=== PATIENT | female | born 1945 | race Caucasian/White ===

== ENCOUNTER → 2016-06-29 | Outpatient (CLI) | payer MEDICARE, BC ==
[2015-10-16 06:30] VITALS: BP 152/100
[~2016-06-29] MED LIST: ACET-704 PO; CALC-98 PO; CELE200C PO; CHOL400T2 PO; ESCI20TA10 PO; FESO8TAB PO; FLUT16SP NS; HYDR-2762 PO; LANS30CA PO; LETR2.5T18 PO; MULT1TAB52 PO; OMEG500C3 PO; RANI150T2 PO; RANI150T6 PO; WARF2TAB7 PO
--- NOTE | 2016-06-29 15:41 | KCIC ---
PROCEDURE CT chest without contrast dated 06/29/2016. HISTORY Follow lung nodule. History of breast cancer. TECHNIQUE Contiguous axial imaging of the chest performed without the administration of intravenous contrast.Exposure: One or more of the following individualized dose reduction techniques were utilized for this exam: 1. Automated exposure control. 2. Adjustment of the mA and/or kV according to patient size. 3. Use of iterative reconstruction technique. COMPARISON 09/09/2015. FINDINGS Heart size within normal limits. No pericardial effusion. Mild ectasia of the ascending thoracic aorta measuring 3.8 centimeters transverse diameter, unchanged. No mediastinal, hilar or axillary lymphadenopathy. Breast implants are stable. Central airways are patent. Enlarging mass lesion of the medial left lower lobe measures up to 3.2 centimeter maximum dimension versus 2.2 centimeter previously. The lesion results in some narrowing of the basilar segmental airways. There is a new ground-glass nodular density in the left lower lobe posterior to the main lesion that measures 6 millimeters in size (image 45). There is also a ground-glass nodule at the posterior aspect of the left upper lobe on image 40 by measures 3 millimeters in size, unchanged. Ground-glass nodule in the posterior aspect of the lingula on image 55 measures bb 8 millimeters, unchanged. Multiple additional vague nodular densities throughout both lungs are unchanged. No pleural effusion or pneumothorax. Limited images of the upper abdomen are unremarkable. Gallbladder surgically absent. Bone windows show no acute findings. Multilevel spondylosis. IMPRESSION - Enlarging mass at the medial aspect of the left lower lobe, primary bronchogenic malignancy versus metastatic disease. If indicated, PET-CT could better evaluate. - Multiple additional noncalcified nodular densities throughout both lungs, overall not significantly changed. There is a new small noncalcified nodule in the left lower lobe just posterior to the main mass. Electronically signed by: Camacho Roe (Jun 29, 2016 15:40:38)
--- NOTE | 2016-06-30 10:04 | KCIC ---
PROCEDURE Bone mineral density scan dated 06/29/2016. HISTORY Postmenopausal screening. COMPARISON 02/05/2009. FINDINGS Bone Density: -BMD: (g/cm2) - AP Spine Total (L1-L4)..........1.225 - Total left Hip.................0.628 T-Score: - AP Spine Total (L1-L4).........1.6 - Total left Hip.................-2.6 Z-Score: - AP Spine Total (L1-L4)..........3.9 - Total left Hip.................-0.9 As compared to the prior exam, density values of the left hip have diminished by 26 percent. Density values of the lumbar spine have diminished by 12 percent. World Health Organization criteria for BMD interpretation classify patients as Normal (T-score at or above -1.0), Osteopenic (T-score between -1.0 and -2.5), or Osteoporotic (T-score at or below -2.5). IMPRESSION 1. Bone rule density values of the left hip are within the range of osteoporosis and have diminished by 26 percent compared to the prior exam. 2. Density values of the lumbar spine remain within the range of normal, however there is been 12 percent decrease compared to the prior exam. Electronically signed by: Camacho Roe (Jun 30, 2016 10:03:42)
== END | disposition home or self-care (01) ==
LOC: KCIC CT 14:50
PROVIDERS: ATTEND Internal Medicine Hematology & Oncology
DX: Z79.811 Long term (current) use of aromatase inhibitors (principal); Z78.0 Asymptomatic menopausal state; C50.919 Malignant neoplasm of unspecified site of unspecified female breast; R91.1 Solitary pulmonary nodule; M85.88 Other specified disorders of bone density and structure, other site
CPT/HCPCS: 71250; 77080

== ENCOUNTER 2016-07-06 07:04 | Outpatient (CLI) | payer MEDICARE, BC ==
[2016-07-06] VITALS (12 sets, daily range): BP systolic 160–189; BP diastolic 88–108
[~2016-07-06] VITALS: Ht 160 cm; Wt 90.7 kg
[2016-07-06] MEDS ORDERED: OMEP20TA PO (07:32)
[2016-07-06] MEDS ORDERED: LOSA25TA4 PO (07:32)
[2016-07-06] MEDS ORDERED: CELE200C PO (07:32)
[2016-07-06] MEDS ORDERED: ESCI20TA10 PO (07:32)
[2016-07-06 07:51] LABS: BASO # 0.1 x10^3/uL (0.0-0.2); BASO % 1 % (0-3); EOS % 5 % (0-3); HEMATOCRIT 41.1 % (36.0-47.0); HEMOGLOBIN 13.3 g/dL (12.0-15.5); LYMPH # 1.9 x10^3/uL (1.0-4.8); LYMPH % 33 % (24-48); MEAN CORPUSCULAR HEMOGLOBIN 27 pg (25-35); MEAN CORPUSCULAR HGB CONC 32 g/dL (31-37); MEAN CORPUSCULAR VOLUME 85 fL (79-100); MONO % 13 % (0-9); NEUT % 48 % (31-73); PLATELET COUNT 234 x10^3/uL (140-400); RED BLOOD COUNT 4.87 x10^6/uL (3.50-5.40); RED CELL DISTRIBUTION WIDTH 15.4 % (11.5-14.5); WHITE BLOOD COUNT 5.7 x10^3/uL (4.0-11.0)
[2016-07-06 08:01] LABS: PROTHROMBIN TIME PATIENT 12.2 SEC (11.7-14.0)
[2016-07-06] MEDS ORDERED: LIDOCAINE 1% / SOD BICARB 8.4% 20 ML VIAL. IJ ONE ×2 (08:22→09:15)
[2016-07-06] MEDS ORDERED: MIDAZOLAM HCL/PF 2 MG/2 ML VIAL. ONE (08:43)
[2016-07-06] MEDS ORDERED: FENTANYL PF 100 MCG/2 ML VIAL. ONE (08:43)
[2016-07-06] MEDS ORDERED: MIDAZOLAM HCL/PF 2 MG/2 ML VIAL. IV ONE (09:15)
[2016-07-06] MEDS ORDERED: FENTANYL PF 100 MCG/2 ML VIAL. IV ONE (09:15)
--- NOTE | 2016-07-06 09:18 | PDOC ---
MODERATE SEDATION ASSESSMENT RISKS/ALTERNATIVES Risks/Alternatives Risks and alternatives of this type of sedation and procedure discussed with: RISK/ALTERNATIVES: Patient H & P ON CHART H & P H & P on chart and reviewed for co-morbid conditions and appropriate labs. H&P ON CHART: Yes STATUS PREG STATUS ASSESSED: N/A MEDS/ALLERGIES REVIEWED Meds/Allergies Reviewed Medications and Allergies including time and route of recently administered narcotics and sedatives. MEDS/ALLERGIES REVIEWED: Yes ASA RATING ASA RATING: II AIRWAY ASSESSMENT Airway Assessment Airway patency, oral function limitations, presence of caps, crowns, dentures, partials, and ability to extend neck assessed. AIRWAY ASSESSMENT: Yes MALLAMPATI SCORE MALLAMPATI SCORE: II PRE-SEDATION ASSESSMENT PRE-SEDATION ASSESSMENT: Yes BIENVENIDO CRISOSTOMO MD Jul 06, 2016 09:18
--- NOTE | 2016-07-06 09:20 | PDOC1 ---
History and Physical Date of Procedure Date of Admission 07/06/[address] guided left lung bx Indication Indication 70 YO female with infrahilar left lung mass----? bronchogenic carcinoma---? met breast cancer Past Medical History Past Medical History See Nursing Pre procedure PMH---includes breast cancer in 2012. Past Surgical History Past Surgical History See Nursing Pre procedure PSH Current Medications Current Medications Current Medications Lidocaine/Sodium Bicarbonate (Buffered Lidocaine 1%) 20 ml STK-MED ONCE IJ ; Start 07/06/16 at 08:22; Stop 07/06/16 at 08:23; Status DC Fentanyl Citrate (Fentanyl 2ml Vial) 100 mcg STK-MED ONCE .ROUTE ; Start at 08:43; Stop 07/06/16 at 08:44; Status DC Midazolam HCl (Versed) 2 mg STK-MED ONCE .ROUTE ; Start 07/06/16 at 08:43; Stop 07/06/16 at 08:44; Status DC Lidocaine/Sodium Bicarbonate (Buffered Lidocaine 1%) 10 ml 1X ONCE IJ Last administered on 07/06/16 09:11; Start 07/06/16 at 09:15; Stop 07/06/16 at 09:16 ; Status DC Midazolam HCl (Versed) 1.5 mg 1X ONCE IV Last administered on 07/06/16 09:11 ; Start 07/06/16 at 09:15; Stop 07/06/16 at 09:16; Status DC Fentanyl Citrate (Fentanyl 2ml Vial) 75 mcg 1X ONCE IV Last administered on 09:12; Start 07/06/16 at 09:15; Stop 07/06/16 at 09:16; Status DC Active Scripts Active Reported Losartan Potassium 25 Mg Tablet 25 Mg PO DAILY Omeprazole 20 Mg Tablet.dr 20 Mg PO DAILY Lexapro (Escitalopram Oxalate) 20 Mg Tablet 20 Mg PO BID Celebrex (Celecoxib) 200 Mg Capsule 200 Mg PO BID 30 Days Multivitamins (Multivitamin) 1 Each Tablet 1 Each PO DAILY Vitamin D3 (Cholecalciferol (Vitamin D3)) 400 Unit Tablet 800 Unit PO DAILY Lansoprazole 30 Mg Capsule.dr 30 Mg PO DAILY Calcium + Vitamin D Tablet (Calcium Carbonate/Vitamin D3) 1 Each Tablet 1 Each PO PRN BID PRN Femara (Letrozole) 2.5 Mg Tablet 2.5 Mg PO DAILY Toviaz (Fesoterodine Fumarate) 8 Mg Tab.er.24h 8 Mg PO DAILY Allergies Allergies: Coded Allergies: No Known Allergies (Verified Allergy, Unknown, 10/14/15) Physical Exam Vital Signs Vital Signs Date Time Temp Pulse Resp B/P Pulse Ox O2 Delivery O2 Flow Rate FiO2 07/06/16 09:12 67 14 95 Nasal Cannula 2.0 07/06/16 08:06 189/96 07/06/16 07:43 98.5 98.5 Lungs: Clear to auscultation Heart: Regular rate Psych/Mental Status: Mental status NL Diagnostic Data/Imaging Images PMC CT chest from 06/29/16 personally reviewed Assessment Assessment 3 cm left infrahilar lung mass---bronchogenic carcinoma vs met breast cancer Problems: Plan Plan CT guided bx infrahilar left lung mass BIENVENIDO CRISOSTOMO MD Jul 06, 2016 09:20
--- NOTE | 2016-07-06 09:27 | PDOC ---
Exam Help Desk Team Leader Help Desk Team Leader Laurent Pre-Procedure Diagnosis Pre-Procedure Diagnosis Enlarging 3 cm left infrahilar lung mass----bronchogenic carcinoma vs met breast cancer Post-Procedure Diagnosis Post-Procedure Diagnosis Same Procedure Performed Procedure Performed CT guided infrahilar left lung mass Type of Anesthesia Type of Anesthesia Local + Mod sedation Estimated Blood Loss EBL: Trace Specimens Specimans 3 18G core bx to path in formalin Condition of Patient Condition of Patient Stable. Minimal immediate post bx hydro-ptx. Disposition Disposition From IR/CT to CVOBS. Insp/exp CXR 1 hr post bx. May discharge home post recovery, if no ptx or other problems. F/u with Dr Pastor. Full report to follow. BIENVENIDO CRISOSTOMO MD Jul 06, 2016 09:27
--- NOTE | 2016-07-06 10:27 | RAD ---
Indication post biopsy. Note is made of the biopsy procedure performed approximately 90 minutes earlier. Inspiratory and expiratory views were obtained. No complication is seen associated with the biopsy. Specifically no pneumothorax is seen. IMPRESSION: No evidence of pneumothorax post left lung biopsy
--- NOTE | 2016-07-07 08:09 | RAD ---
CT-guided left lung biopsy Indication: 70-year-old female with an enlarging, 3 cm infrahilar left lung mass. New proximal attending carcinoma versus metastatic breast cancer. Image guided biopsy has been requested by oncology. Anesthesia: 22 minutes moderate sedation was provided utilizing a total of 1.5 mg Versed and 75 mcg fentanyl, IV. The patient was appropriately monitored by a qualified independent observer throughout the time of moderate sedation. Consent: The procedure was explained in its entirety to the patient and/or the patient's designated contracts representative by a member of the treatment team. This included a discussion of risks and benefits and acceptable alternatives to the procedure, as well as expected consequences of no treatment at all. Discussion of risks included, but was not limited to, those that are most frequent and those that are rare, but possibly severe or life-threatening, as well as the possibility of unforeseen complications. Procedure: Informed consent was obtained from the patient. She was placed prone on the CT scanner. Preliminary noncontrast CT images through chest confirmed the previously described infrahilar left lung mass. A left posterior skin site suitable for CT-guided biopsy was selected and marked. That area was prepped and draped in the usual sterile fashion. Moderate sedation was provided with IV Versed and fentanyl. Using aseptic technique, local anesthesia, and CT guidance, a 17-gauge biopsy guide needle was successfully introduced into posterior aspect of the infrahilar mass. Three 18-gauge core biopsy samples were then obtained, and were submitted in formalin to pathology. The guide needle was removed and a sterile dressing was applied. Patient tolerated the procedure well without apparent complication. Completion CT images revealed a very minimal left hydropneumothorax, of unlikely clinical significance. A follow-up inspiration/expiration chest x-ray will be obtained in observation prior to patient discharge. Impression: Successful CT-guided biopsy of left infrahilar lung mass, as described. PQRS Compliance Statement: One or more of the following individualized dose reduction techniques was utilized for this procedure: 1. Automated exposure control. 2. Adjustment of MA and/or KV according to patient size. 3. Iterative reconstruction technique.
--- NOTE | 2016-07-08 11:05 | PATHOLOGY ---
PATHOLOGY REPORT * * * * * * * * FINAL DIAGNOSIS: Lung tissue, left lung mass CT-guided biopsy: - ADENOCARCINOMA, MODERATELY-WELL DIFFERENTIATED. SEE COMMENT COMMENT: Sections of the left lung mass CT-guided biopsy show extensive replacement of lung parenchyma by a malignant epithelial neoplasm. The neoplasm is composed of crowded, irregular glands which infiltrate a fibroelastotic and focally inflamed stroma. The malignant glands are lined by columnar and cuboidal shaped cells which have eosinophilic cytoplasm and possess enlarged, rounded to ovoid, mild to moderately pleomorphic hyperchromatic nuclei containing prominent nucleoli. 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 The case is also examined by Dr. Soto, who concurs with the diagnosis. (JPM::trish; d/t: 07/07/16) Special Stains Performed: Immunoperoxidase stains for CK7, CK20, TTF-1, Napsin, GCDFP-15, BCA-225 REPORT ELECTRONICALLY SIGNED BY: Esequiel García M.D. DATE/TIME: 07/08/2016 11:04 * * * * * * * * GROSS PATHOLOGY: Received in formalin labeled "Chelsy Gilbert, left lung biopsy," are three distinct needle cores of lin soft tissue ranging from 1.1 to 1.5 cm in length, which are submitted entirely in cassette A1. (CAA; 07/06/2016) INITIAL CPT CODE(S): A; 73828, 97667, 10173, 62714, 19785, 68028, 46819 Professional services performed by [facility] at [address] [address] Technical services performed by [facility] at [address] [place] [address], [address], [place] [address]. SPECIMEN(S) RECEIVED: A.Left lung mass CLINICAL HISTORY: Infrahilar left lung mass, bronch ca?, breast cancer 2012 PATIENT: CHELSY GILBERT /AGE: 9 1945 (Age: 70) PATIENT #: [id number] ALT CASE #: SPECIMEN COLLECTION DATE: 07/06/2016 SPECIMEN RECEIVED DATE: 07/06/2016 [facility] - [id number] [address] - PHONE: [phone] * * * END OF REPORT * * *
== END 2016-07-06 11:00 | disposition home or self-care (01) ==
LOC: INTRAD 07:04
PROVIDERS: ATTEND Internal Medicine Hematology & Oncology
DX: R91.8 Other nonspecific abnormal finding of lung field (principal); E66.9 Obesity, unspecified; K21.9 Gastro-esophageal reflux disease without esophagitis; M19.90 Unspecified osteoarthritis, unspecified site; F32.9 Major depressive disorder, single episode, unspecified; Z72.89 Other problems related to lifestyle; Z96.651 Presence of right artificial knee joint; Z87.442 Personal history of urinary calculi; Z90.710 Acquired absence of both cervix and uterus; Z90.49 Acquired absence of other specified parts of digestive tract; Z98.41 Cataract extraction status, right eye; Z98.42 Cataract extraction status, left eye; Z79.01 Long term (current) use of anticoagulants
CPT/HCPCS: 32405; 36415; 71035; 77012; 85027; 85610; J2250; J3010

== ENCOUNTER → 2016-07-09 | Outpatient (CLI) | payer MEDICARE, BC ==
[2016-07-06 10:35] VITALS: BP 161/88
[~2016-07-09] MED LIST changes: +LOSA25TA4 PO; +OMEP20TA PO
--- NOTE | 2016-07-09 13:08 | RAD ---
Indication lung mass. PET/CT was performed from the skull through the proximal thigh. CT was performed primarily for localization and attenuation purposes as opposed to primary diagnostic purposes. No prior PET/CT imaging is available. Note is made of a CT examination of the chest 06/29/2016 demonstrating a parenchymal mass in the left lower lobe. Note is made that this mass was biopsied 07/06/2016. History of breast malignancy is also noted. 13.3 mCi of FDG was administered. The blood sugar during the examination was 12. On CT no significant finding is seen in the head or neck. Known pathology in the left lower lobe is reproduced. No significant finding is seen in the abdomen or pelvis. There is a 5.3 cm low-density mass associated with the right kidney most compatible with a cyst. There are degenerative changes in the lumbar spine. On PET the FDG is physiologically distributed in the visualized brain. No abnormal activity is seen in the neck. The parenchymal mass in the left lower lobe is FDG avid with maximum SUVs of approximately 7.6. It is most compatible with a primary neoplasm. The mass abuts the descending thoracic aorta. There is no evidence of extension into the left hilum or mediastinum. The FDG is physiologically distributed in the abdomen and pelvis. IMPRESSION: Known parenchymal mass in the left lower lobe, abutting the descending thoracic aorta, is FDG avid (maximum SUV 7.6). It is most compatible with a primary neoplasm. There is no evidence of distant metastatic disease or metastasis to the left hilum or mediastinum.
== END | disposition home or self-care (01) ==
LOC: PETSC 13:29
PROVIDERS: ATTEND Internal Medicine Hematology & Oncology
DX: C50.411 Malignant neoplasm of upper-outer quadrant of right female breast (principal); R91.8 Other nonspecific abnormal finding of lung field
CPT/HCPCS: 78815; A9552

== ENCOUNTER → 2016-07-16 | Outpatient (CLI) | payer MEDICARE, BC ==
[2016-07-06 10:35] VITALS: BP 161/88
[~2016-07-16] MED LIST changes: +IOHEXOL 350 MG/ML 100 ML VIAL. IV ONE
[2016-07-16 10:56] LABS: CREATININE 0.9 mg/dL (0.6-1.0); GFR 61.5
--- NOTE | 2016-07-16 12:05 | RAD ---
CT chest angiogram with contrast History: Preoperative evaluation, evaluate if mass invades aorta. Comparison: CT chest 06/29/2016 Technique: Helical CT angiogram of the chest with attention to the aorta was performed after the administration of intravenous contrast, 75 mL Omnipaque 300. Axial 2-D reconstructions were obtained. Coronal and sagittal 3-D MIPS were also obtained. Rotating 3-D volume rendered reconstructions of the aorta were also obtained. One or more of the following individualized dose reduction techniques were utilized for the study: Automated exposure control Adjustment of mA and/or kV according to patient's size Use of iterative reconstruction technique. Findings: Thoracic aorta demonstrates variant anatomy with the left vertebral artery arising directly from the aortic arch. No aortic dissection is seen. Mid ascending thoracic aorta has diameter of 3.8 cm. Descending thoracic aorta has diameter of 2.3 cm. Irregular left lower lobe lobe pulmonary mass is again seen. On the current examination, maximum axial dimension is 3.7 x 2.3 cm. The mass is adjacent and appears to contact one third of the circumference of the descending thoracic aorta. There is no definitive evidence of invasion into the aortic lumen. No mediastinal lymphadenopathy is seen. Heart and pericardium unremarkable. No pneumothorax or pleural effusion is appreciated. Bilateral breast implants are seen. Several small scattered soft tissue nodules are again seen in both lungs. Impression: 1. Left lower lobe irregular mass is again seen adjacent to the descending thoracic aorta. The mass appears to contact one third of the circumference of the descending thoracic aorta, but there is no definitive evidence of invasion into the aortic lumen. 2. No evidence of aortic dissection or aneurysm. 3. Again seen are multiple scattered pulmonary nodules.
== END | disposition home or self-care (01) ==
LOC: CT 10:22
PROVIDERS: ATTEND Internal Medicine Hematology & Oncology
DX: C34.92 Malignant neoplasm of unspecified part of left bronchus or lung (principal)
CPT/HCPCS: 36415; 71275; 82565; 84520; Q9967

== ENCOUNTER → 2016-07-21 | Outpatient (CLI) | payer MEDICARE, BC ==
[~2016-07-21] MED LIST changes: -ESCI20TA10 PO; +HYDR-2758 PO; -IOHEXOL 350 MG/ML 100 ML VIAL. IV ONE; +LEXAPRO20 MG PO; -OMEP20TA PO; +OMEP20TA8 PO
[2016-07-21 14:23] LABS: BASO # 0.1 x10^3/uL (0.0-0.2); BASO % 1 % (0-3); EOS % 4 % (0-3); HEMATOCRIT 40.8 % (36.0-47.0); HEMOGLOBIN 13.9 g/dL (12.0-15.5); LYMPH # 2.3 x10^3/uL (1.0-4.8); LYMPH % 30 % (24-48); MEAN CORPUSCULAR HEMOGLOBIN 28 pg (25-35); MEAN CORPUSCULAR HGB CONC 34 g/dL (31-37); MEAN CORPUSCULAR VOLUME 83 fL (79-100); MONO % 9 % (0-9); NEUT % 57 % (31-73); PLATELET COUNT 278 x10^3/uL (140-400); RED BLOOD COUNT 4.94 x10^6/uL (3.50-5.40); RED CELL DISTRIBUTION WIDTH 15.4 % (11.5-14.5); WHITE BLOOD COUNT 7.9 x10^3/uL (4.0-11.0)
[2016-07-21 14:31] LABS: INR 1.1 (0.8-1.1); PROTHROMBIN TIME PATIENT 13.1 SEC (11.7-14.0)
[2016-07-21 14:53] LABS: ALBUMIN 3.5 g/dL (3.4-5.0); CALCIUM 9.1 mg/dL (8.5-10.1); CREATININE 0.9 mg/dL (0.6-1.0); GFR 61.5; POTASSIUM 4.4 mmol/L (3.5-5.1); TOTAL BILIRUBIN 0.4 mg/dL (0.2-1.0)
--- NOTE | 2016-07-21 21:37 | RESP ---
DATE OF SERVICE: 07/21/2016 The patient's FVC was 2.68, which is 96% predicted; FEV1 2.19, which is 104% predicted. FEV1/FVC ratio was normal. No bronchodilators were given. Total lung capacity was 151% predicted and residual volume was 235% predicted. Diffusion capacity 110% predicted. IMPRESSION: 1. No significant obstructive airway disease. 2. No bronchodilators were given. 3. Lung volumes consistent with hyperinflation. 4. Normal diffusion capacity. SWETA LENTZ MD DR: ANDRE/aishwarya JOB#: [id number] / [id number] GUILLERMINA Booker MD MTDD
== END | disposition home or self-care (01) ==
LOC: SURGPAT 08:00
PROVIDERS: ATTEND Thoracic Surgery (Cardiothoracic Vascular Surgery)
DX: Z01.818 Encounter for other preprocedural examination (principal); C34.90 Malignant neoplasm of unspecified part of unspecified bronchus or lung
CPT/HCPCS: 36415; 80053; 83036; 85027; 85610; 85730; 87641; 94010; 94729; G0238

== ENCOUNTER → 2016-07-22 | Outpatient (CLI) | payer MEDICARE, BC ==
[2016-07-06 10:35] VITALS: BP 161/88
[~2016-07-22] MED LIST changes: +ESCI20TA10 PO; -HYDR-2758 PO; -LEXAPRO20 MG PO; +OMEP20TA PO; -OMEP20TA8 PO
--- NOTE | 2016-07-22 10:10 | CARD ---
APPROVED REPORT EXAM: Two-dimensional and M-mode echocardiogram with Doppler and color Doppler. Other Information Quality : Technically Limited Rhythm : NSR INDICATION Hypertension/HCVD 2D DIMENSIONS RVDd2.6 (2.9-3.5cm)Left Atrium(2D)3.3 (1.6-4.0cm) IVSd1.7 (0.7-1.1cm)Aortic Root(2D)2.8 (2.0-3.7cm) LVDd3.4 (3.9-5.9cm)LVOT Diameter2.2 (1.8-2.4cm) PWd1.7 (0.7-1.1cm)LVDs2.5 (2.5-4.0cm) FS (%) 26.6 %SV26.0 ml LVEF(%)53.0 (>50%) Aortic Valve AoV Peak Jose Antonio.127.7cm/sAoV VTI31.4cm AO Peak GR.6.5mmHgLVOT Peak Jose Antonio.119.5cm/s AO Mean GR.4mmHgAVA (VMAX)3.64cm2 Mitral Valve MV E Hhkfngtz98.5cm/sMV E Peak Gr.4mmHg MV DECEL [id number] A Zcjvilwf244.3cm/s MV E Mean Gr.1mmHgMV QAB11aq E/A Ratio0.5MV A Acllymnv363in MVA (PHT)2.25cm2 Tricuspid Valve TR P. [id number]/sTR Peak Gr.11mmHg LEFT VENTRICLE The left ventricle is normal size. There is moderate concentric left ventricular hypertrophy. Left ve ntricle systolic function is normal. The Ejection Fraction is 50-55%. There is normal LV segmental wa ll motion. Tissue Doppler imaging reveals mild left ventricular diastolic dysfunction. There is no ve ntricular septal defect visualized. RIGHT VENTRICLE The right ventricle is normal size. The right ventricular systolic function is normal. ATRIA The left atrium size is normal. The right atrium size is normal. The interatrial septum is intact wit h no evidence for an atrial septal defect or patent foramen ovale as noted on 2-D or Doppler imaging. AORTIC VALVE The aortic valve is normal in structure and function. The aortic valve is trileaflet. Doppler and Col or Flow revealed no significant aortic regurgitation. There is no significant aortic valvular stenosi s. MITRAL VALVE The mitral valve is normal in structure and function. There is no mitral valve stenosis. Doppler and Color Flow revealed no mitral valve regurgitation noted. TRICUSPID VALVE The tricuspid valve is normal in structure and function. Doppler and Color Flow revealed no tricuspid valve regurgitation noted. Unable to estimate PA pressure. There is no tricuspid valve stenosis. PULMONIC VALVE The pulmonic valve is not well visualized. Doppler and Color Flow revealed no pulmonic valvular regur gitation. There is no pulmonic valvular stenosis. GREAT VESSELS The aortic root is normal in size. Pulmonary veins not recorded. The IVC was not visualized. PERICARDIAL EFFUSION There is no evidence of significant pericardial effusion. Critical Notification Critical Value: No <Conclusion> Left ventricle systolic function is normal. The Ejection Fraction is 50-55%. There is normal LV segmental wall motion.
== END | disposition home or self-care (01) ==
LOC: ECHO 08:57
PROVIDERS: ATTEND Internal Medicine Cardiovascular Disease
DX: I10 Essential (primary) hypertension (principal)
CPT/HCPCS: 93306

== ENCOUNTER 2016-07-24 06:17 | Inpatient (IN) | payer MEDICARE, BC ==
[2016-07-24] VITALS (13 sets, daily range): BP systolic 138–187; BP diastolic 67–85
[~2016-07-24] VITALS: Ht 160 cm; Wt 97.5 kg
[2016-07-24] MEDS ORDERED: fentaNYL PF VIAL 250 MCG/5 ML VIAL ONE (06:43)
[2016-07-24] MEDS ORDERED: GLYCOPYRROLATE 1 MG/5 ML VIAL. ONE (06:43)
[2016-07-24] MEDS ORDERED: MIDAZOLAM HCL/PF 2 MG/2 ML VIAL. ONE (06:43)
[2016-07-24] MEDS ORDERED: NEOSTIGMINE METHYLSULFATE 5 MG/5 ML SYRINGE. ONE (06:44)
[2016-07-24] MEDS ORDERED: ROCURONIUM 50 MG/5 ML VIAL. ONE ×2 (06:44→08:42)
[2016-07-24] MEDS ORDERED: PROPOFOL 20 ML IV ONE (06:44)
[2016-07-24] MEDS ORDERED: SEVOFLURANE 61 TO 120 MINUTES. IH ONE (06:44)
[2016-07-24] MEDS ORDERED: ONDANSETRON PF 4 MG/2 ML VIAL. ONE (06:45)
[2016-07-24] MEDS ORDERED: DEXAMETHASONE SOD PHOS 20 MG/5 ML VIAL. ONE (06:45)
[2016-07-24] MEDS ORDERED: LIDOCAINE 2% 100 MG/5 ML SYRINGE. ONE (06:45)
[2016-07-24] MEDS ORDERED: ceFAZolin 2GM PREMIX 2 GM/50 ML BAG IV ONE (07:00)
[2016-07-24] MEDS ORDERED: IV RINGERS,LACTATED 1000ML 1,000 ML IV SCH (07:00)
[2016-07-24] MEDS ORDERED: HYDROmorphone 2 MG/ML VIAL IV PRN (07:00)
[2016-07-24] MEDS ORDERED: PROCHLORPERAZINE 10 MG/2 ML VIAL. IV PRN (07:00)
[2016-07-24] MEDS ORDERED: MORPHINE SULFATE 2 MG/ML DISP.SYRIN. IV PRN ×2 (07:00→11:00)
[2016-07-24] MEDS ORDERED: fentaNYL PF VIAL 100 MCG/2 ML VIAL IV PRN (07:00)
[2016-07-24] MEDS ORDERED: LIDOCAINE 1% 1 ML SYRINGE. ID PRN (07:00)
[2016-07-24] MEDS ORDERED: SURGICEL HEMOSTAT 4X8 EACH. ONE (07:26)
[2016-07-24] MEDS ORDERED: SURGICEL HEMOSTAT 2X3 EACH. ONE (07:26)
--- NOTE | 2016-07-24 08:36 | PDOC1 ---
History and Physical Date of Admission Date of Admission DATE: 07/24/16 TIME: 08:28 Identification/Chief Complaint Chief Complaint Lung Ca Problems: Source Source: Chart review, Patient History of Present Illness History of Present Illness Patient is a 70 year old female, who has life long hx of smoking, who on routine f/u for her breast Ca, was found ta hvae a LLL nodule. This increased on subsequent CT. A biopsy demonstrated adenoCa. PET CT was negative for mediastinal involvement or distal disease. PFTs were good. She presents today for a left lower lobectomy. Past Medical History Cardiovascular: No pertinent hx Pulmonary: No pertinent hx GI: No pertinent hx Heme/Onc: No pertinent hx Hepatobiliary: No pertinent hx Psych: No pertinent hx Rheumatologic: No pertinent hx Infectious disease: No pertinent hx ENT: No pertinent hx Renal/: No pertinent hx Endocrine: No pertinent hx Dermatology: No pertinent hx Past Surgical History Past Surgical History: Appendectomy, Breast Biopsy, Mastectomy Social History Smoke: 1 pack per day ALCOHOL: rare Drugs: None Current Medications Current Medications Current Medications Cefazolin Sodium 1 gm/Sodium Chloride 500 ml @ 500 mls/hr 1X PERIOP ONCE IRR ; Start 07/24/16 at 08:00; Stop 07/24/16 at 08:59 Fentanyl Citrate (Fentanyl 2ml Vial) 25 mcg PRN Q5MIN PRN IV MILD PAIN; Start 07/24/16 at 07:00; Stop 07/24/16 at 18:00 Fentanyl Citrate (Fentanyl 2ml Vial) 50 mcg PRN Q5MIN PRN IV MODERATE PAIN; Start 07/24/16 at 07:00; Stop 07/24/16 at 18:00 Morphine Sulfate 1 mg PRN Q10MIN PRN IV SEVERE PAIN; Start 07/24/16 at 07:00; Stop 07/24/16 at 18:00 Lidocaine HCl 2 ml PRN 1X PRN ID PRIOR TO IV START; Start 07/24/16 at 07:00; Stop 07/24/16 at 18:00 Hydromorphone HCl (Dilaudid) 0.5 mg PRN Q10MIN PRN IV SEV PAIN, Second choice; Start 07/24/16 at 07:00; Stop 07/24/16 at 18:00 Prochlorperazine Edisylate (Compazine) 5 mg PACU PRN PRN IV NAUSEA, MRX1; Start 07/24/16 at 07:00; Stop 07/24/16 at 18:00 Cefazolin Sodium/ Dextrose 50 ml @ 100 mls/hr 1X PREOP PRN IV PRIOR TO PROCEDURE; Start 07/24/16 at 06:00; Stop 07/24/16 at 18:00 Midazolam HCl (Versed) 2 mg STK-MED ONCE .ROUTE ; Start 07/24/16 at 06:43; Stop 07/24/16 at 06:44; Status DC Fentanyl Citrate (Fentanyl 5ml Vial) 250 mcg STK-MED ONCE .ROUTE ; Start at 06:43; Stop 07/24/16 at 06:44; Status DC Glycopyrrolate (Robinul) 1 mg STK-MED ONCE .ROUTE ; Start 07/24/16 at 06:43; Stop 07/24/16 at 06:44; Status DC Neostigmine Methylsulfate 5 mg STK-MED ONCE .ROUTE ; Start 07/24/16 at 06:44; Stop 07/24/16 at 06:45; Status DC Rocuronium Boykin (Zemuron) 50 mg STK-MED ONCE .ROUTE ; Start 07/24/16 at 06:44 ; Stop 07/24/16 at 06:45; Status DC Sevoflurane (Ultane) 60 ml STK-MED ONCE IH ; Start 07/24/16 at 06:44; Stop at 06:45; Status DC Propofol 20 ml @ As Directed STK-MED ONCE IV ; Start 07/24/16 at 06:44; Stop 07/24 at 06:45; Status DC Lidocaine HCl (Lidocaine HCl 2% Abboject) 100 mg STK-MED ONCE .ROUTE ; Start 07/24/16 at 06:45; Stop 07/24/16 at 06:46; Status DC Dexamethasone Sodium Phosphate (Decadron) 20 mg STK-MED ONCE .ROUTE ; Start 07/24 at 06:45; Stop 07/24/16 at 06:46; Status DC Ondansetron HCl (Zofran) 4 mg STK-MED ONCE .ROUTE ; Start 07/24/16 at 06:45; Stop 07/24/16 at 06:46; Status DC Cellulose 1 each STK-MED ONCE .ROUTE ; Start 07/24/16 at 07:26; Stop 07/24/16 at 07:27; Status DC Cellulose 1 each STK-MED ONCE .ROUTE ; Start 07/24/16 at 07:26; Stop 07/24/16 at 07:27; Status DC Active Scripts Active Reported Losartan Potassium 25 Mg Tablet 25 Mg PO DAILY Omeprazole 20 Mg Tablet.dr 20 Mg PO DAILY Lexapro (Escitalopram Oxalate) 20 Mg Tablet 20 Mg PO BID Celebrex (Celecoxib) 200 Mg Capsule 200 Mg PO BID 30 Days Multivitamins (Multivitamin) 1 Each Tablet 1 Each PO DAILY Vitamin D3 (Cholecalciferol (Vitamin D3)) 400 Unit Tablet 2,000 Unit PO DAILY Lansoprazole 30 Mg Capsule.dr 30 Mg PO DAILY Calcium + Vitamin D Tablet (Calcium Carbonate/Vitamin D3) 1 Each Tablet 1 Each PO PRN BID PRN Femara (Letrozole) 2.5 Mg Tablet 2.5 Mg PO DAILY Toviaz (Fesoterodine Fumarate) 8 Mg Tab.er.24h 8 Mg PO DAILY Allergies Allergies: Coded Allergies: No Known Allergies (Verified Allergy, Unknown, 07/24/16) ROS General: No: Chills, Night Sweats, Fatigue, Malaise, Appetite PSYCHOLOGICAL ROS: No: Anxiety, Behavioral Disorder, Concentration difficultie , Decreased libido, Depression, Disorientation, Hallucinations, Hostility, Irritablity, Memory difficulties, Mood Swings, Obsessive thoughts, Physical abuse, Sexual abuse, Sleep disturbances, Suicidal ideation Eyes: No Blurry vision, No Decreased vision, No Double vision, No Dry eyes, No Excessive tearing, No Eye Pain, No Itchy Eyes, No Loss of vision, No Photophobia , No Scotomata, No Uses contacts, No Uses glasses HEENT: No: Heacaches, Visual Changes, Hearing change, Nasal congestion, Nasal discharge, Oral lesions, Sinus pain, Sore Throat, Epistaxis, Sneezing, Snoring, Tinnitus, Vertigo, Vocal changes ALLERGY AND IMMUNOLOGY: No: Hives, Insect Bite Sensitivity, Itchy/Watery Eyes, Nasal Congestion, Post Nasal Drip, Seasonal Allergies Hematological and Lymphatic: No: Bleeding Problems, Blood Clots, Blood Transfusions, Brusing, Night Sweats, Pallor, Swollen Lymph Nodes ENDOCRINE: No: Breast Changes, Galactorrhea, Hair Pattern Changes, Hot Flashes , Malaise/lethargy, Mood Swings, Palpitations, Polydipsia/polyuria, Skin Changes , Temperature Intolerance, Unexpected Weight Changes Breast: No New/Changing Breast Lumps, No Nipple changes, No Nipple discharge Respiratory: No: Cough, Hemoptysis, Orthopnea, Pleuritic Pain, Shortness of breath, SOB with excertion, Sputum Changes, Stridor, Tachypnea, Wheezing Cardiovascular: No Chest Pain, No Palpitations, No Orthopnea, No Paroxysmal Noc. Dyspnea, No Edema, No Lt Headedness Gastrointestinal: No Nausea, No Vomiting, No Abdominal Pain, No Diarrhea, No Constipation, No Melena, No Hematochezia Genitourinary: No Dysuria, No Frequency, No Incontinence, No Hematuria, No Retention, No Discharge, No Urgency, No Pain, No Flank Pain Musculoskeletal: No Gait Disturbance, No Joint Pain, No Joint Stiffness, No Joint Swelling, No Muscle Pain, No Muscular Weakness, No Pain In:, No Swelling In: Neurological: No Behavorial Changes, No Bowel/Bladder ControlChng, No Confusion , No Dizziness, No Gait Disturbance, No Headaches, No Impaired Coord/balance, No Memory Loss, No Numbness/Tingling, No Seizures, No Speech Problems, No Tremors, No Visual Changes, No Weakness Skin: No Dry Skin, No Eczema, No Hair Changes, No Lumps, No Mole Changes, No Mottling, No Nail Changes, No Pruritus, No Rash, No Skin Lesion Changes, No Acne Physical Exam General: Alert, Oriented X3, No acute distress HEENT: Atraumatic, PERRLA, EOMI Lungs: Clear to auscultation Heart: S1S2, RRR, no gallops, no murmurs Breasts: Normal Abdomen: Soft, No tenderness Rectal Exam: not examined Extremities: No edema Skin: No significant lesion Neuro: Normal gait, Normal speech, Strength at 5/5 X4 ext, Normal tone, Sensation intact, Cranial nerves 3-12 NL Vitals Vitals Vital Signs Date Time Temp Pulse Resp B/P (MAP) Pulse Ox O2 Delivery O2 Flow Rate FiO2 07/24/16 07:08 Room Air 07/24/16 06:50 97.9 73 16 182/84 97 97.9 VTE Prophylaxis Ordered VTE Prophylaxis Devices: Yes VTE Pharmacological Prophylaxi: Yes Assessment/Plan Assessment/Plan 70 year old female, lifelong smoker, with a 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 PFTs are good. Proceed with bronchoscopy, left thoracotomy, lower lobectomy and mediastinal node dissection. GUILLERMINA AVILA MD July 24, 2016 08:36
[2016-07-24] MEDS ORDERED: LIDOCAINE 2% PF Vial for OR 5 ML VIAL. ONE (08:48)
[2016-07-24] MEDS ORDERED: ePHEDrine PF IN SALINE 50 MG/5 ML DISP.SYRIN IV ONE (08:59)
[2016-07-24] MEDS: IV NORMAL SALINE 1000ML BAG 1,000 ML IV SCH (10:52)
[2016-07-24] MEDS ORDERED: METOCLOPRAMIDE HCL 10 MG/2 ML VIAL. IV PRN (11:00)
[2016-07-24] MEDS ORDERED: HYDROcodone/APAP 5/325MG 1 TAB TABLET PO PRN (11:00)
[2016-07-24] MEDS ORDERED: NALOXONE 0.4 MG/ML VIAL. IV PRN ×2 (11:00)
[2016-07-24] MEDS ORDERED: ONDANSETRON PF 4 MG/2 ML VIAL. IV PRN (11:00)
[2016-07-24] MEDS ORDERED: 0.9 % SODIUM CHLORIDE 10 ML DISP.SYRIN. IV PRN (11:00)
[2016-07-24] MEDS ORDERED: MAGNESIUM HYDROXIDE 2,400 MG/30 ML ORAL.SUSP. PO PRN (11:00)
[2016-07-24] MEDS ORDERED: diphenhydrAMINE HCL 25 MG CAPSULE PO PRN (11:00)
--- NOTE | 2016-07-24 11:03 | PDOC ---
BRIEF OPERATIVE NOTE Date: July 24, 2016 Pre-Op Diagnosis Adenocarcinoma of the left lower lobe Post-Op Diagnosis Adenocarcinoma of the left lower lobe Procedure Performed Flexible bronchoscopy Thoracotomy, left lower lobectomy Mediastinal lymphadenectomy Surgeon Guillermina Avila MD Supervisor [employer] PALMER Lester Anesthesiologist Dr Yeh Anesthesia Type: General Blood Loss 50 mls Specimens Obtained Left lower lobe Levels 5, 6, 9,10 and 11 lymph nodes Findings Anthracotic mediastinal and hilar lymph nodes. 4 cm left lower lobe tumor with negative bronchial and vascular margins Normal bronchoscopy Complications None GUILLERMINA AVILA MD July 24, 2016 11:03
--- NOTE | 2016-07-24 11:04 | PDOC4 ---
Operative Note Operative Note Date July 24, 2016 Preoperative diagnosis Adenocarcinoma of the left lower lobe Postoperative diagnosis Adenocarcinoma of the left lower lobe Procedure Flexible bronchoscopy Thoracotomy, left lower lobectomy Mediastinal lymphadenectomy Surgeon Guillermina Avila MD R[employer] Lester Anesthesiologist Dr Yeh Anesthesia General Blood loss 50 mls Specimens Left lower lobe Levels 5, 6, 9,10 and 11 lymph nodes Findings Anthracotic mediastinal and hilar lymph nodes. 4 cm left lower lobe tumor with negative bronchial and vascular margins Normal left lower lobe and segmental bronchi on bronchoscopy Complications None Indication Ms Harkins is a 68-year-old female who has a history of breast cancer status post prophylactic bilateral mastectomy who was found to have a left lower lobe nodule just over a year ago on surveillance CT. On follow-up CT this nodule significantly increased in size and is now a 3.7 x 2.3 cm mass. This was biopsied percutaneously under CT guidance and confirmed a well-differentiated adenocarcinoma. PET scan showed that the tumor was FDG avid with a SUV of 7.6 and no evidence of mediastinal involvement or distal disease. A left lower lobectomy with mediastinal lymph node dissection was indicated. The risks, benefits and limitations of the procedure were explained to the patient who agreed to proceed. Informed consent was obtained. Operation The patient's ID was confirmed using 2 unique identifiers. The left chest was marked. The patient was then transferred to the operating room where an epidural catheter and appropriate monitoring lines were uneventfully placed. Anesthesia was induced by the anesthesiologist and initially a regular ET tube was placed. Through the ET tube I passed the flexible bronchoscope, which was advanced to the trachea down to the right and left mainstem bronchi. I inspected the left lower lobe bronchus and the segmental branches and no endobronchial tumor was identified. In addition, I inspected the left upper lobe , right upper, middle and lower lobe bronchi which were without any gross abnormalities. The bronchoscope was withdrawn and the ET tube was exchanged for a double lumen ET tube. The patient was then placed in the right lateral decubitus position with the left side up. The left chest was prepped and draped in the usual sterile surgical fashion. A standard left posterolateral thoracotomy was performed. Incision was deepened through the subcutaneous tissues, the latissimus dorsi muscle down to the chest wall. The serratus anterior was preserved. The ribs were then counted and the fifth intercostal space was entered. The chest cavity was then explored and there was no evidence of intrapleural spread. The tumor was large, approximately 4 cm and was limited only the lower lobe. The descending thoracic aorta was not involved , as this was a concern preoperatively. Initially I divided the inferior pulmonary ligament and clearly identified the inferior pulmonary vein. A level 9 lymph node was harvested from this area and sent to pathology. The inferior pulmonary vein was circumferentially dissected and isolated with a vessel loop. I then proceeded with the posterior mediastinal dissection. I opened the pleura overlying the posterior hilum thus exposing the left main bronchus. I identified several anthracotic level 10 lymph nodes in this area which were harvested and sent to pathology. I then opened the anterior mediastinal pleura and exposed the superior pulmonary vein and the main left pulmonary artery. Attention was then turned to the fissure. The fissure was complete. Interlobar pulmonary artery was identified and a thin layer of overlying pleura was carefully dissected anteriorly to posteriorly thus exposing the superior segment and basal PA branches. The superior segment branch was carefully dissected and divided with a vascular stapler. In a similar fashion the basal PA branche was dissected and divided with one vascular load stapler. The fissure posteriorly was completed with one green staple load. I then divided the inferior pulmonary vein again using a vascular stapler. Attention was then turned to the left main bronchus. A level 11 lymph node at the junction of the upper and lower lobe bronchus was harvested. The peribronchial tissues were carefully dissected in order to be included in the specimen. I then applied the stapler onto the lower lobe bronchus and asked anesthesia to inflate the lung, thus confirming aeration of the upper lobe. The lower lobe bronchus was divided. Anesthesia was again asked to inflate the lungs and the lower lobe bronchial stump was tested under water and there was no evidence of leak. I then proceeded with mediastinal lymph node dissection. I initially dissected out the subcarinal space but did not identify any level 7 nodes. I then opened the pleura between the main left PA and the aortic arch, carefully preserving the left recurrent laryngeal nerve. I identified and harvested level 5 and level 6 lymph nodes. Hemostasis was confirmed. A 28 straight chest tube was placed in the chest through a separate stab incision in the lower anterior lateral chest wall. This was secured with a #1 silk stitch. The left lung was then ventilated. The ribs were reapproximated using four #2 Vicryl sutures. The latissimus dorsi muscle was reapproximated with 2-0 Vicryl. Subcutaneous tissues were also reapproximated with a 2-0 Vicryl. The epidermis was closed with 4-0 Monocryl. Sterile dressings were applied. At the end of procedure the instrument, needle and sponge counts were correct. Anesthesia was reversed , the patient was extubated and transferred to the PACU in stable condition having tolerated the procedure well. The bronchial and vascular margins were negative on frozen section per pathology. GUILLERMINA AVILA MD July 24, 2016 11:04
--- NOTE | 2016-07-24 11:33 | RAD ---
Indication postop. Left lower lobe lobectomy. A single view of the chest was obtained and is compared to a preoperative examination 07/06/2016. Note is made of a PET scan 07/09/[address] examination of the chest 07/16/2016. The heart and pulmonary vessels are unremarkable. There is a left chest tube. The lung appears fully expanded. There are no significant areas of volume loss. There is no significant pleural fluid. Subcutaneous emphysema is noted. IMPRESSION: Postop chest. No unexpected finding seen
[2016-07-24] MEDS: fentaNYL PF VIAL 100 MCG/2 ML VIAL IV PRN ×2 (12:15→12:34)
[2016-07-24] MEDS ORDERED: KETOROLAC 15 MG/ML VIAL. IV ONE (13:00)
[2016-07-24] MEDS ORDERED: hydrALAZINE 20 MG/ML VIAL. IVP PRN (14:15)
[2016-07-24] MEDS ORDERED: LOSARTAN POTASSIUM 25 MG TABLET. PO ONE (16:30)
[2016-07-24] MEDS: KETOROLAC 15 MG/ML VIAL. IV PRN (19:39)
[2016-07-24] MEDS: ESCITALOPRAM 10 MG TABLET. PO SCH (21:13)
[2016-07-24] MEDS: SENNOSIDES/DOCUSATE 8.6/50MG TABLET. PO SCH (21:14)
[2016-07-24] MEDS: FAMOTIDINE 20 MG TABLET. PO SCH (21:14)
[2016-07-24] MEDS: HEPARIN PF for SUB-Q USE 5,000 UNIT/0.5 ML VIAL. SQ SCH (21:40)
[2016-07-25] VITALS (16 sets, daily range): BP systolic 115–175; BP diastolic 55–86
[2016-07-25] MEDS: ZOLPIDEM 5 MG TABLET. PO PRN ×2 (00:11→22:07)
[2016-07-25 05:51] LABS: HEMATOCRIT 37.7 % (36.0-47.0); HEMOGLOBIN 12.7 g/dL (12.0-15.5); RED BLOOD COUNT 4.43 x10^6/uL (3.50-5.40); RED CELL DISTRIBUTION WIDTH 15.9 % (11.5-14.5)
[2016-07-25 06:07] LABS: CALCIUM 8.4 mg/dL (8.5-10.1); CREATININE 0.7 mg/dL (0.6-1.0); GFR 82.3
[2016-07-25] MEDS: KETOROLAC 15 MG/ML VIAL. IV PRN (08:38)
[2016-07-25] MEDS: ESCITALOPRAM 10 MG TABLET. PO SCH ×2 (08:38→21:34)
[2016-07-25] MEDS: FAMOTIDINE 20 MG TABLET. PO SCH ×2 (08:38→21:35)
[2016-07-25] MEDS: SENNOSIDES/DOCUSATE 8.6/50MG TABLET. PO SCH ×2 (08:38→21:34)
[2016-07-25] MEDS: LOSARTAN POTASSIUM 25 MG TABLET. PO SCH (08:39)
[2016-07-25] MEDS: CELECOXIB 200 MG CAPSULE. PO SCH ×2 (08:39→21:35)
[2016-07-25] MEDS: HEPARIN PF for SUB-Q USE 5,000 UNIT/0.5 ML VIAL. SQ SCH ×2 (08:40→21:41)
[2016-07-25] MEDS: ELECTROLYTE (ICU) PROTOCOL. MC SCH (09:00)
--- NOTE | 2016-07-25 10:08 | RAD ---
Indication postop. Single view the chest was obtained and is compared to a study one day earlier. Left chest tube is noted. No pneumothorax is seen. There is some volume loss at the left lung base likely reflecting atelectasis. Small amount of subcutaneous emphysema along the left chest wall is noted. The right lung is clear. The heart and pulmonary vessels are normal. IMPRESSION: New volume loss at the left lung base likely reflects atelectasis in a postoperative chest
[2016-07-25] MEDS: IV NORMAL SALINE 1000ML BAG 1,000 ML IV SCH (10:30)
[2016-07-25] MEDS ORDERED: FESOTERODINE FUMARATE 8 MG PO SCH (21:30)
[2016-07-25] MEDS: OXYBUTYNIN CHLORIDE 5 MG TABLET PO SCH (22:07)
[2016-07-26 03:00] VITALS: BP 145/73
[2016-07-26 07:00] VITALS: BP 126/63
[2016-07-26] MEDS: ELECTROLYTE (ICU) PROTOCOL. MC SCH (09:00)
[2016-07-26] MEDS: ESCITALOPRAM 10 MG TABLET. PO SCH ×2 (09:15→20:07)
[2016-07-26] MEDS: OXYBUTYNIN CHLORIDE 5 MG TABLET PO SCH ×3 (09:17→20:08)
[2016-07-26] MEDS: SENNOSIDES/DOCUSATE 8.6/50MG TABLET. PO SCH ×2 (09:17→20:08)
[2016-07-26] MEDS: LOSARTAN POTASSIUM 25 MG TABLET. PO SCH (09:17)
[2016-07-26] MEDS: CELECOXIB 200 MG CAPSULE. PO SCH ×2 (09:17→20:08)
[2016-07-26] MEDS: HEPARIN PF for SUB-Q USE 5,000 UNIT/0.5 ML VIAL. SQ SCH ×2 (09:19→20:13)
[2016-07-26] MEDS: FAMOTIDINE 20 MG TABLET. PO SCH ×2 (09:21→20:08)
[2016-07-26] MEDS: IV NORMAL SALINE 1000ML BAG 1,000 ML IV SCH (10:52)
[2016-07-26 11:00] VITALS: BP 143/68
--- NOTE | 2016-07-26 13:52 | PDOC ---
Progress Note Subjective Subjective Doing very well. On room air. Minimal pain with epidural. No air leak, minimal drainage from chest tube. Voiding after crowe was removed. ROS ROS No nausea No vomiting No SOB Minimal pain No rash Vital Sign Vital Signs Vital Signs Date Time Temp Pulse Resp B/P (MAP) Pulse Ox O2 Delivery O2 Flow Rate FiO2 07/26/16 11:00 97.5 73 16 143/68 (93) 97 Nasal Cannula 2.0 97.5 Physical Exam PHYSICAL EXAM GENERAL: NAD, Alert HEENT: PERRL, OC/OP NECK: Supple, no JVD LUNGS: Clear HEART: S1S2, no gallop, no murmur ABD: Soft, NT, no organomegaly, no rebound EXT: No edema, no cyanosis LEAD SQL DEVELOPER: Alert, oriented x 3, no focal neurologic deficit SKIN: No rash IV: ok Objective Assessment POD#2, s/p left lower lobectomy and mediastinal lymphadenectomy for biopsy proven adenoCa. Doing very well. On room air. Minimal pain with epidural. No air leak, minimal drainage from chest tube. Pathology pending. Plan Plan of Care D/c chest tube, then CXR Will remove epidural tomorrow Ambulate and incentive spirometry Bowel regimen Home over the next couple of days Heparin s/q and venodynes for DVT prophylaxis GUILLERMINA AVILA MD July 26, 2016 13:52
--- NOTE | 2016-07-26 14:30 | RAD ---
Indication status post chest tube removal. A single view of the chest was obtained and is compared to a study one day earlier. In the interval the left chest tube has been removed. No pneumothorax is seen. There is some volume loss in the left mid and lower lung field likely reflecting pleural fluid and atelectasis. Some subcutaneous emphysema along the left chest wall persists. Heart and pulmonary vessels are unchanged. IMPRESSION: Interval removal of chest tube. No pneumothorax seen. Volume loss at the lung base likely reflecting pleural fluid and atelectasis
[2016-07-26 15:00] VITALS: BP 118/63
[2016-07-26 19:25] VITALS: BP 155/68
[2016-07-26] MEDS ORDERED: POLYETHYLENE GLYCOL 3350 17 GM PACKET. PO PRN (19:30)
[2016-07-26] MEDS: HYDROcodone/APAP 5/325MG 1 TAB TABLET PO PRN (20:08)
[2016-07-26 23:00] VITALS: BP 123/68
[2016-07-27 03:25] VITALS: BP 116/62
[2016-07-27 07:00] VITALS: BP 132/62
--- NOTE | 2016-07-27 08:06 | RAD ---
Indication: Post left lower lobectomy. Time of exam 0752 hours. Correlation is made with prior study 1 day earlier. The heart is enlarged but stable. Right hemidiaphragm is elevated. Small amount of subcutaneous emphysema along the left chest wall is again noted. No pneumothorax is seen. Volume loss in the left chest is stable. Impression: Stable chest radiograph when compared with exam one day earlier.
[2016-07-27] MEDS: FAMOTIDINE 20 MG TABLET. PO SCH ×2 (08:51→20:44)
[2016-07-27] MEDS: OXYBUTYNIN CHLORIDE 5 MG TABLET PO SCH ×3 (08:51→20:43)
[2016-07-27] MEDS: SENNOSIDES/DOCUSATE 8.6/50MG TABLET. PO SCH ×2 (08:51→20:43)
[2016-07-27] MEDS: LOSARTAN POTASSIUM 25 MG TABLET. PO SCH (08:51)
[2016-07-27] MEDS: CELECOXIB 200 MG CAPSULE. PO SCH ×2 (08:51→20:43)
[2016-07-27] MEDS: ESCITALOPRAM 10 MG TABLET. PO SCH ×2 (08:52→20:43)
[2016-07-27] MEDS: HEPARIN PF for SUB-Q USE 5,000 UNIT/0.5 ML VIAL. SQ SCH ×2 (08:56→20:53)
[2016-07-27] MEDS: ELECTROLYTE (ICU) PROTOCOL. MC SCH (09:00)
[2016-07-27 10:18] LABS: BASO % 0 % (0-3); EOS % 5 % (0-3); HEMATOCRIT 34.7 % (36.0-47.0); HEMOGLOBIN 11.6 g/dL (12.0-15.5); LYMPH % 23 % (24-48); MEAN CORPUSCULAR HEMOGLOBIN 28 pg (25-35); MEAN CORPUSCULAR HGB CONC 34 g/dL (31-37); MEAN CORPUSCULAR VOLUME 84 fL (79-100); MONO % 9 % (0-9); NEUT % 63 % (31-73); PLATELET COUNT 241 x10^3/uL (140-400); RED BLOOD COUNT 4.13 x10^6/uL (3.50-5.40); RED CELL DISTRIBUTION WIDTH 15.8 % (11.5-14.5); WHITE BLOOD COUNT 8.5 x10^3/uL (4.0-11.0)
[2016-07-27 10:25] LABS: CALCIUM 8.8 mg/dL (8.5-10.1); CREATININE 0.8 mg/dL (0.6-1.0); GFR 70.5; POTASSIUM 3.9 mmol/L (3.5-5.1)
[2016-07-27] MEDS: IV NORMAL SALINE 1000ML BAG 1,000 ML IV SCH (10:52)
[2016-07-27 11:00] VITALS: BP 127/76
[2016-07-27 11:33] LABS: MAGNESIUM 2.1 mg/dL (1.8-2.4); PHOSPHORUS 2.5 mg/dL (2.6-4.7)
[2016-07-27 15:00] VITALS: BP 106/58
--- NOTE | 2016-07-27 15:56 | PDOC ---
Progress Note Subjective Subjective Doing very well. On room air. No pain with epidural. CXR post chest tube removal looks good. Ambulating. Had BM. ROS ROS No nausea No vomiting No SOB No pain No rash Vital Sign Vital Signs Vital Signs Date Time Temp Pulse Resp B/P (MAP) Pulse Ox O2 Delivery O2 Flow Rate FiO2 07/27/16 15:00 98.0 72 18 106/58 (74) 96 Nasal Cannula 2.0 98.0 Physical Exam PHYSICAL EXAM GENERAL: NAD, Alert HEENT: PERRL, OC/OP NECK: Supple, no JVD LUNGS: Clear Thoracotomy: C/D/I, some surrounding bruising as expected HEART: S1S2, no gallop, no murmur ABD: Soft, NT, no organomegaly, no rebound EXT: No edema, no cyanosis HAND BUTTON SPLITTER: Alert, oriented x 3, no focal neurologic deficit SKIN: No rash IV: ok Labs Lab Laboratory Tests Test 07/27/16 09:40 White Blood Count 8.5 x10^3/uL (4.0-11.0) Red Blood Count 4.13 x10^6/uL (3.50-5.40) Hemoglobin 11.6 g/dL (12.0-15.5) Hematocrit 34.7 % (36.0-47.0) Mean Corpuscular Volume 84 fL (79-100) Mean Corpuscular Hemoglobin 28 pg (25-35) Mean Corpuscular Hemoglobin Concent 34 g/dL (31-37) Red Cell Distribution Width 15.8 % (11.5-14.5) Platelet Count 241 x10^3/uL (140-400) Neutrophils (%) (Auto) 63 % (31-73) Lymphocytes (%) (Auto) 23 % (24-48) Monocytes (%) (Auto) 9 % (0-9) Eosinophils (%) (Auto) 5 % (0-3) Basophils (%) (Auto) 0 % (0-3) Neutrophils # (Auto) 5.3 x10^3uL (1.8-7.7) Lymphocytes # (Auto) 2.0 x10^3/uL (1.0-4.8) Monocytes # (Auto) 0.8 x10^3/uL (0.0-1.1) Eosinophils # (Auto) 0.5 x10^3/uL (0.0-0.7) Basophils # (Auto) 0.0 x10^3/uL (0.0-0.2) Sodium Level 140 mmol/L (136-145) Potassium Level 3.9 mmol/L (3.5-5.1) Chloride Level 104 mmol/L (98-107) Carbon Dioxide Level 29 mmol/L (21-32) Anion Gap 7 (6-14) Blood Urea Nitrogen 18 mg/dL (7-20) Creatinine 0.8 mg/dL (0.6-1.0) Estimated GFR (Cockcroft-Gault) 70.5 Glucose Level 126 mg/dL (70-99) Calcium Level 8.8 mg/dL (8.5-10.1) Phosphorus Level 2.5 mg/dL (2.6-4.7) Magnesium Level 2.1 mg/dL (1.8-2.4) Objective Assessment POD#3, s/p left lower lobectomy and mediastinal lymphadenectomy for biopsy proven adenoCa. No pain with epidural. CXR post chest tube removal looks good. Ambulating. Had BM. Hoarseness improving. Biopsy pending. Plan Plan of Care D/c epidural Oral analgesics Ambulate and incentive spirometry Heparin s/q and venodynes for DVT prophylaxis D/c home tomorrow GUILLERMINA AVILA MD July 27, 2016 15:56
[2016-07-27 19:00] VITALS: BP 128/62
[2016-07-27] MEDS: HYDROcodone/APAP 5/325MG 1 TAB TABLET PO PRN (20:42)
[2016-07-27 23:00] VITALS: BP 153/69
[2016-07-28 03:00] VITALS: BP 145/72
[2016-07-28 07:16] VITALS: BP 132/63
[2016-07-28] MEDS: ESCITALOPRAM 10 MG TABLET. PO SCH (08:07)
[2016-07-28] MEDS: CELECOXIB 200 MG CAPSULE. PO SCH (08:07)
[2016-07-28] MEDS: FAMOTIDINE 20 MG TABLET. PO SCH (08:07)
[2016-07-28] MEDS: OXYBUTYNIN CHLORIDE 5 MG TABLET PO SCH ×2 (08:07→12:52)
[2016-07-28] MEDS: SENNOSIDES/DOCUSATE 8.6/50MG TABLET. PO SCH (08:07)
[2016-07-28] MEDS: LOSARTAN POTASSIUM 25 MG TABLET. PO SCH (08:09)
[2016-07-28] MEDS: HEPARIN PF for SUB-Q USE 5,000 UNIT/0.5 ML VIAL. SQ SCH (08:14)
[2016-07-28] MEDS: ELECTROLYTE (ICU) PROTOCOL. MC SCH (09:00)
[2016-07-28 10:22] VITALS: BP 124/60
[2016-07-28] MEDS: IV NORMAL SALINE 1000ML BAG 1,000 ML IV SCH (10:52)
[2016-07-28] MEDS ORDERED: HYDR-2666 PO (11:21)
--- NOTE | 2016-07-28 11:41 | PDOC3 ---
Discharge Summary* Date of Admission: July 24, 2016 Date of Discharge: July 28, 2016 Admitting Diagnosis 1. LLL lung mass 2. hypertension, benign essential 3. GERD 4. tobacco abuse 5. breast cancer history with previous mastectomy Final Diagnosis 1. Adenocarcinoma of the left lower lobe 2. hypertension, benign essential 3. GERD 4. tobacco abuse 5. breast cancer history with previous mastectomy CONSULTS none Procedures 07/24/2016: Flexible bronchoscopy Thoracotomy, left lower lobectomy Mediastinal lymphadenectomy Brief Hospital Course Ms. Harkins is a 70 old female who was found to have a LLL nodule on routine follow up for breast cancer. On a subsequent CT scan, the nodule size was found to have increased. Biopsy demonstrated adenocarcinoma. PET CT was negative for mediastinal involvement and distal disease. Surgery was advised and the patient was agreeable presenting July 24, 2016 for a left lower lobectomy. See operative records for details of procedure. Epidural catheter was used for pain management post-operatively and was removed July 27. She was monitored in the ICU on her operative day and then transfered to CVC. Left pleural tube was discontinued on July 26. Activity has gradually increased and pain is management with oral narcotics. Patient with good ROM of left shoulder/ arm and continues to do ROM exercises regularly. Pulm - CTA today. CV - S1S2. Left incision healing well with expected ecchymosis present. Minimal serous drainage from previous pleural site. Family will change dressings as needed. Discharge today. Disposition/Orders: D/C to Home CONDITION AT DISCHARGE: Stable Diet: Cardiac Scheduled Celecoxib (Celebrex), 200 MG PO BID, (Reported) Cholecalciferol (Vitamin D3) (Vitamin D3), 2,000 UNIT PO DAILY, (Reported) Escitalopram Oxalate (Lexapro), 20 MG PO BID, (Reported) Fesoterodine Fumarate (Toviaz), 8 MG PO DAILY, (Reported) Lansoprazole (Lansoprazole), 30 MG PO DAILY, (Reported) Letrozole (Femara), 2.5 MG PO DAILY, (Reported) Losartan Potassium (Losartan Potassium), 25 MG PO DAILY, (Reported) Multivitamin (Multivitamins), 1 EACH PO DAILY, (Reported) Omeprazole (Omeprazole), 20 MG PO DAILY, (Reported) Scheduled PRN Calcium Carbonate/Vitamin D3 (Calcium + Vitamin D Tablet), 1 EACH PO PRN BID PRN for CONGESTION, (Reported) Hydrocodone Bit/Acetaminophen (Hydrocodone-Apap 5-325 ), 2 TAB PO PRN Q4HRS PRN for MODERATE PAIN, SEVERE PAIN FOLLOW UP APPOINTMENT: Dr. Janet Villela on 08/13/2016 @ 13: 00; CXR one hour prior to scheduled appt @ [facility] PCP follow up in 7 - 10 days Time Spent Total time spent with patient > 35 minutes for coordination of care, counseling , and education. GERARDO MONTE RN SURGERY ICU July 28, 2016 11:41
--- NOTE | 2016-07-28 14:15 | PDOC ---
Progress Note Subjective Subjective Doing excellent, no issues. No SOB, on room air. No pain. ROS ROS No nausea No vomiting No pain No rash Vital Sign Vital Signs Vital Signs Date Time Temp Pulse Resp B/P (MAP) Pulse Ox O2 Delivery O2 Flow Rate FiO2 07/28/16 10:22 97.7 61 18 124/60 (81) 93 Room Air 97.7 07/27/16 15:00 2.0 Physical Exam PHYSICAL EXAM GENERAL: NAD, Alert HEENT: PERRL, OC/OP NECK: Supple, no JVD LUNGS: Clear Thoracotomy: C/D/I, some surrounding bruising as expected HEART: S1S2, no gallop, no murmur ABD: Soft, NT, no organomegaly, no rebound EXT: No edema, no cyanosis ADMINISTRATION ASSISTANT: Alert, oriented x 3, no focal neurologic deficit SKIN: No rash IV: ok Objective Assessment POD#4, s/p left lower lobectomy and mediastinal lymphadenectomy for biopsy proven adenoCa. Doing excellent, no issues. No SOB, on room air. No pain. Biopsy pending. Plan Plan of Care D/c home F/u in in clinic in 3 weeks Will call with pathology report GUILLERMINA AVILA MD July 28, 2016 14:15
--- NOTE | 2016-07-29 13:50 | PATHOLOGY ---
PATHOLOGY REPORT * * * * * * * * FINAL DIAGNOSIS: A. Lung lobe, left lower lobectomy: - PULMONARY ACINAR ADENOCARCINOMA, MODERATELY DIFFERENTIATED, FORMING A SUBPLEURAL TUMOR MASS MEASURING 4.7 CM IN GREATEST DIMENSION. SEE SYNOPTIC REPORT. - METASTATIC ADENOCARCINOMA INVOLVING 3 OF 6 PERIBRONCHIAL LYMPH NODES (3/6). - Bronchial and pulmonary vascular margins of resection negative for tumor. - Minute pulmonary meningothelial-like nodule, incidental, measuring 0.2 cm. B. Lymph node, level 9: - Negative for tumor. C. Lymph node, level 10: - METASTATIC ADENOCARCINOMA (03/22). D. Lymph node, level 5: - Negative for tumor. E. Lymph node, level 12: - Negative for tumor. F. Lymph node, level 11: - Negative for tumor. G. Lymph node, level 6: - Negative for tumor. SYNOPTIC CANCER STAGING REPORT SPECIMEN Specimen: Lobe(s) of lung Lower lobe Procedure: Lobectomy Specimen Laterality: Left TUMOR Primary Tumor Site: Lower lobe Histologic Type: Adenocarcinoma Acinar predominant Histologic Grade: G2: Moderately differentiated Tumor Size: Greatest dimension (cm): 4.7 Tumor Focality: Unifocal Tumor Extent Visceral Pleura Invasion: Not identified Tumor Extension: Not identified Accessory Tumor Findings Lymph-Vascular Invasion: Not identified MARGINS All margins uninvolved by invasive carcinoma Distance of Invasive Carcinoma from Closest Margin: Specify (mm): 11 Margin Closest to Invasive Carcinoma: Specify margin: Bronchial margin. Bronchial Margin: Uninvolved by invasive carcinoma and carcinoma in situ Vascular Margin: Uninvolved by invasive carcinoma Parenchymal Margin: Uninvolved by invasive carcinoma LYMPH NODES Number of Lymph Nodes Examined: Specify number: 12 Layne Stations Examined: 5: Subaortic/ aortopulmonary (AP) / AP window 6: Para-aortic (ascending aorta or phrenic) 9L: Pulmonary ligament 10L: Hilar 11L: Interlobar 12L: Lobar 13L: Segmental Lymph Node Involvement: Number of Lymph Nodes Involved: Specify number: 4 Layne Stations Involved: 10L: Hilar 13L: Segmental Extranodal Extension: Not identified STAGE (PTNM) Primary Tumor (pT): pT2a: Tumor greater than 3 cm, but 5 cm or less in greatest dimension surrounded by lung or visceral pleura without bronchoscopic evidence of invasion more proximal than the lobar bronchus (i.e., not in the main bronchus); or Tumor 5 cm or less in greatest dimension with any of the following features of extent: involves main bronchus, 2 cm or more distal to the je; invades the visceral pleura; associated with atelectasis or obstructive pneumonitis that extends to the hilar region but does not involve the entire lung Regional Lymph Nodes (pN): pN1: Metastasis in ipsilateral peribronchial and / or ipsilateral hilar lymph nodes, and intrapulmonary nodes including involvement by direct extension ADDITIONAL FINDINGS Additional Pathologic Finding(s): Other: See diagnoses. COMMENT: There is an incidental, small pulmonary nodule identified in a random section of the lobe. The nodule is composed of nests of bland appearing cells surrounded by a delicate fibrous stroma. These bland cells appear similar to arachnoidal cells of the meninges. A limited panel of immunoperoxidase stains is obtained on block A5 and yields the following results: SPENCER: nests of bland cells in pulmonary nodule positive Synaptophysin: nests of bland cells in pulmonary nodule negative Chromogranin: nests of bland cells in pulmonary nodule negative The morphologic and immunophenotypic findings are supportive of the diagnosis of a minute pulmonary meningothelial-like nodule. (JPM:[email or web address]; d/t: 07/29/16) Special Stains Performed: Immunoperoxidase stains for SPENCER, synaptophysin, chromogranin (A5) REPORT ELECTRONICALLY SIGNED BY: Esequiel García M.D. DATE/TIME: 07/29/2016 13:49 * * * * * * * * GROSS PATHOLOGY: A. The specimen is received fresh, labeled "Loughleft lower lobe" is a 20.4 x 12.1 x 9.6 cm, 347 g left lower lobectomy specimen. The pleural surface is smooth, glistening, and displays a focal area of thickening and puckering of the medial posterior surface measuring 3.5 x 3.3 cm. The hilum of the specimen reveals a bronchial margin measuring 2.2 cm in length by 1.5 cm in greatest diameter. The vascular margins in the pulmonary hilum are stapled closed. The pleural surface is inked black and the specimen is sectioned to reveal lin-pink spongy parenchyma and a 4.7 x 3.8 x 3.2 cm lin-white well-defined subpleural lesion in the middle of the lobe. The lesion is 1.1 cm from the bronchial margin, and approaches the inked pleural surface. There are 2 peribronchial lymph nodes measuring 0.8 x 0.6 x 0.5 and 1.1 x 0.7 x 0.5 cm. Section code: A1-bronchial and vascular margins, A2 through A3-underwriting sales representative sections of lesion and adjacent inked pleural surface, A4-underwriting sales representative section of lesion with adjacent lung parenchyma, A5-underwriting sales representative sections from superior and inferior lobe, A6-2 possible lymph nodes. B. The specimen is received in formalin, labeled "Loughlymph node level 9" are 2 anthracotic irregular fragments of tissue measuring 1.1 x 0.4 x 0.2 cm in aggregate. Total B1. C. The specimen is received in formalin, labeled "Loughlymph node level 10" are 4 anthracotic irregular fragments of tissue measuring 2.6 x 1.2 x 0.5 cm in aggregate. Total C1. D. The specimen is received in formalin, labeled "Loughlymph node level 5" are 2 anthracotic ovoid fragments of soft tissue measuring 2 x 1 x 0.4 cm in aggregate. Total D1. E. The specimen is received in formalin, labeled "Loughlymph node level 12" are 3 anthracotic irregular fragments of tissue measuring 0.7 x 0.4 x 0.2 cm in aggregate. Total E1. F. The specimen is received in formalin, labeled "Loughlymph node level 11" is one anthracotic ovoid fragment of tissue measuring 1.2 x 0.9 x 0.8 cm. Specimen is bisected and entirely submitted in F1. G. The specimen is received in formalin, labeled "Loughlymph node level 6" is one anthracotic ovoid fragment of soft tissue measuring 1.4 x 0.9 x 0.7 cm. The specimen is bisected and entirely submitted in G1. (DRHerman; 07/27/2016) INITIAL CPT CODE(S): A; 02266, 09123, 02938, 00982 B; 64159 C; 99851 D; 90511 E; 05768 F; 41267 G; 25146 Professional services [place] [place] [address] Technical services performed by [facility] at [address] [place] [address], [facility] [address] [address]. SPECIMEN(S) RECEIVED: A.Left lower lobe B.Lymph node level 9 C.Lymph node level 10 D.Lymph node level 5 E.Lymph node level 12 F.Lymph node level 11 G.Lymph node level 6 CLINICAL HISTORY: Lung cancer PATIENT: TERESO GILBERT Melany /AGE: 9 1945 (Age: 70) PATIENT #: [id number] ALT CASE #: SPECIMEN COLLECTION DATE: 07/24/2016 SPECIMEN RECEIVED DATE: 07/24/2016 [facility] - [address] [place] [address] - PHONE: [phone] * * * END OF REPORT * * *
== END 2016-07-28 13:00 | disposition home or self-care (01) | DRG 165 ==
LOC: OPSVCIP 06:17 → 1 WEST ICU 13:31 → 2 SOUTH 07-25 16:11
PROVIDERS: ADMIT Thoracic Surgery (Cardiothoracic Vascular Surgery); ATTEND Thoracic Surgery (Cardiothoracic Vascular Surgery)
PROC: 07B70ZX Excision of Thorax Lymphatic, Open Approach, Diagnostic (ICD-10-PCS; 2016-07-24)
PROC: 0BJ08ZZ Inspection of Tracheobronchial Tree, Via Natural or Artificial Opening Endoscopic (ICD-10-PCS; 2016-07-24)
PROC: 0BTJ0ZZ Resection of Left Lower Lung Lobe, Open Approach (ICD-10-PCS; principal; 2016-07-24 07:30)
DX: C34.32 Malignant neoplasm of lower lobe, left bronchus or lung (principal); F17.210 Nicotine dependence, cigarettes, uncomplicated; I10 Essential (primary) hypertension; K21.9 Gastro-esophageal reflux disease without esophagitis; Z85.3 Personal history of malignant neoplasm of breast; Z90.13 Acquired absence of bilateral breasts and nipples
CPT/HCPCS: 36415; 71010; 80048; 83735; 84100; 85027; 86850; 86900; 86901; 86920; 88305; 88309; 88341; 88342; 93306; C2615; J0360; J0690; J1100; J1885; J2250; J2270; J2405; J2704; J2710; J3010; J3490; J7030; J7040; J7120; 97116; 97530; G0641

== ENCOUNTER → 2016-08-14 | Outpatient (CLI) | payer MEDICARE, BC ==
[2016-07-28 10:22] VITALS: BP 124/60
[~2016-08-14] MED LIST changes: +HYDR-2666 PO
--- NOTE | 2016-08-14 14:25 | RAD ---
Chest, 2 views, 08/14/2016: History: Lung cancer Comparison is made to a study from 07/27/2016. The heart is at the upper limits of normal in size. The pulmonary vascularity is normal. There is an abnormal left paraspinous opacity in the region of the descending thoracic aorta. This is more prominent than on the previous study, although there are differences in patient rotation. It appears to be extraparenchymal. There is blunting of the costophrenic angles on the left compatible with a small amount of pleural fluid. The right chest is clear. No right-sided pleural fluid is seen. Moderate hypertrophic spurring is present in the spine. IMPRESSION: 1. Small amount of postoperative pleural fluid on the left. 2. Abnormal left paraspinous opacity in the region of the descending thoracic aorta. Diagnostic considerations include loculated postoperative pleural fluid, mediastinal hemorrhage or pseudoaneurysm. CT scanning is suggested for further evaluation, if clinically indicated. Note: The findings were called to Dr. Villela at 2:21 PM on 08/14/2016.
== END | disposition home or self-care (01) ==
LOC: RAD 12:39
PROVIDERS: ATTEND Thoracic Surgery (Cardiothoracic Vascular Surgery)
DX: C34.92 Malignant neoplasm of unspecified part of left bronchus or lung (principal); J90 Pleural effusion, not elsewhere classified; M46.04 Spinal enthesopathy, thoracic region
CPT/HCPCS: 71020

== ENCOUNTER 2016-08-18 08:25 | Outpatient (CLI) | payer MEDICARE, BC ==
[~2016-08-18] VITALS: Ht 162.6 cm; Wt 86.2 kg
[2016-08-18 09:02] VITALS: BP 166/66
[2016-08-18 09:12] LABS: BASO # 0.1 x10^3/uL (0.0-0.2); BASO % 1 % (0-3); EOS % 12 % (0-3); HEMATOCRIT 36.8 % (36.0-47.0); HEMOGLOBIN 12.4 g/dL (12.0-15.5); LYMPH % 28 % (24-48); MEAN CORPUSCULAR HEMOGLOBIN 28 pg (25-35); MEAN CORPUSCULAR HGB CONC 34 g/dL (31-37); MEAN CORPUSCULAR VOLUME 83 fL (79-100); MONO % 11 % (0-9); NEUT % 48 % (31-73); PLATELET COUNT 279 x10^3/uL (140-400); RED BLOOD COUNT 4.44 x10^6/uL (3.50-5.40); RED CELL DISTRIBUTION WIDTH 15.8 % (11.5-14.5); WHITE BLOOD COUNT 7.2 x10^3/uL (4.0-11.0)
[2016-08-18 09:32] LABS: PROTHROMBIN TIME PATIENT 12.9 SEC (11.7-14.0)
[2016-08-18] MEDS ORDERED: LIDOCAINE 1%/EPI 1:100,000 20 ML VIAL. ONE (09:38)
[2016-08-18] MEDS ORDERED: VANCOMYCIN 1GM IVPB FOR OMNI 250 ML ONE (09:38)
[2016-08-18] MEDS ORDERED: HEPARIN PF 500 UNIT/5 ML DISP.SYRIN. IV ONE ×2 (09:38→10:45)
--- NOTE | 2016-08-18 10:08 | PDOC ---
MODERATE SEDATION ASSESSMENT RISKS/ALTERNATIVES Risks/Alternatives Risks and alternatives of this type of sedation and procedure discussed with: RISK/ALTERNATIVES: Patient H & P ON CHART H & P H & P on chart and reviewed for co-morbid conditions and appropriate labs. H&P ON CHART: Yes STATUS PREG STATUS ASSESSED: N/A MEDS/ALLERGIES REVIEWED Meds/Allergies Reviewed Medications and Allergies including time and route of recently administered narcotics and sedatives. MEDS/ALLERGIES REVIEWED: Yes ASA RATING ASA RATING: III AIRWAY ASSESSMENT Airway Assessment Airway patency, oral function limitations, presence of caps, crowns, dentures, partials, and ability to extend neck assessed. AIRWAY ASSESSMENT: Yes MALLAMPATI SCORE MALLAMPATI SCORE: II PRE-SEDATION ASSESSMENT PRE-SEDATION ASSESSMENT: Yes BIENVENIDO CRISOSTOMO MD August 18, 2016 10:08
[2016-08-18] MEDS ORDERED: fentaNYL PF VIAL 250 MCG/5 ML VIAL ONE (10:11)
[2016-08-18] MEDS ORDERED: MIDAZOLAM HCL/PF 5 MG/5 ML VIAL. ONE (10:11)
--- NOTE | 2016-08-18 10:13 | PDOC1 ---
History and Physical Date of Procedure Date of Admission [place] Procedure Procedure Image guided Power Port insertion Indication Indication 70 YO female with lung cancer s/p left lower lobectomy----Port requested for chemotx. Past Medical History Past Medical History See Nursing Pre procedure PMH Past Surgical History Past Surgical History See Nursing Pre procedure PSH Current Medications Current Medications Current Medications Heparin Sodium (Porcine) (Hep Lock Adult) 500 unit STK-MED ONCE IV ; Start 08/18 at 09:38; Stop 08/18/16 at 09:39; Status DC Lidocaine/ Epinephrine (Xylocaine 1%-Epi 1:100,000) 20 ml STK-MED ONCE .ROUTE ; Start 08/18/16 at 09:38; Stop 08/18/16 at 09:39; Status DC Heparin Sodium/ Sodium Chloride 500 ml @ As Directed STK-MED ONCE .ROUTE ; Start 08/18/16 at 09:38; Stop 08/18/16 at 09:39; Status DC Vancomycin HCl 250 ml @ As Directed STK-MED ONCE .ROUTE ; Start 08/18/16 at 09: 38; Stop 08/18/16 at 09:39; Status DC Active Scripts Active Reported Losartan Potassium 25 Mg Tablet 25 Mg PO DAILY Omeprazole 20 Mg Tablet.dr 20 Mg PO DAILY Lexapro (Escitalopram Oxalate) 20 Mg Tablet 20 Mg PO BID Celebrex (Celecoxib) 200 Mg Capsule 200 Mg PO BID 30 Days Multivitamins (Multivitamin) 1 Each Tablet 1 Each PO DAILY Vitamin D3 (Cholecalciferol (Vitamin D3)) 400 Unit Tablet 2,000 Unit PO DAILY Lansoprazole 30 Mg Capsule.dr 30 Mg PO DAILY Calcium + Vitamin D Tablet (Calcium Carbonate/Vitamin D3) 1 Each Tablet 1 Each PO PRN BID PRN Femara (Letrozole) 2.5 Mg Tablet 2.5 Mg PO DAILY Toviaz (Fesoterodine Fumarate) 8 Mg Tab.er.24h 8 Mg PO DAILY Allergies Allergies: Coded Allergies: No Known Allergies (Verified Allergy, Unknown, 07/24/16) Physical Exam Vital Signs Vital Signs Date Time Temp Pulse Resp B/P (MAP) Pulse Ox O2 Delivery O2 Flow Rate FiO2 08/18/16 09:02 98.4 65 12 166/66 (99) 98 Room Air 98.4 Lungs: Clear to auscultation Heart: Regular rate Psych/Mental Status: Mental status NL Assessment Assessment 70 YO female with lung cancers s/p CT guided needle bx + left lower lobectomy. Port requested for chemotx. Problems: Plan Plan Sono/fluoro guided Power Port insertion. BIENVENIDO CRISOSTOMO MD August 18, 2016 10:13
[2016-08-18] MEDS ORDERED: fentaNYL PF VIAL 250 MCG/5 ML VIAL IV ONE (10:30)
[2016-08-18] MEDS ORDERED: MIDAZOLAM HCL/PF 5 MG/5 ML VIAL. IV ONE (10:30)
[2016-08-18] MEDS ORDERED: VANCOMYCIN 1GM IVPB FOR OMNI 250 ML IRR ONE (10:30)
[2016-08-18] MEDS ORDERED: LIDOCAINE 1%/EPI 1:100,000 20 ML VIAL. INJ ONE (10:30)
--- NOTE | 2016-08-18 11:01 | PDOC ---
Exam Chain Maker Machine Chain Maker Machine Laurent Relationship Counselor Relationship Counselor Pretty Shields Pre-Procedure Diagnosis Pre-Procedure Diagnosis 70 YO female with lung cancer, s/p left lower lobectomy---needs chemotx Post-Procedure Diagnosis Post-Procedure Diagnosis Same Procedure Performed Procedure Performed Sono/fluoro guided Power Port insertion Type of Anesthesia Type of Anesthesia Local + Mod sedation Estimated Blood Loss EBL: Minimal Drain/Tubes Drains/Tubes Rt IJ 8F tunneled Power Port Condition of Patient Condition of Patient Stable. No apparent complication. Disposition Disposition Home from [facility] post recovery, if no problems. F/u with Dr Pastor. OK to use Power Port. Full report to follow. BIENVENIDO CRISOSTOMO MD August 18, 2016 11:01
[2016-08-18 11:15] VITALS: BP 166/84
[2016-08-18 11:39] VITALS: BP 147/70
[2016-08-18 11:45] VITALS: BP 155/74
--- NOTE | 2016-08-18 15:53 | RAD ---
Ultrasound and fluoroscopy guided right IJ power port insertion Indication: 70-year-old female with lung cancer, status post left lower lobectomy. Image guided power port insertion has been requested by oncology for chemotherapy. Fluoroscopy time: 1.5 minutes Kerma-area product: 5 Gycm2 Moderate sedation: 41 minutes moderate sedation was provided utilizing a total of 3 mg Versed and 150 mcg fentanyl, IV. The patient was appropriately monitored by a qualified independent observer throughout the course of moderate sedation. Antibiotic: A single dose of Ancef was administered within 1 hour of the procedure start time. Consent: The procedure was explained in its entirety to the patient and/or the patient's designated automotive sales representative by a member of the treatment team. This included a discussion of risks and benefits and commonly accepted alternatives to the procedure, as well as expected consequences of no treatment at all. Discussion of risks included, but was not limited to, those that are most frequent and those that are rare, but possibly severe or life-threatening, as well as the possibility of unforeseen complications. Sterility: All elements of maximal sterile barrier technique, hand hygiene, skin preparation, and, if ultrasound was used, sterile ultrasound technique were followed. Procedure: Informed consent was obtained from the patient. She was placed supine on the angiography table. Preliminary ultrasound examination of right neck revealed wide patency of right internal jugular vein, which was documented with a single hard copy ultrasound image. Right neck and upper chest were then prepped and draped in the usual sterile fashion, utilizing all elements of maximal sterile barrier technique, as described above. Moderate sedation was provided with IV Versed and fentanyl. 1 g Ancef was given IV, prophylactically. Using aseptic technique and local anesthesia, a small skin incision was made lateral to right internal jugular vein, just above clavicle. Using aseptic technique, local anesthesia, direct sterile ultrasound guidance, and the micropuncture system, successful percutaneous entry was achieved into right internal jugular vein. The right IJ venostomy tract was then dilated and the 8 Iranian catheter from a Bard power port system was easily advanced centrally through an 8.5 Iranian peel-away sheath, and was positioned with this tip at the level of upper right atrium utilizing fluoroscopic guidance. A skin site suitable for placement of the power port body was then selected and marked along upper anterior aspect of right chest, overlying anterior aspect of right second rib. Using aseptic technique and local anesthesia, a horizontally oriented skin incision was made in this location. A subcutaneous chest wall pocket was then created and was packed with vancomycin soaked gauze. A subcutaneous tunnel was then fashioned between the chest wall pocket and the initial supraclavicular incision. The 8 Iranian power port catheter was then pulled through the subcutaneous tunnel from superior to inferior, utilizing the tunneling device provided. The catheter was then trimmed to an appropriate length and was connected to the power port body, which had been previously flushed with, and soaked in, vancomycin solution. The vancomycin soaked gauze was then removed from the chest wall pocket, which was then copiously irrigated with vancomycin solution. The power port body was then easily introduced into the chest wall pocket and was secured in place utilizing two 2-0 Vicryl sutures. The power port was then accessed utilizing a Swenson needle, was documented to flush and aspirate normally, and was packed with heparinized saline. The chest incision was then closed with 2-0 Vicryl, 4-0 Vicryl, Steri-Strips, and sterile dressing. The small supraclavicular incision was closed with 4-0 Vicryl, Steri-Strips, and sterile dressing. Patient tolerated the procedure well without apparent complication. Satisfactory position of the power port was confirmed with a single fluoroscopic spot image. Impression: Successful, uneventful ultrasound and fluoroscopy guided placement of right IJ 8 Iranian tunneled power port, as described.
== END 2016-08-18 12:45 | disposition home or self-care (01) ==
LOC: INTRAD 08:25
PROVIDERS: ATTEND Internal Medicine Hematology & Oncology
DX: C34.32 Malignant neoplasm of lower lobe, left bronchus or lung (principal); Z79.01 Long term (current) use of anticoagulants; I10 Essential (primary) hypertension; Z90.49 Acquired absence of other specified parts of digestive tract; E66.9 Obesity, unspecified; K21.9 Gastro-esophageal reflux disease without esophagitis; M19.90 Unspecified osteoarthritis, unspecified site; F32.9 Major depressive disorder, single episode, unspecified; Z87.442 Personal history of urinary calculi; Z90.710 Acquired absence of both cervix and uterus; Z72.89 Other problems related to lifestyle; Z96.653 Presence of artificial knee joint, bilateral
CPT/HCPCS: 36415; 36561; 76937; 77001; 85027; 85610; C1751; C1892; J0690; J2250; J3010; J3370; J3490

== ENCOUNTER 2016-08-24 12:52 | Emergency (ER) | payer MEDICARE, BC ==
[~2016-08-24 12:52] MED LIST changes: -HYDR-2666 PO; +HYDR-2758 PO; -OMEP20TA PO; +OMEP20TA8 PO
[2016-08-24] MEDS ORDERED: IV NORMAL SALINE 1000ML BAG 1,000 ML IV SCH (13:16)
--- NOTE | 2016-08-24 13:20 | EKG ---
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
--- NOTE | 2016-08-24 13:21 | PHYS DOC ---
Past Medical History Past Medical History: Anemia, Cancer, Depression, GERD, Hypertension, IBS Past Surgical History: Cancer Surgery, Cervical Fusion, Cholecystectomy, C- Section, Hysterectomy, Knee Replacement, Tonsillectomy Additional Past Surgical Histo: pneumonectomy 07/20/16 Alcohol Use: Rarely Drug Use: None Adult General Chief Complaint Chief Complaint: NAUSEA/VOMITING/DIARRHA HPI HPI Patient is a 70 year old female who presents with complaint of nausea and vomiting for the past 3 days. Patient states that she received chemotherapy for the first time on August 20 for treatment of lung cancer. Patient states that she had a pneumonectomy on July 24. Patient currently following with Dr. Pastor from oncology. Patient states that she started getting symptoms Wednesday evening and has had persistent nausea throughout the weekend. Patient states that she has been taking nausea medicine at home with minimal relief in symptoms. Patient denies chest pain but does admit to fatigue, headache, shortness of breath, and aching abdominal pain. Patient states that her abdominal pain does not localize into any specific quadrant at this time. Patient denies any fevers. Review of Systems Review of Systems Constitutional: Fatigue, denies fever or chills [] Eyes: Denies change in visual acuity, redness, or eye pain [] HENT: Denies nasal congestion or sore throat [] Respiratory: Denies cough or shortness of breath [] Cardiovascular: Denies chest pain or edema [] GI: Nausea, vomiting, abdominal pain, denies bloody stools [] : Denies dysuria or hematuria [] Musculoskeletal: Denies back pain or joint pain [] Integument: Denies rash or skin lesions [] Neurologic: Headache, denies focal weakness or sensory changes [] Current Medications Current Medications Current Medications Medications (Trade) Dose Ordered Sig/Martín Start Time Stop Time Status Last Admin Dose Admin Diphenhydramine HCl (Benadryl) 25 mg 1X ONCE 08/24/16 13:30 08/24/16 13:31 DC 08/24/16 13:24 25 MG Prochlorperazine Edisylate (Compazine) 10 mg 1X ONCE 08/24/16 13:30 08/24/16 13:31 DC 08/24/16 13:25 10 MG Sodium Chloride 1,000 ml @ 1,000 mls/hr Q1H 08/24/16 13:16 08/24/16 14:15 DC 08/24/16 13:24 1,000 MLS/HR Allergies Allergies Allergies Coded Allergies Type Severity Reaction Last Updated Verified No Known Allergies Allergy Unknown 07/24/16 Yes Physical Exam Physical Exam Constitutional: Alert, afebrile, appears ill. [] HENT: Normocephalic, atraumatic, bilateral external ears normal, oropharynx moist, no oral exudates, nose normal. [] Eyes: PERRLA, EOMI, conjunctiva normal, no discharge. [] Neck: Normal range of motion, no tenderness, supple, no stridor. [] Cardiovascular:Heart rate regular rhythm, no murmur [] Lungs & Thorax: Bilateral breath sounds clear to auscultation [] Abdomen: Bowel sounds normal, soft, no tenderness, no masses, no pulsatile masses. [] Skin: Warm, dry, no erythema, no rash. [] Back: No tenderness, no CVA tenderness. [] Extremities: No tenderness, no cyanosis, no clubbing, ROM intact, no edema. [] Neurologic: Alert and oriented X 3, normal motor function, normal sensory function, no focal deficits noted. [] Current Patient Data Vital Signs Vital Signs Date Time Temp Pulse Resp B/P (MAP) Pulse Ox O2 Delivery O2 Flow Rate FiO2 08/24/16 13:55 75 18 174/75 (108) 99 Room Air 08/24/16 12:55 98.8 98.8 Lab Values Laboratory Tests Test 08/24/16 12:55 08/24/16 13:10 Urine Collection Type Void Urine Color [place] Urine Clarity Cloudy Urine pH 6.5 Urine Specific [place] >=1.030 Urine Protein 30 mg/dL (NEG-TRACE) Urine Glucose (UA) Negative mg/dL (NEG) Urine Ketones (Stick) 15 mg/dL (NEG) Urine Blood Negative (NEG) Urine Nitrite Negative (NEG) Urine Bilirubin Small (NEG) Urine Urobilinogen Dipstick 2.0 mg/dL (0.2 mg/dL) Urine Leukocyte Esterase Small (NEG) Urine RBC 0 /HPF (0-2) Urine WBC 1-4 /HPF (0-4) Urine Squamous Epithelial Cells Few /LPF Urine Amorphous Sediment Present /HPF Urine Bacteria Few /HPF (0-FEW) Urine Hyaline Casts Occasional /HPF Urine Mucus Slight /LPF White Blood Count 5.8 x10^3/uL (4.0-11.0) Red Blood Count 4.42 x10^6/uL (3.50-5.40) Hemoglobin 13.3 g/dL (12.0-15.5) Hematocrit 38.9 % (36.0-47.0) Mean Corpuscular Volume 88 fL (79-100) # Mean Corpuscular Hemoglobin 30 pg (25-35) Mean Corpuscular Hemoglobin Concent 34 g/dL (31-37) Red Cell Distribution Width 15.9 % (11.5-14.5) H Platelet Count 224 x10^3/uL (140-400) Neutrophils (%) (Auto) 64 % (31-73) Lymphocytes (%) (Auto) 22 % (24-48) L Monocytes (%) (Auto) 1 % (0-9) Eosinophils (%) (Auto) 13 % (0-3) H Basophils (%) (Auto) 0 % (0-3) Neutrophils # (Auto) 3.7 x10^3uL (1.8-7.7) Lymphocytes # (Auto) 1.3 x10^3/uL (1.0-4.8) Monocytes # (Auto) 0.1 x10^3/uL (0.0-1.1) Eosinophils # (Auto) 0.7 x10^3/uL (0.0-0.7) Basophils # (Auto) 0.0 x10^3/uL (0.0-0.2) Sodium Level 135 mmol/L (136-145) L Potassium Level 4.2 mmol/L (3.5-5.1) Chloride Level 102 mmol/L (98-107) Carbon Dioxide Level 24 mmol/L (21-32) Anion Gap 9 (6-14) Blood Urea Nitrogen 20 mg/dL (7-20) Creatinine 0.8 mg/dL (0.6-1.0) Estimated GFR (Cockcroft-Gault) 70.5 BUN/Creatinine Ratio 25 (6-20) H Glucose Level 123 mg/dL (70-99) H Calcium Level 9.6 mg/dL (8.5-10.1) Total Bilirubin 1.1 mg/dL (0.2-1.0) H Aspartate Amino Transferase (AST) 28 U/L (15-37) Alanine Aminotransferase (ALT) 37 U/L (14-59) Alkaline Phosphatase 82 U/L (46-116) Total Protein 7.4 g/dL (6.4-8.2) Albumin 3.7 g/dL (3.4-5.0) Albumin/Globulin Ratio 1.0 (1.0-1.7) Lipase 110 U/L (73-393) Laboratory Tests 08/24/16 13:10 Laboratory Tests 08/24/16 13:10 EKG EKG Interpreted by me: Heart rate 74, sinus rhythm, normal intervals, leftward axis , no acute ST/T-wave abnormalities present [] Radiology/Procedures Radiology/Procedures [facility] [address] [place] [address] IMAGING REPORT Signed PATIENT: TERESO GILBERT ACCOUNT: [id number] : 1945 LOCATION: ER AGE: 70 SEX: F EXAM STATUS: REG ER ORD. PHYSICIAN: LE YIP MD REASON: vomiting for 3 days PROCEDURE: ACUTE ABDOMEN SERIES Indication vomiting and abdominal pain. Recently started on chemotherapy. Single view of the chest was obtained and is compared to an examination 08/14/2016. No recent imaging of the abdomen is available. Heart size is somewhat enlarged but unchanged. Right Port-A-Cath is noted. There is no acute parenchymal finding in the chest. No gross free air is seen. The abdomen is largely gasless but that gas which is seen in the abdomen has a nonobstructive pattern. Degenerative changes are noted in the lumbar spine. IMPRESSION: No acute finding seen in the chest or abdomen on plain films DICTATED and SIGNED BY: MACKENZIE AGGARWAL MD DATE: 08/24/16 1422 CC: LE YIP MD; RACHELLE LUGO MD ~ [] Course & Med Decision Making Course & Med Decision Making Pertinent Labs and Imaging studies reviewed. (See chart for details) Patient was given IV fluids, Compazine, and Benadryl. On reevaluation, patient states that her symptoms have improved. Patient was given oral fluids in the emergency department which she was able to tolerate without difficulty. The patient has filled prescriptions for Compazine and Zofran at home. Advised to continue on these medications and to continue on a clear liquid diet with advancement of diet as tolerated. Advised follow-up in 2-3 days with patient's primary doctor and return to emergency department for any worsening symptoms. Patient voiced understanding and in agreement with treatment plan. Dragon Disclaimer Dragon Disclaimer This electronic medical record was generated, in whole or in part, using a voice recognition dictation system. Departure Departure Impression: Primary Impression: Nausea and vomiting Additional Impression: Dehydration Disposition: 01 HOME, SELF-CARE Condition: IMPROVED Referrals: RACHELLE LUGO MD (PCP) Patient Instructions: Dehydration, Adult, Nausea and Vomiting Additional Instructions: Follow-up with your primary doctor in 2-3 days. Return to the emergency department for any worsening symptoms. Problem Qualifiers Primary Impression: Nausea and vomiting Vomiting type: unspecified Vomiting Intractability: non-intractable Qualified Codes: R11.2 - Nausea with vomiting, unspecified LE YIP MD Aug 24, 2016 13:21
[2016-08-24 13:25] LABS: BASO % 0 % (0-3); EOS % 13 % (0-3); HEMATOCRIT 38.9 % (36.0-47.0); HEMOGLOBIN 13.3 g/dL (12.0-15.5); LYMPH # 1.3 x10^3/uL (1.0-4.8); LYMPH % 22 % (24-48); MEAN CORPUSCULAR HEMOGLOBIN 30 pg (25-35); MEAN CORPUSCULAR HGB CONC 34 g/dL (31-37); MEAN CORPUSCULAR VOLUME 88 fL (79-100); MONO % 1 % (0-9); NEUT % 64 % (31-73); PLATELET COUNT 224 x10^3/uL (140-400); RED BLOOD COUNT 4.42 x10^6/uL (3.50-5.40); RED CELL DISTRIBUTION WIDTH 15.9 % (11.5-14.5); WHITE BLOOD COUNT 5.8 x10^3/uL (4.0-11.0)
[2016-08-24] MEDS ORDERED: diphenhydrAMINE 50 MG/ML VIAL IVP ONE (13:30)
[2016-08-24] MEDS ORDERED: PROCHLORPERAZINE 10 MG/2 ML VIAL. IV ONE (13:30)
[2016-08-24 13:33] LABS: CALCIUM 9.6 mg/dL (8.5-10.1); CREATININE 0.8 mg/dL (0.6-1.0); GFR 70.5; POTASSIUM 4.2 mmol/L (3.5-5.1)
[2016-08-24 13:39] LABS: ALBUMIN 3.7 g/dL (3.4-5.0); TOTAL BILIRUBIN 1.1 mg/dL (0.2-1.0); TOTAL PROTEIN 7.4 g/dL (6.4-8.2)
[2016-08-24 14:03] LABS: BILIRUBIN,URINE SMALL (NEG); GLUCOSE,URINE NEGATIVE (NEG); NITRITE,URINE NEGATIVE (NEG); PH,URINE 6.5; PROTEIN,URINE 30 mg/dL (NEG-TRACE)
[2016-08-24 14:17] LABS: RBC,URINE 0 /HPF (0-2)
[2016-08-24 14:18] LABS: BACTERIA,URINE FEW /HPF (0-FEW); SQUAMOUS EPITHELIAL CELL,UR FEW /LPF
--- NOTE | 2016-08-24 14:27 | RAD ---
Indication vomiting and abdominal pain. Recently started on chemotherapy. Single view of the chest was obtained and is compared to an examination 08/14/2016. No recent imaging of the abdomen is available. Heart size is somewhat enlarged but unchanged. Right Port-A-Cath is noted. There is no acute parenchymal finding in the chest. No gross free air is seen. The abdomen is largely gasless but that gas which is seen in the abdomen has a nonobstructive pattern. Degenerative changes are noted in the lumbar spine. IMPRESSION: No acute finding seen in the chest or abdomen on plain films
[2016-08-24 14:55] VITALS: BP 168/78
== END 2016-08-24 15:20 | disposition home or self-care (01) ==
LOC: ER 12:52
DX: R11.2 Nausea with vomiting, unspecified (principal); E86.0 Dehydration; R10.9 Unspecified abdominal pain; K58.9 Irritable bowel syndrome, unspecified; K21.9 Gastro-esophageal reflux disease without esophagitis; I10 Essential (primary) hypertension; F32.9 Major depressive disorder, single episode, unspecified; Z92.21 Personal history of antineoplastic chemotherapy; Z90.2 Acquired absence of lung [part of]; Z98.1 Arthrodesis status; Z90.49 Acquired absence of other specified parts of digestive tract; Z90.710 Acquired absence of both cervix and uterus; Z96.659 Presence of unspecified artificial knee joint
CPT/HCPCS: 36415; 74022; 80053; 81001; 83690; 85027; 87086; 93005; 96361; 96374; 96375; 99285; J0780; J1200; J7030

== ENCOUNTER → 2016-11-04 | Outpatient (CLI) | payer MEDICARE, BC ==
[~2016-11-04] MED LIST changes: -ESCI20TA10 PO; +GADOBUTROL 10 MMOL/10 ML VIAL IV ONE; +LEXAPRO20 MG PO
--- NOTE | 2016-11-04 15:24 | RAD ---
INDICATION: Dizziness, breast and lung cancer. TECHNIQUE: Sagittal T1, axial T1, axial T2, axial FLAIR, axial T2 gradient, diffusion imaging with ADC map, postcontrast axial, and postcontrast coronal sequences are provided. 9 mL of intravenous Gadavist was administered without complication. No comparison is available. FINDINGS: There is prominence of the ventricles and sulci which has a slight parietal predominance. FLAIR hyperintensities scattered randomly throughout the supratentorial white matter and in the erin are nonspecific but most suggestive of mild small vessel ischemic disease. There is no acute intracranial hemorrhage or extra-axial fluid collection. There is no mass effect or midline shift. There is no restricted diffusion to suggest an acute infarct. Sagittal midline structures are unremarkable. Pituitary and suprasellar region are unremarkable. Intracranial flow voids are preserved. There is minimal maxillary mucosal thickening and ethmoid mucosal thickening. There is no pathologic enhancement. IMPRESSION: 1. No acute intracranial findings. 2. Brain parenchymal volume loss and mild probable small vessel ischemic disease. Electronically signed by: Esequiel Lujan MD (11/04/2016 3:21 PM) [id number]
== END | disposition home or self-care (01) ==
LOC: MRI 14:16
PROVIDERS: ATTEND Internal Medicine Hematology & Oncology
DX: C34.90 Malignant neoplasm of unspecified part of unspecified bronchus or lung (principal); C50.919 Malignant neoplasm of unspecified site of unspecified female breast; R42 Dizziness and giddiness
CPT/HCPCS: 70553; A9585

== ENCOUNTER → 2016-11-16 | Outpatient (CLI) | payer MEDICARE, BC ==
[~2016-11-16] MED LIST changes: -GADOBUTROL 10 MMOL/10 ML VIAL IV ONE; +IOHEXOL 300 MG/ML 75 ML VIAL IV ONE
--- NOTE | 2016-11-16 14:38 | RAD ---
Exam performed: CT chest with contrast. History: Restaging lung cancer. Date of service: 11/16/16. Comparison: CT chest from 07/16/16. Technique: Contiguous helical acquisitions are obtained through the chest during intravenous administration of 75 cc of Omnipaque 300. Sagittal and coronal reformatted images are obtained and reviewed. Findings: Previously seen spiculated mass in the left lower lobe is no longer visualized status post removal. There is a triangular opacity in the inferior medial left lower lobe with adjacent pleural effusion. This could represent a combination of atelectasis and effusion. Tiny soft tissue density nodules mentioned previously for example in the both upper and both lower lobe lobes remains stable. No mediastinal or hilar adenopathy is seen. Structures at the thoracic inlet appear normal. The neck and intrathoracic great vessels appear normal in course and caliber. Mild atheromatous calcification of the aorta is seen. The central airway is patent without endoluminal lesions. Heart size is normal. No pericardial effusion. Limited evaluation of the upper abdominal structures is unremarkable. Interrogation of bone windows is normal. Mild spondylotic changes and degenerative disease seen. Impression: Interval resection of previously seen left lower lobe mass with adjacent atelectasis and pleural effusion. Tiny subcentimeter soft tissue density nodules in both lungs remain stable PQRS Compliance Statement: One or more of the following individualized dose reduction techniques were utilized for this examination: 1. Automated exposure control 2. Adjustment of the mA and/or kV according to patient size 3. Use of iterative reconstruction technique
== END | disposition home or self-care (01) ==
LOC: CT 09:00
PROVIDERS: ATTEND Internal Medicine Hematology & Oncology
DX: C34.92 Malignant neoplasm of unspecified part of left bronchus or lung (principal); J90 Pleural effusion, not elsewhere classified; I10 Essential (primary) hypertension; Z87.891 Personal history of nicotine dependence
CPT/HCPCS: 71260; Q9967

== ENCOUNTER → 2016-11-24 | Outpatient (CLI) | payer MEDICARE, BC ==
[~2016-11-24] VITALS: Ht 162.6 cm; Wt 92.5 kg
[~2016-11-24] MED LIST changes: -IOHEXOL 300 MG/ML 75 ML VIAL IV ONE; +LIDOCAINE 1%/EPI 1:100,000 20 ML VIAL. INJ ONE; +LIDOCAINE 1%/EPI 1:100,000 20 ML VIAL. ONE; +MIDAZOLAM HCL/PF 5 MG/5 ML VIAL. IV ONE; +MIDAZOLAM HCL/PF 5 MG/5 ML VIAL. ONE; +ceFAZolin 1GM IVPB FOR OMNI 100 ML IV ONE; +fentaNYL PF VIAL 100 MCG/2 ML VIAL IV ONE; +fentaNYL PF VIAL 100 MCG/2 ML VIAL ONE
[2016-11-24 08:49] LABS: BASO % 1 % (0-3); EOS % 2 % (0-3); HEMATOCRIT 36.1 % (36.0-47.0); HEMOGLOBIN 11.7 g/dL (12.0-15.5); LYMPH # 1.4 x10^3/uL (1.0-4.8); LYMPH % 28 % (24-48); MEAN CORPUSCULAR HEMOGLOBIN 28 pg (25-35); MEAN CORPUSCULAR HGB CONC 33 g/dL (31-37); MEAN CORPUSCULAR VOLUME 85 fL (79-100); MONO % 12 % (0-9); NEUT % 57 % (31-73); PLATELET COUNT 237 x10^3/uL (140-400); RED BLOOD COUNT 4.25 x10^6/uL (3.50-5.40); RED CELL DISTRIBUTION WIDTH 20.9 % (11.5-14.5); WHITE BLOOD COUNT 5.1 x10^3/uL (4.0-11.0)
[2016-11-24 08:54] VITALS: BP 160/89
[2016-11-24 09:01] LABS: INR 1.1 (0.8-1.1); PROTHROMBIN TIME PATIENT 13.3 SEC (11.7-14.0)
[2016-11-24 10:00] VITALS: BP 174/93
[2016-11-24 10:23] VITALS: BP 149/89
[2016-11-24 10:44] VITALS: BP 172/85
--- NOTE | 2016-11-24 13:40 | RAD ---
Removal of right internal jugular port 11/24/2016 Indication: Patient no longer needs central venous access for chemotherapy Discussion: The risks and benefits were discussed the patient. Informed consent was obtained. The patient was brought to the fluoroscopy suite and placed in the supine position. A timeout procedure was performed. The right upper chest was prepped and draped using maximum sterile barrier technique. 1% lidocaine with epinephrine was administered overlying the pre-existing port reservoir. Static image was obtained demonstrating the port in expected position with tip at the cavoatrial junction. A small incision was made overlying the port reservoir. The reservoir and catheter were removed intact. The wound was closed in layers using 2-0 Vicryl and 4-0 Vicryl suture. Sterile dressing was applied. No immediate complications were identified. The procedure was performed under conscious sedation including continuous cardiopulmonary monitoring via a dedicated sedation nurse. Sedation time: 20 minutes Impression: Fluoroscopy time: 0 minutes Dose area product 0.3 Gycm2 Impression: Successful removal of right internal jugular port
== END | disposition home or self-care (01) ==
LOC: INTRAD 08:17
PROVIDERS: ATTEND Internal Medicine Hematology & Oncology
DX: Z45.2 Encounter for adjustment and management of vascular access device (principal); C34.90 Malignant neoplasm of unspecified part of unspecified bronchus or lung; E66.9 Obesity, unspecified; Z68.45 Body mass index [BMI] 70 or greater, adult; K21.9 Gastro-esophageal reflux disease without esophagitis; M19.91 Primary osteoarthritis, unspecified site; F32.9 Major depressive disorder, single episode, unspecified; D64.9 Anemia, unspecified; Z98.42 Cataract extraction status, left eye; Z79.01 Long term (current) use of anticoagulants; Z98.41 Cataract extraction status, right eye; Z90.49 Acquired absence of other specified parts of digestive tract; Z90.710 Acquired absence of both cervix and uterus; Z87.442 Personal history of urinary calculi; Z72.89 Other problems related to lifestyle; Z87.39 Personal history of other diseases of the musculoskeletal system and connective tissue; Z96.653 Presence of artificial knee joint, bilateral
CPT/HCPCS: 36415; 36590; 77001; 85025; 85610; 99152; 99153; J0690; J1644; J2250; J3010; J3490

== ENCOUNTER → 2016-12-24 | Outpatient (CLI) | payer MEDICARE, BC ==
[2016-11-24 10:44] VITALS: BP 172/85
[~2016-12-24] MED LIST changes: -LIDOCAINE 1%/EPI 1:100,000 20 ML VIAL. INJ ONE; -LIDOCAINE 1%/EPI 1:100,000 20 ML VIAL. ONE; -MIDAZOLAM HCL/PF 5 MG/5 ML VIAL. IV ONE; -MIDAZOLAM HCL/PF 5 MG/5 ML VIAL. ONE; -ceFAZolin 1GM IVPB FOR OMNI 100 ML IV ONE; -fentaNYL PF VIAL 100 MCG/2 ML VIAL IV ONE; -fentaNYL PF VIAL 100 MCG/2 ML VIAL ONE
--- NOTE | 2016-12-24 16:21 | RAD ---
Carotid Doppler ultrasound Indication: Dizziness Technique: Grayscale, color Doppler and spectral waveform ultrasound images of the carotids obtained. Comparison: None Findings: Right side: The peak systolic velocity in the mid segment of the CCA measures 62 cm/s. The peak systolic velocity in the ICA measures 76 cm/s. The peak systolic velocity in the ECA measures 95 cm/s. Antegrade flow is seen in the vertebral artery. The ICA to CCA ratio is 1.2. No significant plaque burden seen in the ICA or CCA. Left side: The peak systolic velocity in the mid segment of the CCA measures 90 cm/s. The peak systolic velocity in the ICA measures 111 cm/s. The peak systolic velocity in the ECA measures 82 cm/s. Antegrade flow is seen in the vertebral artery. The ICA to CCA ratio is 1.2. No significant plaque burden seen in the ICA or CCA. Impression: No significant plaque burden or stenosis. Peak systolic velocities in the ICA are within normal limits.
== END | disposition home or self-care (01) ==
LOC: US 14:31
PROVIDERS: ATTEND Family Medicine
DX: R42 Dizziness and giddiness (principal)
CPT/HCPCS: 93880

== ENCOUNTER 2017-03-07 10:17 | Emergency (ER) | payer MEDICARE, BC ==
[~2017-03-07] VITALS: Ht 160 cm; Wt 87.5 kg
[2017-03-07] MEDS ORDERED: FAMOTIDINE 20 MG/2 ML VIAL IVP ONE (11:15)
[2017-03-07] MEDS ORDERED: IV NORMAL SALINE 1000ML BAG 1,000 ML IV ONE (11:15)
[2017-03-07] MEDS ORDERED: ONDANSETRON PF 4 MG/2 ML VIAL. IV ONE (11:15)
[2017-03-07 11:23] LABS: BILIRUBIN,URINE MODERATE (NEG); GLUCOSE,URINE NEGATIVE (NEG); NITRITE,URINE POSITIVE (NEG); PROTEIN,URINE 100 mg/dL (NEG-TRACE); SQUAMOUS EPITHELIAL CELL,UR FEW /LPF; UROBILINOGEN,URINE 0.2 mg/dL (0.2 mg/dL)
[2017-03-07 11:24] LABS: BACTERIA,URINE MODERATE /HPF (0-FEW); RBC,URINE OCC /HPF (0-2)
[2017-03-07 11:27] LABS: BASO % 0 % (0-3); EOS % 2 % (0-3); HEMATOCRIT 37.1 % (36.0-47.0); HEMOGLOBIN 12.1 g/dL (12.0-15.5); LYMPH # 1.2 x10^3/uL (1.0-4.8); LYMPH % 29 % (24-48); MEAN CORPUSCULAR HEMOGLOBIN 27 pg (25-35); MEAN CORPUSCULAR HGB CONC 33 g/dL (31-37); MEAN CORPUSCULAR VOLUME 84 fL (79-100); MONO % 16 % (0-9); NEUT % 52 % (31-73); PLATELET COUNT 249 x10^3/uL (140-400); RED BLOOD COUNT 4.43 x10^6/uL (3.50-5.40); RED CELL DISTRIBUTION WIDTH 17.9 % (11.5-14.5)
[2017-03-07 11:29] LABS: CALCIUM 8.9 mg/dL (8.5-10.1); CREATININE 1.1 mg/dL (0.6-1.0); GFR 48.7; POTASSIUM 3.4 mmol/L (3.5-5.1)
[2017-03-07 11:39] LABS: INR 1.1 (0.8-1.1); PROTHROMBIN TIME PATIENT 13.5 SEC (11.7-14.0)
[2017-03-07 11:40] LABS: ALBUMIN 3.6 g/dL (3.4-5.0); TOTAL BILIRUBIN 0.5 mg/dL (0.2-1.0); TOTAL PROTEIN 7.1 g/dL (6.4-8.2)
[2017-03-07] MEDS ORDERED: IOHEXOL 300 MG/ML 100ML VIAL. IV ONE (12:45)
[2017-03-07] MEDS ORDERED: CONTRAST GIVEN MC PRN (12:45)
[2017-03-07 12:51] VITALS: BP 131/70
--- NOTE | 2017-03-07 12:58 | PHYS DOC ---
Past Medical History Past Medical History: Anemia, Cancer, Depression, GERD, Hypertension, IBS, Other Additional Past Medical Histor: lung and breast ca Past Surgical History: Cancer Surgery, Cervical Fusion, Cholecystectomy, C- Section, Hysterectomy, Knee Replacement, Tonsillectomy Additional Past Surgical Histo: pneumonectomy 07/20/16 Alcohol Use: Rarely Drug Use: None Adult General Chief Complaint Chief Complaint: DIARRHEA HPI HPI Patient is a 71 year old female with a history of anemia, hypertension, breast and lung cancer and just finished chemotherapy in August 2016 who presents today complaining of diarrhea for 12 days and vomiting for 3 days. Patient denies any abdominal pain. Denies any fever. Review of Systems Review of Systems Constitutional: Denies fever or chills [] Eyes: Denies change in visual acuity, redness, or eye pain [] HENT: Denies nasal congestion or sore throat [] Respiratory: Denies cough or shortness of breath [] Cardiovascular: No additional information not addressed in HPI [] GI: Reports diarrhea or vomiting and nausea. Denies abdominal pain : Denies dysuria or hematuria [] Musculoskeletal: Denies back pain or joint pain [] Integument: Denies rash or skin lesions [] Neurologic: Denies headache, focal weakness or sensory changes [] All other systems were reviewed and found to be within normal limits, except as documented in this note. Current Medications Current Medications Current Medications Medications (Trade) Dose Ordered Sig/Martín Start Time Stop Time Status Last Admin Dose Admin Ceftriaxone Sodium 50 ml @ 100 mls/hr 1X ONCE 03/07/17 12:45 03/07/17 13:14 DC 03/07/17 13:38 100 MLS/HR Famotidine (Pepcid Vial) 20 mg 1X ONCE 03/07/17 11:15 03/07/17 11:16 DC 03/07/17 12:24 20 MG Info (Do NOT chart on this entry -- for MONITORING) 1 each PRN DAILY PRN 03/07/17 12:45 03/09/17 12:44 Iohexol (Omnipaque 300 Mg/ml) 60 ml 1X ONCE 03/07/17 12:45 03/07/17 12:46 DC 03/07/17 13:15 60 ML Ondansetron HCl (Zofran) 8 mg 1X ONCE 03/07/17 11:15 12/17/17 11:16 DC 03/07/17 12:25 8 MG Sodium Chloride 1,000 ml @ 1,000 mls/hr 1X ONCE 03/07/17 11:15 03/07/17 12:14 DC 03/07/17 12:22 1,000 MLS/HR Allergies Allergies Allergies Coded Allergies Type Severity Reaction Last Updated Verified No Known Allergies Allergy Unknown 03/07/17 Yes Physical Exam Physical Exam Constitutional: Well developed, well nourished, no acute distress, non-toxic appearance. [] HENT: Normocephalic, atraumatic, bilateral external ears normal, oropharynx moist, no oral exudates, nose normal. [] Eyes: PERRLA, EOMI, conjunctiva normal, no discharge. [] Neck: Normal range of motion, no tenderness, supple, no stridor. [] Cardiovascular:Heart rate regular rhythm, no murmur [] Lungs & Thorax: Bilateral breath sounds clear to auscultation [] Abdomen: Old healed surgical incision midline abdomen from . Bowel sounds normal, soft, no tenderness, no masses, no pulsatile masses. [] Skin: Warm, dry, no erythema, no rash. [] Back: No tenderness, no CVA tenderness. [] Extremities: No tenderness, no cyanosis, no clubbing, ROM intact, no edema. [] Neurologic: Alert and oriented X 3, normal motor function, normal sensory function, no focal deficits noted. [] Psychologic: Affect normal, judgement normal, mood normal. [] Current Patient Data Vital Signs Vital Signs Date Time Temp Pulse Resp B/P (MAP) Pulse Ox O2 Delivery O2 Flow Rate FiO2 03/07/17 10:35 97.7 77 18 148/71 (96) 95 Room Air 97.7 Lab Values Laboratory Tests Test 03/07/17 10:30 03/07/17 10:57 Urine Collection Type Void Urine Color Yellow Urine Clarity Hazy Urine pH 6.0 Urine Specific [place] 1.025 Urine Protein 100 mg/dL (NEG-TRACE) Urine Glucose (UA) Negative mg/dL (NEG) Urine Ketones (Stick) Negative mg/dL (NEG) Urine Blood Negative (NEG) Urine Nitrite Positive (NEG) Urine Bilirubin Moderate (NEG) Urine Urobilinogen Dipstick 0.2 mg/dL (0.2 mg/dL) Urine Leukocyte Esterase Trace (NEG) Urine RBC Occ /HPF (0-2) Urine WBC 1-4 /HPF (0-4) Urine Squamous Epithelial Cells Few /LPF Urine Renal Epithelial Cells Occ /LPF Urine Bacteria Moderate /HPF (0-FEW) Urine Hyaline Casts Moderate /HPF Urine Mucus Mod /LPF White Blood Count 4.0 x10^3/uL (4.0-11.0) Red Blood Count 4.43 x10^6/uL (3.50-5.40) Hemoglobin 12.1 g/dL (12.0-15.5) Hematocrit 37.1 % (36.0-47.0) Mean Corpuscular Volume 84 fL (79-100) Mean Corpuscular Hemoglobin 27 pg (25-35) Mean Corpuscular Hemoglobin Concent 33 g/dL (31-37) Red Cell Distribution Width 17.9 % (11.5-14.5) H Platelet Count 249 x10^3/uL (140-400) Neutrophils (%) (Auto) 52 % (31-73) Lymphocytes (%) (Auto) 29 % (24-48) Monocytes (%) (Auto) 16 % (0-9) H Eosinophils (%) (Auto) 2 % (0-3) Basophils (%) (Auto) 0 % (0-3) Neutrophils # (Auto) 2.1 x10^3uL (1.8-7.7) Lymphocytes # (Auto) 1.2 x10^3/uL (1.0-4.8) Monocytes # (Auto) 0.7 x10^3/uL (0.0-1.1) Eosinophils # (Auto) 0.1 x10^3/uL (0.0-0.7) Basophils # (Auto) 0.0 x10^3/uL (0.0-0.2) Prothrombin Time 13.5 SEC (11.7-14.0) Prothrombin Time INR 1.1 (0.8-1.1) PTT 34 SEC (24-38) Sodium Level 141 mmol/L (136-145) Potassium Level 3.4 mmol/L (3.5-5.1) L Chloride Level 103 mmol/L (98-107) Carbon Dioxide Level 30 mmol/L (21-32) Anion Gap 8 (6-14) Blood Urea Nitrogen 26 mg/dL (7-20) H Creatinine 1.1 mg/dL (0.6-1.0) H Estimated GFR (Cockcroft-Gault) 48.7 BUN/Creatinine Ratio 24 (6-20) H Glucose Level 110 mg/dL (70-99) H Calcium Level 8.9 mg/dL (8.5-10.1) Total Bilirubin 0.5 mg/dL (0.2-1.0) Aspartate Amino Transferase (AST) 61 U/L (15-37) H Alanine Aminotransferase (ALT) 71 U/L (14-59) H Alkaline Phosphatase 62 U/L (46-116) Total Protein 7.1 g/dL (6.4-8.2) Albumin 3.6 g/dL (3.4-5.0) Albumin/Globulin Ratio 1.0 (1.0-1.7) Lipase 72 U/L (73-393) L Laboratory Tests 03/07/17 10:57 Laboratory Tests 03/07/17 10:57 EKG EKG [] Radiology/Procedures Radiology/Procedures []PROCEDURE: CT ABD PELV W/ IV CONTRST ONLY CT abdomen and pelvis with contrast 03/07/2017 Clinical indication: Diarrhea for 12 days, vomiting. History of breast and lung carcinoma. Comparison: PET CT 07/09/2016, CT abdomen and pelvis 03/12/2015. Technique: Multiple CT images of the abdomen and pelvis were obtained following the intravenous administration of 60 mL Omnipaque 300. RS Compliance Statement: One or more of the following individualized dose reduction techniques were utilized for this examination: 1. Automated exposure control 2. Adjustment of the mA and/or kV according to patient size 3. Use of iterative reconstruction technique Findings: There are stable faint subcentimeter noncalcified nodular opacities in the visualized lung bases largest on the right measuring 0.4 cm series 2/image 4 and largest on the left posteriorly measures 0.4 cm series 2/image 3. Slight interval decrease in loculated left pleural effusion. Heart size is normal. Prior right mastectomy with reconstruction utilizing an implant. There is a left breast implant partially visualized. Liver, gallbladder, adrenal glands are unremarkable. Moderate fatty atrophy of the pancreas. There are diffuse tiny left renal sinus cysts. There is a stable exophytic right renal hypodensity measuring 5.5 cm and does not meet strict criteria for a cyst. There is an inferior pole right renal cyst measuring 1.1 cm. No hydronephrosis. Abdominal aorta is tortuous and normal in caliber with mild aortoiliac calcified atheromatous disease. Small and large bowel loops are normal in caliber without obstruction. There is scatter liquid stool throughout the colon and rectum. No retroperitoneal or mesenteric lymphadenopathy. No abdominal free fluid. Prior hysterectomy. The vaginal cuff is unremarkable. Mildly distended and unopacified urinary bladder unremarkable. No iliac or inguinal lymphadenopathy. There are dependent peritoneal peripherally calcified structures, likely fat accrue cysts. There is diffuse bony demineralization and multilevel lumbar spondylosis. No destructive osseous lesions. Impression: 1. No bowel obstruction. There is colonic liquid stool may represent gastroenteritis. 2. Stable bibasilar noncalcified nodular opacities. Follow-up CT chest is recommended as pulmonary metastatic disease cannot be excluded. 3. Exophytic right renal hypodensity measuring 5.5 cm does not meet strict criteria for cysts. Follow-up nonemergent right renal ultrasound is recommended to exclude solid renal neoplasm. 4. Slight decrease in loculated left pleural effusion. DICTATED and SIGNED BY: PANCHO JOHN MD DATE: 03/07/17 [id number] CC: ROBERTO DANIEL MD; YVAN WORRELL APRN; RACHELLE LUGO MD ~ Course & Med Decision Making Course & Med Decision Making Pertinent Labs and Imaging studies reviewed. (See chart for details) Patient is in the ED with complaints of diarrhea for 12 days and vomiting for 3 days. Labs are negative for any acute findings, urine analysis is positive for UTI. CT noted for gastroenteritis otherwise no acute findings. Patient was given Rocephin in the ED. She'll be discharged with Cipro, Lomotil and zofran. She was instructed to push fluids and maintain good hand hygiene. Discharged with Zofran and promethazine. Dragon Disclaimer Dragon Disclaimer This electronic medical record was generated, in whole or in part, using a voice recognition dictation system. Departure Departure Impression: Primary Impression: Gastroenteritis Additional Impression: Urinary tract infection Disposition: 01 HOME, SELF-CARE Condition: STABLE Referrals: RACHELLE LUGO MD (PCP) followup in 1-3 days Patient Instructions: Urinary Tract Infection, Viral Gastroenteritis, Easy-to- Read Additional Instructions: You were seen with diarrhea and vomiting consistent with gastroenteritis. We put you on antibiotics to cover you for this infection as well as urinary tract infection. Push fluids and maintain good hand hygiene. Go slow with your diet starting with a clear liquid diet then advancing slowly. Follow-up with your doctor in 1-3 days. Come back to the emergency room at any point symptoms worsen. Give your doctor results of you CT of the abdomen and pelvic when you see him next. Scripts Diphenoxylate Hcl/Atropine (LOMOTIL TABLET) 1 Each Tablet 1 TAB PO QID MDD 8 tablets, #20 TAB Prov: YVAN WORRELL APRN 03/07/17 Ondansetron (ZOFRAN ODT) 4 Mg Tab.rapdis 1 TAB SL Q8HRS, #15 TAB Prov: YVAN WORRELL APRN 03/07/17 Ciprofloxacin Hcl (CIPRO) 500 Mg Tablet 1 TAB PO BID, #14 TAB Prov: YVAN WORRELL APRN 03/07/17 Problem Qualifiers Additional Impression: Urinary tract infection Urinary tract infection type: site unspecified Hematuria presence: without hematuria Qualified Codes: N39.0 - Urinary tract infection, site not specified YVAN WORRELL APRN Mar 07, 2017 12:58
--- NOTE | 2017-03-07 14:03 | RAD ---
CT abdomen and pelvis with contrast 03/07/2017 Clinical indication: Diarrhea for 12 days, vomiting. History of breast and lung carcinoma. Comparison: PET CT 07/09/2016, CT abdomen and pelvis 03/12/2015. Technique: Multiple CT images of the abdomen and pelvis were obtained following the intravenous administration of 60 mL Omnipaque 300. RS Compliance Statement: One or more of the following individualized dose reduction techniques were utilized for this examination: 1. Automated exposure control 2. Adjustment of the mA and/or kV according to patient size 3. Use of iterative reconstruction technique Findings: There are stable faint subcentimeter noncalcified nodular opacities in the visualized lung bases largest on the right measuring 0.4 cm series 2/image 4 and largest on the left posteriorly measures 0.4 cm series 2/image 3. Slight interval decrease in loculated left pleural effusion. Heart size is normal. Prior right mastectomy with reconstruction utilizing an implant. There is a left breast implant partially visualized. Liver, gallbladder, adrenal glands are unremarkable. Moderate fatty atrophy of the pancreas. There are diffuse tiny left renal sinus cysts. There is a stable exophytic right renal hypodensity measuring 5.5 cm and does not meet strict criteria for a cyst. There is an inferior pole right renal cyst measuring 1.1 cm. No hydronephrosis. Abdominal aorta is tortuous and normal in caliber with mild aortoiliac calcified atheromatous disease. Small and large bowel loops are normal in caliber without obstruction. There is scatter liquid stool throughout the colon and rectum. No retroperitoneal or mesenteric lymphadenopathy. No abdominal free fluid. Prior hysterectomy. The vaginal cuff is unremarkable. Mildly distended and unopacified urinary bladder unremarkable. No iliac or inguinal lymphadenopathy. There are dependent peritoneal peripherally calcified structures, likely fat accrue cysts. There is diffuse bony demineralization and multilevel lumbar spondylosis. No destructive osseous lesions. Impression: 1. No bowel obstruction. There is colonic liquid stool may represent gastroenteritis. 2. Stable bibasilar noncalcified nodular opacities. Follow-up CT chest is recommended as pulmonary metastatic disease cannot be excluded. 3. Exophytic right renal hypodensity measuring 5.5 cm does not meet strict criteria for cysts. Follow-up nonemergent right renal ultrasound is recommended to exclude solid renal neoplasm. 4. Slight decrease in loculated left pleural effusion.
[2017-03-07] MEDS ORDERED: DIPH1TAB PO (14:53)
[2017-03-07] MEDS ORDERED: CIPR500T94 PO (14:53)
[2017-03-07] MEDS ORDERED: ONDA4TAB10 SL (14:53)
== END 2017-03-07 15:05 | disposition home or self-care (01) ==
LOC: ER 10:17
DX: K21.9 Gastro-esophageal reflux disease without esophagitis (principal); N39.0 Urinary tract infection, site not specified; I10 Essential (primary) hypertension; K58.9 Irritable bowel syndrome, unspecified; Z90.710 Acquired absence of both cervix and uterus; Z90.49 Acquired absence of other specified parts of digestive tract; Z85.118 Personal history of other malignant neoplasm of bronchus and lung; Z85.3 Personal history of malignant neoplasm of breast; Z98.1 Arthrodesis status
CPT/HCPCS: 36415; 74177; 80053; 81001; 83690; 85025; 85610; 85730; 87045; 87086; 96361; 96365; 96375; 99285; J0690; J2405; J7030; Q9967; S0028

== ENCOUNTER → 2017-04-05 | Outpatient (CLI) | payer MEDICARE, BC | END | disposition home or self-care (01) | LOC: US 09:01 | DX: N28.1 Cyst of kidney, acquired (principal) | CPT/HCPCS: 76700 ==

== ENCOUNTER → 2017-08-30 | Outpatient (CLI) | payer MEDICARE, BC ==
[2017-08-30] MEDS: IOHEXOL 300 MG/ML 100ML VIAL. IV (09:53)
== END | disposition home or self-care (01) ==
LOC: CT 09:22
DX: C34.32 Malignant neoplasm of lower lobe, left bronchus or lung (principal); Z85.3 Personal history of malignant neoplasm of breast
CPT/HCPCS: 71260

== ENCOUNTER 2017-09-29 13:10 | Inpatient (IN) | payer MEDICARE, BC ==
[2017-09-29 13:46] LABS: ADD MAN DIFF? NO
[2017-09-29 13:49] LABS: BASO % 0 % (0-3); EOS # 0.1 x10^3/uL (0.0-0.7); EOS % 1 % (0-3); HEMATOCRIT 37.5 % (36.0-47.0); HEMOGLOBIN 12.5 g/dL (12.0-15.5); LYMPH # 1.9 x10^3/uL (1.0-4.8); LYMPH % 32 % (24-48); MEAN CORPUSCULAR HEMOGLOBIN 28 pg (25-35); MEAN CORPUSCULAR HGB CONC 34 g/dL (31-37); MEAN CORPUSCULAR VOLUME 83 fL (79-100); MONO % 17 % (0-9); NEUT # 2.9 x10^3uL (1.8-7.7); NEUT % 49 % (31-73); PLATELET COUNT 281 x10^3/uL (140-400); RED CELL DISTRIBUTION WIDTH 15.9 % (11.5-14.5); WHITE BLOOD COUNT 5.9 x10^3/uL (4.0-11.0)
[2017-09-29 13:58] LABS: INR 1.1 (0.8-1.1); PROTHROMBIN TIME PATIENT 13.3 SEC (11.7-14.0)
[2017-09-29 14:01] LABS: D-DIMER 0.53 ug/mlFEU (0.00-0.50)
[2017-09-29 14:05] LABS: ALBUMIN 3.7 g/dL (3.4-5.0); ALBUMIN/GLOBULIN RATIO 1.2 (1.0-1.7); ALK PHOS 62 U/L (46-116); ALT (SGPT) 21 U/L (14-59); ANION GAP 17 (6-14); AST (SGOT) 18 U/L (15-37); BLOOD UREA NITROGEN 36 mg/dL (7-20); BUN/CREATININE RATIO 15 (6-20); CALCIUM 9.1 mg/dL (8.5-10.1); CARBON DIOXIDE 19 mmol/L (21-32); CHLORIDE 102 mmol/L (98-107); CREATININE 2.4 mg/dL (0.6-1.0); GFR 19.8; GLUCOSE 113 mg/dL (70-99); LIPASE 105 U/L (73-393); MAGNESIUM 2.3 mg/dL (1.8-2.4); SODIUM 138 mmol/L (136-145); TOTAL BILIRUBIN 0.5 mg/dL (0.2-1.0); TOTAL PROTEIN 6.8 g/dL (6.4-8.2)
[2017-09-29 14:06] LABS: TROPONINI < 0.017 ng/mL (0.000-0.055)
[2017-09-29 14:12] LABS: NT-PRO BNP 845 pg/mL (0-124)
[2017-09-29 14:12] LABS: CKMB INDEX 2.5 % (0-4); CKMB MASS 3.2 ng/mL (0.0-3.6); CREATINE KINASE 128 U/L (26-192)
[2017-09-29] MEDS: IV NORMAL SALINE 1000ML BAG 1,000 ML IV ×2 (14:28→16:47)
[2017-09-29] MEDS ORDERED: ONDANSETRON PF 4 MG/2 ML VIAL. IV ×2 (15:15→17:00)
[2017-09-29] MEDS: POTASSIUM CHLORIDE 20 MEQ TABLET.ER. PO (15:16)
[2017-09-29] MEDS ORDERED: ACETAMINOPHEN 500 MG TABLET PO (17:00)
[2017-09-29] MEDS: DIPHENOXYLATE/ATROPINE TABLET. PO ×2 (17:00→21:24)
[2017-09-29] MEDS ORDERED: TEMAZEPAM 7.5 MG CAPSULE PO (17:00)
[2017-09-29] MEDS: CALCIUM CARB/VIT D3 500/200 TABLET. PO (18:46)
[2017-09-29] MEDS: OXYBUTYNIN CHLORIDE 5 MG TABLET PO (21:24)
[2017-09-29] MEDS: ONDANSETRON ODT 4 MG TAB.RAPDIS. PO (21:24)
[2017-09-30] MEDS: IV NORMAL SALINE 1000ML BAG 1,000 ML IV ×2 (01:29→13:40)
[2017-09-30 04:11] LABS: ANION GAP 11 (6-14); BLOOD UREA NITROGEN 28 mg/dL (7-20); CALCIUM 8.3 mg/dL (8.5-10.1); CARBON DIOXIDE 22 mmol/L (21-32); CHLORIDE 109 mmol/L (98-107); CREATININE 1.5 mg/dL (0.6-1.0); GLUCOSE 89 mg/dL (70-99); PHOSPHORUS 4.3 mg/dL (2.6-4.7); SODIUM 142 mmol/L (136-145)
[2017-09-30 04:15] LABS: POTASSIUM 2.9 mmol/L (3.5-5.1)
[2017-09-30] MEDS: ONDANSETRON ODT 4 MG TAB.RAPDIS. PO ×3 (05:48→21:36)
[2017-09-30] MEDS: POTASSIUM CHLORIDE 20 MEQ TABLET.ER. PO (05:49)
[2017-09-30] MEDS ORDERED: NON FORMULARY ITEM (Omeprazole 20 MG) PO (09:00)
[2017-09-30] MEDS: LETROZOLE 2.5 MG TABLET. PO (09:00)
[2017-09-30] MEDS: PANTOPRAZOLE 40 MG TABLET.DR. PO (09:03)
[2017-09-30] MEDS: MULTIVITAMIN with MINERAL TABLET. PO (09:03)
[2017-09-30] MEDS: OXYBUTYNIN CHLORIDE 5 MG TABLET PO ×3 (09:03→21:36)
[2017-09-30] MEDS: DIPHENOXYLATE/ATROPINE TABLET. PO ×4 (09:03→21:36)
[2017-09-30] MEDS: CHOLECALCIFEROL (VITAMIN D3) 1,000 UNIT TABLET PO (09:03)
[2017-09-30] MEDS: CALCIUM CARB/VIT D3 500/200 TABLET. PO ×2 (09:03→17:00)
[2017-09-30] MEDS: CITALOPRAM 20 MG TABLET. PO (09:04)
[2017-09-30 13:35] LABS: C DIFF BY PCR Negative (Negative)
[2017-09-30] MEDS: LIPASE/PROTEAS/AMYLAS 10/34/55 CAPSULE.DR. PO (17:00)
[2017-10-01] MEDS: ONDANSETRON ODT 4 MG TAB.RAPDIS. PO ×2 (06:09→12:50)
[2017-10-01] MEDS: PANTOPRAZOLE 40 MG TABLET.DR. PO (06:10)
[2017-10-01] MEDS: CHOLECALCIFEROL (VITAMIN D3) 1,000 UNIT TABLET PO (09:13)
[2017-10-01] MEDS: CITALOPRAM 20 MG TABLET. PO (09:13)
[2017-10-01] MEDS: MULTIVITAMIN with MINERAL TABLET. PO (09:13)
[2017-10-01] MEDS: OXYBUTYNIN CHLORIDE 5 MG TABLET PO ×2 (09:13→12:50)
[2017-10-01] MEDS: CALCIUM CARB/VIT D3 500/200 TABLET. PO (09:13)
[2017-10-01] MEDS: DIPHENOXYLATE/ATROPINE TABLET. PO ×2 (09:14→12:50)
[2017-10-01] MEDS: LIPASE/PROTEAS/AMYLAS 10/34/55 CAPSULE.DR. PO ×2 (09:14→12:50)
[2017-10-01 09:18] LABS: ANION GAP 10 (6-14); BLOOD UREA NITROGEN 15 mg/dL (7-20); CALCIUM 8.2 mg/dL (8.5-10.1); CARBON DIOXIDE 23 mmol/L (21-32); CHLORIDE 108 mmol/L (98-107); CREATININE 1.3 mg/dL (0.6-1.0); GFR 40.2; GLUCOSE 113 mg/dL (70-99); POTASSIUM 3.2 mmol/L (3.5-5.1); SODIUM 141 mmol/L (136-145)
[2017-10-01] MEDS: LOPERAMIDE 2 MG CAPSULE PO (09:28)
[2017-10-01] MEDS: ALPRAZolam 0.5 MG TABLET PO (09:28)
[2017-10-01] MEDS: MESALAMINE 1.2 GM TABLET.DR PO (09:43)
[2017-10-01] MEDS: ACETAMINOPHEN/CODEINE 300/30MG TABLET. PO (12:51)
== END 2017-10-01 15:39 | disposition home or self-care (01) | DRG 391 ==
LOC: ER 13:10 → 5 SOUTH 14:58
DX: K52.9 Noninfective gastroenteritis and colitis, unspecified (principal); N17.0 Acute kidney failure with tubular necrosis; Z98.1 Arthrodesis status; K52.831 Collagenous colitis; E87.6 Hypokalemia; F32.9 Major depressive disorder, single episode, unspecified; K21.9 Gastro-esophageal reflux disease without esophagitis; I10 Essential (primary) hypertension; Z96.653 Presence of artificial knee joint, bilateral; E86.0 Dehydration; F41.9 Anxiety disorder, unspecified; Z85.3 Personal history of malignant neoplasm of breast; Z85.118 Personal history of other malignant neoplasm of bronchus and lung; Z90.49 Acquired absence of other specified parts of digestive tract; Z90.710 Acquired absence of both cervix and uterus; Z90.13 Acquired absence of bilateral breasts and nipples
CPT/HCPCS: 36415; 71045; 80048; 80053; 80069; 82553; 83690; 83735; 83880; 84484; 85025; 85379; 85610; 87045; 87324; 93005; 96374; 99285; 99285-25; J2060; J7030; Q0162

== ENCOUNTER → 2017-12-02 | Outpatient (CLI) | payer MEDICARE, BC ==
[2017-10-01 11:00] VITALS: BP 125/49
[~2017-12-02] MED LIST changes: +CIPR500T94 PO; +DIPH1TAB PO; +LIPA1CAP12 PO; -LOSA25TA4 PO; +LOSA25TA5 PO; +MESA1.2T PO; +ONDA4TAB10 SL; +RANI150T21 PO; -RANI150T6 PO; -WARF2TAB7 PO; +WARF2TAB96 PO
--- NOTE | 2017-12-02 14:28 | RAD ---
Left breast ultrasound, 12/02/2017: History: Lump, previous bilateral breast cancer The patient has had prior bilateral mastectomies with bilateral breast implants placed. She reports an area of palpable concern along the inferior aspect of the left breast in the upright position. We therefore scanned the patient in the upright position. The left breast implant is ptotic extending into the region of palpable concern. This is different than on the right side where the implant is located more superiorly. No solid mass or abnormal fluid collection is identified sonographically in this region on the left. IMPRESSION: The area of palpable concern along the inferior aspect of the left breast in the upright position represents an abnormally low breast implant. No other sonographic abnormality is seen in this region. Clinical surveillance is suggested. If clinical concern persists bilateral mammography could be attempted. Breast MR may be a reasonable alternative. BI-RADS 3-probably benign findings
== END | disposition home or self-care (01) ==
LOC: US 13:03
PROVIDERS: ATTEND Internal Medicine Hematology & Oncology
DX: C50.411 Malignant neoplasm of upper-outer quadrant of right female breast (principal); C34.92 Malignant neoplasm of unspecified part of left bronchus or lung; Z17.0 Estrogen receptor positive status [ER+]; Z79.899 Other long term (current) drug therapy; Z87.891 Personal history of nicotine dependence
CPT/HCPCS: 76641

== ENCOUNTER → 2018-01-05 | Outpatient (CLI) | payer MEDICARE, BC ==
[2017-10-01 11:00] VITALS: BP 125/49
--- NOTE | 2018-01-05 13:32 | RAD ---
CT CHEST WO CONTRAST dated 01/05/2018 8:30 AM Indication: Follow-up lung cancer.LUNG CA, HX LT LOBECTOMY, LUNG CA, DOUBLE MASTECTOMY, PRIOR SENT. Comparison: 08/30/2017 Technique: Contiguous axial imaging of the chest performed without the administration of intravenous contrast. One or more of the following individualized dose reduction techniques were utilized for this examination: 1. Automated exposure control 2. Adjustment of the mA and/or kV according to patient size 3. Use of iterative reconstruction technique Findings: Heart size mildly enlarged. No pericardial effusion. Mild ectasia of the ascending thoracic aorta measuring 3.7 cm transverse dimension, unchanged. Evidence of prior double mastectomy and bilateral breast implants, unchanged. No mediastinal, hilar or axillary lymphadenopathy. Thyroid gland unremarkable. Central airways are patent. Evidence of prior left lower lobectomy, unchanged. Noncalcified pulmonary nodule in the left upper lobe on image 14 measures 4 mm, unchanged. Vague groundglass density in the medial aspect of the left apex on image 10 is stable. Noncalcified pulmonary nodule in the left upper lobe on image 21 measures 5 mm versus 4 mm previously. There is also a small subpleural nodule in the left apex laterally on image 11, stable. Multiple additional subpleural nodules in the posterior left upper lobe on images 24 and 27 are stable. There is also a small nodule at the left base on image 35 measuring about 5 mm, unchanged. On the right, there is a small noncalcified subpleural nodule in the lower lobe on image 35 that measures 4 mm, stable. There are also additional subpleural nodules in the right lower lobe on image 27 with nodular density along the minor fissure on the right, unchanged. Couple small noncalcified nodules are also present in the right upper lobe, largest of which measures 6 mm on image 14, unchanged. Additional vague groundglass nodules in the right middle lobe, stable. No pleural effusion. No new nodular lesion or mass. No pneumothorax. Limited images of the upper abdomen unremarkable. The largest cyst at the upper pole right kidney, unchanged. Gallbladder surgically absent. Bone windows show no acute findings. Multilevel spondylosis. IMPRESSION: 1. Multiple noncalcified pulmonary nodules throughout both lungs, nonspecific and not significant changed from prior study. Continued follow-up imaging may be warranted to ensure stability. 2. Status post left lower lobectomy, stable. No apparent recurrent mass or lymphadenopathy. Electronically signed by: Camacho Roe MD (01/05/2018 1:28 PM) [id number]
== END | disposition home or self-care (01) ==
LOC: CT 08:07
PROVIDERS: ATTEND Internal Medicine Hematology & Oncology
DX: Z08 Encounter for follow-up examination after completed treatment for malignant neoplasm (principal); R91.8 Other nonspecific abnormal finding of lung field; M47.814 Spondylosis without myelopathy or radiculopathy, thoracic region; Z85.118 Personal history of other malignant neoplasm of bronchus and lung; Z85.3 Personal history of malignant neoplasm of breast; Z90.13 Acquired absence of bilateral breasts and nipples; Z87.891 Personal history of nicotine dependence
CPT/HCPCS: 71250

== ENCOUNTER → 2018-06-01 | Outpatient (CLI) | payer MEDICARE, BC ==
[2017-10-01 11:00] VITALS: BP 125/49
[~2018-06-01] MED LIST changes: -HYDR-2758 PO; +HYDR-2761 PO; -HYDR-2762 PO; +HYDR-2765 PO; -LETR2.5T18 PO; +LETROZOLE2.5 MG PO; +LIALDA1.2 GM PO; -LOSA25TA5 PO; +LOSA25TA54 PO; -MESA1.2T PO; +RANI-376 PO; -RANI150T21 PO
--- NOTE | 2018-06-01 15:37 | RAD ---
CT of the chest without contrast compared to similar study dated January 05, 2018 for prior lung cancer, status post lobectomy, adenocarcinoma of the left lung. TECHNIQUE: Contiguous helical 5 mm axial images are obtained from the thoracic inlet to the base of diaphragm. Sagittal and coronal reformations are evaluated. FINDINGS: No suspicious mediastinal, hilar, or axillary lymphadenopathy is seen. Heart size within normal limits. No chest wall abnormalities. No suspicious osseous abnormalities. Visualized upper abdominal organs are grossly unremarkable save for a partially visualized exophytic right renal cyst. There is prior lower cervical surgical fusion. Postsurgical changes of the left lower lobectomy are again noted, with volume loss resulting in shift of mediastinum to the left. Multiple subcentimeter bilateral pulmonary nodules are redemonstrated and are unchanged in size and appearance from prior study. The majority of these are noncalcified and have indistinct margins. No new lung nodules or masses are seen. Left renal artery ostial atherosclerosis is noted. IMPRESSION: 1. Multiple subcentimeter noncalcified irregularly marginated pulmonary nodules, with no new lung nodules or masses identified. Existing nodules have been present and stable since at least June 2016 and may be benign granulomas or quiescent metastases. Given this patient's high risk clinical history, and imaging features of these nodules, continued episodic follow-up CT surveillance is recommended. PQRS Compliance Statement: One or more of the following individualized dose reduction techniques were utilized for this examination: 1. Automated exposure control 2. Adjustment of the mA and/or kV according to patient size 3. Use of iterative reconstruction technique Electronically signed by: Raymond Sifuentes MD (06/01/2018 3:34 PM) [id number]
== END | disposition home or self-care (01) ==
LOC: CT 14:24
PROVIDERS: ATTEND Internal Medicine Hematology & Oncology
DX: Z08 Encounter for follow-up examination after completed treatment for malignant neoplasm (principal); R91.8 Other nonspecific abnormal finding of lung field; Z85.118 Personal history of other malignant neoplasm of bronchus and lung
CPT/HCPCS: 71250

== ENCOUNTER → 2018-06-23 | Outpatient (CLI) | payer MEDICARE, BC ==
[2017-10-01 11:00] VITALS: BP 125/49
--- NOTE | 2018-06-23 15:56 | RAD ---
Left breast ultrasound, 06/23/2018: History: Breast discomfort, possible lump The patient has had prior bilateral mastectomies with breast implants placed. The area of clinical concern along the inferior aspect of the left breast implant was carefully scanned. No mass or unusual fluid collection is seen. The breast implant at this level is unremarkable. If clinical concern persists or worsens, MR scanning could be considered for further evaluation. IMPRESSION: The targeted ultrasound exam of the left breast reveals no abnormality. Clinical surveillance is suggested.
== END | disposition home or self-care (01) ==
LOC: US 11:04
PROVIDERS: ATTEND Internal Medicine Hematology & Oncology
DX: R92.8 Other abnormal and inconclusive findings on diagnostic imaging of breast (principal); C34.90 Malignant neoplasm of unspecified part of unspecified bronchus or lung; Z98.82 Breast implant status; Z85.3 Personal history of malignant neoplasm of breast
CPT/HCPCS: 76641

== ENCOUNTER → 2019-09-14 | Outpatient (CLI) | payer MEDICARE, BC ==
[2017-10-01 11:00] VITALS: BP 125/49
[~2019-09-14] MED LIST changes: +IOHEXOL 300 MG/ML 100ML VIAL. IV ONE; +LOSA-73 PO; +MULT-445 PO; -MULT1TAB52 PO; +[UNRECOGNIZED DRUG - CODE] PO
--- NOTE | 2019-09-14 16:12 | KCIC ---
PQRS Compliance Statement: One or more of the following individualized dose reduction techniques were utilized for this examination: 1. Automated exposure control 2. Adjustment of the mA and/or kV according to patient size 3. Use of iterative reconstruction technique CT CHEST W/CONTRAST 09/14/2019 2:30 PM Indication: History of lobectomy of the left lung. Adenocarcinoma. History of breast cancer status post mastectomy. COMPARISON: CT chest 06/01/2018, 01/05/2018 TECHNIQUE: Multiple axial CT images of the chest were obtained after the intravenous administration of 95 cc Omnipaque 300. Coronal and sagittal reformats are provided. FINDINGS: Scattered groundglass nodules identified throughout the lungs bilaterally, stable from 06/01/2018. For example, in the right upper lobe is a 7.5 mm mixed solid and groundglass nodule which is stable (series 8, image 13). In the right middle lobe there is a 11 mm groundglass nodule (series 8, image 28) is stable. In the left lower lobe there is a 9 mm groundglass nodule medially (series 8, image 37) which is stable. At the left lung apex, there is a 9 mm groundglass nodule (series 8, image 10) which is stable. Additional subcentimeter ground glass nodules or solid noncalcified pulmonary nodules appear stable. Bilateral mastectomy changes with bilateral breast prosthesis noted. More gas identified along the medial aspect of the left breast prosthesis. Thyroid gland is normal in appearance. No pathologically enlarged thoracic lymph nodes. Periaortic lymph node measures 5 mm (series 2, image 21). No pathologically enlarged thoracic lymph nodes. Heart size within normal limits. Thoracic aorta is normal in course and caliber. Visualized portions of the upper abdomen appear normal. Anterior cervical discectomy and fusion hardware is identified at C6-C7. Sclerotic changes of T4, T5 and T6. Focal increased sclerosis is identified involving the spinous process at T5. New suspicious of worsening osseous metastatic disease. Lucent/lytic changes of the T9, T10 and T11 appear stable. IMPRESSION: 1. Scattered mixed or purely groundglass nodules are identified measuring up to 11 mm in the right middle lobe, stable. No new or enlarging solid noncalcified pulmonary nodules. 2. Increased sclerotic changes of T4, T5 and T6 which are suspicious for blastic osseous metastatic disease. No pathologic fractures visualized. Electronically signed by: Lalita Ty MD (09/14/2019 4:09 PM) [facility]
== END ==
LOC: KCIC CT 13:37
PROVIDERS: ATTEND Family Medicine
DX: G95.89 Other specified diseases of spinal cord (principal); Z90.2 Acquired absence of lung [part of]; Z85.118 Personal history of other malignant neoplasm of bronchus and lung
CPT/HCPCS: 71260; Q9967

== ENCOUNTER → 2019-09-19 | Outpatient (CLI) | payer MEDICARE, BC ==
[2017-10-01 11:00] VITALS: BP 125/49
[~2019-09-19] MED LIST changes: -IOHEXOL 300 MG/ML 100ML VIAL. IV ONE; -LOSA-73 PO; -[UNRECOGNIZED DRUG - CODE] PO
--- NOTE | 2019-09-19 13:47 | RAD ---
Examination: BREAST LEFT History: Swelling inferior to the left breast implant Comparison/Correlation: 12/02/2017 bilateral breast ultrasound exam. 06/23/2018 left breast ultrasound exam. Findings: Ultrasound imaging of the left subpectoral implant was performed. Contour superficially. Unremarkable. At the site of swelling at the 8:00 region, there is no suspicious collection seen. Within the subjacent to the 9:00 region medially, there is a 0.26 cm x 0.24 cm 0.24 cm septated complex cystic or hypoechoic structure with no flow within it. It is mildly lobulated. It is not demonstrated on prior exams. Impression: No suspicious process identified involving the left implant on images provided. No subcutaneous edema. Indeterminate complex cystic appearing structure is present at the 9:00 region within the subcutaneous fat. Interval follow-up in 1 year by ultrasound is recommended to assess stability. Electronically signed by: Tyson Molina MD (09/19/2019 1:44 PM) [id number]
== END | disposition home or self-care (01) ==
LOC: US 12:51
PROVIDERS: ATTEND Family Medicine
DX: N60.02 Solitary cyst of left breast (principal); N63.24 Unspecified lump in the left breast, lower inner quadrant; Z85.3 Personal history of malignant neoplasm of breast
CPT/HCPCS: 76641

== ENCOUNTER → 2019-10-09 | Outpatient (CLI) | payer MEDICARE, BC ==
[2017-10-01 11:00] VITALS: BP 125/49
[~2019-10-09] MED LIST changes: +GADOTERATE 7.5 MMOL/15ML VIAL. IVP ONE
--- NOTE | 2019-10-09 14:38 | KCIC ---
EXAM: Brain MRI with and without contrast. HISTORY: Confusion. Memory loss. TECHNIQUE: Multiplanar, multisequence magnetic resonance imaging of the brain was performed prior to and following the administration of intravenous contrast. COMPARISON: 11/04/2016. FINDINGS: There is no restricted diffusion to suggest acute or subacute infarction. There is susceptibility effect and T1 hyperintensity within the left putamen and adjacent left frontal periventricular white matter due to chronic hemorrhage or chronic hemorrhagic infarct. There is associated ex vacuo dilatation of the anterior left lateral ventricle. No suspicious enhancing lesion is seen. There are scattered areas of signal change throughout the cerebral white matter and erin, likely due to chronic small vessel disease in a patient of this age. There is cerebral volume loss. There is evidence of lens surgery. The paranasal sinuses and mastoid air cells are unremarkable. There are normal flow voids within the cerebral vessels. There are incidental arachnoid granulations within the right posterior fossa. There is a suspected left frontal bone zainab hole with focus of susceptibility effect within the frontal scalp. IMPRESSION: 1. No acute intracranial finding. 2. Chronic hemorrhage or chronic hemorrhagic infarction within the left basal ganglia and adjacent frontal white matter. 3. Scattered areas of signal change within the cerebral white matter and erin, likely due to chronic small vessel disease. Electronically signed by: Kasandra Artis MD (10/09/2019 2:35 PM) [id number]
--- NOTE | 2019-10-09 15:10 | KCIC ---
EXAM: Thoracic spine MRI without and with contrast. HISTORY: Abnormal vertebral lesions on CT. Lungs breast cancer. TECHNIQUE: Multiplanar, multisequence magnetic resonance imaging of the thoracic spine was performed without and with intravenous contrast. COMPARISON: CT dated 09/14/2019. FINDINGS: There is signal abnormality and enhancement consistent with metastatic disease involving the T4, T5 and T6 vertebral bodies. There is involvement of the posterior elements at these levels. There are superimposed T2 hyperintense lesions likely due to extension of metastatic disease along the right posterior aspect of the central canal at T4 and right greater than left aspects of the central canal at T5. The largest lesion is seen on the right at T5 measuring approximately 1.4 cm in maximum dimension. These lesions result in complete effacement of the thecal sac and deformation of the thoracic spinal cord at the T5 level. No convincing spinal cord signal abnormality is seen. There is an additional T2 hyperintense lesion within the junction of the right pedicle and transverse process of T6. There is a round metastasis within the posterior aspect of L5, not formally assessed on this exam. There is instrumented anterior spinal fusion at the cervical levels, not formally assessed on this exam. There is degenerative endplate remodeling and anterior spurring at multiple thoracic levels. There is no significant thoracic listhesis. The conus terminates at L1. There is scarring within the posterior lumbar soft tissues, not formally assessed on this exam. There are multiple pulmonary nodules, better assessed on the CT performed 09/14/2019. There is a metastasis with adjacent pleural thickening likely due to metastatic soft tissue involvement involving the posterior right eighth rib. There are simple appearing right renal cysts, the largest of which measures at least 6 cm and is partially excluded from the [id number]. There are left thoracotomy changes. At T8-T9, there is a posterior central disc protrusion. There is no stenosis. At T9-T10, there is a posterior central to right paracentral disc protrusion. There is no stenosis. At T11-T12, there is a posterior central disc protrusion. There is no stenosis. At T11-T12, there is a left paracentral disc protrusion and annular tear superimposed on a disc bulge and endplate remodeling. There is mild bilateral facet arthropathy. There is mild right foraminal stenosis. IMPRESSION: 1. Osseous metastatic disease involving the T4, T5 and T6 vertebral bodies and posterior elements, with heterogeneous T2 hyperintense lesion extension into the central canal resulting in severe stenosis and deformation of the spinal cord at T5. No convincing spinal cord lesion or spinal cord signal abnormality is seen. 2. Osseous metastatic disease involving the posterior right eighth rib and adjacent pleura. 3. Osseous metastatic disease at L5. 4. Multiple pulmonary nodules, better characterized on the CT dated 09/14/2019. 5. Multilevel degenerative change involving the thoracic spine, including several small disc protrusions at the aforementioned levels. Electronically signed by: Kasandra Artis MD (10/09/2019 3:08 PM) [id number]
== END ==
LOC: KCIC MRI 12:26
PROVIDERS: ATTEND Family Medicine
DX: M51.24 Other intervertebral disc displacement, thoracic region (principal); R91.8 Other nonspecific abnormal finding of lung field; M47.814 Spondylosis without myelopathy or radiculopathy, thoracic region; N28.1 Cyst of kidney, acquired; Z85.3 Personal history of malignant neoplasm of breast
CPT/HCPCS: 70553; 72157; A9575

== ENCOUNTER 2019-10-12 14:31 | Emergency (ER) | payer MEDICARE, BC ==
[~2019-10-12] VITALS: Ht 162.6 cm; Wt 71.0 kg
[~2019-10-12 14:31] MED LIST changes: -GADOTERATE 7.5 MMOL/15ML VIAL. IVP ONE
[2019-10-12 15:05] VITALS: BP 119/56
--- NOTE | 2019-10-12 15:24 | PHYS DOC ---
Past Medical History Past Medical History: Anemia, Cancer, Depression, GERD, Hypertension, IBS, Other Additional Past Medical Histor: lung and breast ca Past Surgical History: Cancer Surgery, Cervical Fusion, Cholecystectomy, C- Section, Hysterectomy, Knee Replacement, Tonsillectomy Additional Past Surgical Histo: pneumonectomy 07/20/16 Smoking Status: Former Smoker Alcohol Use: Rarely Drug Use: None General Adult EDM: Chief Complaint: HIP PAIN HPI: HPI: Patient is a 73 year old female patient who presents with left hip pain. Patient reports that she was at home and had fallen yesterday, landing on her left hip. States that she continued to have some discomfort in it, states that she had just tripped which caused her to fall, states she did not have any symptoms prior to the fall. States she takes Tylenol yesterday, which seemed to help. States her pain is not too bad right now also reports some pain to her left knee. States she had her left knee replaced roughly 5 years ago, has been walking on her legs, but just continues to have some discomfort, and is concerned that she had cracked something Review of Systems: Review of Systems: Constitutional: Denies fever or chills. [] Eyes: Denies change in visual acuity. [] Respiratory: Denies cough or shortness of breath. [] Cardiovascular: Denies chest pain or edema. [] GI: Denies abdominal pain, nausea, vomiting, bloody stools or diarrhea. [] : Denies dysuria. [] Musculoskeletal: Denies back pain reports pain to left knee, left hip [] Integument: Denies rash. [] Neurologic: Denies headache, focal weakness or sensory changes. Denies dizziness before or after falling. [] Endocrine: Denies polyuria or polydipsia. [] Lymphatic: Denies swollen glands. [] Psychiatric: Denies depression or anxiety. [] Heart Score: Risk Factors: Risk Factors: DM, Current or recent (<one month) smoker, HTN, HLP, family history of CAD, obesity. Risk Scores: Score 0 - 3: 2.5% MACE over next 6 weeks - Discharge Home Score 4 - 6: 20.3% MACE over next 6 weeks - Admit for Clinical Observation Score 7 - 10: 72.7% MACE over next 6 weeks - Early Invasive Strategies Allergies: Allergies: Allergies Coded Allergies Type Severity Reaction Last Updated Verified No Known Allergies Allergy Unknown 03/07/17 Yes Physical Exam: PE: Constitutional: Well developed, well nourished, no acute distress, non-toxic appearance. [] HENT: Normocephalic, atraumatic, nose normal. [] Eyes: PERRLA, EOMI, conjunctiva normal, no discharge. [] Neck: Normal range of motion, no tenderness, supple, no stridor. [] Cardiovascular:Heart rate regular rhythm, no murmur [] Lungs & Thorax: Bilateral breath sounds clear to auscultation [] Abdomen: Bowel sounds normal, soft, no tenderness, no masses, no pulsatile masses. [] Skin: Warm, dry, no erythema, no rash. Abrasion noted over left knee [] Back: No tenderness, no CVA tenderness. [] Extremities: Tenderness on palpation over left knee. Tenderness over the left hip. No deformities palpated. No bruising noted. Full active and passive ROM, with noted discomfort on movement Neurologic: Alert and oriented X 3, normal motor function, normal sensory function, no focal deficits noted. [] Psychologic: Affect normal, judgement normal, mood normal. [] EKG: EKG: [] Radiology/Procedures: Radiology/Procedures: []EXAM: Left hip and pelvis, 3 views. HISTORY: Pain. Fall. COMPARISON: 04/04/2019 FINDINGS: A frontal view of the pelvis and 2 views of the left hip are obtained. There is no fracture. There is degenerative change involving the lumbar spine. There is lumbar scoliosis. IMPRESSION: No acute osseous finding. Electronically signed by: Kasandra Artis MD (10/12/2019 3:27 PM) [id number] AP, oblique, and lateral views of the left knee were obtained. Indication: Knee pain after fall Comparison: none. Findings: Patient status post total left knee arthroplasty. No evidence of hardware failure or loosening. There is patellar degenerative change. No suprapatellar joint effusion is identified. Electronically signed by: Carlos Mcdonald MD (10/12/2019 3:27 PM) [id number] DICTATED and SIGNED BY: CARLOS MCDONALD MD Course & Med Decision Making: Course & Med Decision Making Pertinent Labs and Imaging studies reviewed. (See chart for details) [] Dragon Disclaimer: Dragon Disclaimer: This electronic medical record was generated, in whole or in part, using a voice recognition dictation system. Departure Departure Impression: Primary Impression: Hip pain Additional Impression: Fall Qualified Codes: W19.XXXA - Unspecified fall, initial encounter Disposition: HOME, SELF-CARE Condition: STABLE Referrals: RACHELLE LUGO MD (PCP) Patient Instructions: Fall Prevention and Home Safety Additional Instructions: As we discussed, you may continue to take Tylenol or ibuprofen for discomfort. There was nothing noted broken or cracked on your x-rays today. Follow-up with your primary care provider as needed. Justicifation of Admission Dx: Justifications for Admission: Justification of Admission Dx: N/A TOMMIE MCGRAW APRN Oct 12, 2019 15:24
--- NOTE | 2019-10-12 15:30 | RAD ---
EXAM: Left hip and pelvis, 3 views. HISTORY: Pain. Fall. COMPARISON: 04/04/2019 FINDINGS: A frontal view of the pelvis and 2 views of the left hip are obtained. There is no fracture. There is degenerative change involving the lumbar spine. There is lumbar scoliosis. IMPRESSION: No acute osseous finding. Electronically signed by: Kasandra Artis MD (10/12/2019 3:27 PM) [id number]
--- NOTE | 2019-10-12 15:30 | RAD ---
AP, oblique, and lateral views of the left knee were obtained. Indication: Knee pain after fall Comparison: none. Findings: Patient status post total left knee arthroplasty. No evidence of hardware failure or loosening. There is patellar degenerative change. No suprapatellar joint effusion is identified. Electronically signed by: Carlos Mcdonald MD (10/12/2019 3:27 PM) [id number]
== END 2019-10-12 16:23 | disposition home or self-care (01) ==
LOC: ER 14:31
DX: M25.552 Pain in left hip (principal); G89.11 Acute pain due to trauma; M25.562 Pain in left knee; Z96.652 Presence of left artificial knee joint; M41.86 Other forms of scoliosis, lumbar region; K21.9 Gastro-esophageal reflux disease without esophagitis; I10 Essential (primary) hypertension; F32.9 Major depressive disorder, single episode, unspecified; K58.9 Irritable bowel syndrome, unspecified; Z90.710 Acquired absence of both cervix and uterus; Z90.49 Acquired absence of other specified parts of digestive tract; Z87.891 Personal history of nicotine dependence; W01.0XXA Fall on same level from slipping, tripping and stumbling without subsequent striking against object, initial encounter; Y93.89 Activity, other specified; Y92.89 Other specified places as the place of occurrence of the external cause; Y99.8 Other external cause status
CPT/HCPCS: 73502; 73562; 99284

== ENCOUNTER 2019-10-19 15:56 | Inpatient (IN) | payer MEDICARE, BC ==
[~2019-10-19] VITALS: Ht 162.6 cm; Wt 77.7 kg
[2019-10-19 16:28] LABS: BASO # 0.1 x10^3/uL (0.0-0.2); BASO % 1 % (0-3); EOS % 1 % (0-3); HEMATOCRIT 40.7 % (36.0-47.0); HEMOGLOBIN 13.3 g/dL (12.0-15.5); LYMPH # 1.8 x10^3/uL (1.0-4.8); LYMPH % 26 % (24-48); MEAN CORPUSCULAR HEMOGLOBIN 27 pg (25-35); MEAN CORPUSCULAR HGB CONC 33 g/dL (31-37); MEAN CORPUSCULAR VOLUME 83 fL (79-100); MONO # 0.6 x10^3/uL (0.0-1.1); MONO % 9 % (0-9); NEUT # 4.4 x10^3/uL (1.8-7.7); NEUT % 64 % (31-73); PLATELET COUNT 292 x10^3/uL (140-400); RED BLOOD COUNT 4.92 x10^6/uL (3.50-5.40); RED CELL DISTRIBUTION WIDTH 15.6 % (11.5-14.5); WHITE BLOOD COUNT 6.8 x10^3/uL (4.0-11.0)
--- NOTE | 2019-10-19 16:33 | PHYS DOC ---
Past Medical History Past Medical History: Anemia, Cancer, Depression, GERD, Hypertension, IBS, Other Additional Past Medical Histor: lung/breast ca Past Surgical History: Appendectomy, Cancer Surgery, Cervical Fusion, Cho lecystectomy, , Hysterectomy, Knee Replacement, Tonsillectomy Additional Past Surgical Histo: L pneumonectomy 07/20/16,BILAT MASTECTOMY Smoking Status: Former Smoker Alcohol Use: Occasionally Drug Use: None General Adult EDM: Chief Complaint: BACK PAIN - NO INJURY HPI: HPI: 73-year-old female past medical history of breast cancer with bilateral mastectomies and non-small cell lung cancer with left-sided resection, presents the ED sent in by her medical oncologist with concern for frequent falls, ataxia and lower extremity weakness. Primary care physician ordered an MRI of her thoracic spine on October 08 that is showing T4-5 and 6 metastases with T4 severe stenosis, medical oncologist (Dr. Mitchell) concern for spinal cord compression. Pt started to deteriorate over the past 2 months and is living with her son. Fell on and was assessed in the ed for hip pain. ROS: Denies any associated fever, chills, neck stiffness, headache, saddle anesthesia, urine or bowel retention or incontinence, lower extremity weakness or ascending paralysis, cough, sore throat, chest pain, dizziness, diaphoresis, dyspnea, hemoptysis, leg swelling, joint pain, back pain or abdominal pain. Review of Systems: Review of Systems: Constitutional: Denies fever or chills. [] Eyes: Denies change in visual acuity. [] HENT: Denies nasal congestion or sore throat. [] Respiratory: Denies cough or shortness of breath. [] Cardiovascular: Denies chest pain or edema. [] GI: Denies abdominal pain, nausea, vomiting, bloody stools or diarrhea. [] : Denies dysuria. [] Musculoskeletal: Denies back pain or joint pain. [] Integument: Denies rash. [] Neurologic: Denies headache, focal weakness or sensory changes. [] Endocrine: Denies polyuria or polydipsia. [] Lymphatic: Denies swollen glands. [] Psychiatric: Denies depression or anxiety. [] Allergies: Allergies: Allergies Coded Allergies Type Severity Reaction Last Updated Verified No Known Allergies Allergy Unknown 03/07/17 Yes Physical Exam: PE: Constitutional: Well developed, well nourished, no acute distress, non-toxic ap pearance. [] HENT: Normocephalic, atraumatic, bilateral external ears normal, oropharynx moist, no oral exudates, nose normal. [] Eyes: PERRLA, EOMI, conjunctiva normal, no discharge. [] Neck: Normal range of motion, no tenderness, supple, no stridor. [] Cardiovascular:Heart rate regular rhythm, no murmur [] Lungs & Thorax: Bilateral breath sounds clear to auscultation [] Abdomen: Bowel sounds normal, soft, no tenderness, no masses, no pulsatile masses. [] Skin: Warm, dry, no erythema, no rash. [] Back: No tenderness, no CVA tenderness. [] Extremities: No tenderness, no cyanosis, no clubbing, ROM intact, no edema. [] 5/5 equal/symmetric UE and LE muscle strength Neurologic: Alert and oriented X 3, normal motor function, normal sensory function, no focal deficits noted. [] CN 2- 12 intact, slightly decrease left patellar (L4) reflex, equal achilles (S1) reflex Psychologic: Affect normal, judgement normal, mood normal. [] Current Patient Data: Labs: Laboratory Tests Test 10/19/19 16:22 White Blood Count 6.8 x10^3/uL (4.0-11.0) Red Blood Count 4.92 x10^6/uL (3.50-5.40) Hemoglobin 13.3 g/dL (12.0-15.5) Hematocrit 40.7 % (36.0-47.0) Mean Corpuscular Volume 83 fL (79-100) Mean Corpuscular Hemoglobin 27 pg (25-35) Mean Corpuscular Hemoglobin Concent 33 g/dL (31-37) Red Cell Distribution Width 15.6 % (11.5-14.5) H Platelet Count 292 x10^3/uL (140-400) Neutrophils (%) (Auto) 64 % (31-73) Lymphocytes (%) (Auto) 26 % (24-48) Monocytes (%) (Auto) 9 % (0-9) Eosinophils (%) (Auto) 1 % (0-3) Basophils (%) (Auto) 1 % (0-3) Neutrophils # (Auto) 4.4 x10^3/uL (1.8-7.7) Lymphocytes # (Auto) 1.8 x10^3/uL (1.0-4.8) Monocytes # (Auto) 0.6 x10^3/uL (0.0-1.1) Eosinophils # (Auto) 0.0 x10^3/uL (0.0-0.7) Basophils # (Auto) 0.1 x10^3/uL (0.0-0.2) Laboratory Tests 10/19/19 16:22 Vital Signs: Vital Signs Date Time Temp Pulse Resp B/P (MAP) Pulse Ox O2 Delivery O2 Flow Rate FiO2 10/19/19 16:02 98.8 58 24 173/75 (107) 98 Room Air 98.8 EKG: EKG: [] Radiology/Procedures: Radiology/Procedures: IMAGING REPORT Signed PATIENT: TERESO GILBERT ACCOUNT: [id number] : 1945 LOCATION: ER AGE: 73 SEX: F EXAM STATUS: REG ER ORD. PHYSICIAN: MARGUERITE CHRISTENSEN DO REASON: weakness PROCEDURE: CHEST AP ONLY CHEST AP ONLY History: Reason: weakness / Spl. Instructions: / History: Comparison: September 29, [address] September 14, 2019 Findings: Left pleural thickening, unchanged. No consolidation or pleural effusion. Elevation of the right hemidiaphragm, unchanged. No pneumothorax. Normal heart size. Postop changes lower cervical spine. Bilateral acromioclavicular DJD. Prior granulomatous disease within the chest. Impression: 1. No acute cardiopulmonary process. 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 Discussed with neurosurgery who recommended patient n.p.o. at midnight and will evaluate in the a.m. to discuss options. Dr. Mitchell updated. Will admit to the ICU for strict neuro checks every 2 hours. All of patient and her son's questions were answered and she was stable at time of admission, pt agrees with this plan. Course & Med Decision Making: Course & Med Decision Making Critical care time was 30 minutes which includes time at bedside, spent in discussion of patient's care with specialist and/or family members, with interpretation of laboratory and/or radiological studies and is exclusive of procedures.Pertinent Labs and Imaging studies reviewed. (See chart for details) [] Dragon Disclaimer: Dragon Disclaimer: This electronic medical record was generated, in whole or in part, using a voice recognition dictation system. 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 2 CAP PO TIDWMEALS for Pancreatitis for 14 Days, #84 CAP Prov: JULIANE ARREDONDO MD 10/27/19 Dexamethasone (Decadron) 0.5 Mg Tablet 2 TAB PO BID for swelling for 7 Days, #28 TAB 0 Refills Prov: OPAL RICHARDSON MD 10/27/19 Justicifation of Admission Dx: Justifications for Admission: Justification of Admission Dx: Yes Comments: Concern for T5 spinal cord compression secondary to metastases, unknown primary MARGUERITE CHRISTENSEN DO Oct 19, 2019 16:33
[2019-10-19 16:36] LABS: CALCIUM 9.1 mg/dL (8.5-10.1); CREATININE 1.1 mg/dL (0.6-1.0); GFR 48.4
[2019-10-19 16:38] LABS: PROTHROMBIN TIME PATIENT 13.2 SEC (11.7-14.0)
[2019-10-19 16:41] LABS: ALBUMIN 3.1 g/dL (3.4-5.0); ALBUMIN/GLOBULIN RATIO 0.9 (1.0-1.7); TOTAL BILIRUBIN 0.4 mg/dL (0.2-1.0); TOTAL PROTEIN 6.6 g/dL (6.4-8.2)
--- NOTE | 2019-10-19 16:57 | RAD ---
CHEST AP ONLY History: Reason: weakness / Spl. Instructions: / History: Comparison: September 29, [address] September 14, 2019 Findings: Left pleural thickening, unchanged. No consolidation or pleural effusion. Elevation of the right hemidiaphragm, unchanged. No pneumothorax. Normal heart size. Postop changes lower cervical spine. Bilateral acromioclavicular DJD. Prior granulomatous disease within the chest. Impression: 1. No acute cardiopulmonary process. Electronically signed by: Meño Pearce DO (10/19/2019 4:54 PM) [facility]
[2019-10-19] MEDS ORDERED: ONDANSETRON PF 4 MG/2 ML VIAL. IV PRN (18:30)
[2019-10-19] MEDS ORDERED: MORPHINE SULFATE 2 MG/ML VIAL. IV PRN (18:30)
[2019-10-19 20:30] VITALS: BP 172/92
[2019-10-19 21:00] VITALS: BP 171/94
[2019-10-19 22:24] VITALS: BP 134/71
[2019-10-19 23:09] VITALS: BP 129/68
[2019-10-20] VITALS (21 sets, daily range): BP systolic 113–178; BP diastolic 69–92
--- NOTE | 2019-10-20 05:23 | NUR ---
Pt transferred from ED on [facility] to ICU room 3 @ 2029 with possessions. Pt transferred to [facility] to bed. Son with pt and stayed for a few minutes to say bye. pt stable upon admission awaiting possible surgery today. NPO since midnight. assessment as charted. call light in reach. SBA for voiding. continue with plan of care.
--- NOTE | 2019-10-20 08:12 | PDOC1 ---
History and Physical Date of Admission: Date of Admission DATE: 10/20/19 TIME: 08:09 Chief Complaint: Chief Complain: Weakness and abnormal gait History of Present Illness: HPI: Patient is a 73-year-old female with past medical history of hypertension, breast cancer status post bilateral mastectomy and non-small cell lung cancer status post lobectomy who comes in due to frequent falls, ataxia and lower extremity weakness. Son has been noticing abnormal gait in the past few months, but after she had fallen 2 weeks ago son has noticed increased weakness and abnormalities in her walking. Her PCP had ordered MRI of the spine on October 16 that showed T4-6 metastatic osteolytic lesions and T4 levels with severe stenosis. Patient was sent to the ED for concern of spinal cord compression. Patient denies urinary incontinence, numbness in her pelvic regions, shortness of breath, abdominal pains, diarrhea, or fevers Past Medical/Surgical History: PMH/PSH: Past Medical History: Anemia, Cancer, Depression, GERD, Hypertension, IBS, lung/breast ca Past Surgical History: Appendectomy, Cancer Surgery, Cervical Fusion, Cholecystectomy, , Hysterectomy, Knee Replacement, Tonsillectomy, L pneumonectomy 07/20/16,BILAT MASTECTOMY Allergies: Allergies: Coded Allergies: No Known Allergies (Verified Allergy, Unknown, 03/07/17) Family History: Family History: Reviewed and none reported Social History: Social History: Smoking Status: Former Smoker Alcohol Use: Occasionally Drug Use: None Current Medications: Current Medications Current Medications Ondansetron HCl (Zofran) 4 mg PRN Q8HRS PRN IV NAUSEA/VOMITING; Start 10/19/19 at 18:30; Stop 10/20/19 at 18:29 Morphine Sulfate (Morphine Sulfate) 2 mg PRN Q2HR PRN IV PAIN; Start 10/19/19 at 18:30; Stop 10/20/19 at 18:29 Active Scripts Active Lialda (Mesalamine) 1.2 Gm Tablet. 4.8 Gm PO DAILY 14 Days Zenpep 10,000 Units Capsule (Lipase/Protease/Amylase) 1 Each Capsule.dr 2 Cap PO TIDWMEALS 14 Days Lomotil Tablet (Diphenoxylate Hcl/Atropine) 1 Each Tablet 1 Tab PO QID MDD 8 tablets Zofran Odt (Ondansetron) 4 Mg Tab.rapdis 1 Tab SL Q8HRS Reported Omeprazole 20 Mg Tablet. 20 Mg PO DAILY Lexapro (Escitalopram Oxalate) 20 Mg Tablet 20 Mg PO BID Multivitamins (Multivitamin) 1 Each Tablet 1 Each PO DAILY Vitamin D3 (Cholecalciferol (Vitamin D3)) 400 Unit Tablet 2,000 Unit PO DAILY Lansoprazole 30 Mg Capsule. 30 Mg PO DAILY Calcium + Vitamin D Tablet (Calcium Carbonate/Vitamin D3) 1 Each Tablet 1 Each PO PRN BID PRN Toviaz (Fesoterodine Fumarate) 8 Mg Tab.er.24h 8 Mg PO DAILY ROS: Review of Systems Review of System REVIEW OF SYSTEMS: GENERAL: Denies weakness SKIN: No bruising, hair changes or rashes. EYES: No blurred, double or loss of vision. NOSE AND THROAT: No history of nosebleeds, hoarseness or sore throat. HEART: No history of palpitations, chest pain or shortness of breath on exertion. LUNGS: Denies cough, hemoptysis, wheezing or shortness of breath. GASTROINTESTINAL: Denies changes in appetite, nausea, vomiting, diarrhea or constipation. GENITOURINARY: No history of frequency, urgency, hesitancy or nocturia. NEUROLOGIC: Denies history of numbness, tingling, or tremor. PSYCHIATRIC: No history of panic, anxiety or depression. ENDOCRINE: No history of heat or cold intolerance, polyuria or polydipsia. EXTREMITIES: Denies joint pain, pain on walking or stiffness. Physical Exam: Vital Signs: Vital Signs Date Time Temp Pulse Resp B/P (MAP) Pulse Ox O2 Delivery O2 Flow Rate FiO2 10/20/19 06:00 52 20 178/88 (118) 99 Room Air 10/20/19 04:00 97.1 97.1 Physcial Exam: GEN: No apparent distress. Alert and oriented HEENT: Normal cephalic, atraumatic, external auditory canals are patent EYES: Extraocular muscles are intact, pupil are equally round and reactive to light and accommodation MUSCULOSKELETAL: Well developed , well nourished, good range of motion ENDOCRINE: No thyromegaly was palpated LYMPHATICS: No cervical chain or axillary nodes were noted HEMATOPOIETIC: No bruising NECK: Supple, no JVD, no thyromegaly was noted LUNGS: Clear to auscultation in all lung mcmahon without rhonchi or wheezing HEART: RRR, S!, S2 present. Peripheral pulses intact, no obvious murmurs noted ABDOMEN: Soft, nontender. Positive bowel sounds, no organomegaly, normal bowel sounds EXTREMITIES: Without clubbing, cyanosis, or edema. Pedal pulses intact. Negative Homans sign NEUROLOGIC: Normal speech and tone. A&O x 3, moves all extremities, no obvious focal deficits PSYCHIATRIC: Normal affect, normal mood. Stable SKIN: No ulcerations or rashes, good skin turgor, no jaundice VASCULAR: Good capillary refill, neurovascular bundle appears to be intact Labs: Labs: Laboratory Tests Test 10/19/19 16:22 10/19/19 20:24 White Blood Count 6.8 x10^3/uL (4.0-11.0) Red Blood Count 4.92 x10^6/uL (3.50-5.40) Hemoglobin 13.3 g/dL (12.0-15.5) Hematocrit 40.7 % (36.0-47.0) Mean Corpuscular Volume 83 fL (79-100) Mean Corpuscular Hemoglobin 27 pg (25-35) Mean Corpuscular Hemoglobin Concent 33 g/dL (31-37) Red Cell Distribution Width 15.6 % (11.5-14.5) Platelet Count 292 x10^3/uL (140-400) Neutrophils (%) (Auto) 64 % (31-73) Lymphocytes (%) (Auto) 26 % (24-48) Monocytes (%) (Auto) 9 % (0-9) Eosinophils (%) (Auto) 1 % (0-3) Basophils (%) (Auto) 1 % (0-3) Neutrophils # (Auto) 4.4 x10^3/uL (1.8-7.7) Lymphocytes # (Auto) 1.8 x10^3/uL (1.0-4.8) Monocytes # (Auto) 0.6 x10^3/uL (0.0-1.1) Eosinophils # (Auto) 0.0 x10^3/uL (0.0-0.7) Basophils # (Auto) 0.1 x10^3/uL (0.0-0.2) Prothrombin Time 13.2 SEC (11.7-14.0) Prothromb Time International Ratio 1.0 (0.8-1.1) Activated Partial Thromboplast Time 27 SEC (24-38) Sodium Level 138 mmol/L (136-145) Potassium Level 4.0 mmol/L (3.5-5.1) Chloride Level 101 mmol/L (98-107) Carbon Dioxide Level 28 mmol/L (21-32) Anion Gap 9 (6-14) Blood Urea Nitrogen 15 mg/dL (7-20) Creatinine 1.1 mg/dL (0.6-1.0) Estimated GFR (Cockcroft-Gault) 48.4 BUN/Creatinine Ratio 14 (6-20) Glucose Level 111 mg/dL (70-99) Calcium Level 9.1 mg/dL (8.5-10.1) Total Bilirubin 0.4 mg/dL (0.2-1.0) Aspartate Amino Transf (AST/SGOT) 17 U/L (15-37) Alanine Aminotransferase (ALT/SGPT) 12 U/L (14-59) Alkaline Phosphatase 83 U/L (46-116) Total Protein 6.6 g/dL (6.4-8.2) Albumin 3.1 g/dL (3.4-5.0) Albumin/Globulin Ratio 0.9 (1.0-1.7) SARS-CoV-2 Antigen (Rapid) Negative (NEGATIVE) Laboratory Tests Test 10/19/19 16:22 10/19/19 20:24 White Blood Count 6.8 x10^3/uL (4.0-11.0) Red Blood Count 4.92 x10^6/uL (3.50-5.40) Hemoglobin 13.3 g/dL (12.0-15.5) Hematocrit 40.7 % (36.0-47.0) Mean Corpuscular Volume 83 fL (79-100) Mean Corpuscular Hemoglobin 27 pg (25-35) Mean Corpuscular Hemoglobin Concent 33 g/dL (31-37) Red Cell Distribution Width 15.6 % (11.5-14.5) Platelet Count 292 x10^3/uL (140-400) Neutrophils (%) (Auto) 64 % (31-73) Lymphocytes (%) (Auto) 26 % (24-48) Monocytes (%) (Auto) 9 % (0-9) Eosinophils (%) (Auto) 1 % (0-3) Basophils (%) (Auto) 1 % (0-3) Neutrophils # (Auto) 4.4 x10^3/uL (1.8-7.7) Lymphocytes # (Auto) 1.8 x10^3/uL (1.0-4.8) Monocytes # (Auto) 0.6 x10^3/uL (0.0-1.1) Eosinophils # (Auto) 0.0 x10^3/uL (0.0-0.7) Basophils # (Auto) 0.1 x10^3/uL (0.0-0.2) Prothrombin Time 13.2 SEC (11.7-14.0) Prothromb Time International Ratio 1.0 (0.8-1.1) Activated Partial Thromboplast Time 27 SEC (24-38) Sodium Level 138 mmol/L (136-145) Potassium Level 4.0 mmol/L (3.5-5.1) Chloride Level 101 mmol/L (98-107) Carbon Dioxide Level 28 mmol/L (21-32) Anion Gap 9 (6-14) Blood Urea Nitrogen 15 mg/dL (7-20) Creatinine 1.1 mg/dL (0.6-1.0) Estimated GFR (Cockcroft-Gault) 48.4 BUN/Creatinine Ratio 14 (6-20) Glucose Level 111 mg/dL (70-99) Calcium Level 9.1 mg/dL (8.5-10.1) Total Bilirubin 0.4 mg/dL (0.2-1.0) Aspartate Amino Transf (AST/SGOT) 17 U/L (15-37) Alanine Aminotransferase (ALT/SGPT) 12 U/L (14-59) Alkaline Phosphatase 83 U/L (46-116) Total Protein 6.6 g/dL (6.4-8.2) Albumin 3.1 g/dL (3.4-5.0) Albumin/Globulin Ratio 0.9 (1.0-1.7) SARS-CoV-2 Antigen (Rapid) Negative (NEGATIVE) Assessment/Plan Assessment/Plan Frequent falls concerning for spinal cord compression Met metastatic osteolytic lesions level T4-6 Spinal stenosis at the level of T4 Hx of lung cancer Hx of breast cancer Hypertension Neurosurgery consult Heme-onc consult Every 2 hours neuro checks IV dexamethasone Pending CT abdomen pelvis Lovenox for DVT prophylaxis Protonix GI prophylaxis Regular diet Full code Discussed with RN and SW Dispo Surrogate decision maker is self Justicifation of Admission Dx: Justifications for Admission: Justification of Admission Dx: N/A TERA CROOKS MD Oct 20, 2019 08:12
[2019-10-20] MEDS ORDERED: IV RINGERS,LACTATED 1000ML 1,000 ML IV SCH (09:14)
[2019-10-20] MEDS ORDERED: LIDOCAINE 1% PF 2 ML VIAL. ID PRN (09:15)
[2019-10-20] MEDS ORDERED: fentaNYL PF VIAL 100 MCG/2 ML VIAL IV PRN ×2 (09:15)
[2019-10-20] MEDS ORDERED: MORPHINE SULFATE 2 MG/ML VIAL. IV PRN (09:15)
[2019-10-20] MEDS ORDERED: PROCHLORPERAZINE 10 MG/2 ML VIAL. IV PRN (09:15)
[2019-10-20] MEDS ORDERED: HYDROmorphone 2 MG/ML VIAL IV PRN (09:15)
[2019-10-20] MEDS ORDERED: ONDANSETRON PF 4 MG/2 ML VIAL. IV PRN (09:15)
[2019-10-20] MEDS ORDERED: ZOLEDRONICACID 4mg/100mlPREMIX 100 ML IV ONE (09:30)
[2019-10-20] MEDS ORDERED: IOHEXOL 300 MG/ML 100ML VIAL. IV ONE (10:30)
[2019-10-20] MEDS ORDERED: IOHEXOL 240 MG/ML 50ML VIAL. PO ONE (10:30)
[2019-10-20] MEDS ORDERED: CONTRAST GIVEN. MC PRN (10:30)
[2019-10-20] MEDS: MULTIVITAMIN with MINERAL TABLET. PO SCH (11:00)
[2019-10-20] MEDS: DEXAMETHASONE SOD PHOS 4 MG/ML VIAL IVP SCH ×2 (11:03→18:09)
[2019-10-20] MEDS ORDERED: LOSA-73 PO (11:55)
--- NOTE | 2019-10-20 11:58 | NUR ---
SS following for discharge planning. SS reviewed pt chart and discussed with pt RN. Pt is from home with son and is currently on room air. Dr. Hinds and Oncology consulted. Pt on IV steroids. Pt having CT scan today. Possible surgery on Wednesday. SS will continue to follow for discharge planning.
--- NOTE | 2019-10-20 12:29 | PDOC2 ---
CONSULT Date of Consult Date of Consult DATE: 10/20/19 TIME: 12:19 Reason for Consult Reason for Consult: Metastatic cancer with spinal cord compression Referring Physician Referring Physician: Dr Bliss Identification/Chief Complaint Chief Complaint Back pain and leg weakness Problems: (1) Spinal cord compression Source Source: Caregiver, Chart review, Patient History of Present Illness Reason for Visit: Chelsy Harkins is a 73 year-old female who has been admitted for further evaluation and management of neoplastic spinal cord compression. She has a hx of breast cancer (T1N0M0, diagnosed 2012 s/p B/L mastectomy and years of adjuvant endocrine therapy) and lung adenocarcinoma (T2N1M0, diagnosed 2016 s/o LLL lobectomy and adjuvant Carb-Taxol). She was referred to oncology office by her PCP Dr Lopes. She has noticed worsening mid back pain for the past 2 months with. She has also noticed bilateral lower extremity weakness and difficulty maintaining upright posture and coordination in her legs that has gradually progressed over the past 1 month. She notes having fallen twice over the last week. She notices difficulty especially with walking up stairs. She denies loss of bowel or bladder control. She has also lost 45 pounds over the last year. She sought further evaluation for this from her primary care doctor Dr. Lopes. Dr. Lopes ordered CT chest, MRI brain for further evaluation. MRI brain did not show any evidence of ANGLE FURNACEMAN metastasis. CT chest showed findings in the T4, T5 and T6 vertebrae that were suspicious for bone metastasis and groundglass opacities in the right middle lobe that were stable. No new lung nodules were noted. MRI thoracic spine was obtained to follow-up on the results of CT chest and showed osseous metastasis in T4, T5 and T6 vertebral bodies with extension into the spinal cord resulting in severe stenosis and deep formation of the spinal cord at T5. In addition, bone metastasis in the right eighth rib and adjacent pleura as well as L5 was noted. She was sent to the ER from my clinic yesterday due to symptomatic spinal cord compression. She has been admitted to the hospital and neurosurgery has been consulted. PMH: Lung cancer, breast cancer PSH: B/L mastectomy, LLL lobectomy FH: Lung cancer in several relatives SH: Non smoker Allergies: None Past Medical History Cardiovascular: No pertinent hx Pulmonary: No pertinent hx GI: No pertinent hx Heme/Onc: No pertinent hx Hepatobiliary: No pertinent hx Psych: No pertinent hx Rheumatologic: No pertinent hx Infectious disease: No pertinent hx Renal/: No pertinent hx Endocrine: No pertinent hx Past Surgical History Past Surgical History: Appendectomy, Breast Biopsy, Mastectomy Family History Family History: No Significant Social History ALCOHOL: occassional Drugs: None Current Problem List Problem List Problems Medical Problems: (1) Spinal cord compression Status: Acute Current Medications Current Medications Current Medications Ondansetron HCl (Zofran) 4 mg PRN Q8HRS PRN IV NAUSEA/VOMITING; Start 10/19/19 at 18:30; Stop 10/20/19 at 18:29 Morphine Sulfate (Morphine Sulfate) 2 mg PRN Q2HR PRN IV PAIN Last administered on 10/20/19at 08:52; Start 10/19/19 at 18:30; Stop 10/20/19 at 18:29 Ondansetron HCl (Zofran) 4 mg PRN Q6HRS PRN IV NAUSEA/VOMITING; Start 10/20/19 at 09:15; Stop 10/20/19 at 20:00 Fentanyl Citrate (Fentanyl 2ml Vial) 25 mcg PRN Q5MIN PRN IV MILD PAIN 1-3; Start 10/20/19 at 09:15; Stop 10/20/19 at 20:00 Fentanyl Citrate (Fentanyl 2ml Vial) 50 mcg PRN Q5MIN PRN IV MODERATE TO SEVERE PAIN; Start 10/20/19 at 09:15; Stop 10/20/19 at 20:00 Morphine Sulfate (Morphine Sulfate) 1 mg PRN Q10MIN PRN IV SEVERE PAIN 7-10; Start 10/20/19 at 09:15; Stop 10/20/19 at 20:00 Ringer's Solution 1,000 ml @ 30 mls/hr Q24H IV ; Start 10/20/19 at 09:14; Stop 10/20/19 at 21:13 Lidocaine HCl (Xylocaine-Mpf 1% 2ml Vial) 2 ml PRN 1X PRN ID PRIOR TO IV START; Start 10/20/19 at 09:15; Stop 10/20/19 at 20:00 Hydromorphone HCl (Dilaudid) 0.5 mg PRN Q10MIN PRN IV SEV PAIN, Second choice; Start 10/20/19 at 09:15; Stop 10/20/19 at 20:00 Prochlorperazine Edisylate (Compazine) 5 mg PACU PRN PRN IV NAUSEA, MRX1; Start 10/20/19 at 09:15; Stop 10/20/19 at 09:26; Status DC Zoledronic Acid 100 ml @ 400 mls/hr 1X ONCE IV ; Start 10/20/19 at 09:30; Stop 10/20/19 at 09:44; Status UNV Dexamethasone Sodium Phosphate (Decadron) 4 mg Q6HRS IVP Last administered on 10/20/19at 11:03; Start 10/20/19 at 10:00 Amylase/Lipase/ Protease (Zenpep 10,000) 2 cap TIDWMEALS PO ; Start 10/20/19 at 12:00 Calcium/Vitamin D (Oscal D 500mg/ 200uts) 1 tab BIDWMEALS PO ; Start 10/20/19 at 17:00 Citalopram Hydrobromide (CeleXA) 40 mg DAILY PO ; Start 10/20/19 at 11:00 Non-Formulary Medication (Mesalamine (Lialda)) 4.8 gm DAILY PO ; Start 10/21/19 at 09:00; Status UNV Multivitamins (Thera M Plus) 1 tab DAILY PO ; Start 10/20/19 at 11:00 Pantoprazole Sodium (Protonix) 40 mg DAILYAC PO ; Start 10/20/19 at 11:30 Iohexol (Omnipaque 240 Mg/ml) 30 ml 1X ONCE PO Last administered on 10/20/19at 10:30; Start 10/20/19 at 10:30; Stop 10/20/19 at 10:37; Status DC Iohexol (Omnipaque 300 Mg/ml) 60 ml 1X ONCE IV Last administered on 10/20/19at 10:30; Start 10/20/19 at 10:30; Stop 10/20/19 at 10:37; Status DC Info (CONTRAST GIVEN -- Rx MONITORING) 1 each PRN DAILY PRN MC SEE COMMENTS; Start 10/20/19 at 10:30; Stop 10/22/19 at 10:29 Ondansetron HCl (Zofran) 4 mg PRN Q6HRS PRN IV NAUSEA/VOMITING; Start 10/23/19 at 07:00; Stop 10/23/19 at 20:00 Fentanyl Citrate (Fentanyl 2ml Vial) 25 mcg PRN Q5MIN PRN IV MILD PAIN 1-3; Start 10/23/19 at 07:00; Stop 10/23/19 at 20:00 Fentanyl Citrate (Fentanyl 2ml Vial) 50 mcg PRN Q5MIN PRN IV MODERATE TO SEVERE PAIN; Start 10/23/19 at 07:00; Stop 10/23/19 at 20:00 Morphine Sulfate (Morphine Sulfate) 1 mg PRN Q10MIN PRN IV SEVERE PAIN 7-10; Start 10/23/19 at 07:00; Stop 10/23/19 at 20:00 Ringer's Solution 1,000 ml @ 30 mls/hr Q24H IV ; Start 10/23/19 at 07:00; Stop 10/23/19 at 18:59 Lidocaine HCl (Xylocaine-Mpf 1% 2ml Vial) 2 ml PRN 1X PRN ID PRIOR TO IV START; Start 10/23/19 at 07:00; Stop 10/23/19 at 20:00 Hydromorphone HCl (Dilaudid) 0.5 mg PRN Q10MIN PRN IV SEV PAIN, Second choice; Start 10/23/19 at 07:00; Stop 10/23/19 at 20:00 Prochlorperazine Edisylate (Compazine) 5 mg PACU PRN PRN IV NAUSEA, MRX1; Start 10/23/19 at 07:00; Stop 10/23/19 at 20:00 Losartan Potassium (Cozaar) 25 mg DAILY PO ; Start 10/20/19 at 12:30 Active Scripts Active Lialda (Mesalamine) 1.2 Gm Tablet. 4.8 Gm PO DAILY 14 Days Zenpep 10,000 Units Capsule (Lipase/Protease/Amylase) 1 Each Capsule.dr 2 Cap PO TIDWMEALS 14 Days Lomotil Tablet (Diphenoxylate Hcl/Atropine) 1 Each Tablet 1 Tab PO QID MDD 8 tablets Zofran Odt (Ondansetron) 4 Mg Tab.rapdis 1 Tab SL Q8HRS Reported Losartan Potassium 50 Mg Tablet 25 Mg PO DAILY Omeprazole 20 Mg Tablet. 20 Mg PO DAILY Lexapro (Escitalopram Oxalate) 20 Mg Tablet 20 Mg PO BID Multivitamins (Multivitamin) 1 Each Tablet 1 Each PO DAILY Vitamin D3 (Cholecalciferol (Vitamin D3)) 400 Unit Tablet 2,000 Unit PO DAILY Lansoprazole 30 Mg Capsule.dr 30 Mg PO DAILY Calcium + Vitamin D Tablet (Calcium Carbonate/Vitamin D3) 1 Each Tablet 1 Each PO PRN BID PRN Toviaz (Fesoterodine Fumarate) 8 Mg Tab.er.24h 8 Mg PO DAILY Allergies Allergies: Coded Allergies: No Known Allergies (Verified Allergy, Unknown, 03/07/17) ROS General: No: Chills, Night Sweats PSYCHOLOGICAL ROS: No: Anxiety, Concentration difficultie Eyes: No Blurry vision, No Dry eyes HEENT: No: Heacaches ALLERGY AND IMMUNOLOGY: No: Nasal Congestion Hematological and Lymphatic: No: Blood Clots, Blood Transfusions ENDOCRINE: No: Breast Changes Breast: No New/Changing Breast Lumps Respiratory: No: Cough, Hemoptysis Cardiovascular: No Chest Pain, No Palpitations Gastrointestinal: No Nausea, No Vomiting, No Abdominal Pain Genitourinary: No Dysuria, No Flank Pain Musculoskeletal: Yes Gait Disturbance Neurological: Yes Gait Disturbance, Yes Impaired Coord/balance, Yes Memory Loss ; No Bowel/Bladder ControlChng, No Confusion, No Dizziness, No Headaches, No Numbness/Tingling, No Seizures, No Speech Problems, No Visual Changes Skin: No Dry Skin, No Rash Physical Exam General: Alert, Cooperative HEENT: Atraumatic, PERRLA Lungs: Clear to auscultation Heart: Regular rate, Normal S1, Normal S2 Abdomen: Normal bowel sounds, Soft, No tenderness, No hepatosplenomegaly Extremities: No clubbing, No cyanosis Skin: No rashes Neuro: Normal speech, Cranial nerves 3-12 NL, Other (Unsteady gait) MUSCULOSKELETAL: No deformity, No swelling Vitals VITALS Vital Signs Date Time Temp Pulse Resp B/P (MAP) Pulse Ox O2 Delivery O2 Flow Rate FiO2 10/20/19 09:00 56 16 169/87 (114) 97 Room Air 10/20/19 07:10 97.9 97.9 Labs Labs Laboratory Tests Test 10/19/19 16:22 10/19/19 20:24 White Blood Count 6.8 x10^3/uL (4.0-11.0) Red Blood Count 4.92 x10^6/uL (3.50-5.40) Hemoglobin 13.3 g/dL (12.0-15.5) Hematocrit 40.7 % (36.0-47.0) Mean Corpuscular Volume 83 fL (79-100) Mean Corpuscular Hemoglobin 27 pg (25-35) Mean Corpuscular Hemoglobin Concent 33 g/dL (31-37) Red Cell Distribution Width 15.6 % (11.5-14.5) Platelet Count 292 x10^3/uL (140-400) Neutrophils (%) (Auto) 64 % (31-73) Lymphocytes (%) (Auto) 26 % (24-48) Monocytes (%) (Auto) 9 % (0-9) Eosinophils (%) (Auto) 1 % (0-3) Basophils (%) (Auto) 1 % (0-3) Neutrophils # (Auto) 4.4 x10^3/uL (1.8-7.7) Lymphocytes # (Auto) 1.8 x10^3/uL (1.0-4.8) Monocytes # (Auto) 0.6 x10^3/uL (0.0-1.1) Eosinophils # (Auto) 0.0 x10^3/uL (0.0-0.7) Basophils # (Auto) 0.1 x10^3/uL (0.0-0.2) Prothrombin Time 13.2 SEC (11.7-14.0) Prothromb Time International Ratio 1.0 (0.8-1.1) Activated Partial Thromboplast Time 27 SEC (24-38) Sodium Level 138 mmol/L (136-145) Potassium Level 4.0 mmol/L (3.5-5.1) Chloride Level 101 mmol/L (98-107) Carbon Dioxide Level 28 mmol/L (21-32) Anion Gap 9 (6-14) Blood Urea Nitrogen 15 mg/dL (7-20) Creatinine 1.1 mg/dL (0.6-1.0) Estimated GFR (Cockcroft-Gault) 48.4 BUN/Creatinine Ratio 14 (6-20) Glucose Level 111 mg/dL (70-99) Calcium Level 9.1 mg/dL (8.5-10.1) Total Bilirubin 0.4 mg/dL (0.2-1.0) Aspartate Amino Transf (AST/SGOT) 17 U/L (15-37) Alanine Aminotransferase (ALT/SGPT) 12 U/L (14-59) Alkaline Phosphatase 83 U/L (46-116) Total Protein 6.6 g/dL (6.4-8.2) Albumin 3.1 g/dL (3.4-5.0) Albumin/Globulin Ratio 0.9 (1.0-1.7) SARS-CoV-2 Antigen (Rapid) Negative (NEGATIVE) Laboratory Tests Test 10/19/19 16:22 10/19/19 20:24 White Blood Count 6.8 x10^3/uL (4.0-11.0) Red Blood Count 4.92 x10^6/uL (3.50-5.40) Hemoglobin 13.3 g/dL (12.0-15.5) Hematocrit 40.7 % (36.0-47.0) Mean Corpuscular Volume 83 fL (79-100) Mean Corpuscular Hemoglobin 27 pg (25-35) Mean Corpuscular Hemoglobin Concent 33 g/dL (31-37) Red Cell Distribution Width 15.6 % (11.5-14.5) Platelet Count 292 x10^3/uL (140-400) Neutrophils (%) (Auto) 64 % (31-73) Lymphocytes (%) (Auto) 26 % (24-48) Monocytes (%) (Auto) 9 % (0-9) Eosinophils (%) (Auto) 1 % (0-3) Basophils (%) (Auto) 1 % (0-3) Neutrophils # (Auto) 4.4 x10^3/uL (1.8-7.7) Lymphocytes # (Auto) 1.8 x10^3/uL (1.0-4.8) Monocytes # (Auto) 0.6 x10^3/uL (0.0-1.1) Eosinophils # (Auto) 0.0 x10^3/uL (0.0-0.7) Basophils # (Auto) 0.1 x10^3/uL (0.0-0.2) Prothrombin Time 13.2 SEC (11.7-14.0) Prothromb Time International Ratio 1.0 (0.8-1.1) Activated Partial Thromboplast Time 27 SEC (24-38) Sodium Level 138 mmol/L (136-145) Potassium Level 4.0 mmol/L (3.5-5.1) Chloride Level 101 mmol/L (98-107) Carbon Dioxide Level 28 mmol/L (21-32) Anion Gap 9 (6-14) Blood Urea Nitrogen 15 mg/dL (7-20) Creatinine 1.1 mg/dL (0.6-1.0) Estimated GFR (Cockcroft-Gault) 48.4 BUN/Creatinine Ratio 14 (6-20) Glucose Level 111 mg/dL (70-99) Calcium Level 9.1 mg/dL (8.5-10.1) Total Bilirubin 0.4 mg/dL (0.2-1.0) Aspartate Amino Transf (AST/SGOT) 17 U/L (15-37) Alanine Aminotransferase (ALT/SGPT) 12 U/L (14-59) Alkaline Phosphatase 83 U/L (46-116) Total Protein 6.6 g/dL (6.4-8.2) Albumin 3.1 g/dL (3.4-5.0) Albumin/Globulin Ratio 0.9 (1.0-1.7) SARS-CoV-2 Antigen (Rapid) Negative (NEGATIVE) Assessment/Plan Assessment/Plan Assessment: Bone metastases Spinal cord compression Hx of lung cancer Hx of breast cancer Recommendations: -Consult neurosurgery for evaluation of cord compression -Please obtain biopsy at the time of surgery -Neurochecks q2h or as allowed by floor protocol -Rest per hospitalist -Will follow Jamie Laws MD Hem-Onc Ph: [phone] BRUNA LAWS MD Oct 20, 2019 12:29
[2019-10-20] MEDS: LIPASE/PROTEAS/AMYLAS 10/32/42 CAPSULE.DR. PO SCH ×2 (12:47→18:10)
[2019-10-20] MEDS: PANTOPRAZOLE 40 MG TABLET.DR. PO SCH (12:47)
[2019-10-20] MEDS: CITALOPRAM 20 MG TABLET. PO SCH (12:47)
[2019-10-20] MEDS: LOSARTAN POTASSIUM 25 MG TABLET. PO SCH (12:48)
--- NOTE | 2019-10-20 15:19 | PDOC ---
Provider Note Provider Note patient seen and examined at 0930 consulted for thoracic spinal cord compression reports several month history of thoracic pain, worsening of balance also noted on exam- normal strength, absent knee jerks- had knee replacements, no clonus , no pathologic reflexes on imaging- metastatic disease involving T4, 5,6 with extension in to spinal canal especially at T5, there is spinal stenosis at that level consult oncology, CT C/A/P steroids plan for surgery Wednesday keep in ICU today Justicifation of Admission Dx: Justifications for Admission: Justification of Admission Dx: N/A OPAL RICHARDSON MD Oct 20, 2019 15:18
--- NOTE | 2019-10-20 15:59 | RAD ---
Exam: CT of chest, abdomen and pelvis with contrast INDICATION: Thoracic lesion, history of breast cancer TECHNIQUE: Sequential axial images through the chest, abdomen and pelvis obtained following the administration of 60 mL of Isovue-370 IV contrast. Sagittal and coronal reformatted images were reconstructed from the axial data and reviewed. Comparisons: MRI thoracic spine 10/09/2019 FINDINGS: Visualized portions of the thyroid are unremarkable. No enlarged mediastinal lymph nodes are identified. Heart size is normal. No pericardial effusion. Thoracic aorta has a normal course and caliber. Pulmonary artery is not enlarged. Airways are patent. No consolidation or pneumothorax. There are several small pulmonary nodules noted diffusely in the lungs, unchanged from the study done 6 days prior. No pleural effusion or thickening. Liver demonstrates mild intrahepatic biliary ductal dilatation. Spleen, pancreas and adrenals are unremarkable. Gallbladder is surgically absent. Kidneys demonstrate symmetric enhancement. There is a cystic lesion arising off the lower pole of the right kidney which measures approximately 8.5 cm in length. There is a small nodular enhancing component along the superior aspect. Bladder is distended and appears thin-walled. Uterus is absent. No abnormal adnexal mass. Large and small bowel are unremarkable. No obstruction. No free intra-abdominal air or fluid. Abdominal aorta has a normal course and caliber. Abdominal vasculature is patent. No enlarged abdominal lymph nodes are identified. Sclerotic lesions are again seen in T4, T5, T6 vertebral bodies IMPRESSION: 1. Redemonstration of numerous pulmonary nodules in the lungs not significant changed from prior exam. 2. No convincing evidence for metastatic disease identified within the abdomen or pelvis. 3. Cystic lesion at the right kidney with a enhancing nodular component. The cyst was present in 2017 however has increased in size and the nodular component was not well seen at that time. Nonemergent Dedicated renal protocol CT or MRI is recommended. 4. Redemonstration of sclerotic lesions in the midthoracic spine. Exposure: One or more of the following in the visualized dose reduction techniques were utilized for this examination: 1. Automated exposure control 2. Adjustment of the MA and/or KV according to patient size 3. Use of iterative of reconstructive technique Electronically signed by: Derrick Muniz MD (10/20/2019 3:57 PM) [id number]
[2019-10-20] MEDS: CALCIUM CARB/VIT D3 500/200 TABLET. PO SCH (18:10)
[2019-10-20] MEDS: ENOXAPARIN 40 MG/0.4 ML SYRINGE. SQ SCH (20:21)
[2019-10-20] MEDS: MORPHINE SULFATE 2 MG/ML VIAL. IV PRN (20:25)
--- NOTE | 2019-10-20 21:50 | CONS ---
DATE OF CONSULTATION: 10/20/2019 REASON FOR CONSULTATION: Thoracic metastatic disease with spinal cord compression. HISTORY OF PRESENT ILLNESS: The patient is a pleasant 73-year-old woman who has a history of breast cancer as well as lung cancer. She reports that over the last several months, she has had problems with upper thoracic back pain as well as some loss of balance and coordination and difficulty with her walking. She says she has fallen. An MRI of the thoracic spine was performed recently, in which spinal stenosis was seen and she was transferred to the hospital for further evaluation and treatment. Currently, she relates that she is able to walk. She is unsteady with walking. She feels that she is only slowly worsening over the last couple of months. This is confirmed by her son. PAST MEDICAL HISTORY: Includes anemia, cancer as described above, depression, GERD, hypertension, IBS. PAST SURGICAL HISTORY: Appendectomy, cancer surgery, cervical fusion, cholecystectomy, , hysterectomy, knee replacement, tonsillectomy, left pneumonectomy, bilateral mastectomy, lumbar microsurgery. ALLERGIES: There are no known allergies to medications. FAMILY HISTORY: Negative except as outlined above. SOCIAL HISTORY: Former smoker. Alcohol use occasionally. CURRENT MEDICATIONS: See the MRAD. REVIEW OF SYSTEMS: A 12-point was performed as outlined above and is negative. PHYSICAL EXAMINATION: GENERAL: She is supine in bed, head of bed is elevated about 20 degrees. She is alert, pleasant, and cooperative. NEUROLOGIC: I felt that her strength was 5/5 in upper and lower extremities bilaterally. I did not detect any pathologic reflexes. On sensory examination, she was intact to light touch in the upper and lower extremities with hypoactive reflexes. There was full range of motion of the lower extremities bilaterally. I turned over onto her right side and there was no significant tenderness to palpation along the thoracic spine. She did localize her pain to the lower thoracic region. DIAGNOSTIC DATA: I reviewed an MRI scan done 10/08 of the thoracic spine. On that study, the principal abnormalities are at T4, T5 and T6, where there was evidence of metastatic tumor involvement within these vertebral bodies. Additionally, there are T2-hyperintense lesions, which appears due to extension of metastatic disease into the spinal canal. The largest of these abnormalities is at the level of T4 and is posterolateral to the spine, although there is a smaller anterior component. It is old and at this level, there is relatively severe spinal stenosis. There is also some epidural tumor involvement at T4 and T6. ASSESSMENT AND PLAN: The patient has thoracic metastatic disease with spinal cord compression. She is going to require surgery. I am going to have her further evaluated and obtain consultation with Oncology as well as Radiation Oncology. I am going to place her on steroids. I would expect surgery to be performed on Wednesday unless she deteriorates over the weekend. I appreciate very much participating with you in her care. OPAL RICHARDSON MD DR: MARK/aishwarya JOB#: [id number] / [id number] PATRICIA
[2019-10-21] VITALS (17 sets, daily range): BP systolic 112–159; BP diastolic 63–90
[2019-10-21] MEDS: DEXAMETHASONE SOD PHOS 4 MG/ML VIAL IVP SCH ×4 (00:39→17:36)
[2019-10-21] MEDS: MORPHINE SULFATE 2 MG/ML VIAL. IV PRN ×4 (05:22→21:58)
[2019-10-21] MEDS: LIPASE/PROTEAS/AMYLAS 10/32/42 CAPSULE.DR. PO SCH ×3 (08:30→17:54)
[2019-10-21] MEDS: CALCIUM CARB/VIT D3 500/200 TABLET. PO SCH ×2 (08:30→17:36)
[2019-10-21] MEDS: PANTOPRAZOLE 40 MG TABLET.DR. PO SCH (08:30)
[2019-10-21] MEDS: CITALOPRAM 20 MG TABLET. PO SCH (08:30)
[2019-10-21] MEDS: LOSARTAN POTASSIUM 25 MG TABLET. PO SCH (08:31)
[2019-10-21] MEDS: MULTIVITAMIN with MINERAL TABLET. PO SCH (08:31)
[2019-10-21] MEDS ORDERED: MESALAMINE 4.8 GM PO SCH (09:00)
--- NOTE | 2019-10-21 10:29 | PDOC ---
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 Total critical care time spent 35 minutes History of Present Illness History of Present Illness 73-year-old female with past medical history of hypertension, breast cancer status post bilateral mastectomy and non-small cell lung cancer status post lobectomy who comes in due to frequent falls, ataxia and lower extremity weakness. Son has been noticing abnormal gait in the past few months, but after she had fallen 2 weeks ago son has noticed increased weakness and abnormalities in her walking. Her PCP had ordered MRI of the spine on October 16 that showed T4- 6 metastatic osteolytic lesions and T4 levels with severe stenosis. Patient was sent to the ED for concern of spinal cord compression. Patient denies urinary incontinence, numbness in her pelvic regions, shortness of breath, abdominal pains, diarrhea, or fevers 10/21/2019 No acute events overnight. Patient seen and examined bedside. Patient neuro exam is stable. Patient's chart, labs, images were reviewed and discussed with RN Vitals/I&O Vitals/I&O: Vital Signs Date Time Temp Pulse Resp B/P (MAP) Pulse Ox O2 Delivery O2 Flow Rate FiO2 10/21/19 08:31 58 142/90 10/21/19 06:00 97.8 22 96 Room Air 97.8 I & O 10/20/19 10/20/19 10/21/19 14:59 22:59 06:59 Intake Total 640 ml 970 ml 100 ml Output Total 0 ml 0 ml Balance 640 ml 970 ml 100 ml Physical Exam Physical Exam: GEN: No apparent distress. Alert and oriented HEENT: Normal cephalic, atraumatic, external auditory canals are patent NECK: Supple, no JVD, no thyromegaly was noted LUNGS: Bilateral crackles HEART: RRR, S1, S2 present. Peripheral pulses intact, no obvious murmurs noted ABDOMEN: Soft, nontender. Positive bowel sounds, no organomegaly, normal bowel sounds EXTREMITIES: Without clubbing, cyanosis, or edema. Pedal pulses intact. Negative Homans sign NEURO: Strength was 5/5 in upper and lower extremities bilaterally. On sensory examination,she was intact to light touch in the upper and lower extremities with hypoactive reflexes. There was full range of motion of the lower ext remities bilaterally. BACK: Point tenderness in the thoracic region General: Alert, Cooperative Heart: Regular rate, Normal S1, Normal S2 Abdomen: Normal bowel sounds, Soft, No tenderness, No hepatosplenomegaly Extremities: No clubbing, No cyanosis Skin: No rashes Labs Labs: All labs, images, and reports were reviewed by me personally Assessment and Plan Assessmemt and Plan Problems Medical Problems: (1) Spinal cord compression Status: Acute Comment Review of Relevant I have reviewed the following items dana (where applicable) has been applied. Medications: Current Medications Medications (Trade) Dose Ordered Sig/Martín Route PRN Reason Start Time Stop Time Status Last Admin Dose Admin Amylase/Lipase/ Protease (Zenpep 10,000) 2 cap TIDWMEALS PO 10/20/19 12:00 10/21/19 08:30 Calcium/Vitamin D (Oscal D 500mg/ 200uts) 1 tab BIDWMEALS PO 10/20/19 17:00 10/21/19 08:30 Citalopram Hydrobromide (CeleXA) 40 mg DAILY PO 10/20/19 11:00 10/21/19 08:30 Pantoprazole Sodium (Protonix) 40 mg DAILYAC PO 10/20/19 11:30 10/21/19 08:30 Iohexol (Omnipaque 240 Mg/ml) 30 ml 1X ONCE PO 10/20/19 10:30 10/20/19 10:37 DC 10/20/19 10:30 Iohexol (Omnipaque 300 Mg/ml) 60 ml 1X ONCE IV 10/20/19 10:30 10/20/19 10:37 DC 10/20/19 10:30 Losartan Potassium (Cozaar) 25 mg DAILY PO 10/20/19 12:30 10/21/19 08:31 Enoxaparin Sodium (Lovenox 40mg Syringe) 40 mg Q24H SQ 10/20/19 21:00 10/20/19 20:21 Morphine Sulfate (Morphine Sulfate) 2 mg PRN Q2HR PRN IV PAIN 10/20/19 20:00 10/21/19 05:22 Justicifation of Admission Dx: Justifications for Admission: Justification of Admission Dx: N/A TERA CROOKS MD Oct 21, 2019 10:29
--- NOTE | 2019-10-21 13:34 | PDOC ---
PROGRESS NOTES Subjective Subjective Patient seen and examined at 1115 no new complaints has been up in chair normal strength in BLE Reviewed CT C/A/P-pulmonary nodules unchanged, overall unchanged Plan for thoracic laminectomy Wednesday Objective Objective Vital Signs Date Time Temp Pulse Resp B/P (MAP) Pulse Ox O2 Delivery O2 Flow Rate FiO2 10/21/19 12:30 62 16 121/75 (90) 97 Room Air 10/21/19 11:30 97.8 97.8 Intake and Output 10/21/19 07:00 Intake Total 1810 ml Output Total 0 ml Balance 1810 ml Intake Oral 1810 ml Output Urine Total 0 ml # Voids 5 # Bowel Movements 1 Assessment Assessment Problems Medical Problems: (1) Spinal cord compression Status: Acute Comment Review of Relevant I have reviewed the following items dana (where applicable) has been applied. Labs Laboratory Tests Test 10/19/19 16:22 10/19/19 20:24 White Blood Count 6.8 x10^3/uL (4.0-11.0) Red Blood Count 4.92 x10^6/uL (3.50-5.40) Hemoglobin 13.3 g/dL (12.0-15.5) Hematocrit 40.7 % (36.0-47.0) Mean Corpuscular Volume 83 fL (79-100) Mean Corpuscular Hemoglobin 27 pg (25-35) Mean Corpuscular Hemoglobin Concent 33 g/dL (31-37) Red Cell Distribution Width 15.6 % (11.5-14.5) Platelet Count 292 x10^3/uL (140-400) Neutrophils (%) (Auto) 64 % (31-73) Lymphocytes (%) (Auto) 26 % (24-48) Monocytes (%) (Auto) 9 % (0-9) Eosinophils (%) (Auto) 1 % (0-3) Basophils (%) (Auto) 1 % (0-3) Neutrophils # (Auto) 4.4 x10^3/uL (1.8-7.7) Lymphocytes # (Auto) 1.8 x10^3/uL (1.0-4.8) Monocytes # (Auto) 0.6 x10^3/uL (0.0-1.1) Eosinophils # (Auto) 0.0 x10^3/uL (0.0-0.7) Basophils # (Auto) 0.1 x10^3/uL (0.0-0.2) Prothrombin Time 13.2 SEC (11.7-14.0) Prothromb Time International Ratio 1.0 (0.8-1.1) Activated Partial Thromboplast Time 27 SEC (24-38) Sodium Level 138 mmol/L (136-145) Potassium Level 4.0 mmol/L (3.5-5.1) Chloride Level 101 mmol/L (98-107) Carbon Dioxide Level 28 mmol/L (21-32) Anion Gap 9 (6-14) Blood Urea Nitrogen 15 mg/dL (7-20) Creatinine 1.1 mg/dL (0.6-1.0) Estimated GFR (Cockcroft-Gault) 48.4 BUN/Creatinine Ratio 14 (6-20) Glucose Level 111 mg/dL (70-99) Calcium Level 9.1 mg/dL (8.5-10.1) Total Bilirubin 0.4 mg/dL (0.2-1.0) Aspartate Amino Transf (AST/SGOT) 17 U/L (15-37) Alanine Aminotransferase (ALT/SGPT) 12 U/L (14-59) Alkaline Phosphatase 83 U/L (46-116) Total Protein 6.6 g/dL (6.4-8.2) Albumin 3.1 g/dL (3.4-5.0) Albumin/Globulin Ratio 0.9 (1.0-1.7) Coronavirus (PCR) Not detected (Not Detected) SARS-CoV-2 Antigen (Rapid) Negative (NEGATIVE) Medications Current Medications Ondansetron HCl (Zofran) 4 mg PRN Q8HRS PRN IV NAUSEA/VOMITING; Start 10/19/19 at 18:30; Stop 10/20/19 at 18:29; Status DC Morphine Sulfate (Morphine Sulfate) 2 mg PRN Q2HR PRN IV PAIN Last administered on 10/20/19at 08:52; Start 10/19/19 at 18:30; Stop 10/20/19 at 18:29; Status DC Ondansetron HCl (Zofran) 4 mg PRN Q6HRS PRN IV NAUSEA/VOMITING; Start 10/20/19 at 09:15; Stop 10/20/19 at 20:00; Status DC Fentanyl Citrate (Fentanyl 2ml Vial) 25 mcg PRN Q5MIN PRN IV MILD PAIN 1-3; Start 10/20/19 at 09:15; Stop 10/20/19 at 20:00; Status DC Fentanyl Citrate (Fentanyl 2ml Vial) 50 mcg PRN Q5MIN PRN IV MODERATE TO SEVERE PAIN; Start 10/20/19 at 09:15; Stop 10/20/19 at 20:00; Status DC Morphine Sulfate (Morphine Sulfate) 1 mg PRN Q10MIN PRN IV SEVERE PAIN 7-10; Start 10/20/19 at 09:15; Stop 10/20/19 at 20:00; Status DC Ringer's Solution 1,000 ml @ 30 mls/hr Q24H IV ; Start 10/20/19 at 09:14; Stop 10/20/19 at 20:03; Status DC Lidocaine HCl (Xylocaine-Mpf 1% 2ml Vial) 2 ml PRN 1X PRN ID PRIOR TO IV START; Start 10/20/19 at 09:15; Stop 10/20/19 at 20:00; Status DC Hydromorphone HCl (Dilaudid) 0.5 mg PRN Q10MIN PRN IV SEV PAIN, Second choice; Start 10/20/19 at 09:15; Stop 10/20/19 at 20:00; Status DC Prochlorperazine Edisylate (Compazine) 5 mg PACU PRN PRN IV NAUSEA, MRX1; Start 10/20/19 at 09:15; Stop 10/20/19 at 09:26; Status DC Zoledronic Acid 100 ml @ 400 mls/hr 1X ONCE IV ; Start 10/20/19 at 09:30; Stop 10/20/19 at 09:44; Status UNV Dexamethasone Sodium Phosphate (Decadron) 4 mg Q6HRS IVP Last administered on 10/21/19at 12:12; Start 10/20/19 at 10:00 Amylase/Lipase/ Protease (Zenpep 10,000) 2 cap TIDWMEALS PO Last administered on 10/21/19at 12:12; Start 10/20/19 at 12:00 Calcium/Vitamin D (Oscal D 500mg/ 200uts) 1 tab BIDWMEALS PO Last administered on 10/21/19at 08:30; Start 10/20/19 at 17:00 Citalopram Hydrobromide (CeleXA) 40 mg DAILY PO Last administered on 10/21/19at 08:30; Start 10/20/19 at 11:00 Non-Formulary Medication (Mesalamine (Lialda)) 4.8 gm DAILY PO ; Start 10/21/19 at 09:00; Status UNV Multivitamins (Thera M Plus) 1 tab DAILY PO ; Start 10/20/19 at 11:00 Pantoprazole Sodium (Protonix) 40 mg DAILYAC PO Last administered on 10/21/19at 08:30; Start 10/20/19 at 11:30 Iohexol (Omnipaque 240 Mg/ml) 30 ml 1X ONCE PO Last administered on 10/20/19at 10:30; Start 10/20/19 at 10:30; Stop 10/20/19 at 10:37; Status DC Iohexol (Omnipaque 300 Mg/ml) 60 ml 1X ONCE IV Last administered on 10/20/19at 10:30; Start 10/20/19 at 10:30; Stop 10/20/19 at 10:37; Status DC Info (CONTRAST GIVEN -- Rx MONITORING) 1 each PRN DAILY PRN MC SEE COMMENTS; Start 10/20/19 at 10:30; Stop 10/22/19 at 10:29 Ondansetron HCl (Zofran) 4 mg PRN Q6HRS PRN IV NAUSEA/VOMITING; Start 10/23/19 at 07:00; Stop 10/23/19 at 20:00 Fentanyl Citrate (Fentanyl 2ml Vial) 25 mcg PRN Q5MIN PRN IV MILD PAIN 1-3; Start 10/23/19 at 07:00; Stop 10/23/19 at 20:00 Fentanyl Citrate (Fentanyl 2ml Vial) 50 mcg PRN Q5MIN PRN IV MODERATE TO SEVERE PAIN; Start 10/23/19 at 07:00; Stop 10/23/19 at 20:00 Morphine Sulfate (Morphine Sulfate) 1 mg PRN Q10MIN PRN IV SEVERE PAIN 7-10; Start 10/23/19 at 07:00; Stop 10/23/19 at 20:00 Ringer's Solution 1,000 ml @ 30 mls/hr Q24H IV ; Start 10/23/19 at 07:00; Stop 10/23/19 at 18:59 Lidocaine HCl (Xylocaine-Mpf 1% 2ml Vial) 2 ml PRN 1X PRN ID PRIOR TO IV START; Start 10/23/19 at 07:00; Stop 10/23/19 at 20:00 Hydromorphone HCl (Dilaudid) 0.5 mg PRN Q10MIN PRN IV SEV PAIN, Second choice; Start 10/23/19 at 07:00; Stop 10/23/19 at 20:00 Prochlorperazine Edisylate (Compazine) 5 mg PACU PRN PRN IV NAUSEA, MRX1; Start 10/23/19 at 07:00; Stop 10/23/19 at 20:00 Losartan Potassium (Cozaar) 25 mg DAILY PO Last administered on 10/21/19at 08:31; Start 10/20/19 at 12:30 Enoxaparin Sodium (Lovenox 40mg Syringe) 40 mg Q24H SQ Last administered on 10/20/19at 20:21; Start 10/20/19 at 21:00 Morphine Sulfate (Morphine Sulfate) 2 mg PRN Q2HR PRN IV PAIN Last administered on 10/21/19at 05:22; Start 10/20/19 at 20:00 Active Scripts Active Lialda (Mesalamine) 1.2 Gm Tablet. 4.8 Gm PO DAILY 14 Days Zenpep 10,000 Units Capsule (Lipase/Protease/Amylase) 1 Each Capsule. 2 Cap PO TIDWMEALS 14 Days Lomotil Tablet (Diphenoxylate Hcl/Atropine) 1 Each Tablet 1 Tab PO QID MDD 8 tablets Zofran Odt (Ondansetron) 4 Mg Tab.rapdis 1 Tab SL Q8HRS Reported Losartan Potassium 50 Mg Tablet 25 Mg PO DAILY Omeprazole 20 Mg Tablet. 20 Mg PO DAILY Lexapro (Escitalopram Oxalate) 20 Mg Tablet 20 Mg PO BID Multivitamins (Multivitamin) 1 Each Tablet 1 Each PO DAILY Vitamin D3 (Cholecalciferol (Vitamin D3)) 400 Unit Tablet 2,000 Unit PO DAILY Lansoprazole 30 Mg Capsule. 30 Mg PO DAILY Calcium + Vitamin D Tablet (Calcium Carbonate/Vitamin D3) 1 Each Tablet 1 Each PO PRN BID PRN Toviaz (Fesoterodine Fumarate) 8 Mg Tab.er.24h 8 Mg PO DAILY Vitals/I & O Vital Sign - Last 24 Hours 10/20/19 10/20/19 10/20/19 10/20/19 14:00 15:00 16:15 16:15 Pulse 58 58 90 B/P (MAP) 148/71 (96) Pulse Ox 97 97 99 O2 Delivery Room Air Room Air Room Air Room Air 10/20/19 10/20/19 10/20/19 10/20/19 17:00 18:00 19:17 20:00 Temp 97.4 97.4 Pulse 58 70 78 Resp 16 16 19 B/P (MAP) 148/71 (96) 137/75 (95) 133/78 (96) Pulse Ox 97 97 96 O2 Delivery Room Air Room Air Room Air Room Air 10/20/19 10/20/19 10/20/19 10/20/19 20:17 20:25 20:55 21:00 Temp 97.3 97.3 97.3 97.3 Pulse 78 68 Resp 19 20 19 19 B/P (MAP) 132/69 (90) 127/75 (92) Pulse Ox 94 94 O2 Delivery Room Air Room Air Room Air Room Air 10/20/19 10/20/19 10/20/19 10/21/19 22:17 23:00 23:59 00:01 Pulse 69 66 64 Resp 19 19 19 B/P (MAP) 143/81 (101) 113/71 (85) 129/74 (92) Pulse Ox 95 95 95 O2 Delivery Room Air Room Air Room Air Room Air 10/21/19 10/21/19 10/21/19 10/21/19 01:08 02:00 03:00 04:00 Temp 98.0 98.0 Pulse 60 55 54 Resp 20 21 20 B/P (MAP) 141/78 (99) 145/68 (93) 140/72 (94) Pulse Ox 95 95 96 O2 Delivery Room Air Room Air Room Air Room Air 10/21/19 10/21/19 10/21/19 10/21/19 04:00 05:00 05:22 05:50 Temp 98.0 98.0 Pulse 52 55 Resp 20 20 20 19 B/P (MAP) 159/75 (103) 143/73 (96) Pulse Ox 98 98 98 O2 Delivery Room Air Room Air Room Air Room Air 10/21/19 10/21/19 10/21/19 10/21/19 06:00 07:00 08:30 08:30 Temp 97.8 97.9 97.8 97.9 Pulse 60 56 58 Resp 22 16 16 B/P (MAP) 128/74 (92) 144/74 (97) 142/90 (107) Pulse Ox 96 95 97 O2 Delivery Room Air Room Air Room Air Room Air 10/21/19 10/21/19 10/21/19 10/21/19 08:31 09:20 10:10 11:30 Temp 97.8 97.8 Pulse 58 62 82 60 Resp 16 16 16 B/P (MAP) 142/90 128/68 (88) 120/70 (87) 124/68 (86) Pulse Ox 98 95 97 O2 Delivery Room Air Room Air Room Air 10/21/19 10/21/19 12:30 12:30 Pulse 62 Resp 16 B/P (MAP) 121/75 (90) Pulse Ox 97 O2 Delivery Room Air Room Air Intake and Output 10/20/19 10/20/19 10/21/19 15:00 23:00 07:00 Intake Total 740 ml 870 ml 200 ml Output Total 0 ml 0 ml Balance 740 ml 870 ml 200 ml Justicifation of Admission Dx: Justifications for Admission: Justification of Admission Dx: N/A Nutrition Consultation Dietary Evaluation: Recommendations by RD: Dietary education by RD, Increase Calorie Intake, Protein supplementation Comments: REC continue w/regular diet as ordered, honor food preferences, provide snacks as requested REC Ensure (chocolate) w/lunch trays Expected Outcomes/Goals: PO intake to meet >75% est needs Malnutrition Findings: Food and Nutrition Intake (Mod: <75% est energy req 7days Weight Status: Appropriate OPAL RICHARDSON MD Oct 21, 2019 13:34
[2019-10-21] MEDS: ENOXAPARIN 40 MG/0.4 ML SYRINGE. SQ SCH (21:21)
[2019-10-22] MEDS: DEXAMETHASONE SOD PHOS 4 MG/ML VIAL IVP SCH ×4 (00:12→17:32)
[2019-10-22 03:00] VITALS: BP 145/74
[2019-10-22 07:28] VITALS: BP 132/73
[2019-10-22] MEDS: MULTIVITAMIN with MINERAL TABLET. PO SCH ×2 (08:32→08:41)
[2019-10-22] MEDS: PANTOPRAZOLE 40 MG TABLET.DR. PO SCH (08:32)
[2019-10-22] MEDS: LOSARTAN POTASSIUM 25 MG TABLET. PO SCH (08:32)
[2019-10-22] MEDS: LIPASE/PROTEAS/AMYLAS 10/32/42 CAPSULE.DR. PO SCH ×3 (08:32→17:32)
[2019-10-22] MEDS: CITALOPRAM 20 MG TABLET. PO SCH (08:32)
[2019-10-22] MEDS: CALCIUM CARB/VIT D3 500/200 TABLET. PO SCH ×2 (08:32→17:32)
[2019-10-22] MEDS: MORPHINE SULFATE 2 MG/ML VIAL. IV PRN ×2 (11:07→15:57)
[2019-10-22 11:24] VITALS: BP 110/78
--- NOTE | 2019-10-22 12:24 | PDOC ---
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 Total critical care time spent 35 minutes History of Present Illness History of Present Illness 10/21. no new problems or complaints, surgery tomorrow 3pm 73-year-old female with past medical history of hypertension, breast cancer status post bilateral mastectomy and non-small cell lung cancer status post lobectomy who comes in due to frequent falls, ataxia and lower extremity we akness. Son has been noticing abnormal gait in the past few months, but after she had fallen 2 weeks ago son has noticed increased weakness and abnormalities in her walking. Her PCP had ordered MRI of the spine on October 16 that showed T4- 6 metastatic osteolytic lesions and T4 levels with severe stenosis. Patient was sent to the ED for concern of spinal cord compression. Patient denies urinary incontinence, numbness in her pelvic regions, shortness of breath, abdominal pains, diarrhea, or fevers 10/21/2019 No acute events overnight. Patient seen and examined bedside. Patient neuro exam is stable. Patient's chart, labs, images were reviewed and discussed with RN Vitals Vitals Vital Signs Date Time Temp Pulse Resp B/P (MAP) Pulse Ox O2 Delivery O2 Flow Rate FiO2 10/22/19 12:00 Room Air 10/22/19 11:24 97.8 87 18 110/78 (89) 97 97.8 Physical Exam Physical Exam GEN: No apparent distress. Alert and oriented HEENT: Normal cephalic, atraumatic, external auditory canals are patent NECK: Supple, no JVD, no thyromegaly was noted LUNGS: Bilateral crackles HEART: RRR, S1, S2 present. Peripheral pulses intact, no obvious murmurs noted ABDOMEN: Soft, nontender. Positive bowel sounds, no organomegaly, normal bowel sounds EXTREMITIES: Without clubbing, cyanosis, or edema. Pedal pulses intact. Negative Homans sign NEURO: Strength was 5/5 in upper and lower extremities bilaterally. On sensory examination,she was intact to light touch in the upper and lower extremities with hypoactive reflexes. There was full range of motion of the lower extremities bilaterally. BACK: Point tenderness in the thoracic region General: Alert, Cooperative Heart: Regular rate, Normal S1, Normal S2 Abdomen: Normal bowel sounds, Soft, No tenderness, No hepatosplenomegaly Extremities: No clubbing, No cyanosis Skin: No rashes Review of Systems Review of Systems weakness similar, no new pain, no n./d Assessment and Plan Assessmemt and Plan Problems Medical Problems: (1) Spinal cord compression Status: Acute Comment Review of Relevant I have reviewed the following items dana (where applicable) has been applied. Medications Current Medications Ondansetron HCl (Zofran) 4 mg PRN Q8HRS PRN IV NAUSEA/VOMITING; Start 10/19/19 at 18:30; Stop 10/20/19 at 18:29; Status DC Morphine Sulfate (Morphine Sulfate) 2 mg PRN Q2HR PRN IV PAIN Last administered on 10/20/19at 08:52; Start 10/19/19 at 18:30; Stop 10/20/19 at 18:29; Status DC Ondansetron HCl (Zofran) 4 mg PRN Q6HRS PRN IV NAUSEA/VOMITING; Start 10/20/19 at 09:15; Stop 10/20/19 at 20:00; Status DC Fentanyl Citrate (Fentanyl 2ml Vial) 25 mcg PRN Q5MIN PRN IV MILD PAIN 1-3; Start 10/20/19 at 09:15; Stop 10/20/19 at 20:00; Status DC Fentanyl Citrate (Fentanyl 2ml Vial) 50 mcg PRN Q5MIN PRN IV MODERATE TO SEVERE PAIN; Start 10/20/19 at 09:15; Stop 10/20/19 at 20:00; Status DC Morphine Sulfate (Morphine Sulfate) 1 mg PRN Q10MIN PRN IV SEVERE PAIN 7-10; Start 10/20/19 at 09:15; Stop 10/20/19 at 20:00; Status DC Ringer's Solution 1,000 ml @ 30 mls/hr Q24H IV ; Start 10/20/19 at 09:14; Stop 10/20/19 at 20:03; Status DC Lidocaine HCl (Xylocaine-Mpf 1% 2ml Vial) 2 ml PRN 1X PRN ID PRIOR TO IV START; Start 10/20/19 at 09:15; Stop 10/20/19 at 20:00; Status DC Hydromorphone HCl (Dilaudid) 0.5 mg PRN Q10MIN PRN IV SEV PAIN, Second choice; Start 10/20/19 at 09:15; Stop 10/20/19 at 20:00; Status DC Prochlorperazine Edisylate (Compazine) 5 mg PACU PRN PRN IV NAUSEA, MRX1; Start 10/20/19 at 09:15; Stop 10/20/19 at 09:26; Status DC Zoledronic Acid 100 ml @ 400 mls/hr 1X ONCE IV ; Start 10/20/19 at 09:30; Stop 10/20/19 at 09:44; Status UNV Dexamethasone Sodium Phosphate (Decadron) 4 mg Q6HRS IVP Last administered on 10/22/19at 12:00; Start 10/20/19 at 10:00 Amylase/Lipase/ Protease (Zenpep 10,000) 2 cap TIDWMEALS PO Last administered on 10/22/19at 11:59; Start 10/20/19 at 12:00 Calcium/Vitamin D (Oscal D 500mg/ 200uts) 1 tab BIDWMEALS PO Last administered on 10/22/19at 08:32; Start 10/20/19 at 17:00 Citalopram Hydrobromide (CeleXA) 40 mg DAILY PO Last administered on 10/22/19at 08:32; Start 10/20/19 at 11:00 Non-Formulary Medication (Mesalamine (Lialda)) 4.8 gm DAILY PO ; Start 10/21/19 at 09:00; Status UNV Multivitamins (Thera M Plus) 1 tab DAILY PO ; Start 10/20/19 at 11:00; Stop 10/22/19 at 08:42; Status DC Pantoprazole Sodium (Protonix) 40 mg DAILYAC PO Last administered on 10/22/19at 08:32; Start 10/20/19 at 11:30 Iohexol (Omnipaque 240 Mg/ml) 30 ml 1X ONCE PO Last administered on 10/20/19at 10:30; Start 10/20/19 at 10:30; Stop 10/20/19 at 10:37; Status DC Iohexol (Omnipaque 300 Mg/ml) 60 ml 1X ONCE IV Last administered on 10/20/19at 10:30; Start 10/20/19 at 10:30; Stop 10/20/19 at 10:37; Status DC Info (CONTRAST GIVEN -- Rx MONITORING) 1 each PRN DAILY PRN MC SEE COMMENTS; Start 10/20/19 at 10:30; Stop 10/22/19 at 10:29; Status DC Ondansetron HCl (Zofran) 4 mg PRN Q6HRS PRN IV NAUSEA/VOMITING; Start 10/23/19 at 07:00; Stop 10/22/19 at 12:09; Status DC Fentanyl Citrate (Fentanyl 2ml Vial) 25 mcg PRN Q5MIN PRN IV MILD PAIN 1-3; Start 10/23/19 at 07:00; Stop 10/22/19 at 12:09; Status DC Fentanyl Citrate (Fentanyl 2ml Vial) 50 mcg PRN Q5MIN PRN IV MODERATE TO SEVERE PAIN; Start 10/23/19 at 07:00; Stop 10/22/19 at 12:09; Status DC Morphine Sulfate (Morphine Sulfate) 1 mg PRN Q10MIN PRN IV SEVERE PAIN 7-10; Start 10/23/19 at 07:00; Stop 10/22/19 at 12:09; Status DC Ringer's Solution 1,000 ml @ 30 mls/hr Q24H IV ; Start 10/23/19 at 07:00; Stop 10/22/19 at 12:09; Status DC Lidocaine HCl (Xylocaine-Mpf 1% 2ml Vial) 2 ml PRN 1X PRN ID PRIOR TO IV START; Start 10/23/19 at 07:00; Stop 10/22/19 at 12:09; Status DC Hydromorphone HCl (Dilaudid) 0.5 mg PRN Q10MIN PRN IV SEV PAIN, Second choice; Start 10/23/19 at 07:00; Stop 10/22/19 at 12:09; Status DC Prochlorperazine Edisylate (Compazine) 5 mg PACU PRN PRN IV NAUSEA, MRX1; Start 10/23/19 at 07:00; Stop 10/22/19 at 12:09; Status DC Losartan Potassium (Cozaar) 25 mg DAILY PO Last administered on 10/22/19at 08:32; Start 10/20/19 at 12:30 Enoxaparin Sodium (Lovenox 40mg Syringe) 40 mg Q24H SQ Last administered on 10/21/19at 21:21; Start 10/20/19 at 21:00 Morphine Sulfate (Morphine Sulfate) 2 mg PRN Q2HR PRN IV PAIN Last administered on 10/22/19at 11:07; Start 10/20/19 at 20:00 Active Scripts Active Lialda (Mesalamine) 1.2 Gm Tablet. 4.8 Gm PO DAILY 14 Days Zenpep 10,000 Units Capsule (Lipase/Protease/Amylase) 1 Each Capsule. 2 Cap PO TIDWMEALS 14 Days Lomotil Tablet (Diphenoxylate Hcl/Atropine) 1 Each Tablet 1 Tab PO QID MDD 8 tablets Zofran Odt (Ondansetron) 4 Mg Tab.rapdis 1 Tab SL Q8HRS Reported Losartan Potassium 50 Mg Tablet 25 Mg PO DAILY Omeprazole 20 Mg Tablet. 20 Mg PO DAILY Lexapro (Escitalopram Oxalate) 20 Mg Tablet 20 Mg PO BID Multivitamins (Multivitamin) 1 Each Tablet 1 Each PO DAILY Vitamin D3 (Cholecalciferol (Vitamin D3)) 400 Unit Tablet 2,000 Unit PO DAILY Lansoprazole 30 Mg Capsule. 30 Mg PO DAILY Calcium + Vitamin D Tablet (Calcium Carbonate/Vitamin D3) 1 Each Tablet 1 Each PO PRN BID PRN Toviaz (Fesoterodine Fumarate) 8 Mg Tab.er.24h 8 Mg PO DAILY Vitals/I & O Vital Sign - Last 24 Hours 10/21/19 10/21/19 10/21/19 10/21/19 12:30 12:30 14:15 14:56 Pulse 62 58 Resp 16 16 16 B/P (MAP) 121/75 (90) 112/63 (79) Pulse Ox 97 96 O2 Delivery Room Air Room Air Room Air Room Air 10/21/19 10/21/19 10/21/19 10/21/19 15:30 16:22 16:28 19:00 Temp 97.8 97.8 97.8 97.8 Pulse 60 58 Resp 16 18 18 B/P (MAP) 132/79 (96) 140/72 (94) Pulse Ox 98 95 O2 Delivery Room Air Room Air Room Air Room Air 10/21/19 10/21/19 10/21/19 10/21/19 20:00 21:28 21:55 21:58 Resp 16 16 16 O2 Delivery Room Air Room Air Room Air Room Air 10/21/19 10/21/19 10/22/19 10/22/19 22:28 23:00 03:00 07:28 Temp 97.9 98.6 98.6 97.9 98.6 98.6 Pulse 57 54 58 Resp 14 18 18 18 B/P (MAP) 141/64 (89) 145/74 (97) 132/73 (92) Pulse Ox 95 94 96 O2 Delivery Room Air Room Air Room Air Room Air 10/22/19 10/22/19 10/22/19 10/22/19 08:00 08:32 11:07 11:24 Temp 97.8 97.8 Pulse 58 87 Resp 18 B/P (MAP) 132/73 110/78 (89) Pulse Ox 97 O2 Delivery Room Air Room Air Room Air 10/22/19 10/22/19 11:37 12:00 O2 Delivery Room Air Room Air Intake and Output 10/21/19 10/21/19 10/22/19 15:00 23:00 07:00 Intake Total 1030 ml 120 ml 210 ml Output Total 0 ml Balance 1030 ml 120 ml 210 ml Nutrition Consultation Dietary Evaluation: Recommendations by RD: Dietary education by RD, Increase Calorie Intake, Protein supplementation Comments: REC continue w/regular diet as ordered, honor food preferences, provide snacks as requested REC Ensure (chocolate) w/lunch trays Expected Outcomes/Goals: PO intake to meet >75% est needs Malnutrition Findings: Food and Nutrition Intake (Mod: <75% est energy req 7days Weight Status: Appropriate Justicifation of Admission Dx: Justifications for Admission: Justification of Admission Dx: N/A MARTIN RUDOLPH MD Oct 22, 2019 12:24
--- NOTE | 2019-10-22 14:02 | PDOC ---
PROGRESS NOTES Subjective Subjective Resting in bed no new complaints back pain with activity Normal strength and sensation in BLE metastatic disease involving T4, 5,6 with extension in to spinal canal especiall y at T5, there is spinal stenosis at that level plan for thoracic laminectomy tomorrow Objective Objective Vital Signs Date Time Temp Pulse Resp B/P (MAP) Pulse Ox O2 Delivery O2 Flow Rate FiO2 10/22/19 12:00 Room Air 10/22/19 11:24 97.8 87 18 110/78 (89) 97 97.8 Intake and Output 10/22/19 07:00 Intake Total 1360 ml Output Total 0 ml Balance 1360 ml Intake Oral 1360 ml Output Urine Total 0 ml # Voids 5 # Bowel Movements 1 Assessment Assessment Problems Medical Problems: (1) Spinal cord compression Status: Acute Comment Review of Relevant I have reviewed the following items dana (where applicable) has been applied. Medications Current Medications Ondansetron HCl (Zofran) 4 mg PRN Q8HRS PRN IV NAUSEA/VOMITING; Start 10/19/19 at 18:30; Stop 10/20/19 at 18:29; Status DC Morphine Sulfate (Morphine Sulfate) 2 mg PRN Q2HR PRN IV PAIN Last administered on 10/20/19at 08:52; Start 10/19/19 at 18:30; Stop 10/20/19 at 18:29; Status DC Ondansetron HCl (Zofran) 4 mg PRN Q6HRS PRN IV NAUSEA/VOMITING; Start 10/20/19 at 09:15; Stop 10/20/19 at 20:00; Status DC Fentanyl Citrate (Fentanyl 2ml Vial) 25 mcg PRN Q5MIN PRN IV MILD PAIN 1-3; Start 10/20/19 at 09:15; Stop 10/20/19 at 20:00; Status DC Fentanyl Citrate (Fentanyl 2ml Vial) 50 mcg PRN Q5MIN PRN IV MODERATE TO SEVERE PAIN; Start 10/20/19 at 09:15; Stop 10/20/19 at 20:00; Status DC Morphine Sulfate (Morphine Sulfate) 1 mg PRN Q10MIN PRN IV SEVERE PAIN 7-10; Start 10/20/19 at 09:15; Stop 10/20/19 at 20:00; Status DC Ringer's Solution 1,000 ml @ 30 mls/hr Q24H IV ; Start 10/20/19 at 09:14; Stop 10/20/19 at 20:03; Status DC Lidocaine HCl (Xylocaine-Mpf 1% 2ml Vial) 2 ml PRN 1X PRN ID PRIOR TO IV START; Start 10/20/19 at 09:15; Stop 10/20/19 at 20:00; Status DC Hydromorphone HCl (Dilaudid) 0.5 mg PRN Q10MIN PRN IV SEV PAIN, Second choice; Start 10/20/19 at 09:15; Stop 10/20/19 at 20:00; Status DC Prochlorperazine Edisylate (Compazine) 5 mg PACU PRN PRN IV NAUSEA, MRX1; Start 10/20/19 at 09:15; Stop 10/20/19 at 09:26; Status DC Zoledronic Acid 100 ml @ 400 mls/hr 1X ONCE IV ; Start 10/20/19 at 09:30; Stop 10/20/19 at 09:44; Status UNV Dexamethasone Sodium Phosphate (Decadron) 4 mg Q6HRS IVP Last administered on 10/22/19at 12:00; Start 10/20/19 at 10:00 Amylase/Lipase/ Protease (Zenpep 10,000) 2 cap TIDWMEALS PO Last administered on 10/22/19at 11:59; Start 10/20/19 at 12:00 Calcium/Vitamin D (Oscal D 500mg/ 200uts) 1 tab BIDWMEALS PO Last administered on 10/22/19at 08:32; Start 10/20/19 at 17:00 Citalopram Hydrobromide (CeleXA) 40 mg DAILY PO Last administered on 10/22/19at 08:32; Start 10/20/19 at 11:00 Non-Formulary Medication (Mesalamine (Lialda)) 4.8 gm DAILY PO ; Start 10/21/19 at 09:00; Status UNV Multivitamins (Thera M Plus) 1 tab DAILY PO ; Start 10/20/19 at 11:00; Stop 10/22/19 at 08:42; Status DC Pantoprazole Sodium (Protonix) 40 mg DAILYAC PO Last administered on 10/22/19at 08:32; Start 10/20/19 at 11:30 Iohexol (Omnipaque 240 Mg/ml) 30 ml 1X ONCE PO Last administered on 10/20/19at 10:30; Start 10/20/19 at 10:30; Stop 10/20/19 at 10:37; Status DC Iohexol (Omnipaque 300 Mg/ml) 60 ml 1X ONCE IV Last administered on 10/20/19at 10:30; Start 10/20/19 at 10:30; Stop 10/20/19 at 10:37; Status DC Info (CONTRAST GIVEN -- Rx MONITORING) 1 each PRN DAILY PRN MC SEE COMMENTS; Start 10/20/19 at 10:30; Stop 10/22/19 at 10:29; Status DC Ondansetron HCl (Zofran) 4 mg PRN Q6HRS PRN IV NAUSEA/VOMITING; Start 10/23/19 at 07:00; Stop 10/22/19 at 12:09; Status DC Fentanyl Citrate (Fentanyl 2ml Vial) 25 mcg PRN Q5MIN PRN IV MILD PAIN 1-3; Start 10/23/19 at 07:00; Stop 10/22/19 at 12:09; Status DC Fentanyl Citrate (Fentanyl 2ml Vial) 50 mcg PRN Q5MIN PRN IV MODERATE TO SEVERE PAIN; Start 10/23/19 at 07:00; Stop 10/22/19 at 12:09; Status DC Morphine Sulfate (Morphine Sulfate) 1 mg PRN Q10MIN PRN IV SEVERE PAIN 7-10; Start 10/23/19 at 07:00; Stop 10/22/19 at 12:09; Status DC Ringer's Solution 1,000 ml @ 30 mls/hr Q24H IV ; Start 10/23/19 at 07:00; Stop 10/22/19 at 12:09; Status DC Lidocaine HCl (Xylocaine-Mpf 1% 2ml Vial) 2 ml PRN 1X PRN ID PRIOR TO IV START; Start 10/23/19 at 07:00; Stop 10/22/19 at 12:09; Status DC Hydromorphone HCl (Dilaudid) 0.5 mg PRN Q10MIN PRN IV SEV PAIN, Second choice; Start 10/23/19 at 07:00; Stop 10/22/19 at 12:09; Status DC Prochlorperazine Edisylate (Compazine) 5 mg PACU PRN PRN IV NAUSEA, MRX1; Start 10/23/19 at 07:00; Stop 10/22/19 at 12:09; Status DC Losartan Potassium (Cozaar) 25 mg DAILY PO Last administered on 10/22/19at 08:32; Start 10/20/19 at 12:30 Enoxaparin Sodium (Lovenox 40mg Syringe) 40 mg Q24H SQ Last administered on 10/21/19at 21:21; Start 10/20/19 at 21:00 Morphine Sulfate (Morphine Sulfate) 2 mg PRN Q2HR PRN IV PAIN Last administered on 10/22/19at 11:07; Start 10/20/19 at 20:00 Active Scripts Active Lialda (Mesalamine) 1.2 Gm Tablet. 4.8 Gm PO DAILY 14 Days Zenpep 10,000 Units Capsule (Lipase/Protease/Amylase) 1 Each Capsule. 2 Cap PO TIDWMEALS 14 Days Lomotil Tablet (Diphenoxylate Hcl/Atropine) 1 Each Tablet 1 Tab PO QID MDD 8 tablets Zofran Odt (Ondansetron) 4 Mg Tab.rapdis 1 Tab SL Q8HRS Reported Losartan Potassium 50 Mg Tablet 25 Mg PO DAILY Omeprazole 20 Mg Tablet. 20 Mg PO DAILY Lexapro (Escitalopram Oxalate) 20 Mg Tablet 20 Mg PO BID Multivitamins (Multivitamin) 1 Each Tablet 1 Each PO DAILY Vitamin D3 (Cholecalciferol (Vitamin D3)) 400 Unit Tablet 2,000 Unit PO DAILY Lansoprazole 30 Mg Capsule. 30 Mg PO DAILY Calcium + Vitamin D Tablet (Calcium Carbonate/Vitamin D3) 1 Each Tablet 1 Each PO PRN BID PRN Toviaz (Fesoterodine Fumarate) 8 Mg Tab.er.24h 8 Mg PO DAILY Vitals/I & O Vital Sign - Last 24 Hours 10/21/19 10/21/19 10/21/19 10/21/19 14:15 14:56 15:30 16:22 Temp 97.8 97.8 Pulse 58 60 Resp 16 16 16 18 B/P (MAP) 112/63 (79) 132/79 (96) Pulse Ox 96 98 O2 Delivery Room Air Room Air Room Air Room Air 8/1/20 8/1/20 8/1/20 8/1/20 16:28 19:00 20:00 21:28 Temp 97.8 97.8 Pulse 58 Resp 18 16 B/P (MAP) 140/72 (94) Pulse Ox 95 O2 Delivery Room Air Room Air Room Air Room Air 10/21/19 10/21/19 10/21/19 10/21/19 21:55 21:58 22:28 23:00 Temp 97.9 97.9 Pulse 57 Resp 16 16 14 18 B/P (MAP) 141/64 (89) Pulse Ox 95 O2 Delivery Room Air Room Air Room Air Room Air 10/22/19 10/22/19 10/22/19 10/22/19 03:00 07:28 08:00 08:32 Temp 98.6 98.6 98.6 98.6 Pulse 54 58 58 Resp 18 18 B/P (MAP) 145/74 (97) 132/73 (92) 132/73 Pulse Ox 94 96 O2 Delivery Room Air Room Air Room Air 10/22/19 10/22/19 10/22/19 10/22/19 11:07 11:24 11:37 12:00 Temp 97.8 97.8 Pulse 87 Resp 18 B/P (MAP) 110/78 (89) Pulse Ox 97 O2 Delivery Room Air Room Air Room Air Room Air Intake and Output0 10/21/19 10/21/19 10/22/19 15:00 23:00 07:00 Intake Total 1030 ml 120 ml 210 ml Output Total 0 ml Balance 1030 ml 120 ml 210 ml Justicifation of Admission Dx: Justifications for Admission: Justification of Admission Dx: N/A Nutrition Consultation Dietary Evaluation: Recommendations by RD: Dietary education by RD, Increase Calorie Intake, Protein supplementation Comments: REC continue w/regular diet as ordered, honor food preferences, provide snacks as requested REC Ensure (chocolate) w/lunch trays Expected Outcomes/Goals: PO intake to meet >75% est needs Malnutrition Findings: Food and Nutrition Intake (Mod: <75% est energy req 7days Weight Status: Appropriate ARACELI JIMENEZ APRN Oct 22, 2019 14:02
[2019-10-22 15:59] VITALS: BP 115/57
[2019-10-22 19:00] VITALS: BP 122/62
[2019-10-22] MEDS: ENOXAPARIN 40 MG/0.4 ML SYRINGE. SQ SCH (20:50)
[2019-10-22 23:00] VITALS: BP 131/67
[2019-10-23] MEDS: DEXAMETHASONE SOD PHOS 4 MG/ML VIAL IVP SCH ×4 (00:09→17:15)
[2019-10-23 03:00] VITALS: BP 158/78
[2019-10-23 05:04] LABS: BASO % 0 % (0-3); EOS % 0 % (0-3); LYMPH # 1.1 x10^3/uL (1.0-4.8); LYMPH % 11 % (24-48); MEAN CORPUSCULAR HEMOGLOBIN 28 pg (25-35); MEAN CORPUSCULAR HGB CONC 33 g/dL (31-37); MEAN CORPUSCULAR VOLUME 83 fL (79-100); MONO # 0.4 x10^3/uL (0.0-1.1); MONO % 4 % (0-9); NEUT # 8.3 x10^3/uL (1.8-7.7); NEUT % 85 % (31-73); PLATELET COUNT 264 x10^3/uL (140-400); RED BLOOD COUNT 4.69 x10^6/uL (3.50-5.40); RED CELL DISTRIBUTION WIDTH 15.9 % (11.5-14.5); WHITE BLOOD COUNT 9.7 x10^3/uL (4.0-11.0)
[2019-10-23 05:28] LABS: CALCIUM 8.8 mg/dL (8.5-10.1); CREATININE 1.1 mg/dL (0.6-1.0); GFR 48.4; TOTAL BILIRUBIN 0.3 mg/dL (0.2-1.0); TOTAL PROTEIN 6.1 g/dL (6.4-8.2)
[2019-10-23 06:10] LABS: % BANDS 7 % (0-9); % LYMPHS 10 % (24-48); % MONOS 3 % (0-10); % SEGS 80 % (35-66); PLT ESTIMATE ADEQUATE (ADEQUATE)
[2019-10-23 07:00] VITALS: BP 142/82
[2019-10-23] MEDS ORDERED: IV RINGERS,LACTATED 1000ML 1,000 ML IV SCH (07:00)
[2019-10-23] MEDS ORDERED: PROCHLORPERAZINE 10 MG/2 ML VIAL. IV PRN (07:00)
[2019-10-23] MEDS ORDERED: fentaNYL PF VIAL 100 MCG/2 ML VIAL IV PRN ×2 (07:00)
[2019-10-23] MEDS ORDERED: LIDOCAINE 1% PF 2 ML VIAL. ID PRN (07:00)
[2019-10-23] MEDS ORDERED: HYDROmorphone 2 MG/ML VIAL IV PRN (07:00)
[2019-10-23] MEDS ORDERED: ONDANSETRON PF 4 MG/2 ML VIAL. IV PRN (07:00)
[2019-10-23] MEDS ORDERED: MORPHINE SULFATE 2 MG/ML VIAL. IV PRN (07:00)
[2019-10-23] MEDS: PANTOPRAZOLE 40 MG TABLET.DR. PO SCH ×2 (07:30→11:54)
[2019-10-23] MEDS: LIPASE/PROTEAS/AMYLAS 10/32/42 CAPSULE.DR. PO SCH ×3 (08:00→17:11)
[2019-10-23] MEDS ORDERED: BACITRACIN 50,000 UNIT in IV NORMAL SALINE 1000ML BAG 1,000 ML IRR ONE (08:00)
[2019-10-23] MEDS: CALCIUM CARB/VIT D3 500/200 TABLET. PO SCH ×3 (08:00→17:12)
[2019-10-23] MEDS: CITALOPRAM 20 MG TABLET. PO SCH ×2 (08:26→11:55)
[2019-10-23] MEDS: LOSARTAN POTASSIUM 25 MG TABLET. PO SCH (08:26)
[2019-10-23] MEDS ORDERED: ROCURONIUM 50 MG/5 ML VIAL. ONE (08:55)
[2019-10-23] MEDS ORDERED: PROPOFOL 10 MG/ML (20ML) VIAL. IV ONE (08:55)
[2019-10-23] MEDS ORDERED: LIDOCAINE 2% PF 5 ML VIAL. ONE (08:55)
--- NOTE | 2019-10-23 09:14 | PDOC ---
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 History of Present Illness History of Present Illness 10/21. no new problems or complaints, surgery tomorrow 3pm 73-year-old female with past medical history of hypertension, breast cancer status post bilateral mastectomy and non-small cell lung cancer status post lobectomy who comes in due to frequent falls, ataxia and lower extremity w eakness. Son has been noticing abnormal gait in the past few months, but after she had fallen 2 weeks ago son has noticed increased weakness and abnormalities in her walking. Her PCP had ordered MRI of the spine on October 16 that showed T4- 6 metastatic osteolytic lesions and T4 levels with severe stenosis. Patient was sent to the ED for concern of spinal cord compression. Patient denies urinary incontinence, numbness in her pelvic regions, shortness of breath, abdominal pains, diarrhea, or fevers 10/21/2019 No acute events overnight. Patient seen and examined bedside. Patient neuro exam is stable. Patient's chart, labs, images were reviewed and discussed with RN Vitals Vitals Vital Signs Date Time Temp Pulse Resp B/P (MAP) Pulse Ox O2 Delivery O2 Flow Rate FiO2 10/23/19 08:26 51 142/82 10/23/19 07:00 98.3 18 97 Room Air 98.3 Physical Exam Physical Exam GEN: No apparent distress. Alert and oriented HEENT: Normal cephalic, atraumatic, external auditory canals are patent NECK: Supple, no JVD, no thyromegaly was noted LUNGS: Bilateral crackles HEART: RRR, S1, S2 present. Peripheral pulses intact, no obvious murmurs noted ABDOMEN: Soft, nontender. Positive bowel sounds, no organomegaly, normal bowel sounds EXTREMITIES: Without clubbing, cyanosis, or edema. Pedal pulses intact. Negative Homans sign NEURO: Strength was 5/5 in upper and lower extremities bilaterally. On sensory examination,she was intact to light touch in the upper and lower extremities with hypoactive reflexes. There was full range of motion of the lower extremities bilaterally. BACK: Point tenderness in the thoracic region General: Alert, Cooperative Heart: Regular rate, Normal S1, Normal S2 Abdomen: Normal bowel sounds, Soft, No tenderness, No hepatosplenomegaly Extremities: No clubbing, No cyanosis Skin: No rashes Labs LABS Laboratory Tests Test 10/23/19 04:00 White Blood Count 9.7 x10^3/uL (4.0-11.0) Red Blood Count 4.69 x10^6/uL (3.50-5.40) Hemoglobin 13.0 g/dL (12.0-15.5) Hematocrit 39.0 % (36.0-47.0) Mean Corpuscular Volume 83 fL (79-100) Mean Corpuscular Hemoglobin 28 pg (25-35) Mean Corpuscular Hemoglobin Concent 33 g/dL (31-37) Red Cell Distribution Width 15.9 % (11.5-14.5) Platelet Count 264 x10^3/uL (140-400) Neutrophils (%) (Auto) 85 % (31-73) Lymphocytes (%) (Auto) 11 % (24-48) Monocytes (%) (Auto) 4 % (0-9) Eosinophils (%) (Auto) 0 % (0-3) Basophils (%) (Auto) 0 % (0-3) Neutrophils # (Auto) 8.3 x10^3/uL (1.8-7.7) Lymphocytes # (Auto) 1.1 x10^3/uL (1.0-4.8) Monocytes # (Auto) 0.4 x10^3/uL (0.0-1.1) Eosinophils # (Auto) 0.0 x10^3/uL (0.0-0.7) Basophils # (Auto) 0.0 x10^3/uL (0.0-0.2) Segmented Neutrophils % 80 % (35-66) Band Neutrophils % 7 % (0-9) Lymphocytes % 10 % (24-48) Monocytes % 3 % (0-10) Platelet Estimate Adequate (ADEQUATE) Large Platelets Present Sodium Level 139 mmol/L (136-145) Potassium Level 4.0 mmol/L (3.5-5.1) Chloride Level 104 mmol/L (98-107) Carbon Dioxide Level 27 mmol/L (21-32) Anion Gap 8 (6-14) Blood Urea Nitrogen 20 mg/dL (7-20) Creatinine 1.1 mg/dL (0.6-1.0) Estimated GFR (Cockcroft-Gault) 48.4 BUN/Creatinine Ratio 18 (6-20) Glucose Level 113 mg/dL (70-99) Calcium Level 8.8 mg/dL (8.5-10.1) Total Bilirubin 0.3 mg/dL (0.2-1.0) Aspartate Amino Transf (AST/SGOT) 16 U/L (15-37) Alanine Aminotransferase (ALT/SGPT) 33 U/L (14-59) Alkaline Phosphatase 70 U/L (46-116) Total Protein 6.1 g/dL (6.4-8.2) Albumin 3.0 g/dL (3.4-5.0) Albumin/Globulin Ratio 1.0 (1.0-1.7) Assessment and Plan Assessmemt and Plan Problems Medical Problems: (1) Spinal cord compression Status: Acute Comment Review of Relevant I have reviewed the following items dana (where applicable) has been applied. Labs Laboratory Tests Test 10/23/19 04:00 White Blood Count 9.7 x10^3/uL (4.0-11.0) Red Blood Count 4.69 x10^6/uL (3.50-5.40) Hemoglobin 13.0 g/dL (12.0-15.5) Hematocrit 39.0 % (36.0-47.0) Mean Corpuscular Volume 83 fL (79-100) Mean Corpuscular Hemoglobin 28 pg (25-35) Mean Corpuscular Hemoglobin Concent 33 g/dL (31-37) Red Cell Distribution Width 15.9 % (11.5-14.5) Platelet Count 264 x10^3/uL (140-400) Neutrophils (%) (Auto) 85 % (31-73) Lymphocytes (%) (Auto) 11 % (24-48) Monocytes (%) (Auto) 4 % (0-9) Eosinophils (%) (Auto) 0 % (0-3) Basophils (%) (Auto) 0 % (0-3) Neutrophils # (Auto) 8.3 x10^3/uL (1.8-7.7) Lymphocytes # (Auto) 1.1 x10^3/uL (1.0-4.8) Monocytes # (Auto) 0.4 x10^3/uL (0.0-1.1) Eosinophils # (Auto) 0.0 x10^3/uL (0.0-0.7) Basophils # (Auto) 0.0 x10^3/uL (0.0-0.2) Segmented Neutrophils % 80 % (35-66) Band Neutrophils % 7 % (0-9) Lymphocytes % 10 % (24-48) Monocytes % 3 % (0-10) Platelet Estimate Adequate (ADEQUATE) Large Platelets Present Sodium Level 139 mmol/L (136-145) Potassium Level 4.0 mmol/L (3.5-5.1) Chloride Level 104 mmol/L (98-107) Carbon Dioxide Level 27 mmol/L (21-32) Anion Gap 8 (6-14) Blood Urea Nitrogen 20 mg/dL (7-20) Creatinine 1.1 mg/dL (0.6-1.0) Estimated GFR (Cockcroft-Gault) 48.4 BUN/Creatinine Ratio 18 (6-20) Glucose Level 113 mg/dL (70-99) Calcium Level 8.8 mg/dL (8.5-10.1) Total Bilirubin 0.3 mg/dL (0.2-1.0) Aspartate Amino Transf (AST/SGOT) 16 U/L (15-37) Alanine Aminotransferase (ALT/SGPT) 33 U/L (14-59) Alkaline Phosphatase 70 U/L (46-116) Total Protein 6.1 g/dL (6.4-8.2) Albumin 3.0 g/dL (3.4-5.0) Albumin/Globulin Ratio 1.0 (1.0-1.7) Laboratory Tests Test 10/23/19 04:00 White Blood Count 9.7 x10^3/uL (4.0-11.0) Red Blood Count 4.69 x10^6/uL (3.50-5.40) Hemoglobin 13.0 g/dL (12.0-15.5) Hematocrit 39.0 % (36.0-47.0) Mean Corpuscular Volume 83 fL (79-100) Mean Corpuscular Hemoglobin 28 pg (25-35) Mean Corpuscular Hemoglobin Concent 33 g/dL (31-37) Red Cell Distribution Width 15.9 % (11.5-14.5) Platelet Count 264 x10^3/uL (140-400) Neutrophils (%) (Auto) 85 % (31-73) Lymphocytes (%) (Auto) 11 % (24-48) Monocytes (%) (Auto) 4 % (0-9) Eosinophils (%) (Auto) 0 % (0-3) Basophils (%) (Auto) 0 % (0-3) Neutrophils # (Auto) 8.3 x10^3/uL (1.8-7.7) Lymphocytes # (Auto) 1.1 x10^3/uL (1.0-4.8) Monocytes # (Auto) 0.4 x10^3/uL (0.0-1.1) Eosinophils # (Auto) 0.0 x10^3/uL (0.0-0.7) Basophils # (Auto) 0.0 x10^3/uL (0.0-0.2) Segmented Neutrophils % 80 % (35-66) Band Neutrophils % 7 % (0-9) Lymphocytes % 10 % (24-48) Monocytes % 3 % (0-10) Platelet Estimate Adequate (ADEQUATE) Large Platelets Present Sodium Level 139 mmol/L (136-145) Potassium Level 4.0 mmol/L (3.5-5.1) Chloride Level 104 mmol/L (98-107) Carbon Dioxide Level 27 mmol/L (21-32) Anion Gap 8 (6-14) Blood Urea Nitrogen 20 mg/dL (7-20) Creatinine 1.1 mg/dL (0.6-1.0) Estimated GFR (Cockcroft-Gault) 48.4 BUN/Creatinine Ratio 18 (6-20) Glucose Level 113 mg/dL (70-99) Calcium Level 8.8 mg/dL (8.5-10.1) Total Bilirubin 0.3 mg/dL (0.2-1.0) Aspartate Amino Transf (AST/SGOT) 16 U/L (15-37) Alanine Aminotransferase (ALT/SGPT) 33 U/L (14-59) Alkaline Phosphatase 70 U/L (46-116) Total Protein 6.1 g/dL (6.4-8.2) Albumin 3.0 g/dL (3.4-5.0) Albumin/Globulin Ratio 1.0 (1.0-1.7) Medications Current Medications Ondansetron HCl (Zofran) 4 mg PRN Q8HRS PRN IV NAUSEA/VOMITING; Start 10/19/19 at 18:30; Stop 10/20/19 at 18:29; Status DC Morphine Sulfate (Morphine Sulfate) 2 mg PRN Q2HR PRN IV PAIN Last administered on 10/20/19at 08:52; Start 10/19/19 at 18:30; Stop 10/20/19 at 18:29; Status DC Ondansetron HCl (Zofran) 4 mg PRN Q6HRS PRN IV NAUSEA/VOMITING; Start 10/20/19 at 09:15; Stop 10/20/19 at 20:00; Status DC Fentanyl Citrate (Fentanyl 2ml Vial) 25 mcg PRN Q5MIN PRN IV MILD PAIN 1-3; Start 10/20/19 at 09:15; Stop 10/20/19 at 20:00; Status DC Fentanyl Citrate (Fentanyl 2ml Vial) 50 mcg PRN Q5MIN PRN IV MODERATE TO SEVERE PAIN; Start 10/20/19 at 09:15; Stop 10/20/19 at 20:00; Status DC Morphine Sulfate (Morphine Sulfate) 1 mg PRN Q10MIN PRN IV SEVERE PAIN 7-10; Start 10/20/19 at 09:15; Stop 10/20/19 at 20:00; Status DC Ringer's Solution 1,000 ml @ 30 mls/hr Q24H IV ; Start 10/20/19 at 09:14; Stop 10/20/19 at 20:03; Status DC Lidocaine HCl (Xylocaine-Mpf 1% 2ml Vial) 2 ml PRN 1X PRN ID PRIOR TO IV START; Start 10/20/19 at 09:15; Stop 10/20/19 at 20:00; Status DC Hydromorphone HCl (Dilaudid) 0.5 mg PRN Q10MIN PRN IV SEV PAIN, Second choice; Start 10/20/19 at 09:15; Stop 10/20/19 at 20:00; Status DC Prochlorperazine Edisylate (Compazine) 5 mg PACU PRN PRN IV NAUSEA, MRX1; Start 10/20/19 at 09:15; Stop 10/20/19 at 09:26; Status DC Zoledronic Acid 100 ml @ 400 mls/hr 1X ONCE IV ; Start 10/20/19 at 09:30; Stop 10/20/19 at 09:44; Status UNV Dexamethasone Sodium Phosphate (Decadron) 4 mg Q6HRS IVP Last administered on 10/23/19at 06:12; Start 10/20/19 at 10:00 Amylase/Lipase/ Protease (Zenpep 10,000) 2 cap TIDWMEALS PO Last administered on 10/22/19at 17:32; Start 10/20/19 at 12:00 Calcium/Vitamin D (Oscal D 500mg/ 200uts) 1 tab BIDWMEALS PO Last administered on 10/22/19at 17:32; Start 10/20/19 at 17:00 Citalopram Hydrobromide (CeleXA) 40 mg DAILY PO Last administered on 10/22/19at 08:32; Start 10/20/19 at 11:00 Non-Formulary Medication (Mesalamine (Lialda)) 4.8 gm DAILY PO ; Start 10/21/19 at 09:00; Status UNV Multivitamins (Thera M Plus) 1 tab DAILY PO ; Start 10/20/19 at 11:00; Stop 10/22/19 at 08:42; Status DC Pantoprazole Sodium (Protonix) 40 mg DAILYAC PO Last administered on 10/22/19at 08:32; Start 10/20/19 at 11:30 Iohexol (Omnipaque 240 Mg/ml) 30 ml 1X ONCE PO Last administered on 10/20/19at 10:30; Start 10/20/19 at 10:30; Stop 10/20/19 at 10:37; Status DC Iohexol (Omnipaque 300 Mg/ml) 60 ml 1X ONCE IV Last administered on 10/20/19at 10:30; Start 10/20/19 at 10:30; Stop 10/20/19 at 10:37; Status DC Info (CONTRAST GIVEN -- Rx MONITORING) 1 each PRN DAILY PRN MC SEE COMMENTS; Start 10/20/19 at 10:30; Stop 10/22/19 at 10:29; Status DC Ondansetron HCl (Zofran) 4 mg PRN Q6HRS PRN IV NAUSEA/VOMITING; Start 10/23/19 at 07:00; Stop 10/23/19 at 18:00 Fentanyl Citrate (Fentanyl 2ml Vial) 25 mcg PRN Q5MIN PRN IV MILD PAIN 1-3; Start 10/23/19 at 07:00; Stop 10/23/19 at 18:00 Fentanyl Citrate (Fentanyl 2ml Vial) 50 mcg PRN Q5MIN PRN IV MODERATE TO SEVERE PAIN; Start 10/23/19 at 07:00; Stop 10/23/19 at 18:00 Morphine Sulfate (Morphine Sulfate) 1 mg PRN Q10MIN PRN IV SEVERE PAIN 7-10; Start 10/23/19 at 07:00; Stop 10/23/19 at 18:00 Ringer's Solution 1,000 ml @ 30 mls/hr Q24H IV ; Start 10/23/19 at 07:00; Stop 10/23/19 at 18:00 Lidocaine HCl (Xylocaine-Mpf 1% 2ml Vial) 2 ml PRN 1X PRN ID PRIOR TO IV START; Start 10/23/19 at 07:00; Stop 10/23/19 at 18:00 Hydromorphone HCl (Dilaudid) 0.5 mg PRN Q10MIN PRN IV SEV PAIN, Second choice; Start 10/23/19 at 07:00; Stop 10/23/19 at 18:00 Prochlorperazine Edisylate (Compazine) 5 mg PACU PRN PRN IV NAUSEA, MRX1; Start 10/23/19 at 07:00; Stop 10/23/19 at 18:00 Losartan Potassium (Cozaar) 25 mg DAILY PO Last administered on 10/23/19at 08:26; Start 10/20/19 at 12:30 Enoxaparin Sodium (Lovenox 40mg Syringe) 40 mg Q24H SQ Last administered on 10/22/19at 20:50; Start 10/20/19 at 21:00 Morphine Sulfate (Morphine Sulfate) 2 mg PRN Q2HR PRN IV PAIN Last administered on 10/22/19at 15:57; Start 10/20/19 at 20:00 Bacitracin 29633 unit/Sodium Chloride 1,000 ml @ 1,000 mls/hr 1X ONCE IRR ; Start 10/23/19 at 08:00; Stop 10/23/19 at 08:59; Status DC Propofol (Diprivan) 200 mg STK-MED ONCE IV ; Start 10/23/19 at 08:55; Stop 10/23/19 at 08:55; Status DC Lidocaine HCl (Lidocaine Pf 2% Vial) 5 ml STK-MED ONCE .ROUTE ; Start 10/23/19 at 08:55; Stop 10/23/19 at 08:55; Status DC Rocuronium Alvord (Zemuron) 50 mg STK-MED ONCE .ROUTE ; Start 10/23/19 at 08:55; Stop 10/23/19 at 08:56; Status DC Active Scripts Active Lialda (Mesalamine) 1.2 Gm Tablet. 4.8 Gm PO DAILY 14 Days Zenpep 10,000 Units Capsule (Lipase/Protease/Amylase) 1 Each Capsule.dr 2 Cap PO TIDWMEALS 14 Days Lomotil Tablet (Diphenoxylate Hcl/Atropine) 1 Each Tablet 1 Tab PO QID MDD 8 tablets Zofran Odt (Ondansetron) 4 Mg Tab.rapdis 1 Tab SL Q8HRS Reported Losartan Potassium 50 Mg Tablet 25 Mg PO DAILY Omeprazole 20 Mg Tablet. 20 Mg PO DAILY Lexapro (Escitalopram Oxalate) 20 Mg Tablet 20 Mg PO BID Multivitamins (Multivitamin) 1 Each Tablet 1 Each PO DAILY Vitamin D3 (Cholecalciferol (Vitamin D3)) 400 Unit Tablet 2,000 Unit PO DAILY Lansoprazole 30 Mg Capsule. 30 Mg PO DAILY Calcium + Vitamin D Tablet (Calcium Carbonate/Vitamin D3) 1 Each Tablet 1 Each PO PRN BID PRN Toviaz (Fesoterodine Fumarate) 8 Mg Tab.er.24h 8 Mg PO DAILY Vitals/I & O Vital Sign - Last 24 Hours 10/22/19 10/22/19 10/22/19 10/22/19 11:07 11:24 11:37 12:00 Temp 97.8 97.8 Pulse 87 Resp 18 B/P (MAP) 110/78 (89) Pulse Ox 97 O2 Delivery Room Air Room Air Room Air Room Air 10/22/19 10/22/19 10/22/19 10/22/19 15:57 15:59 16:33 19:00 Temp 98.0 97.5 98.0 97.5 Pulse 54 55 Resp 18 18 B/P (MAP) 115/57 (76) 122/62 (82) Pulse Ox 95 94 O2 Delivery Room Air Room Air Room Air Room Air 10/22/19 10/22/19 10/23/19 10/23/19 19:40 23:00 03:00 07:00 Temp 98.4 97.7 98.3 98.4 97.7 98.3 Pulse 52 48 51 Resp 18 18 18 B/P (MAP) 131/67 (88) 158/78 (104) 142/82 (102) Pulse Ox 95 96 97 O2 Delivery Room Air Room Air Room Air Room Air 10/23/19 08:26 Pulse 51 B/P (MAP) 142/82 Intake and Output 10/22/19 10/22/19 10/23/19 15:00 23:00 07:00 Intake Total 500 ml 440 ml 0 ml Balance 500 ml 440 ml 0 ml Nutrition Consultation Dietary Evaluation: Recommendations by RD: Dietary education by RD, Increase Calorie Intake, Protein supplementation Comments: REC continue w/regular diet as ordered, honor food preferences, provide snacks as requested REC Ensure (chocolate) w/lunch trays Expected Outcomes/Goals: PO intake to meet >75% est needs Malnutrition Findings: Food and Nutrition Intake (Mod: <75% est energy req 7days Weight Status: Appropriate Justicifation of Admission Dx: Justifications for Admission: Justification of Admission Dx: N/A MOMO ROJAS MD Oct 23, 2019 09:14
--- NOTE | 2019-10-23 09:54 | PDOC ---
PROGRESS NOTES Subjective Subjective no new complaints back pain with activity reports that she has been ambulating strength 5/5 in BLE sensation intact metastatic disease involving T4, 5,6 with extension in to spinal canal especially at T5, there is spinal stenosis at that level Patient received Lovenox last evening, plan for thoracic laminectomy tomorrow at noon Objective Objective Vital Signs Date Time Temp Pulse Resp B/P (MAP) Pulse Ox O2 Delivery O2 Flow Rate FiO2 10/23/19 08:26 51 142/82 10/23/19 08:00 Room Air 10/23/19 07:00 98.3 18 97 98.3 Intake and Output 10/23/19 07:00 Intake Total 940 ml Balance 940 ml Intake Oral 940 ml # Voids 3 Assessment Assessment Problems Medical Problems: (1) Spinal cord compression Status: Acute Comment Review of Relevant I have reviewed the following items dana (where applicable) has been applied. Labs Laboratory Tests Test 10/23/19 04:00 White Blood Count 9.7 x10^3/uL (4.0-11.0) Red Blood Count 4.69 x10^6/uL (3.50-5.40) Hemoglobin 13.0 g/dL (12.0-15.5) Hematocrit 39.0 % (36.0-47.0) Mean Corpuscular Volume 83 fL (79-100) Mean Corpuscular Hemoglobin 28 pg (25-35) Mean Corpuscular Hemoglobin Concent 33 g/dL (31-37) Red Cell Distribution Width 15.9 % (11.5-14.5) Platelet Count 264 x10^3/uL (140-400) Neutrophils (%) (Auto) 85 % (31-73) Lymphocytes (%) (Auto) 11 % (24-48) Monocytes (%) (Auto) 4 % (0-9) Eosinophils (%) (Auto) 0 % (0-3) Basophils (%) (Auto) 0 % (0-3) Neutrophils # (Auto) 8.3 x10^3/uL (1.8-7.7) Lymphocytes # (Auto) 1.1 x10^3/uL (1.0-4.8) Monocytes # (Auto) 0.4 x10^3/uL (0.0-1.1) Eosinophils # (Auto) 0.0 x10^3/uL (0.0-0.7) Basophils # (Auto) 0.0 x10^3/uL (0.0-0.2) Segmented Neutrophils % 80 % (35-66) Band Neutrophils % 7 % (0-9) Lymphocytes % 10 % (24-48) Monocytes % 3 % (0-10) Platelet Estimate Adequate (ADEQUATE) Large Platelets Present Sodium Level 139 mmol/L (136-145) Potassium Level 4.0 mmol/L (3.5-5.1) Chloride Level 104 mmol/L (98-107) Carbon Dioxide Level 27 mmol/L (21-32) Anion Gap 8 (6-14) Blood Urea Nitrogen 20 mg/dL (7-20) Creatinine 1.1 mg/dL (0.6-1.0) Estimated GFR (Cockcroft-Gault) 48.4 BUN/Creatinine Ratio 18 (6-20) Glucose Level 113 mg/dL (70-99) Calcium Level 8.8 mg/dL (8.5-10.1) Total Bilirubin 0.3 mg/dL (0.2-1.0) Aspartate Amino Transf (AST/SGOT) 16 U/L (15-37) Alanine Aminotransferase (ALT/SGPT) 33 U/L (14-59) Alkaline Phosphatase 70 U/L (46-116) Total Protein 6.1 g/dL (6.4-8.2) Albumin 3.0 g/dL (3.4-5.0) Albumin/Globulin Ratio 1.0 (1.0-1.7) Laboratory Tests Test 10/23/19 04:00 White Blood Count 9.7 x10^3/uL (4.0-11.0) Red Blood Count 4.69 x10^6/uL (3.50-5.40) Hemoglobin 13.0 g/dL (12.0-15.5) Hematocrit 39.0 % (36.0-47.0) Mean Corpuscular Volume 83 fL (79-100) Mean Corpuscular Hemoglobin 28 pg (25-35) Mean Corpuscular Hemoglobin Concent 33 g/dL (31-37) Red Cell Distribution Width 15.9 % (11.5-14.5) Platelet Count 264 x10^3/uL (140-400) Neutrophils (%) (Auto) 85 % (31-73) Lymphocytes (%) (Auto) 11 % (24-48) Monocytes (%) (Auto) 4 % (0-9) Eosinophils (%) (Auto) 0 % (0-3) Basophils (%) (Auto) 0 % (0-3) Neutrophils # (Auto) 8.3 x10^3/uL (1.8-7.7) Lymphocytes # (Auto) 1.1 x10^3/uL (1.0-4.8) Monocytes # (Auto) 0.4 x10^3/uL (0.0-1.1) Eosinophils # (Auto) 0.0 x10^3/uL (0.0-0.7) Basophils # (Auto) 0.0 x10^3/uL (0.0-0.2) Segmented Neutrophils % 80 % (35-66) Band Neutrophils % 7 % (0-9) Lymphocytes % 10 % (24-48) Monocytes % 3 % (0-10) Platelet Estimate Adequate (ADEQUATE) Large Platelets Present Sodium Level 139 mmol/L (136-145) Potassium Level 4.0 mmol/L (3.5-5.1) Chloride Level 104 mmol/L (98-107) Carbon Dioxide Level 27 mmol/L (21-32) Anion Gap 8 (6-14) Blood Urea Nitrogen 20 mg/dL (7-20) Creatinine 1.1 mg/dL (0.6-1.0) Estimated GFR (Cockcroft-Gault) 48.4 BUN/Creatinine Ratio 18 (6-20) Glucose Level 113 mg/dL (70-99) Calcium Level 8.8 mg/dL (8.5-10.1) Total Bilirubin 0.3 mg/dL (0.2-1.0) Aspartate Amino Transf (AST/SGOT) 16 U/L (15-37) Alanine Aminotransferase (ALT/SGPT) 33 U/L (14-59) Alkaline Phosphatase 70 U/L (46-116) Total Protein 6.1 g/dL (6.4-8.2) Albumin 3.0 g/dL (3.4-5.0) Albumin/Globulin Ratio 1.0 (1.0-1.7) Medications Current Medications Ondansetron HCl (Zofran) 4 mg PRN Q8HRS PRN IV NAUSEA/VOMITING; Start 10/19/19 at 18:30; Stop 10/20/19 at 18:29; Status DC Morphine Sulfate (Morphine Sulfate) 2 mg PRN Q2HR PRN IV PAIN Last administered on 10/20/19at 08:52; Start 10/19/19 at 18:30; Stop 10/20/19 at 18:29; Status DC Ondansetron HCl (Zofran) 4 mg PRN Q6HRS PRN IV NAUSEA/VOMITING; Start 10/20/19 at 09:15; Stop 10/20/19 at 20:00; Status DC Fentanyl Citrate (Fentanyl 2ml Vial) 25 mcg PRN Q5MIN PRN IV MILD PAIN 1-3; Start 10/20/19 at 09:15; Stop 10/20/19 at 20:00; Status DC Fentanyl Citrate (Fentanyl 2ml Vial) 50 mcg PRN Q5MIN PRN IV MODERATE TO SEVERE PAIN; Start 10/20/19 at 09:15; Stop 10/20/19 at 20:00; Status DC Morphine Sulfate (Morphine Sulfate) 1 mg PRN Q10MIN PRN IV SEVERE PAIN 7-10; Start 10/20/19 at 09:15; Stop 10/20/19 at 20:00; Status DC Ringer's Solution 1,000 ml @ 30 mls/hr Q24H IV ; Start 10/20/19 at 09:14; Stop 10/20/19 at 20:03; Status DC Lidocaine HCl (Xylocaine-Mpf 1% 2ml Vial) 2 ml PRN 1X PRN ID PRIOR TO IV START; Start 10/20/19 at 09:15; Stop 10/20/19 at 20:00; Status DC Hydromorphone HCl (Dilaudid) 0.5 mg PRN Q10MIN PRN IV SEV PAIN, Second choice; Start 10/20/19 at 09:15; Stop 10/20/19 at 20:00; Status DC Prochlorperazine Edisylate (Compazine) 5 mg PACU PRN PRN IV NAUSEA, MRX1; Start 10/20/19 at 09:15; Stop 10/20/19 at 09:26; Status DC Zoledronic Acid 100 ml @ 400 mls/hr 1X ONCE IV ; Start 10/20/19 at 09:30; Stop 10/20/19 at 09:44; Status UNV Dexamethasone Sodium Phosphate (Decadron) 4 mg Q6HRS IVP Last administered on 10/23/19at 06:12; Start 10/20/19 at 10:00 Amylase/Lipase/ Protease (Zenpep 10,000) 2 cap TIDWMEALS PO Last administered on 10/22/19at 17:32; Start 10/20/19 at 12:00 Calcium/Vitamin D (Oscal D 500mg/ 200uts) 1 tab BIDWMEALS PO Last administered on 10/22/19at 17:32; Start 10/20/19 at 17:00 Citalopram Hydrobromide (CeleXA) 40 mg DAILY PO Last administered on 10/22/19at 08:32; Start 10/20/19 at 11:00 Non-Formulary Medication (Mesalamine (Lialda)) 4.8 gm DAILY PO ; Start 10/21/19 at 09:00; Status UNV Multivitamins (Thera M Plus) 1 tab DAILY PO ; Start 10/20/19 at 11:00; Stop 10/22/19 at 08:42; Status DC Pantoprazole Sodium (Protonix) 40 mg DAILYAC PO Last administered on 10/22/19at 08:32; Start 10/20/19 at 11:30 Iohexol (Omnipaque 240 Mg/ml) 30 ml 1X ONCE PO Last administered on 10/20/19at 10:30; Start 10/20/19 at 10:30; Stop 10/20/19 at 10:37; Status DC Iohexol (Omnipaque 300 Mg/ml) 60 ml 1X ONCE IV Last administered on 10/20/19at 10:30; Start 10/20/19 at 10:30; Stop 10/20/19 at 10:37; Status DC Info (CONTRAST GIVEN -- Rx MONITORING) 1 each PRN DAILY PRN MC SEE COMMENTS; Start 10/20/19 at 10:30; Stop 10/22/19 at 10:29; Status DC Ondansetron HCl (Zofran) 4 mg PRN Q6HRS PRN IV NAUSEA/VOMITING; Start 10/23/19 at 07:00; Stop 10/23/19 at 18:00 Fentanyl Citrate (Fentanyl 2ml Vial) 25 mcg PRN Q5MIN PRN IV MILD PAIN 1-3; Start 10/23/19 at 07:00; Stop 10/23/19 at 18:00 Fentanyl Citrate (Fentanyl 2ml Vial) 50 mcg PRN Q5MIN PRN IV MODERATE TO SEVERE PAIN; Start 10/23/19 at 07:00; Stop 10/23/19 at 18:00 Morphine Sulfate (Morphine Sulfate) 1 mg PRN Q10MIN PRN IV SEVERE PAIN 7-10; Start 10/23/19 at 07:00; Stop 10/23/19 at 18:00 Ringer's Solution 1,000 ml @ 30 mls/hr Q24H IV ; Start 10/23/19 at 07:00; Stop 10/23/19 at 18:00 Lidocaine HCl (Xylocaine-Mpf 1% 2ml Vial) 2 ml PRN 1X PRN ID PRIOR TO IV START; Start 10/23/19 at 07:00; Stop 10/23/19 at 18:00 Hydromorphone HCl (Dilaudid) 0.5 mg PRN Q10MIN PRN IV SEV PAIN, Second choice; Start 10/23/19 at 07:00; Stop 10/23/19 at 18:00 Prochlorperazine Edisylate (Compazine) 5 mg PACU PRN PRN IV NAUSEA, MRX1; Start 10/23/19 at 07:00; Stop 10/23/19 at 18:00 Losartan Potassium (Cozaar) 25 mg DAILY PO Last administered on 10/23/19at 08:26; Start 10/20/19 at 12:30 Enoxaparin Sodium (Lovenox 40mg Syringe) 40 mg Q24H SQ Last administered on 10/22/19at 20:50; Start 10/20/19 at 21:00 Morphine Sulfate (Morphine Sulfate) 2 mg PRN Q2HR PRN IV PAIN Last administered on 10/22/19at 15:57; Start 10/20/19 at 20:00 Bacitracin 35654 unit/Sodium Chloride 1,000 ml @ 1,000 mls/hr 1X ONCE IRR ; Start 10/23/19 at 08:00; Stop 10/23/19 at 08:59; Status Cancel Propofol (Diprivan) 200 mg STK-MED ONCE IV ; Start 10/23/19 at 08:55; Stop 10/23/19 at 08:55; Status DC Lidocaine HCl (Lidocaine Pf 2% Vial) 5 ml STK-MED ONCE .ROUTE ; Start 10/23/19 at 08:55; Stop 10/23/19 at 08:55; Status DC Rocuronium Nash (Zemuron) 50 mg STK-MED ONCE .ROUTE ; Start 10/23/19 at 08:55; Stop 10/23/19 at 08:56; Status DC Active Scripts Active Lialda (Mesalamine) 1.2 Gm Tablet. 4.8 Gm PO DAILY [address] 10,000 Units Capsule (Lipase/Protease/Amylase) 1 Each Capsule.dr 2 Cap PO TIDWMEALS 14 Days Lomotil Tablet (Diphenoxylate Hcl/Atropine) 1 Each Tablet 1 Tab PO QID MDD 8 tablets Zofran Odt (Ondansetron) 4 Mg Tab.rapdis 1 Tab SL Q8HRS Reported Losartan Potassium 50 Mg Tablet 25 Mg PO DAILY Omeprazole 20 Mg Tablet. 20 Mg PO DAILY Lexapro (Escitalopram Oxalate) 20 Mg Tablet 20 Mg PO BID Multivitamins (Multivitamin) 1 Each Tablet 1 Each PO DAILY Vitamin D3 (Cholecalciferol (Vitamin D3)) 400 Unit Tablet 2,000 Unit PO DAILY Lansoprazole 30 Mg Capsule. 30 Mg PO DAILY Calcium + Vitamin D Tablet (Calcium Carbonate/Vitamin D3) 1 Each Tablet 1 Each PO PRN BID PRN Toviaz (Fesoterodine Fumarate) 8 Mg Tab.er.24h 8 Mg PO DAILY Vitals/I & O Vital Sign - Last 24 Hours 10/22/19 10/22/19 10/22/19 10/22/19 11:07 11:24 11:37 12:00 Temp 97.8 97.8 Pulse 87 Resp 18 B/P (MAP) 110/78 (89) Pulse Ox 97 O2 Delivery Room Air Room Air Room Air Room Air 10/22/19 10/22/19 10/22/19 10/22/19 15:57 15:59 16:33 19:00 Temp 98.0 97.5 98.0 97.5 Pulse 54 55 Resp 18 18 B/P (MAP) 115/57 (76) 122/62 (82) Pulse Ox 95 94 O2 Delivery Room Air Room Air Room Air Room Air 10/22/19 10/22/19 10/23/1910/22/20 19:40 23:00 03:00 07:00 Temp 98.4 97.7 98.3 98.4 97.7 98.3 Pulse 52 48 51 Resp 18 18 18 B/P (MAP) 131/67 (88) 158/78 (104) 142/82 (102) Pulse Ox 95 96 97 O2 Delivery Room Air Room Air Room Air Room Air 10/23/19 10/23/19 08:00 08:26 Pulse 51 B/P (MAP) 142/82 O2 Delivery Room Air Intake and Output 10/22/19 10/22/19 10/23/19 15:00 23:00 07:00 Intake Total 500 ml 440 ml 0 ml Balance 500 ml 440 ml 0 ml Justicifation of Admission Dx: Justifications for Admission: Justification of Admission Dx: N/A Nutrition Consultation Dietary Evaluation: Recommendations by RD: Dietary education by RD, Increase Calorie Intake, Protein supplementation Comments: REC continue w/regular diet as ordered, honor food preferences, provide snacks as requested REC Ensure (chocolate) w/lunch trays Expected Outcomes/Goals: PO intake to meet >75% est needs Malnutrition Findings: Food and Nutrition Intake (Mod: <75% est energy req 7days Weight Status: Appropriate ARACELI JIMENEZ MICA LAYER Oct 23, 2019 09:54
[2019-10-23 11:03] VITALS: BP 164/76
--- NOTE | 2019-10-23 12:16 | NUR ---
SW following. Discussed with RN, pt from home with son, room air, NPO, COVID-19 negative. Pt scheduled for a thoracic laminectomy tomorrow (10/24/2019). SW will continue to follow.
[2019-10-23 15:13] VITALS: BP 125/58
[2019-10-23] MEDS: MORPHINE SULFATE 2 MG/ML VIAL. IV PRN ×2 (15:21→20:48)
[2019-10-23 19:00] VITALS: BP 149/70
[2019-10-23 23:00] VITALS: BP 165/84
[2019-10-24] VITALS (10 sets, daily range): BP systolic 83–170; BP diastolic 49–88
[2019-10-24] MEDS: DEXAMETHASONE SOD PHOS 4 MG/ML VIAL IVP SCH ×5 (00:22→23:39)
[2019-10-24 05:16] LABS: BASO % 0 % (0-3); EOS % 0 % (0-3); HEMATOCRIT 37.9 % (36.0-47.0); HEMOGLOBIN 12.8 g/dL (12.0-15.5); LYMPH % 10 % (24-48); MEAN CORPUSCULAR HEMOGLOBIN 28 pg (25-35); MEAN CORPUSCULAR HGB CONC 34 g/dL (31-37); MEAN CORPUSCULAR VOLUME 83 fL (79-100); MONO # 0.7 x10^3/uL (0.0-1.1); MONO % 6 % (0-9); NEUT # 8.5 x10^3/uL (1.8-7.7); NEUT % 84 % (31-73); PLATELET COUNT 259 x10^3/uL (140-400); RED BLOOD COUNT 4.57 x10^6/uL (3.50-5.40); RED CELL DISTRIBUTION WIDTH 16.2 % (11.5-14.5); WHITE BLOOD COUNT 10.2 x10^3/uL (4.0-11.0)
[2019-10-24 05:40] LABS: CALCIUM 8.6 mg/dL (8.5-10.1); GFR 54.1; POTASSIUM 4.1 mmol/L (3.5-5.1)
[2019-10-24] MEDS ORDERED: BACITRACIN 50,000 UNIT in IV NORMAL SALINE 1000ML BAG 1,000 ML IRR ONE (06:00)
[2019-10-24] MEDS ORDERED: ONDANSETRON PF 4 MG/2 ML VIAL. IV PRN (07:00)
[2019-10-24] MEDS ORDERED: PROCHLORPERAZINE 10 MG/2 ML VIAL. IV PRN (07:00)
[2019-10-24] MEDS ORDERED: IV RINGERS,LACTATED 1000ML 1,000 ML IV SCH (07:00)
[2019-10-24] MEDS ORDERED: fentaNYL PF VIAL 100 MCG/2 ML VIAL IV PRN (07:00)
[2019-10-24] MEDS ORDERED: LIDOCAINE 1% PF 2 ML VIAL. ID PRN (07:00)
[2019-10-24] MEDS ORDERED: HYDROmorphone 2 MG/ML VIAL IV PRN (07:00)
[2019-10-24] MEDS: PANTOPRAZOLE 40 MG TABLET.DR. PO SCH (07:30)
[2019-10-24] MEDS: LIPASE/PROTEAS/AMYLAS 10/32/42 CAPSULE.DR. PO SCH ×3 (08:00→17:00)
[2019-10-24] MEDS: CALCIUM CARB/VIT D3 500/200 TABLET. PO SCH ×2 (08:00→17:00)
[2019-10-24] MEDS: LOSARTAN POTASSIUM 25 MG TABLET. PO SCH (08:23)
[2019-10-24] MEDS: CITALOPRAM 20 MG TABLET. PO SCH (08:23)
--- NOTE | 2019-10-24 09:38 | NUR ---
SW following. Discussed with RN, pt having surgery today (was held yesterday as a medication was given which prevented surgery). SW will continue to follow.
--- NOTE | 2019-10-24 09:52 | RAD ---
EXAM: CT Thoracic Spine without IV contrast INDICATION: Reason: localizing CT T5 with marker, pre op before noon / Spl. Instructions: / History: TECHNIQUE: Multi-detector row CT images were obtained through the thoracic spine without the use of IV contrast. Post-processing sagittal and coronal reconstructed images were obtained for interpretation. All CT scans performed at this facility utilize dose optimization techniques as appropriate to the exam, including the following: Automated exposure control and adjustment of the mA and/or KV according to patient size (this includes techniques or standardized protocols for targeted exams where dose is indication/reason for exam). COMPARISON: T-spine MRI of 10/09/[address] abdomen pelvis CT of 10/20/[address]: [address] Hinds's request, the patient was brought to the CT imaging suite and scanned in the prone position with localizing markers at the skin surface. I identified the fifth thoracic vertebra and marked it at the skin surface between the horizontally oriented fourth and fifth (of seven) fiducial markers with the letters "T5 LEVEL". Additional, wider horizontal holden along the fourth fiducial were made across her back to dana the approximate T4-T5 level. Upon completion of the marking, I discussed this with Dr. Hinds's nurse practitioner Lamar Garcia by telephone at 9:25 AM on October 24, 2019. The anatomic images show dense sclerosis at T4, T5 and T6, corresponding to the marrow replacing process evident on previous T-spine MRI and present in the setting of generalized osteopenia with fatty marrow replacement otherwise noted elsewhere in the thoracic spine. Incidental ACDF surgical changes in the included lower cervical spine are present. There are a few tiny lung nodules in the included field of view. No significant additional incidental findings noted. IMPRESSION: T-spine CT for marking the T5 level in anticipation of decompressive laminectomy planned for later the same day, as described. Electronically signed by: Genet Temple MD (10/24/2019 9:49 AM) [id number]
[2019-10-24] MEDS ORDERED: THROMBIN TOPICAL 20,000 UNIT SPRAY.SYRN KIT TP ONE ×2 (11:16→17:49)
[2019-10-24] MEDS ORDERED: BUPIVACAINE-EPI 0.5%-1:200000 MPF 30 ML VIAL. ONE (11:16)
[2019-10-24] MEDS ORDERED: GELATIN SPONGE SIZE 100. ONE ×2 (11:16→17:34)
[2019-10-24] MEDS ORDERED: KETOROLAC 60 MG/2 ML VIAL. ONE (11:16)
[2019-10-24] MEDS ORDERED: GLYCOPYRROLATE 1 MG/5 ML VIAL. ONE (11:22)
[2019-10-24] MEDS ORDERED: LIDOCAINE 2% PF 5 ML VIAL. ONE (11:22)
[2019-10-24] MEDS ORDERED: ONDANSETRON PF 4 MG/2 ML VIAL. ONE (11:22)
[2019-10-24] MEDS ORDERED: PHENYLEPHRINE in 0.9% NACL PF 1 MG/10 ML SYRINGE. IV ONE (11:22)
[2019-10-24] MEDS ORDERED: ePHEDrine PF IN SALINE 50 MG/10 ML SYRINGE. IV ONE (11:22)
[2019-10-24] MEDS ORDERED: DEXAMETHASONE SOD PHOS 20 MG/5 ML VIAL. ONE (11:22)
[2019-10-24] MEDS ORDERED: PROPOFOL 10 MG/ML (20ML) VIAL. IV ONE (11:22)
[2019-10-24] MEDS ORDERED: fentaNYL PF VIAL 100 MCG/2 ML VIAL ONE ×3 (11:23→19:18)
[2019-10-24] MEDS ORDERED: PROPOFOL 50 ML IV ONE (11:24)
[2019-10-24] MEDS ORDERED: REMIFENTANIL 2 MG VIAL. IV ONE (11:24)
--- NOTE | 2019-10-24 11:25 | PDOC ---
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 History of Present Illness History of Present Illness 10/21. no new problems or complaints, surgery tomorrow 3pm 73-year-old female with past medical history of hypertension, breast cancer status post bilateral mastectomy and non-small cell lung cancer status post lobectomy who comes in due to frequent falls, ataxia and lower extremity weakness. Son has been noticing abnormal gait in the past few months, but after she had fallen 2 weeks ago son has noticed increased weakness and abnormalities in her walking. Her PCP had ordered MRI of the spine on October 16 that showed T4- 6 metastatic osteolytic lesions and T4 levels with severe stenosis. Patient was sent to the ED for concern of spinal cord compression. Patient denies urinary incontinence, numbness in her pelvic regions, shortness of breath, abdominal pains, diarrhea, or fevers 10/21/2019 No acute events overnight. Patient seen and examined bedside. Patient neuro exam is stable. Patient's chart, labs, images were reviewed and discussed with RN Vitals Vitals Vital Signs Date Time Temp Pulse Resp B/P (MAP) Pulse Ox O2 Delivery O2 Flow Rate FiO2 10/24/19 10:51 97.8 50 20 155/88 (110) 96 Room Air 97.8 Physical Exam Physical Exam GEN: No apparent distress. Alert and oriented HEENT: Normal cephalic, atraumatic, external auditory canals are patent NECK: Supple, no JVD, no thyromegaly was noted LUNGS: Bilateral crackles HEART: RRR, S1, S2 present. Peripheral pulses intact, no obvious murmurs noted ABDOMEN: Soft, nontender. Positive bowel sounds, no organomegaly, normal bowel sounds EXTREMITIES: Without clubbing, cyanosis, or edema. Pedal pulses intact. Negative Homans sign NEURO: Strength was 5/5 in upper and lower extremities bilaterally. On sensory examination,she was intact to light touch in the upper and lower extremities with hypoactive reflexes. There was full range of motion of the lower extremities bilaterally. BACK: Point tenderness in the thoracic region General: Alert, Oriented X3, Cooperative Heart: Regular rate, Normal S1, Normal S2 Abdomen: Normal bowel sounds, Soft, No tenderness, No hepatosplenomegaly Extremities: No clubbing, No cyanosis Skin: No rashes Labs LABS Laboratory Tests Test 10/24/19 03:50 White Blood Count 10.2 x10^3/uL (4.0-11.0) Red Blood Count 4.57 x10^6/uL (3.50-5.40) Hemoglobin 12.8 g/dL (12.0-15.5) Hematocrit 37.9 % (36.0-47.0) Mean Corpuscular Volume 83 fL (79-100) Mean Corpuscular Hemoglobin 28 pg (25-35) Mean Corpuscular Hemoglobin Concent 34 g/dL (31-37) Red Cell Distribution Width 16.2 % (11.5-14.5) Platelet Count 259 x10^3/uL (140-400) Neutrophils (%) (Auto) 84 % (31-73) Lymphocytes (%) (Auto) 10 % (24-48) Monocytes (%) (Auto) 6 % (0-9) Eosinophils (%) (Auto) 0 % (0-3) Basophils (%) (Auto) 0 % (0-3) Neutrophils # (Auto) 8.5 x10^3/uL (1.8-7.7) Lymphocytes # (Auto) 1.0 x10^3/uL (1.0-4.8) Monocytes # (Auto) 0.7 x10^3/uL (0.0-1.1) Eosinophils # (Auto) 0.0 x10^3/uL (0.0-0.7) Basophils # (Auto) 0.0 x10^3/uL (0.0-0.2) Sodium Level 137 mmol/L (136-145) Potassium Level 4.1 mmol/L (3.5-5.1) Chloride Level 103 mmol/L (98-107) Carbon Dioxide Level 28 mmol/L (21-32) Anion Gap 6 (6-14) Blood Urea Nitrogen 24 mg/dL (7-20) Creatinine 1.0 mg/dL (0.6-1.0) Estimated GFR (Cockcroft-Gault) 54.1 Glucose Level 120 mg/dL (70-99) Calcium Level 8.6 mg/dL (8.5-10.1) Assessment and Plan Assessmemt and Plan Problems Medical Problems: (1) Spinal cord compression Status: Acute Comment Review of Relevant I have reviewed the following items dana (where applicable) has been applied. Labs Laboratory Tests Test 10/23/19 04:00 10/24/19 03:50 White Blood Count 9.7 x10^3/uL (4.0-11.0) 10.2 x10^3/uL (4.0-11.0) Red Blood Count 4.69 x10^6/uL (3.50-5.40) 4.57 x10^6/uL (3.50-5.40) Hemoglobin 13.0 g/dL (12.0-15.5) 12.8 g/dL (12.0-15.5) Hematocrit 39.0 % (36.0-47.0) 37.9 % (36.0-47.0) Mean Corpuscular Volume 83 fL (79-100) 83 fL (79-100) Mean Corpuscular Hemoglobin 28 pg (25-35) 28 pg (25-35) Mean Corpuscular Hemoglobin Concent 33 g/dL (31-37) 34 g/dL (31-37) Red Cell Distribution Width 15.9 % (11.5-14.5) 16.2 % (11.5-14.5) Platelet Count 264 x10^3/uL (140-400) 259 x10^3/uL (140-400) Neutrophils (%) (Auto) 85 % (31-73) 84 % (31-73) Lymphocytes (%) (Auto) 11 % (24-48) 10 % (24-48) Monocytes (%) (Auto) 4 % (0-9) 6 % (0-9) Eosinophils (%) (Auto) 0 % (0-3) 0 % (0-3) Basophils (%) (Auto) 0 % (0-3) 0 % (0-3) Neutrophils # (Auto) 8.3 x10^3/uL (1.8-7.7) 8.5 x10^3/uL (1.8-7.7) Lymphocytes # (Auto) 1.1 x10^3/uL (1.0-4.8) 1.0 x10^3/uL (1.0-4.8) Monocytes # (Auto) 0.4 x10^3/uL (0.0-1.1) 0.7 x10^3/uL (0.0-1.1) Eosinophils # (Auto) 0.0 x10^3/uL (0.0-0.7) 0.0 x10^3/uL (0.0-0.7) Basophils # (Auto) 0.0 x10^3/uL (0.0-0.2) 0.0 x10^3/uL (0.0-0.2) Segmented Neutrophils % 80 % (35-66) Band Neutrophils % 7 % (0-9) Lymphocytes % 10 % (24-48) Monocytes % 3 % (0-10) Platelet Estimate Adequate (ADEQUATE) Large Platelets Present Sodium Level 139 mmol/L (136-145) 137 mmol/L (136-145) Potassium Level 4.0 mmol/L (3.5-5.1) 4.1 mmol/L (3.5-5.1) Chloride Level 104 mmol/L (98-107) 103 mmol/L (98-107) Carbon Dioxide Level 27 mmol/L (21-32) 28 mmol/L (21-32) Anion Gap 8 (6-14) 6 (6-14) Blood Urea Nitrogen 20 mg/dL (7-20) 24 mg/dL (7-20) Creatinine 1.1 mg/dL (0.6-1.0) 1.0 mg/dL (0.6-1.0) Estimated GFR (Cockcroft-Gault) 48.4 54.1 BUN/Creatinine Ratio 18 (6-20) Glucose Level 113 mg/dL (70-99) 120 mg/dL (70-99) Calcium Level 8.8 mg/dL (8.5-10.1) 8.6 mg/dL (8.5-10.1) Total Bilirubin 0.3 mg/dL (0.2-1.0) Aspartate Amino Transf (AST/SGOT) 16 U/L (15-37) Alanine Aminotransferase (ALT/SGPT) 33 U/L (14-59) Alkaline Phosphatase 70 U/L (46-116) Total Protein 6.1 g/dL (6.4-8.2) Albumin 3.0 g/dL (3.4-5.0) Albumin/Globulin Ratio 1.0 (1.0-1.7) Laboratory Tests Test 10/24/19 03:50 White Blood Count 10.2 x10^3/uL (4.0-11.0) Red Blood Count 4.57 x10^6/uL (3.50-5.40) Hemoglobin 12.8 g/dL (12.0-15.5) Hematocrit 37.9 % (36.0-47.0) Mean Corpuscular Volume 83 fL (79-100) Mean Corpuscular Hemoglobin 28 pg (25-35) Mean Corpuscular Hemoglobin Concent 34 g/dL (31-37) Red Cell Distribution Width 16.2 % (11.5-14.5) Platelet Count 259 x10^3/uL (140-400) Neutrophils (%) (Auto) 84 % (31-73) Lymphocytes (%) (Auto) 10 % (24-48) Monocytes (%) (Auto) 6 % (0-9) Eosinophils (%) (Auto) 0 % (0-3) Basophils (%) (Auto) 0 % (0-3) Neutrophils # (Auto) 8.5 x10^3/uL (1.8-7.7) Lymphocytes # (Auto) 1.0 x10^3/uL (1.0-4.8) Monocytes # (Auto) 0.7 x10^3/uL (0.0-1.1) Eosinophils # (Auto) 0.0 x10^3/uL (0.0-0.7) Basophils # (Auto) 0.0 x10^3/uL (0.0-0.2) Sodium Level 137 mmol/L (136-145) Potassium Level 4.1 mmol/L (3.5-5.1) Chloride Level 103 mmol/L (98-107) Carbon Dioxide Level 28 mmol/L (21-32) Anion Gap 6 (6-14) Blood Urea Nitrogen 24 mg/dL (7-20) Creatinine 1.0 mg/dL (0.6-1.0) Estimated GFR (Cockcroft-Gault) 54.1 Glucose Level 120 mg/dL (70-99) Calcium Level 8.6 mg/dL (8.5-10.1) Medications Current Medications Ondansetron HCl (Zofran) 4 mg PRN Q8HRS PRN IV NAUSEA/VOMITING; Start 10/19/19 at 18:30; Stop 10/20/19 at 18:29; Status DC Morphine Sulfate (Morphine Sulfate) 2 mg PRN Q2HR PRN IV PAIN Last administered on 10/20/19at 08:52; Start 10/19/19 at 18:30; Stop 10/20/19 at 18:29; Status DC Ondansetron HCl (Zofran) 4 mg PRN Q6HRS PRN IV NAUSEA/VOMITING; Start 10/20/19 at 09:15; Stop 10/20/19 at 20:00; Status DC Fentanyl Citrate (Fentanyl 2ml Vial) 25 mcg PRN Q5MIN PRN IV MILD PAIN 1-3; Start 10/20/19 at 09:15; Stop 10/20/19 at 20:00; Status DC Fentanyl Citrate (Fentanyl 2ml Vial) 50 mcg PRN Q5MIN PRN IV MODERATE TO SEVERE PAIN; Start 10/20/19 at 09:15; Stop 10/20/19 at 20:00; Status DC Morphine Sulfate (Morphine Sulfate) 1 mg PRN Q10MIN PRN IV SEVERE PAIN 7-10; Start 10/20/19 at 09:15; Stop 10/20/19 at 20:00; Status DC Ringer's Solution 1,000 ml @ 30 mls/hr Q24H IV ; Start 10/20/19 at 09:14; Stop 10/20/19 at 20:03; Status DC Lidocaine HCl (Xylocaine-Mpf 1% 2ml Vial) 2 ml PRN 1X PRN ID PRIOR TO IV START; Start 10/20/19 at 09:15; Stop 10/20/19 at 20:00; Status DC Hydromorphone HCl (Dilaudid) 0.5 mg PRN Q10MIN PRN IV SEV PAIN, Second choice; Start 10/20/19 at 09:15; Stop 10/20/19 at 20:00; Status DC Prochlorperazine Edisylate (Compazine) 5 mg PACU PRN PRN IV NAUSEA, MRX1; Start 10/20/19 at 09:15; Stop 10/20/19 at 09:26; Status DC Zoledronic Acid 100 ml @ 400 mls/hr 1X ONCE IV ; Start 10/20/19 at 09:30; Stop 10/20/19 at 09:44; Status UNV Dexamethasone Sodium Phosphate (Decadron) 4 mg Q6HRS IVP Last administered on 10/24/19at 05:52; Start 10/20/19 at 10:00 Amylase/Lipase/ Protease (Zenpep 10,000) 2 cap TIDWMEALS PO Last administered on 10/23/19at 17:11; Start 10/20/19 at 12:00 Calcium/Vitamin D (Oscal D 500mg/ 200uts) 1 tab BIDWMEALS PO Last administered on 10/23/19at 17:12; Start 10/20/19 at 17:00 Citalopram Hydrobromide (CeleXA) 40 mg DAILY PO Last administered on 10/23/19at 11:55; Start 10/20/19 at 11:00 Non-Formulary Medication (Mesalamine (Lialda)) 4.8 gm DAILY PO ; Start 10/21/19 at 09:00; Status UNV Multivitamins (Thera M Plus) 1 tab DAILY PO ; Start 10/20/19 at 11:00; Stop 10/22/19 at 08:42; Status DC Pantoprazole Sodium (Protonix) 40 mg DAILYAC PO Last administered on 10/23/19at 11:54; Start 10/20/19 at 11:30 Iohexol (Omnipaque 240 Mg/ml) 30 ml 1X ONCE PO Last administered on 10/20/19at 10:30; Start 10/20/19 at 10:30; Stop 10/20/19 at 10:37; Status DC Iohexol (Omnipaque 300 Mg/ml) 60 ml 1X ONCE IV Last administered on 10/20/19at 10:30; Start 10/20/19 at 10:30; Stop 10/20/19 at 10:37; Status DC Info (CONTRAST GIVEN -- Rx MONITORING) 1 each PRN DAILY PRN MC SEE COMMENTS; Start 10/20/19 at 10:30; Stop 10/22/19 at 10:29; Status DC Ondansetron HCl (Zofran) 4 mg PRN Q6HRS PRN IV NAUSEA/VOMITING; Start 10/23/19 at 07:00; Stop 10/23/19 at 18:00; Status DC Fentanyl Citrate (Fentanyl 2ml Vial) 25 mcg PRN Q5MIN PRN IV MILD PAIN 1-3; Start 10/23/19 at 07:00; Stop 10/23/19 at 18:00; Status DC Fentanyl Citrate (Fentanyl 2ml Vial) 50 mcg PRN Q5MIN PRN IV MODERATE TO SEVERE PAIN; Start 10/23/19 at 07:00; Stop 10/23/19 at 18:00; Status DC Morphine Sulfate (Morphine Sulfate) 1 mg PRN Q10MIN PRN IV SEVERE PAIN 7-10; Start 10/23/19 at 07:00; Stop 10/23/19 at 18:00; Status DC Ringer's Solution 1,000 ml @ 30 mls/hr Q24H IV ; Start 10/23/19 at 07:00; Stop 10/23/19 at 18:00; Status DC Lidocaine HCl (Xylocaine-Mpf 1% 2ml Vial) 2 ml PRN 1X PRN ID PRIOR TO IV START; Start 10/23/19 at 07:00; Stop 10/23/19 at 18:00; Status DC Hydromorphone HCl (Dilaudid) 0.5 mg PRN Q10MIN PRN IV SEV PAIN, Second choice; Start 10/23/19 at 07:00; Stop 10/23/19 at 18:00; Status DC Prochlorperazine Edisylate (Compazine) 5 mg PACU PRN PRN IV NAUSEA, MRX1; Start 10/23/19 at 07:00; Stop 10/23/19 at 18:00; Status DC Losartan Potassium (Cozaar) 25 mg DAILY PO Last administered on 10/24/19at 08:23; Start 10/20/19 at 12:30 Enoxaparin Sodium (Lovenox 40mg Syringe) 40 mg Q24H SQ Last administered on 10/22/19at 20:50; Start 10/20/19 at 21:00; Stop 10/23/19 at 09:51; Status DC Morphine Sulfate (Morphine Sulfate) 2 mg PRN Q2HR PRN IV PAIN Last administered on 10/23/19at 20:48; Start 10/20/19 at 20:00 Bacitracin 56475 unit/Sodium Chloride 1,000 ml @ 1,000 mls/hr 1X ONCE IRR ; Start 10/23/19 at 08:00; Stop 10/23/19 at 08:59; Status Cancel Propofol (Diprivan) 200 mg STK-MED ONCE IV ; Start 10/23/19 at 08:55; Stop 10/23/19 at 08:55; Status DC Lidocaine HCl (Lidocaine Pf 2% Vial) 5 ml STK-MED ONCE .ROUTE ; Start 10/23/19 at 08:55; Stop 10/23/19 at 08:55; Status DC Rocuronium [place] (Zemuron) 50 mg STK-MED ONCE .ROUTE ; Start 10/23/19 at 08:55; Stop 10/23/19 at 08:56; Status DC Ondansetron HCl (Zofran) 4 mg PRN Q6HRS PRN IV NAUSEA/VOMITING; Start 10/24/19 at 07:00; Stop 10/24/19 at 20:00 Fentanyl Citrate (Fentanyl 2ml Vial) 25 mcg PRN Q5MIN PRN IV MILD PAIN 1-3; Start 10/24/19 at 07:00; Stop 10/24/19 at 20:00 Fentanyl Citrate (Fentanyl 2ml Vial) 50 mcg PRN Q5MIN PRN IV MODERATE TO SEVERE PAIN; Start 10/24/19 at 07:00; Stop 10/24/19 at 20:00 Morphine Sulfate (Morphine Sulfate) 1 mg PRN Q10MIN PRN IV SEVERE PAIN 7-10; Start 10/24/19 at 07:00; Stop 10/24/19 at 20:00 Ringer's Solution 1,000 ml @ 30 mls/hr Q24H IV ; Start 10/24/19 at 07:00; Stop 10/24/19 at 18:59 Lidocaine HCl (Xylocaine-Mpf 1% 2ml Vial) 2 ml PRN 1X PRN ID PRIOR TO IV START; Start 10/24/19 at 07:00; Stop 10/24/19 at 20:00 Hydromorphone HCl (Dilaudid) 0.5 mg PRN Q10MIN PRN IV SEV PAIN, Second choice; Start 10/24/19 at 07:00; Stop 10/24/19 at 20:00 Prochlorperazine Edisylate (Compazine) 5 mg PACU PRN PRN IV NAUSEA, MRX1; Start 10/24/19 at 07:00; Stop 10/24/19 at 20:00 Bacitracin 34464 unit/Sodium Chloride 1,000 ml @ 1,000 mls/hr 1X ONCE IRR ; Start 10/24/19 at 06:00; Stop 10/24/19 at 06:59; Status DC Cefazolin Sodium/ Dextrose 50 ml @ 100 mls/hr 1X PREOP PRN IV PRIOR TO PROCEDURE; Start 10/24/19 at 07:00; Stop 10/25/19 at 06:59 Bupivacaine HCl/ Epinephrine Bitart (Sensorcain-Epi 0.5%-1:[id number] Mpf) 30 ml STK-MED ONCE .ROUTE ; Start 10/24/19 at 11:16; Stop 10/24/19 at 11:16; Status DC Gelatin (Gelfoam Size 100) 1 each STK-MED ONCE .ROUTE ; Start 10/24/19 at 11:16; Stop 10/24/19 at 11:16; Status DC Ketorolac Tromethamine (Toradol Im) 60 mg STK-MED ONCE .ROUTE ; Start 10/24/19 at 11:16; Stop 10/24/19 at 11:16; Status DC Thrombin 20,000 unit STK-MED ONCE TP ; Start 10/24/19 at 11:16; Stop 10/24/19 at 11:17; Status DC Propofol (Diprivan) 200 mg STK-MED ONCE IV ; Start 10/24/19 at 11:22; Stop 10/24/19 at 11:22; Status DC Lidocaine HCl (Lidocaine Pf 2% Vial) 5 ml STK-MED ONCE .ROUTE ; Start 10/24/19 at 11:22; Stop 10/24/19 at 11:22; Status DC Dexamethasone Sodium Phosphate (Decadron) 20 mg STK-MED ONCE .ROUTE ; Start 10/24/19 at 11:22; Stop 10/24/19 at 11:23; Status DC Ondansetron HCl (Zofran) 4 mg STK-MED ONCE .ROUTE ; Start 10/24/19 at 11:22; Stop 10/24/19 at 11:23; Status DC Ephedrine Sulfate (ePHEDrine PF IN SALINE SYRINGE) 50 mg STK-MED ONCE IV ; Start 10/24/19 at 11:22; Stop 10/24/19 at 11:23; Status DC Phenylephrine HCl (PHENYLEPHRINE in 0.9% NACL PF) 1 mg STK-MED ONCE IV ; Start 10/24/19 at 11:22; Stop 10/24/19 at 11:23; Status DC Glycopyrrolate (Robinul) 1 mg STK-MED ONCE .ROUTE ; Start 10/24/19 at 11:22; Stop 10/24/19 at 11:23; Status DC Fentanyl Citrate (Fentanyl 2ml Vial) 100 mcg STK-MED ONCE .ROUTE ; Start 10/24/19 at 11:23; Stop 10/24/19 at 11:24; Status DC Propofol 50 ml @ As Directed STK-MED ONCE IV ; Start 10/24/19 at 11:24; Stop 10/24/19 at 11:24; Status DC Remifentanil HCl (Ultiva) 2 mg STK-MED ONCE IV ; Start 10/24/19 at 11:24; Stop 10/24/19 at 11:24; Status DC Active Scripts Active Lialda (Mesalamine) 1.2 Gm Tablet. 4.8 Gm PO DAILY 14 Days Zenpep 10,000 Units Capsule (Lipase/Protease/Amylase) 1 Each Capsule. 2 Cap PO TIDWMEALS 14 Days Lomotil Tablet (Diphenoxylate Hcl/Atropine) 1 Each Tablet 1 Tab PO QID MDD 8 tablets Zofran Odt (Ondansetron) 4 Mg Tab.rapdis 1 Tab SL Q8HRS Reported Losartan Potassium 50 Mg Tablet 25 Mg PO DAILY Omeprazole 20 Mg Tablet. 20 Mg PO DAILY Lexapro (Escitalopram Oxalate) 20 Mg Tablet 20 Mg PO BID Multivitamins (Multivitamin) 1 Each Tablet 1 Each PO DAILY Vitamin D3 (Cholecalciferol (Vitamin D3)) 400 Unit Tablet 2,000 Unit PO DAILY Lansoprazole 30 Mg Capsule.dr 30 Mg PO DAILY Calcium + Vitamin D Tablet (Calcium Carbonate/Vitamin D3) 1 Each Tablet 1 Each PO PRN BID PRN Toviaz (Fesoterodine Fumarate) 8 Mg Tab.er.24h 8 Mg PO DAILY Vitals/I & O Vital Sign - Last 24 Hours 10/23/19 10/23/19 10/23/19 10/23/19 15:13 15:21 15:51 19:00 Temp 98.4 97.6 98.4 97.6 Pulse 63 54 Resp 18 16 16 17 B/P (MAP) 125/58 (80) 149/70 (96) Pulse Ox 96 96 96 O2 Delivery Room Air Room Air Room Air Room Air 10/23/19 10/23/19 10/23/19 10/23/19 20:25 20:48 21:18 23:00 Temp 98.3 98.3 Pulse 50 Resp 20 19 B/P (MAP) 165/84 (111) Pulse Ox 96 95 O2 Delivery Room Air Room Air Room Air Room Air 10/24/19 10/24/19 10/24/19 10/24/19 03:00 07:17 08:00 08:23 Temp 97.8 98.4 97.8 98.4 Pulse 56 52 52 Resp 19 18 B/P (MAP) 165/74 (104) 170/80 (110) 170/80 Pulse Ox 95 97 O2 Delivery Room Air Room Air Room Air 10/24/19 10:51 Temp 97.8 97.8 Pulse 50 Resp 20 B/P (MAP) 155/88 (110) Pulse Ox 96 O2 Delivery Room Air l Intake and Output 10/23/19 10/23/19 10/24/19 15:00 23:00 07:00 Intake Total 0 ml 400 ml 200 ml Balance 0 ml 400 ml 200 ml Nutrition Consultation Dietary Evaluation: Recommendations by RD: Dietary education by RD, Increase Calorie Intake, Protein supplementation Comments: REC continue w/regular diet as ordered, honor food preferences, provide snacks as requested REC Ensure (chocolate) w/lunch trays Expected Outcomes/Goals: PO intake to meet >75% est needs Malnutrition Findings: Food and Nutrition Intake (Mod: <75% est energy req 7days Weight Status: Appropriate Justicifation of Admission Dx: Justifications for Admission: Justification of Admission Dx: N/A FULBRIGHT,MOMO W MD Oct 24, 2019 11:25
[2019-10-24] MEDS ORDERED: SUCCINYLCHOLINE 200 MG/10 ML VIAL. ONE (12:54)
[2019-10-24] MEDS ORDERED: DESFLURANE > 120 MINUTES IH ONE (13:37)
[2019-10-24] MEDS ORDERED: hydrALAZINE 20 MG/ML VIAL. ONE (13:40)
[2019-10-24] MEDS ORDERED: REMIFENTANIL 1 MG VIAL. IV ONE (17:22)
[2019-10-24] MEDS ORDERED: NEOSTIGMINE METHYLSULFATE 5 MG/5 ML SYRINGE. ONE (17:31)
[2019-10-24] MEDS: MORPHINE SULFATE 2 MG/ML VIAL. IV PRN ×2 (18:54→19:05)
[2019-10-24] MEDS: fentaNYL PF VIAL 100 MCG/2 ML VIAL IV PRN ×3 (19:20→19:46)
--- NOTE | 2019-10-24 20:10 | NUR ---
transfer from PACU via bed accompanied by staff pt had thoracic laminectomy for tumor t4 t5 t6 pt dressing on mid back clean ,dry and intact with flor drain intact pt stated pain not too bad at this time sleepy arousable to verbal command IVF of LR infusing on lower left forearm russell teds on pedal pulses palpable able to wiggle russell toes.
[2019-10-24] MEDS ORDERED: IV DEXTROSE 5 %-0.45 % NACL 1,000 ML IV SCH (21:00)
--- NOTE | 2019-10-24 21:00 | NUR ---
Shayla nurse practioner returned paged with orders
[2019-10-24] MEDS ORDERED: HYDROcodone/APAP 7.5/325MG 1 TAB TABLET PO PRN (21:15)
[2019-10-24] MEDS: NEOMY/BACITR/POLYMYXIN OINT PACKET. TP SCH (22:05)
[2019-10-24] MEDS: HYDROcodone/APAP 7.5/325MG 1 TAB TABLET PO PRN (23:55)
[2019-10-25 00:32] VITALS: BP 104/58
--- NOTE | 2019-10-25 02:45 | NUR ---
assisted pt to bedside commode attempted to void no success,denies pressure on the bladder area bladderscan done afterwards showing greater than 142 ml will continue to monitor
[2019-10-25 02:57] VITALS: BP 111/62
--- NOTE | 2019-10-25 05:00 | NUR ---
assisted pt to bedside commode trying to void no success pt stated no pressure on the bladder area bladderscan showing 200ml informed pt can straight cath if cant void refused at this time stated she will wait later
[2019-10-25 06:14] VITALS: BP 107/75
[2019-10-25] MEDS: DEXAMETHASONE SOD PHOS 4 MG/ML VIAL IVP SCH ×3 (06:30→17:45)
--- NOTE | 2019-10-25 06:39 | NUR ---
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
[2019-10-25] MEDS: HYDROcodone/APAP 7.5/325MG 1 TAB TABLET PO PRN ×2 (06:51→16:17)
[2019-10-25] MEDS: PANTOPRAZOLE 40 MG TABLET.DR. PO SCH (07:30)
--- NOTE | 2019-10-25 07:31 | NUR ---
Shayla returned back call order to give 1 gram ancef 1 time dose inforrmed pt has not voided yet @ thistime
[2019-10-25] MEDS ORDERED: ceFAZolin SODIUM IV Push 1 GM VIAL. IVP ONE (08:00)
--- NOTE | 2019-10-25 08:15 | NUR ---
transferred to chair with assist of 1. Son at bedside. denies the need to void. smeller equal. she is hard of hearing even with hearing aides in. encouraged to drink fluids. as soon as she void with discontinue fluids. Pupils equal and react to light. gait is still unsteady; even with walker at this time.
[2019-10-25] MEDS: LOSARTAN POTASSIUM 25 MG TABLET. PO SCH (09:00)
[2019-10-25] MEDS: CALCIUM CARB/VIT D3 500/200 TABLET. PO SCH ×2 (09:03→16:18)
[2019-10-25] MEDS: LIPASE/PROTEAS/AMYLAS 10/32/42 CAPSULE.DR. PO SCH ×3 (09:04→16:18)
[2019-10-25] MEDS: CITALOPRAM 20 MG TABLET. PO SCH (09:04)
[2019-10-25] MEDS: NEOMY/BACITR/POLYMYXIN OINT PACKET. TP SCH ×2 (09:15→20:37)
--- NOTE | 2019-10-25 09:28 | PDOC ---
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 History of Present Illness History of Present Illness 10/21. no new problems or complaints, surgery tomorrow 3pm 73-year-old female with past medical history of hypertension, breast cancer status post bilateral mastectomy and non-small cell lung cancer status post lobectomy who comes in due to frequent falls, ataxia and lower extremity weakness. Son has been noticing abnormal gait in the past few months, but after she had fallen 2 weeks ago son has noticed increased weakness and abnormalities in her walking. Her PCP had ordered MRI of the spine on October 16 that showed T4- 6 metastatic osteolytic lesions and T4 levels with severe stenosis. Patient was sent to the ED for concern of spinal cord compression. Patient denies urinary incontinence, numbness in her pelvic regions, shortness of breath, abdominal pains, diarrhea, or fevers 10/21/2019 No acute events overnight. Patient seen and examined bedside. Patient neuro exam is stable. Patient's chart, labs, images were reviewed and discussed with RN Vitals Vitals Vital Signs Date Time Temp Pulse Resp B/P (MAP) Pulse Ox O2 Delivery O2 Flow Rate FiO2 10/25/19 09:00 69 107/59 10/25/19 08:00 Room Air 10/25/19 06:14 96.2 20 97 2.0 96.2 Physical Exam Physical Exam GEN: No apparent distress. Alert and oriented HEENT: Normal cephalic, atraumatic, external auditory canals are patent NECK: Supple, no JVD, no thyromegaly was noted LUNGS: Bilateral crackles HEART: RRR, S1, S2 present. Peripheral pulses intact, no obvious murmurs noted ABDOMEN: Soft, nontender. Positive bowel sounds, no organomegaly, normal bowel sounds EXTREMITIES: Without clubbing, cyanosis, or edema. Pedal pulses intact. Negative Homans sign NEURO: Strength was 5/5 in upper and lower extremities bilaterally. On sensory examination,she was intact to light touch in the upper and lower extremities with hypoactive reflexes. There was full range of motion of the lower ex tremities bilaterally. BACK: Point tenderness in the thoracic region General: Alert, Oriented X3, Cooperative Heart: Regular rate, Normal S1, Normal S2 Abdomen: Normal bowel sounds, Soft, No tenderness, No hepatosplenomegaly Extremities: No clubbing, No cyanosis Skin: No rashes Assessment and Plan Assessmemt and Plan Problems Medical Problems: (1) Spinal cord compression Status: Acute Comment Review of Relevant I have reviewed the following items dana (where applicable) has been applied. Labs Laboratory Tests Test 10/24/19 03:50 White Blood Count 10.2 x10^3/uL (4.0-11.0) Red Blood Count 4.57 x10^6/uL (3.50-5.40) Hemoglobin 12.8 g/dL (12.0-15.5) Hematocrit 37.9 % (36.0-47.0) Mean Corpuscular Volume 83 fL (79-100) Mean Corpuscular Hemoglobin 28 pg (25-35) Mean Corpuscular Hemoglobin Concent 34 g/dL (31-37) Red Cell Distribution Width 16.2 % (11.5-14.5) Platelet Count 259 x10^3/uL (140-400) Neutrophils (%) (Auto) 84 % (31-73) Lymphocytes (%) (Auto) 10 % (24-48) Monocytes (%) (Auto) 6 % (0-9) Eosinophils (%) (Auto) 0 % (0-3) Basophils (%) (Auto) 0 % (0-3) Neutrophils # (Auto) 8.5 x10^3/uL (1.8-7.7) Lymphocytes # (Auto) 1.0 x10^3/uL (1.0-4.8) Monocytes # (Auto) 0.7 x10^3/uL (0.0-1.1) Eosinophils # (Auto) 0.0 x10^3/uL (0.0-0.7) Basophils # (Auto) 0.0 x10^3/uL (0.0-0.2) Sodium Level 137 mmol/L (136-145) Potassium Level 4.1 mmol/L (3.5-5.1) Chloride Level 103 mmol/L (98-107) Carbon Dioxide Level 28 mmol/L (21-32) Anion Gap 6 (6-14) Blood Urea Nitrogen 24 mg/dL (7-20) Creatinine 1.0 mg/dL (0.6-1.0) Estimated GFR (Cockcroft-Gault) 54.1 Glucose Level 120 mg/dL (70-99) Calcium Level 8.6 mg/dL (8.5-10.1) Medications Current Medications Ondansetron HCl (Zofran) 4 mg PRN Q8HRS PRN IV NAUSEA/VOMITING; Start 10/19/19 at 18:30; Stop 10/20/19 at 18:29; Status DC Morphine Sulfate (Morphine Sulfate) 2 mg PRN Q2HR PRN IV PAIN Last administered on 10/20/19at 08:52; Start 10/19/19 at 18:30; Stop 10/20/19 at 18:29; Status DC Ondansetron HCl (Zofran) 4 mg PRN Q6HRS PRN IV NAUSEA/VOMITING; Start 10/20/19 at 09:15; Stop 10/20/19 at 20:00; Status DC Fentanyl Citrate (Fentanyl 2ml Vial) 25 mcg PRN Q5MIN PRN IV MILD PAIN 1-3; Start 10/20/19 at 09:15; Stop 10/20/19 at 20:00; Status DC Fentanyl Citrate (Fentanyl 2ml Vial) 50 mcg PRN Q5MIN PRN IV MODERATE TO SEVERE PAIN; Start 10/20/19 at 09:15; Stop 10/20/19 at 20:00; Status DC Morphine Sulfate (Morphine Sulfate) 1 mg PRN Q10MIN PRN IV SEVERE PAIN 7-10; Start 10/20/19 at 09:15; Stop 10/20/19 at 20:00; Status DC Ringer's Solution 1,000 ml @ 30 mls/hr Q24H IV ; Start 10/20/19 at 09:14; Stop 10/20/19 at 20:03; Status DC Lidocaine HCl (Xylocaine-Mpf 1% 2ml Vial) 2 ml PRN 1X PRN ID PRIOR TO IV START; Start 10/20/19 at 09:15; Stop 10/20/19 at 20:00; Status DC Hydromorphone HCl (Dilaudid) 0.5 mg PRN Q10MIN PRN IV SEV PAIN, Second choice; Start 10/20/19 at 09:15; Stop 10/20/19 at 20:00; Status DC Prochlorperazine Edisylate (Compazine) 5 mg PACU PRN PRN IV NAUSEA, MRX1; Start 10/20/19 at 09:15; Stop 10/20/19 at 09:26; Status DC Zoledronic Acid 100 ml @ 400 mls/hr 1X ONCE IV ; Start 10/20/19 at 09:30; Stop 10/20/19 at 09:44; Status UNV Dexamethasone Sodium Phosphate (Decadron) 4 mg Q6HRS IVP Last administered on 10/25/19at 06:30; Start 10/20/19 at 10:00 Amylase/Lipase/ Protease (Zenpep 10,000) 2 cap TIDWMEALS PO Last administered on 10/25/19at 09:04; Start 10/20/19 at 12:00 Calcium/Vitamin D (Oscal D 500mg/ 200uts) 1 tab BIDWMEALS PO Last administered on 10/25/19at 09:03; Start 10/20/19 at 17:00 Citalopram Hydrobromide (CeleXA) 40 mg DAILY PO Last administered on 10/25/19at 09:04; Start 10/20/19 at 11:00 Non-Formulary Medication (Mesalamine (Lialda)) 4.8 gm DAILY PO ; Start 10/21/19 at 09:00; Status UNV Multivitamins (Thera M Plus) 1 tab DAILY PO ; Start 10/20/19 at 11:00; Stop 10/22/19 at 08:42; Status DC Pantoprazole Sodium (Protonix) 40 mg DAILYAC PO Last administered on 10/25/19at 07:30; Start 10/20/19 at 11:30 Iohexol (Omnipaque 240 Mg/ml) 30 ml 1X ONCE PO Last administered on 10/20/19at 10:30; Start 10/20/19 at 10:30; Stop 10/20/19 at 10:37; Status DC Iohexol (Omnipaque 300 Mg/ml) 60 ml 1X ONCE IV Last administered on 10/20/19at 10:30; Start 10/20/19 at 10:30; Stop 10/20/19 at 10:37; Status DC Info (CONTRAST GIVEN -- Rx MONITORING) 1 each PRN DAILY PRN MC SEE COMMENTS; Start 10/20/19 at 10:30; Stop 10/22/19 at 10:29; Status DC Ondansetron HCl (Zofran) 4 mg PRN Q6HRS PRN IV NAUSEA/VOMITING; Start 10/23/19 at 07:00; Stop 10/23/19 at 18:00; Status DC Fentanyl Citrate (Fentanyl 2ml Vial) 25 mcg PRN Q5MIN PRN IV MILD PAIN 1-3; Start 10/23/19 at 07:00; Stop 10/23/19 at 18:00; Status DC Fentanyl Citrate (Fentanyl 2ml Vial) 50 mcg PRN Q5MIN PRN IV MODERATE TO SEVERE PAIN; Start 10/23/19 at 07:00; Stop 10/23/19 at 18:00; Status DC Morphine Sulfate (Morphine Sulfate) 1 mg PRN Q10MIN PRN IV SEVERE PAIN 7-10; Start 10/23/19 at 07:00; Stop 10/23/19 at 18:00; Status DC Ringer's Solution 1,000 ml @ 30 mls/hr Q24H IV ; Start 10/23/19 at 07:00; Stop 10/23/19 at 18:00; Status DC Lidocaine HCl (Xylocaine-Mpf 1% 2ml Vial) 2 ml PRN 1X PRN ID PRIOR TO IV START; Start 10/23/19 at 07:00; Stop 10/23/19 at 18:00; Status DC Hydromorphone HCl (Dilaudid) 0.5 mg PRN Q10MIN PRN IV SEV PAIN, Second choice; Start 10/23/19 at 07:00; Stop 10/23/19 at 18:00; Status DC Prochlorperazine Edisylate (Compazine) 5 mg PACU PRN PRN IV NAUSEA, MRX1; Start 10/23/19 at 07:00; Stop 10/23/19 at 18:00; Status DC Losartan Potassium (Cozaar) 25 mg DAILY PO Last administered on 10/24/19at 08:23; Start 10/20/19 at 12:30 Enoxaparin Sodium (Lovenox 40mg Syringe) 40 mg Q24H SQ Last administered on 10/22/19at 20:50; Start 10/20/19 at 21:00; Stop 10/23/19 at 09:51; Status DC Morphine Sulfate (Morphine Sulfate) 2 mg PRN Q2HR PRN IV PAIN Last administered on 10/23/19at 20:48; Start 10/20/19 at 20:00 Bacitracin 13954 unit/Sodium Chloride 1,000 ml @ 1,000 mls/hr 1X ONCE IRR ; Start 10/23/19 at 08:00; Stop 10/23/19 at 08:59; Status Cancel Propofol (Diprivan) 200 mg STK-MED ONCE IV ; Start 10/23/19 at 08:55; Stop 10/22 at 08:55; Status DC Lidocaine HCl (Lidocaine Pf 2% Vial) 5 ml STK-MED ONCE .ROUTE ; Start 10/23/19 at 08:55; Stop 10/23/19 at 08:55; Status DC Rocuronium West (Zemuron) 50 mg STK-MED ONCE .ROUTE ; Start 10/23/19 at 08:55; Stop 10/23/19 at 08:56; Status DC Ondansetron HCl (Zofran) 4 mg PRN Q6HRS PRN IV NAUSEA/VOMITING; Start 10/24/19 at 07:00; Stop 10/24/19 at 20:03; Status DC Fentanyl Citrate (Fentanyl 2ml Vial) 25 mcg PRN Q5MIN PRN IV MILD PAIN 1-3 Last administered on 10/24/19at 19:46; Start 10/24/19 at 07:00; Stop 10/24/19 at 20:03; Status DC Fentanyl Citrate (Fentanyl 2ml Vial) 50 mcg PRN Q5MIN PRN IV MODERATE TO SEVERE PAIN; Start 10/24/19 at 07:00; Stop 10/24/19 at 20:03; Status DC Morphine Sulfate (Morphine Sulfate) 1 mg PRN Q10MIN PRN IV SEVERE PAIN 7-10 Last administered on 10/24/19at 19:05; Start 10/24/19 at 07:00; Stop 10/24/19 at 20:03; Status DC Ringer's Solution 1,000 ml @ 30 mls/hr Q24H IV Last administered on 10/24/19at 12:25; Start 10/24/19 at 07:00; Stop 10/24/19 at 18:59; Status DC Lidocaine HCl (Xylocaine-Mpf 1% 2ml Vial) 2 ml PRN 1X PRN ID PRIOR TO IV START; Start 10/24/19 at 07:00; Stop 10/24/19 at 20:03; Status DC Hydromorphone HCl (Dilaudid) 0.5 mg PRN Q10MIN PRN IV SEV PAIN, Second choice; Start 10/24/19 at 07:00; Stop 10/24/19 at 20:03; Status DC Prochlorperazine Edisylate (Compazine) 5 mg PACU PRN PRN IV NAUSEA, MRX1; Start 10/24/19 at 07:00; Stop 10/24/19 at 20:03; Status DC Bacitracin 69037 unit/Sodium Chloride 1,000 ml @ 1,000 mls/hr 1X ONCE IRR Last administered on 10/24/19at 14:06; Start 10/24/19 at 06:00; Stop 10/24/19 at 06:59; Status DC Cefazolin Sodium/ Dextrose 50 ml @ 100 mls/hr 1X PREOP PRN IV PRIOR TO PROCEDURE Last administered on 10/24/19at 17:25; Start 10/24/19 at 07:00; Stop 10/25/19 at 07:00; Status DC Bupivacaine HCl/ Epinephrine Bitart (Sensorcain-Epi 0.5%-1:496889 Mpf) 30 ml STK-MED ONCE .ROUTE Last administered on 10/24/19at 14:06; Start 10/24/19 at 11:16; Stop 10/24/19 at 11:16; Status DC Gelatin (Gelfoam Size 100) 1 each STK-MED ONCE .ROUTE Last administered on at 14:06; Start 10/24/19 at 11:16; Stop 10/24/19 at 11:16; Status DC Ketorolac Tromethamine (Toradol Im) 60 mg STK-MED ONCE .ROUTE Last administered on 10/24/19at 14:06; Start 10/24/19 at 11:16; Stop 10/24/19 at 11:16; Status DC Thrombin 20,000 unit STK-MED ONCE TP Last administered on 10/24/19at 14:06; Start 10/24/19 at 11:16; Stop 10/24/19 at 11:17; Status DC Propofol (Diprivan) 200 mg STK-MED ONCE IV ; Start 10/24/19 at 11:22; Stop 10/24/19 at 11:22; Status DC Lidocaine HCl (Lidocaine Pf 2% Vial) 5 ml STK-MED ONCE .ROUTE ; Start 10/24/19 at 11:22; Stop 10/24/19 at 11:22; Status DC Dexamethasone Sodium Phosphate (Decadron) 20 mg STK-MED ONCE .ROUTE ; Start 10/24/19 at 11:22; Stop 10/24/19 at 11:23; Status DC Ondansetron HCl (Zofran) 4 mg STK-MED ONCE .ROUTE ; Start 10/24/19 at 11:22; Stop 10/24/19 at 11:23; Status DC Ephedrine Sulfate (ePHEDrine PF IN SALINE SYRINGE) 50 mg STK-MED ONCE IV ; Start 10/24/19 at 11:22; Stop 10/24/19 at 11:23; Status DC Phenylephrine HCl (PHENYLEPHRINE in 0.9% NACL PF) 1 mg STK-MED ONCE IV ; Start 10/24/19 at 11:22; Stop 10/24/19 at 11:23; Status DC Glycopyrrolate (Robinul) 1 mg STK-MED ONCE .ROUTE ; Start 10/24/19 at 11:22; Stop 10/24/19 at 11:23; Status DC Fentanyl Citrate (Fentanyl 2ml Vial) 100 mcg STK-MED ONCE .ROUTE ; Start 10/24/19 at 11:23; Stop 10/24/19 at 11:24; Status DC Propofol 50 ml @ As Directed STK-MED ONCE IV ; Start 10/24/19 at 11:24; Stop 10/24/19 at 11:24; Status DC Remifentanil HCl (Ultiva) 2 mg STK-MED ONCE IV ; Start 10/24/19 at 11:24; Stop 10/24/19 at 11:24; Status DC Succinylcholine Chloride (Anectine) 200 mg STK-MED ONCE .ROUTE ; Start 10/24/19 at 12:54; Stop 10/24/19 at 12:55; Status DC Desflurane (Suprane) 90 ml STK-MED ONCE IH ; Start 10/24/19 at 13:37; Stop 10/24/19 at 13:38; Status DC Hydralazine HCl (Apresoline Inj) 20 mg STK-MED ONCE .ROUTE ; Start 10/24/19 at 13:40; Stop 10/24/19 at 13:40; Status DC Remifentanil HCl (Ultiva) 1 mg STK-MED ONCE IV ; Start 10/24/19 at 17:22; Stop 10/24/19 at 17:23; Status DC Neostigmine West (Neostigmine Methylsulfate) 5 mg STK-MED ONCE .ROUTE ; Start 10/24/19 at 17:31; Stop 10/24/19 at 17:31; Status DC Gelatin (Gelfoam Size 100) 1 each STK-MED ONCE .ROUTE Last administered on 10/24/19at 17:35; Start 10/24/19 at 17:34; Stop 10/24/19 at 17:34; Status DC Thrombin 20,000 unit STK-MED ONCE TP Last administered on 10/24/19at 17:50; Start 10/24/19 at 17:49; Stop 10/24/19 at 17:50; Status DC Fentanyl Citrate (Fentanyl 2ml Vial) 100 mcg STK-MED ONCE .ROUTE ; Start 10/24/19 at 18:27; Stop 10/24/19 at 18:27; Status DC Fentanyl Citrate (Fentanyl 2ml Vial) 100 mcg STK-MED ONCE .ROUTE ; Start 10/24/19 at 19:18; Stop 10/24/19 at 19:19; Status DC Dextrose/Sodium Chloride 1,000 ml @ 125 mls/hr Q8H IV Last administered on 10/24/19at 21:00; Start 10/24/19 at 21:00 Acetaminophen/ Hydrocodone Bitart (Lortab 7.5/325) 1 tab PRN Q6HRS PRN PO MODERATE PAIN 4-6 Last administered on 10/25/19at 06:51; Start 10/24/19 at 21:15 Acetaminophen/ Hydrocodone Bitart (Lortab 7.5/325) 2 tab PRN Q6HRS PRN PO SEVERE PAIN 7-10; Start 10/24/19 at 21:15 Neomycin/ Polymyxin/ Bacitracin (Triple Antibiotic Ointment) 1 pkt BID TP Last administered on 10/25/19at 09:15; Start 10/24/19 at 22:00 Cefazolin Sodium (Ancef) 1 gm 1X ONCE IVP Last administered on 10/25/19at 09:08; Start 10/25/19 at 08:00; Stop 10/25/19 at 08:01; Status DC Active Scripts Active Lialda (Mesalamine) 1.2 Gm Tablet. 4.8 Gm PO DAILY 14 Days Zenpep 10,000 Units Capsule (Lipase/Protease/Amylase) 1 Each Capsule. 2 Cap PO TIDWMEALS 14 Days Lomotil Tablet (Diphenoxylate Hcl/Atropine) 1 Each Tablet 1 Tab PO QID MDD 8 tablets Zofran Odt (Ondansetron) 4 Mg Tab.rapdis 1 Tab SL Q8HRS Reported Losartan Potassium 50 Mg Tablet 25 Mg PO DAILY Omeprazole 20 Mg Tablet. 20 Mg PO DAILY Lexapro (Escitalopram Oxalate) 20 Mg Tablet 20 Mg PO BID Multivitamins (Multivitamin) 1 Each Tablet 1 Each PO DAILY Vitamin D3 (Cholecalciferol (Vitamin D3)) 400 Unit Tablet 2,000 Unit PO DAILY Lansoprazole 30 Mg Capsule. 30 Mg PO DAILY Calcium + Vitamin D Tablet (Calcium Carbonate/Vitamin D3) 1 Each Tablet 1 Each PO PRN BID PRN Toviaz (Fesoterodine Fumarate) 8 Mg Tab.er.24h 8 Mg PO DAILY Vitals/I & O Vital Sign - Last 24 Hours 10/24/19 10/24/19 10/24/19 10/24/19 10:51 12:24 18:27 18:36 Temp 97.8 97 98 97.8 97.0 98.0 Pulse 50 50 82 Resp 20 22 18 B/P (MAP) 155/88 (110) 193/88 129/69 Pulse Ox 96 96 98 O2 Delivery Room Air Room Air Room Air Mask O2 Flow Rate 10 10 10/24/19 10/24/19 10/24/19 10/24/19 18:42 18:54 19:05 19:06 Temp 98.0 98.0 Pulse 82 76 Resp 17 17 17 16 B/P (MAP) 78/51 94/50 Pulse Ox 98 98 98 95 O2 Delivery Room Air Room Air Nasal Cannula Nasal Cannula Simple Mask O2 Flow Rate 10 10.0 10.0 4 10/24/19 10/24/19 10/24/19 10/24/19 19:20 19:21 19:23 19:23 Pulse 81 Resp 16 17 16 16 B/P (MAP) 104/52 Pulse Ox 95 98 95 95 O2 Delivery Nasal Cannula Nasal Cannula Nasal Cannula Nasal Cannula O2 Flow Rate 4.0 4.0 4.0 4.0 10/24/19 10/24/19 10/24/19 10/24/19 19:36 19:36 19:46 19:51 Pulse 83 83 Resp 18 18 18 18 B/P (MAP) 111/53 94/61 Pulse Ox 97 97 97 96 O2 Delivery Nasal Cannula Nasal Cannula Nasal Cannula Nasal Cannula O2 Flow Rate 4.0 4.0 4.0 2 10/24/19 10/24/19 10/24/19 10/24/19 20:10 20:30 20:30 20:45 Temp 97.5 97.5 Pulse 90 86 86 Resp 20 17 20 B/P (MAP) 92/55 (67) 85/49 (61) 103/56 (72) Pulse Ox 99 99 97 O2 Delivery Nasal Cannula Nasal Cannula Nasal Cannula Nasal Cannula O2 Flow Rate 3.0 3.0 3.0 3.0 10/24/19 10/24/19 10/24/19 10/24/19 21:00 21:30 22:00 22:30 Temp 97.5 97.5 Pulse 86 79 78 76 Resp 20 18 B/P (MAP) 83/49 (60) 114/52 (72) 94/51 (65) 98/52 (67) Pulse Ox 99 99 98 97 O2 Delivery Nasal Cannula Nasal Cannula Nasal Cannula Nasal Cannula O2 Flow Rate 3.0 2.0 2.0 2.0 10/24/19 10/25/19 10/25/19 10/25/19 23:55 00:32 01:06 02:57 Temp 97.6 97.6 Pulse 73 76 Resp 18 20 18 B/P (MAP) 104/58 (73) 111/62 (78) Pulse Ox 97 99 97 99 O2 Delivery Nasal Cannula Nasal Cannula Nasal Cannula Nasal Cannula O2 Flow Rate 2.0 2.0 2.0 2.0 10/25/19 10/25/19 10/25/19 06:14 08:00 09:00 Temp 96.2 96.2 Pulse 72 69 Resp 20 B/P (MAP) 107/75 (86) 107/59 Pulse Ox 97 O2 Delivery Nasal Cannula Room Air O2 Flow Rate 2.0 Intake and Output 10/24/19 10/24/19 10/25/19 15:00 23:00 07:00 Intake Total 1860 ml 200 ml Output Total 305 ml 80 ml Balance 1555 ml 120 ml Nutrition Consultation Dietary Evaluation: Recommendations by RD: Dietary education by RD, Increase Calorie Intake, Protein supplementation Comments: REC continue w/regular diet as ordered, honor food preferences, provide snacks as requested REC Ensure (chocolate) w/lunch trays Expected Outcomes/Goals: PO intake to meet >75% est needs Malnutrition Findings: Food and Nutrition Intake (Mod: <75% est energy req 7days Weight Status: Appropriate Justicifation of Admission Dx: Justifications for Admission: Justification of Admission Dx: N/A MOMO ROJAS MD Oct 25, 2019 09:28
--- NOTE | 2019-10-25 10:30 | NUR ---
up to the bathroom, voided large amount approx 600 cc and HIRAL drain emptied of 50 cc. saline lock flushed. she wants to sleep; did not get any sleep last night. "i am tired"
[2019-10-25 11:15] VITALS: BP 105/53
--- NOTE | 2019-10-25 12:36 | NUR ---
Zofran held no nausea or vomiting noted
[2019-10-25 15:42] VITALS: BP_SYST 140; BP_DIAS 20; BP_DIAS 72
--- NOTE | 2019-10-25 16:02 | PDOC ---
PROGRESS NOTES Date of Service DATE: 10/25/19 TIME: 16:00 Subjective Subjective POD #1 S/P thoracic laminectomy T4-6 up in chair ambulated, legs feel stronger reports that pain is well controlled Objective Objective Vital Signs Date Time Temp Pulse Resp B/P (MAP) Pulse Ox O2 Delivery O2 Flow Rate FiO2 10/25/19 11:15 98.7 61 18 105/53 (70) 95 Nasal Cannula 98.7 10/25/19 06:14 2.0 Intake and Output 10/25/19 07:00 Intake Total 2060 ml Output Total 385 ml Balance 1675 ml Intake Oral 310 ml IV Total 1750 ml Output Urine Total 125 ml Drainage Total 110 ml Estimated Blood Loss 150 ml # Voids 3 # Bowel Movements 1 Physical Exam General: Alert, Oriented X3, Cooperative, No acute distress MUSCULOSKELETAL: Other (DANG) Neuro: Other (strength 5/5 in BLE) Skin: Other (drain d/c'd- dressing chnaged, dry, angie intact) Assessment Assessment Problems Medical Problems: (1) Spinal cord compression Status: Acute Plan Plan of Care encouraged increased activity as tolerated PT Comment Review of Relevant I have reviewed the following items dana (where applicable) has been applied. Labs Laboratory Tests Test 10/24/19 03:50 White Blood Count 10.2 x10^3/uL (4.0-11.0) Red Blood Count 4.57 x10^6/uL (3.50-5.40) Hemoglobin 12.8 g/dL (12.0-15.5) Hematocrit 37.9 % (36.0-47.0) Mean Corpuscular Volume 83 fL (79-100) Mean Corpuscular Hemoglobin 28 pg (25-35) Mean Corpuscular Hemoglobin Concent 34 g/dL (31-37) Red Cell Distribution Width 16.2 % (11.5-14.5) Platelet Count 259 x10^3/uL (140-400) Neutrophils (%) (Auto) 84 % (31-73) Lymphocytes (%) (Auto) 10 % (24-48) Monocytes (%) (Auto) 6 % (0-9) Eosinophils (%) (Auto) 0 % (0-3) Basophils (%) (Auto) 0 % (0-3) Neutrophils # (Auto) 8.5 x10^3/uL (1.8-7.7) Lymphocytes # (Auto) 1.0 x10^3/uL (1.0-4.8) Monocytes # (Auto) 0.7 x10^3/uL (0.0-1.1) Eosinophils # (Auto) 0.0 x10^3/uL (0.0-0.7) Basophils # (Auto) 0.0 x10^3/uL (0.0-0.2) Sodium Level 137 mmol/L (136-145) Potassium Level 4.1 mmol/L (3.5-5.1) Chloride Level 103 mmol/L (98-107) Carbon Dioxide Level 28 mmol/L (21-32) Anion Gap 6 (6-14) Blood Urea Nitrogen 24 mg/dL (7-20) Creatinine 1.0 mg/dL (0.6-1.0) Estimated GFR (Cockcroft-Gault) 54.1 Glucose Level 120 mg/dL (70-99) Calcium Level 8.6 mg/dL (8.5-10.1) Medications Current Medications Ondansetron HCl (Zofran) 4 mg PRN Q8HRS PRN IV NAUSEA/VOMITING; Start 10/19/19 at 18:30; Stop 10/20/19 at 18:29; Status DC Morphine Sulfate (Morphine Sulfate) 2 mg PRN Q2HR PRN IV PAIN Last administered on 10/20/19at 08:52; Start 10/19/19 at 18:30; Stop 10/20/19 at 18:29; Status DC Ondansetron HCl (Zofran) 4 mg PRN Q6HRS PRN IV NAUSEA/VOMITING; Start 10/20/19 at 09:15; Stop 10/20/19 at 20:00; Status DC Fentanyl Citrate (Fentanyl 2ml Vial) 25 mcg PRN Q5MIN PRN IV MILD PAIN 1-3; Start 10/20/19 at 09:15; Stop 10/20/19 at 20:00; Status DC Fentanyl Citrate (Fentanyl 2ml Vial) 50 mcg PRN Q5MIN PRN IV MODERATE TO SEVERE PAIN; Start 10/20/19 at 09:15; Stop 10/20/19 at 20:00; Status DC Morphine Sulfate (Morphine Sulfate) 1 mg PRN Q10MIN PRN IV SEVERE PAIN 7-10; Start 10/20/19 at 09:15; Stop 10/20/19 at 20:00; Status DC Ringer's Solution 1,000 ml @ 30 mls/hr Q24H IV ; Start 10/20/19 at 09:14; Stop 10/20/19 at 20:03; Status DC Lidocaine HCl (Xylocaine-Mpf 1% 2ml Vial) 2 ml PRN 1X PRN ID PRIOR TO IV START; Start 10/20/19 at 09:15; Stop 10/20/19 at 20:00; Status DC Hydromorphone HCl (Dilaudid) 0.5 mg PRN Q10MIN PRN IV SEV PAIN, Second choice; Start 10/20/19 at 09:15; Stop 10/20/19 at 20:00; Status DC Prochlorperazine Edisylate (Compazine) 5 mg PACU PRN PRN IV NAUSEA, MRX1; Start 10/20/19 at 09:15; Stop 10/20/19 at 09:26; Status DC Zoledronic Acid 100 ml @ 400 mls/hr 1X ONCE IV ; Start 10/20/19 at 09:30; Stop 10/20/19 at 09:44; Status UNV Dexamethasone Sodium Phosphate (Decadron) 4 mg Q6HRS IVP Last administered on 10/25/19at 12:34; Start 10/20/19 at 10:00 Amylase/Lipase/ Protease (Zenpep 10,000) 2 cap TIDWMEALS PO Last administered on 10/25/19at 12:31; Start 10/20/19 at 12:00 Calcium/Vitamin D (Oscal D 500mg/ 200uts) 1 tab BIDWMEALS PO Last administered on 10/25/19at 09:03; Start 10/20/19 at 17:00 Citalopram Hydrobromide (CeleXA) 40 mg DAILY PO Last administered on 10/25/19at 09:04; Start 10/20/19 at 11:00 Non-Formulary Medication (Mesalamine (Lialda)) 4.8 gm DAILY PO ; Start 10/21/19 at 09:00; Status UNV Multivitamins (Thera M Plus) 1 tab DAILY PO ; Start 10/20/19 at 11:00; Stop 10/22/19 at 08:42; Status DC Pantoprazole Sodium (Protonix) 40 mg DAILYAC PO Last administered on 10/25/19at 07:30; Start 10/20/19 at 11:30 Iohexol (Omnipaque 240 Mg/ml) 30 ml 1X ONCE PO Last administered on 10/20/19at 10:30; Start 10/20/19 at 10:30; Stop 10/20/19 at 10:37; Status DC Iohexol (Omnipaque 300 Mg/ml) 60 ml 1X ONCE IV Last administered on 10/20/19at 10:30; Start 10/20/19 at 10:30; Stop 10/20/19 at 10:37; Status DC Info (CONTRAST GIVEN -- Rx MONITORING) 1 each PRN DAILY PRN MC SEE COMMENTS; Start 10/20/19 at 10:30; Stop 10/22/19 at 10:29; Status DC Ondansetron HCl (Zofran) 4 mg PRN Q6HRS PRN IV NAUSEA/VOMITING; Start 10/23/19 at 07:00; Stop 10/23/19 at 18:00; Status DC Fentanyl Citrate (Fentanyl 2ml Vial) 25 mcg PRN Q5MIN PRN IV MILD PAIN 1-3; Start 10/23/19 at 07:00; Stop 10/23/19 at 18:00; Status DC Fentanyl Citrate (Fentanyl 2ml Vial) 50 mcg PRN Q5MIN PRN IV MODERATE TO SEVERE PAIN; Start 10/23/19 at 07:00; Stop 10/23/19 at 18:00; Status DC Morphine Sulfate (Morphine Sulfate) 1 mg PRN Q10MIN PRN IV SEVERE PAIN 7-10; Start 10/23/19 at 07:00; Stop 10/23/19 at 18:00; Status DC Ringer's Solution 1,000 ml @ 30 mls/hr Q24H IV ; Start 10/23/19 at 07:00; Stop 10/23/19 at 18:00; Status DC Lidocaine HCl (Xylocaine-Mpf 1% 2ml Vial) 2 ml PRN 1X PRN ID PRIOR TO IV START; Start 10/23/19 at 07:00; Stop 10/23/19 at 18:00; Status DC Hydromorphone HCl (Dilaudid) 0.5 mg PRN Q10MIN PRN IV SEV PAIN, Second choice; Start 10/23/19 at 07:00; Stop 10/23/19 at 18:00; Status DC Prochlorperazine Edisylate (Compazine) 5 mg PACU PRN PRN IV NAUSEA, MRX1; Start 10/23/19 at 07:00; Stop 10/23/19 at 18:00; Status DC Losartan Potassium (Cozaar) 25 mg DAILY PO Last administered on 10/24/19at 08:23; Start 10/20/19 at 12:30 Enoxaparin Sodium (Lovenox 40mg Syringe) 40 mg Q24H SQ Last administered on 10/22/19at 20:50; Start 10/20/19 at 21:00; Stop 10/23/19 at 09:51; Status DC Morphine Sulfate (Morphine Sulfate) 2 mg PRN Q2HR PRN IV PAIN Last administered on 10/23/19at 20:48; Start 10/20/19 at 20:00 Bacitracin 03240 unit/Sodium Chloride 1,000 ml @ 1,000 mls/hr 1X ONCE IRR ; Start 10/23/19 at 08:00; Stop 10/23/19 at 08:59; Status Cancel Propofol (Diprivan) 200 mg STK-MED ONCE IV ; Start 10/23/19 at 08:55; Stop 10/23/19 at 08:55; Status DC Lidocaine HCl (Lidocaine Pf 2% Vial) 5 ml STK-MED ONCE .ROUTE ; Start 10/23/19 at 08:55; Stop 10/23/19 at 08:55; Status DC Rocuronium [place] (Zemuron) 50 mg STK-MED ONCE .ROUTE ; Start 10/23/19 at 08:55; Stop 10/23/19 at 08:56; Status DC Ondansetron HCl (Zofran) 4 mg PRN Q6HRS PRN IV NAUSEA/VOMITING; Start 10/24/19 a t 07:00; Stop 10/24/19 at 20:03; Status DC Fentanyl Citrate (Fentanyl 2ml Vial) 25 mcg PRN Q5MIN PRN IV MILD PAIN 1-3 Last administered on 10/24/19at 19:46; Start 10/24/19 at 07:00; Stop 10/24/19 at 20:03; Status DC Fentanyl Citrate (Fentanyl 2ml Vial) 50 mcg PRN Q5MIN PRN IV MODERATE TO SEVERE PAIN; Start 10/24/19 at 07:00; Stop 10/24/19 at 20:03; Status DC Morphine Sulfate (Morphine Sulfate) 1 mg PRN Q10MIN PRN IV SEVERE PAIN 7-10 Last administered on 10/24/19at 19:05; Start 10/24/19 at 07:00; Stop 10/24/19 at 20:03; Status DC Ringer's Solution 1,000 ml @ 30 mls/hr Q24H IV Last administered on 10/24/19at 12:25; Start 10/24/19 at 07:00; Stop 10/24/19 at 18:59; Status DC Lidocaine HCl (Xylocaine-Mpf 1% 2ml Vial) 2 ml PRN 1X PRN ID PRIOR TO IV START; Start 10/24/19 at 07:00; Stop 10/24/19 at 20:03; Status DC Hydromorphone HCl (Dilaudid) 0.5 mg PRN Q10MIN PRN IV SEV PAIN, Second choice; Start 10/24/19 at 07:00; Stop 10/24/19 at 20:03; Status DC Prochlorperazine Edisylate (Compazine) 5 mg PACU PRN PRN IV NAUSEA, MRX1; Start 10/24/19 at 07:00; Stop 10/24/19 at 20:03; Status DC Bacitracin 71397 unit/Sodium Chloride 1,000 ml @ 1,000 mls/hr 1X ONCE IRR Last administered on 10/24/19at 14:06; Start 10/24/19 at 06:00; Stop 10/24/19 at 06:59; Status DC Cefazolin Sodium/ Dextrose 50 ml @ 100 mls/hr 1X PREOP PRN IV PRIOR TO PROCEDURE Last administered on 10/24/19at 17:25; Start 10/24/19 at 07:00; Stop at 07:00; Status DC Bupivacaine HCl/ Epinephrine Bitart (Sensorcain-Epi 0.5%-1:047320 Mpf) 30 ml STK-MED ONCE .ROUTE Last administered on 10/24/19at 14:06; Start 10/24/19 at 11:16; Stop 10/24/19 at 11:16; Status DC Gelatin (Gelfoam Size 100) 1 each STK-MED ONCE .ROUTE Last administered on 10/24/19at 14:06; Start 10/24/19 at 11:16; Stop 10/24/19 at 11:16; Status DC Ketorolac Tromethamine (Toradol Im) 60 mg STK-MED ONCE .ROUTE Last administered on 10/24/19at 14:06; Start 10/24/19 at 11:16; Stop 10/24/19 at 11:16; Status DC Thrombin 20,000 unit STK-MED ONCE TP Last administered on 10/24/19at 14:06; Start 10/24/19 at 11:16; Stop 10/24/19 at 11:17; Status DC Propofol (Diprivan) 200 mg STK-MED ONCE IV ; Start 10/24/19 at 11:22; Stop 10/24/19 at 11:22; Status DC Lidocaine HCl (Lidocaine Pf 2% Vial) 5 ml STK-MED ONCE .ROUTE ; Start 10/24/19 at 11:22; Stop 10/24/19 at 11:22; Status DC Dexamethasone Sodium Phosphate (Decadron) 20 mg STK-MED ONCE .ROUTE ; Start 10/24/19 at 11:22; Stop 10/24/19 at 11:23; Status DC Ondansetron HCl (Zofran) 4 mg STK-MED ONCE .ROUTE ; Start 10/24/19 at 11:22; Stop 10/24/19 at 11:23; Status DC Ephedrine Sulfate (ePHEDrine PF IN SALINE SYRINGE) 50 mg STK-MED ONCE IV ; Start 10/24/19 at 11:22; Stop 10/24/19 at 11:23; Status DC Phenylephrine HCl (PHENYLEPHRINE in 0.9% NACL PF) 1 mg STK-MED ONCE IV ; Start 10/24/19 at 11:22; Stop 10/24/19 at 11:23; Status DC Glycopyrrolate (Robinul) 1 mg STK-MED ONCE .ROUTE ; Start 10/24/19 at 11:22; Stop 10/24/19 at 11:23; Status DC Fentanyl Citrate (Fentanyl 2ml Vial) 100 mcg STK-MED ONCE .ROUTE ; Start 10/24/19 at 11:23; Stop 10/24/19 at 11:24; Status DC Propofol 50 ml @ As Directed STK-MED ONCE IV ; Start 10/24/19 at 11:24; Stop 10/24/19 at 11:24; Status DC Remifentanil HCl (Ultiva) 2 mg STK-MED ONCE IV ; Start 10/24/19 at 11:24; Stop 10/24/19 at 11:24; Status DC Succinylcholine Chloride (Anectine) 200 mg STK-MED ONCE .ROUTE ; Start 10/24/19 at 12:54; Stop 10/24/19 at 12:55; Status DC Desflurane (Suprane) 90 ml STK-MED ONCE IH ; Start 10/24/19 at 13:37; Stop 10/24/19 at 13:38; Status DC Hydralazine HCl (Apresoline Inj) 20 mg STK-MED ONCE .ROUTE ; Start 10/24/19 at 13:40; Stop 10/24/19 at 13:40; Status DC Remifentanil HCl (Ultiva) 1 mg STK-MED ONCE IV ; Start 10/24/19 at 17:22; Stop 10/24/19 at 17:23; Status DC Neostigmine [place] (Neostigmine Methylsulfate) 5 mg STK-MED ONCE .ROUTE ; Start 10/24/19 at 17:31; Stop 10/24/19 at 17:31; Status DC Gelatin (Gelfoam Size 100) 1 each STK-MED ONCE .ROUTE Last administered on 10/24/19at 17:35; Start 10/24/19 at 17:34; Stop 10/24/19 at 17:34; Status DC Thrombin 20,000 unit STK-MED ONCE TP Last administered on 10/24/19at 17:50; Start 10/24/19 at 17:49; Stop 10/24/19 at 17:50; Status DC Fentanyl Citrate (Fentanyl 2ml Vial) 100 mcg STK-MED ONCE .ROUTE ; Start 10/24/19 at 18:27; Stop 10/24/19 at 18:27; Status DC Fentanyl Citrate (Fentanyl 2ml Vial) 100 mcg STK-MED ONCE .ROUTE ; Start 10/24/19 at 19:18; Stop 10/24/19 at 19:19; Status DC Dextrose/Sodium Chloride 1,000 ml @ 125 mls/hr Q8H IV Last administered on 10/24/19at 21:00; Start 10/24/19 at 21:00 Acetaminophen/ Hydrocodone Bitart (Lortab 7.5/325) 1 tab PRN Q6HRS PRN PO MODERATE PAIN 4-6 Last administered on 10/25/19at 06:51; Start 10/24/19 at 21:15 Acetaminophen/ Hydrocodone Bitart (Lortab 7.5/325) 2 tab PRN Q6HRS PRN PO SEVERE PAIN 7-10; Start 10/24/19 at 21:15 Neomycin/ Polymyxin/ Bacitracin (Triple Antibiotic Ointment) 1 pkt BID TP Last administered on 10/25/19at 09:15; Start 10/24/19 at 22:00 Cefazolin Sodium (Ancef) 1 gm 1X ONCE IVP Last administered on 10/25/19at 09:08; Start 10/25/19 at 08:00; Stop 10/25/19 at 08:01; Status DC Active Scripts Active Lialda (Mesalamine) 1.2 Gm Tablet. 4.8 Gm PO DAILY 14 Days Zenpep 10,000 Units Capsule (Lipase/Protease/Amylase) 1 Each Capsule. 2 Cap PO TIDWMEALS 14 Days Lomotil Tablet (Diphenoxylate Hcl/Atropine) 1 Each Tablet 1 Tab PO QID MDD 8 tablets Zofran Odt (Ondansetron) 4 Mg Tab.rapdis 1 Tab SL Q8HRS Reported Losartan Potassium 50 Mg Tablet 25 Mg PO DAILY Omeprazole 20 Mg Tablet. 20 Mg PO DAILY Lexapro (Escitalopram Oxalate) 20 Mg Tablet 20 Mg PO BID Multivitamins (Multivitamin) 1 Each Tablet 1 Each PO DAILY Vitamin D3 (Cholecalciferol (Vitamin D3)) 400 Unit Tablet 2,000 Unit PO DAILY Lansoprazole 30 Mg Capsule. 30 Mg PO DAILY Calcium + Vitamin D Tablet (Calcium Carbonate/Vitamin D3) 1 Each Tablet 1 Each PO PRN BID PRN Toviaz (Fesoterodine Fumarate) 8 Mg Tab.er.24h 8 Mg PO DAILY Vitals/I & O Vital Sign - Last 24 Hours 10/24/19 10/24/19 10/24/19 10/24/19 18:27 18:36 18:42 18:54 Temp 98 98.0 98.0 98.0 Pulse 82 82 Resp 18 17 17 B/P (MAP) 129/69 78/51 Pulse Ox 98 98 98 O2 Delivery Room Air Mask Room Air Room Air Simple Mask O2 Flow Rate 10 10 10 10.0 10/24/19 10/24/19 10/24/19 10/24/19 19:05 19:06 19:20 19:21 Pulse 76 81 Resp 17 16 16 17 B/P (MAP) 94/50 104/52 Pulse Ox 98 95 95 98 O2 Delivery Nasal Cannula Nasal Cannula Nasal Cannula Nasal Cannula O2 Flow Rate 10.0 4 4.0 4.0 10/24/19 10/24/19 10/24/19 10/24/19 19:23 19:23 19:36 19:36 Pulse 83 Resp 16 16 18 18 B/P (MAP) 111/53 Pulse Ox 95 95 97 97 O2 Delivery Nasal Cannula Nasal Cannula Nasal Cannula Nasal Cannula O2 Flow Rate 4.0 4.0 4.0 4.0 10/24/19 10/24/19 10/24/19 10/24/19 19:46 19:51 20:10 20:30 Temp 97.5 97.5 Pulse 83 90 Resp 18 18 20 B/P (MAP) 94/61 92/55 (67) Pulse Ox 97 96 99 O2 Delivery Nasal Cannula Nasal Cannula Nasal Cannula Nasal Cannula O2 Flow Rate 4.0 2 3.0 3.0 10/24/19 10/24/19 10/24/19 10/24/19 20:30 20:45 21:00 21:30 Temp 97.5 97.5 Pulse 86 86 86 79 Resp 17 20 20 B/P (MAP) 85/49 (61) 103/56 (72) 83/49 (60) 114/52 (72) Pulse Ox 99 97 99 99 O2 Delivery Nasal Cannula Nasal Cannula Nasal Cannula Nasal Cannula O2 Flow Rate 3.0 3.0 3.0 2.0 10/24/19 10/24/19 10/24/19 10/25/19 22:00 22:30 23:55 00:32 Pulse 78 76 73 Resp 18 18 20 B/P (MAP) 94/51 (65) 98/52 (67) 104/58 (73) Pulse Ox 98 97 97 99 O2 Delivery Nasal Cannula Nasal Cannula Nasal Cannula Nasal Cannula O2 Flow Rate 2.0 2.0 2.0 2.0 10/25/19 10/25/19 10/25/19 10/25/19 01:06 02:57 06:14 08:00 Temp 97.6 96.2 97.6 96.2 Pulse 76 72 Resp 18 20 B/P (MAP) 111/62 (78) 107/75 (86) Pulse Ox 97 99 97 O2 Delivery Nasal Cannula Nasal Cannula Nasal Cannula Room Air O2 Flow Rate 2.0 2.0 2.0 10/25/19 10/25/19 09:00 11:15 Temp 98.7 98.7 Pulse 69 61 Resp 18 B/P (MAP) 107/59 105/53 (70) Pulse Ox 95 O2 Delivery Nasal Cannula Intake and Output 10/24/19 10/24/19 10/25/19 15:00 23:00 07:00 Intake Total 1860 ml 200 ml Output Total 305 ml 80 ml Balance 1555 ml 120 ml Justicifation of Admission Dx: Justifications for Admission: Justification of Admission Dx: N/A Nutrition Consultation Dietary Evaluation: Recommendations by RD: Dietary education by RD, Increase Calorie Intake, Protein supplementation Comments: REC continue w/regular diet as ordered, honor food preferences, provide snacks as requested REC Ensure (chocolate) w/lunch trays Expected Outcomes/Goals: PO intake to meet >75% est needs- goal ongoing Malnutrition Findings: Food and Nutrition Intake (Mod: <75% est energy req 7days Weight Status: Overweight ARACELI JIMENEZ APRN Oct 25, 2019 16:02
--- NOTE | 2019-10-25 16:07 | PDOC ---
PROGRESS NOTES Date of Service DATE: 10/25/19 TIME: 16:03 Subjective Subjective Chelsy was seen in follow-up visit today. She was ambulating in the hallways with the assistance of a walker and with physical therapy. She reports her lower extremity strength is improved since her laminectomy. She denies any new symptoms since her last visit with me. She denies tingling or numbness in the legs or loss of bowel or bladder control. Objective Objective Vital Signs Date Time Temp Pulse Resp B/P (MAP) Pulse Ox O2 Delivery O2 Flow Rate FiO2 10/25/19 11:15 98.7 61 18 105/53 (70) 95 Nasal Cannula 98.7 10/25/19 06:14 2.0 Intake and Output 10/25/19 07:00 Intake Total 2060 ml Output Total 385 ml Balance 1675 ml Intake Oral 310 ml IV Total 1750 ml Output Urine Total 125 ml Drainage Total 110 ml Estimated Blood Loss 150 ml # Voids 3 # Bowel Movements 1 Physical Exam Abdomen: Normal bowel sounds, Soft Heart: Regular rate, Normal S1 Extremities: No clubbing, No cyanosis General: Alert, Oriented X3 HEENT: Atraumatic, PERRLA Lungs: Clear to auscultation MUSCULOSKELETAL: No joint tenderness, No deformity Neck: Supple, No JVD Neuro: Normal speech, Strength at 5/5 X4 ext, Normal tone, Sensation intact, Cranial nerves 3-12 NL (Gait was assessed today and improved compared to last week prior to laminectomy) Psych/Mental Status: Mental status NL Skin: No rashes Diagnosis Problems: (1) Spinal cord compression Assessment Assessment Spinal cord compression from neoplasia Bone metastasis History of breast cancer History of lung cancer with 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 Continue with physical therapy and rehabilitation efforts -Additional recommendations for care per hospitalist and neurosurgery -Follow-up on pathology from laminectomy -Plan on discussing results of pathology and recommendations for subsequent systemic therapy based on results of pathology. -I will be reviewing her chart and will see her in the hospital to discuss pathology if it returns while she is inpatient. If not, outpatient follow-up will be arranged Jamie Laws MD Medical Oncology/Hematology Ph: [phone] Comment Review of Relevant I have reviewed the following items dana (where applicable) has been applied. Labs Laboratory Tests Test 10/24/19 03:50 White Blood Count 10.2 x10^3/uL (4.0-11.0) Red Blood Count 4.57 x10^6/uL (3.50-5.40) Hemoglobin 12.8 g/dL (12.0-15.5) Hematocrit 37.9 % (36.0-47.0) Mean Corpuscular Volume 83 fL (79-100) Mean Corpuscular Hemoglobin 28 pg (25-35) Mean Corpuscular Hemoglobin Concent 34 g/dL (31-37) Red Cell Distribution Width 16.2 % (11.5-14.5) Platelet Count 259 x10^3/uL (140-400) Neutrophils (%) (Auto) 84 % (31-73) Lymphocytes (%) (Auto) 10 % (24-48) Monocytes (%) (Auto) 6 % (0-9) Eosinophils (%) (Auto) 0 % (0-3) Basophils (%) (Auto) 0 % (0-3) Neutrophils # (Auto) 8.5 x10^3/uL (1.8-7.7) Lymphocytes # (Auto) 1.0 x10^3/uL (1.0-4.8) Monocytes # (Auto) 0.7 x10^3/uL (0.0-1.1) Eosinophils # (Auto) 0.0 x10^3/uL (0.0-0.7) Basophils # (Auto) 0.0 x10^3/uL (0.0-0.2) Sodium Level 137 mmol/L (136-145) Potassium Level 4.1 mmol/L (3.5-5.1) Chloride Level 103 mmol/L (98-107) Carbon Dioxide Level 28 mmol/L (21-32) Anion Gap 6 (6-14) Blood Urea Nitrogen 24 mg/dL (7-20) Creatinine 1.0 mg/dL (0.6-1.0) Estimated GFR (Cockcroft-Gault) 54.1 Glucose Level 120 mg/dL (70-99) Calcium Level 8.6 mg/dL (8.5-10.1) Medications Current Medications Ondansetron HCl (Zofran) 4 mg PRN Q8HRS PRN IV NAUSEA/VOMITING; Start 10/19/19 at 18:30; Stop 10/20/19 at 18:29; Status DC Morphine Sulfate (Morphine Sulfate) 2 mg PRN Q2HR PRN IV PAIN Last administered on 10/20/19at 08:52; Start 10/19/19 at 18:30; Stop 10/20/19 at 18:29; Status DC Ondansetron HCl (Zofran) 4 mg PRN Q6HRS PRN IV NAUSEA/VOMITING; Start 10/20/19 at 09:15; Stop 10/20/19 at 20:00; Status DC Fentanyl Citrate (Fentanyl 2ml Vial) 25 mcg PRN Q5MIN PRN IV MILD PAIN 1-3; Start 10/20/19 at 09:15; Stop 10/20/19 at 20:00; Status DC Fentanyl Citrate (Fentanyl 2ml Vial) 50 mcg PRN Q5MIN PRN IV MODERATE TO SEVERE PAIN; Start 10/20/19 at 09:15; Stop 10/20/19 at 20:00; Status DC Morphine Sulfate (Morphine Sulfate) 1 mg PRN Q10MIN PRN IV SEVERE PAIN 7-10; Start 10/20/19 at 09:15; Stop 10/20/19 at 20:00; Status DC Ringer's Solution 1,000 ml @ 30 mls/hr Q24H IV ; Start 10/20/19 at 09:14; Stop 10/20/19 at 20:03; Status DC Lidocaine HCl (Xylocaine-Mpf 1% 2ml Vial) 2 ml PRN 1X PRN ID PRIOR TO IV START; Start 10/20/19 at 09:15; Stop 10/20/19 at 20:00; Status DC Hydromorphone HCl (Dilaudid) 0.5 mg PRN Q10MIN PRN IV SEV PAIN, Second choice; Start 10/20/19 at 09:15; Stop 10/20/19 at 20:00; Status DC Prochlorperazine Edisylate (Compazine) 5 mg PACU PRN PRN IV NAUSEA, MRX1; Start 10/20/19 at 09:15; Stop 10/20/19 at 09:26; Status DC Zoledronic Acid 100 ml @ 400 mls/hr 1X ONCE IV ; Start 10/20/19 at 09:30; Stop 10/20/19 at 09:44; Status UNV Dexamethasone Sodium Phosphate (Decadron) 4 mg Q6HRS IVP Last administered on 10/25/19at 12:34; Start 10/20/19 at 10:00 Amylase/Lipase/ Protease (Zenpep 10,000) 2 cap TIDWMEALS PO Last administered on 10/25/19at 12:31; Start 10/20/19 at 12:00 Calcium/Vitamin D (Oscal D 500mg/ 200uts) 1 tab BIDWMEALS PO Last administered on 10/25/19at 09:03; Start 10/20/19 at 17:00 Citalopram Hydrobromide (CeleXA) 40 mg DAILY PO Last administered on 10/25/19at 09:04; Start 10/20/19 at 11:00 Non-Formulary Medication (Mesalamine (Lialda)) 4.8 gm DAILY PO ; Start 10/21/19 at 09:00; Status UNV Multivitamins (Thera M Plus) 1 tab DAILY PO ; Start 10/20/19 at 11:00; Stop 10/22/19 at 08:42; Status DC Pantoprazole Sodium (Protonix) 40 mg DAILYAC PO Last administered on 10/25/19at 07:30; Start 10/20/19 at 11:30 Iohexol (Omnipaque 240 Mg/ml) 30 ml 1X ONCE PO Last administered on 10/20/19at 10:30; Start 10/20/19 at 10:30; Stop 10/20/19 at 10:37; Status DC Iohexol (Omnipaque 300 Mg/ml) 60 ml 1X ONCE IV Last administered on 10/20/19at 10:30; Start 10/20/19 at 10:30; Stop 10/20/19 at 10:37; Status DC Info (CONTRAST GIVEN -- Rx MONITORING) 1 each PRN DAILY PRN MC SEE COMMENTS; Start 10/20/19 at 10:30; Stop 10/22/19 at 10:29; Status DC Ondansetron HCl (Zofran) 4 mg PRN Q6HRS PRN IV NAUSEA/VOMITING; Start 10/23/19 at 07:00; Stop 10/23/19 at 18:00; Status DC Fentanyl Citrate (Fentanyl 2ml Vial) 25 mcg PRN Q5MIN PRN IV MILD PAIN 1-3; Start 10/23/19 at 07:00; Stop 10/23/19 at 18:00; Status DC Fentanyl Citrate (Fentanyl 2ml Vial) 50 mcg PRN Q5MIN PRN IV MODERATE TO SEVERE PAIN; Start 10/23/19 at 07:00; Stop 10/23/19 at 18:00; Status DC Morphine Sulfate (Morphine Sulfate) 1 mg PRN Q10MIN PRN IV SEVERE PAIN 7-10; S tart 10/23/19 at 07:00; Stop 10/23/19 at 18:00; Status DC Ringer's Solution 1,000 ml @ 30 mls/hr Q24H IV ; Start 10/23/19 at 07:00; Stop 10/23/19 at 18:00; Status DC Lidocaine HCl (Xylocaine-Mpf 1% 2ml Vial) 2 ml PRN 1X PRN ID PRIOR TO IV START; Start 10/23/19 at 07:00; Stop 10/23/19 at 18:00; Status DC Hydromorphone HCl (Dilaudid) 0.5 mg PRN Q10MIN PRN IV SEV PAIN, Second choice; Start 10/23/19 at 07:00; Stop 10/23/19 at 18:00; Status DC Prochlorperazine Edisylate (Compazine) 5 mg PACU PRN PRN IV NAUSEA, MRX1; Start 10/23/19 at 07:00; Stop 10/23/19 at 18:00; Status DC Losartan Potassium (Cozaar) 25 mg DAILY PO Last administered on 10/24/19at 08:23; Start 10/20/19 at 12:30 Enoxaparin Sodium (Lovenox 40mg Syringe) 40 mg Q24H SQ Last administered on 10/22/19at 20:50; Start 10/20/19 at 21:00; Stop 10/23/19 at 09:51; Status DC Morphine Sulfate (Morphine Sulfate) 2 mg PRN Q2HR PRN IV PAIN Last administered on 10/23/19at 20:48; Start 10/20/19 at 20:00 Bacitracin 98339 unit/Sodium Chloride 1,000 ml @ 1,000 mls/hr 1X ONCE IRR ; Start 10/23/19 at 08:00; Stop 10/23/19 at 08:59; Status Cancel Propofol (Diprivan) 200 mg STK-MED ONCE IV ; Start 10/23/19 at 08:55; Stop 10/23/19 at 08:55; Status DC Lidocaine HCl (Lidocaine Pf 2% Vial) 5 ml STK-MED ONCE .ROUTE ; Start 10/23/19 at 08:55; Stop 10/23/19 at 08:55; Status DC Rocuronium [place] (Zemuron) 50 mg STK-MED ONCE .ROUTE ; Start 10/23/19 at 08:55; Stop 10/23/19 at 08:56; Status DC Ondansetron HCl (Zofran) 4 mg PRN Q6HRS PRN IV NAUSEA/VOMITING; Start 10/24/19 at 07:00; Stop 10/24/19 at 20:03; Status DC Fentanyl Citrate (Fentanyl 2ml Vial) 25 mcg PRN Q5MIN PRN IV MILD PAIN 1-3 Last administered on 10/24/19at 19:46; Start 10/24/19 at 07:00; Stop 10/24/19 at 20:03; Status DC Fentanyl Citrate (Fentanyl 2ml Vial) 50 mcg PRN Q5MIN PRN IV MODERATE TO SEVERE PAIN; Start 10/24/19 at 07:00; Stop 10/24/19 at 20:03; Status DC Morphine Sulfate (Morphine Sulfate) 1 mg PRN Q10MIN PRN IV SEVERE PAIN 7-10 Last administered on 10/24/19at 19:05; Start 10/24/19 at 07:00; Stop 10/24/19 at 20:03; Status DC Ringer's Solution 1,000 ml @ 30 mls/hr Q24H IV Last administered on 10/24/19at 12:25; Start 10/24/19 at 07:00; Stop 10/24/19 at 18:59; Status DC Lidocaine HCl (Xylocaine-Mpf 1% 2ml Vial) 2 ml PRN 1X PRN ID PRIOR TO IV START; Start 10/24/19 at 07:00; Stop 10/24/19 at 20:03; Status DC Hydromorphone HCl (Dilaudid) 0.5 mg PRN Q10MIN PRN IV SEV PAIN, Second choice; Start 10/24/19 at 07:00; Stop 10/24/19 at 20:03; Status DC Prochlorperazine Edisylate (Compazine) 5 mg PACU PRN PRN IV NAUSEA, MRX1; Start 10/24/19 at 07:00; Stop 10/24/19 at 20:03; Status DC Bacitracin 66341 unit/Sodium Chloride 1,000 ml @ 1,000 mls/hr 1X ONCE IRR Last administered on 10/24/19at 14:06; Start 10/24/19 at 06:00; Stop 10/24/19 at 06:59; Status DC Cefazolin Sodium/ Dextrose 50 ml @ 100 mls/hr 1X PREOP PRN IV PRIOR TO PROCEDURE Last administered on 10/24/19at 17:25; Start 10/24/19 at 07:00; Stop 10/25/19 at 07:00; Status DC Bupivacaine HCl/ Epinephrine Bitart (Sensorcain-Epi 0.5%-1:043045 Mpf) 30 ml STK-MED ONCE .ROUTE Last administered on 10/24/19at 14:06; Start 10/24/19 at 11:16; Stop 10/24/19 at 11:16; Status DC Gelatin (Gelfoam Size 100) 1 each STK-MED ONCE .ROUTE Last administered on 10/24/19at 14:06; Start 10/24/19 at 11:16; Stop 10/24/19 at 11:16; Status DC Ketorolac Tromethamine (Toradol Im) 60 mg STK-MED ONCE .ROUTE Last administered on 10/24/19at 14:06; Start 10/24/19 at 11:16; Stop 10/24/19 at 11:16; Status DC Thrombin 20,000 unit STK-MED ONCE TP Last administered on 10/24/19at 14:06; Start 10/24/19 at 11:16; Stop 10/24/19 at 11:17; Status DC Propofol (Diprivan) 200 mg STK-MED ONCE IV ; Start 10/24/19 at 11:22; Stop 10/24/19 at 11:22; Status DC Lidocaine HCl (Lidocaine Pf 2% Vial) 5 ml STK-MED ONCE .ROUTE ; Start 10/24/19 at 11:22; Stop 10/24/19 at 11:22; Status DC Dexamethasone Sodium Phosphate (Decadron) 20 mg STK-MED ONCE .ROUTE ; Start 10/24/19 at 11:22; Stop 10/24/19 at 11:23; Status DC Ondansetron HCl (Zofran) 4 mg STK-MED ONCE .ROUTE ; Start 10/24/19 at 11:22; Stop 10/24/19 at 11:23; Status DC Ephedrine Sulfate (ePHEDrine PF IN SALINE SYRINGE) 50 mg STK-MED ONCE IV ; Start 10/24/19 at 11:22; Stop 10/24/19 at 11:23; Status DC Phenylephrine HCl (PHENYLEPHRINE in 0.9% NACL PF) 1 mg STK-MED ONCE IV ; Start 10/24/19 at 11:22; Stop 10/24/19 at 11:23; Status DC Glycopyrrolate (Robinul) 1 mg STK-MED ONCE .ROUTE ; Start 10/24/19 at 11:22; Stop 10/24/19 at 11:23; Status DC Fentanyl Citrate (Fentanyl 2ml Vial) 100 mcg STK-MED ONCE .ROUTE ; Start 10/24/19 at 11:23; Stop 10/24/19 at 11:24; Status DC Propofol 50 ml @ As Directed STK-MED ONCE IV ; Start 10/24/19 at 11:24; Stop 10/24/19 at 11:24; Status DC Remifentanil HCl (Ultiva) 2 mg STK-MED ONCE IV ; Start 10/24/19 at 11:24; Stop 10/24/19 at 11:24; Status DC Succinylcholine Chloride (Anectine) 200 mg STK-MED ONCE .ROUTE ; Start 10/24/19 at 12:54; Stop 10/24/19 at 12:55; Status DC Desflurane (Suprane) 90 ml STK-MED ONCE IH ; Start 10/24/19 at 13:37; Stop 10/24/19 at 13:38; Status DC Hydralazine HCl (Apresoline Inj) 20 mg STK-MED ONCE .ROUTE ; Start 10/24/19 at 13:40; Stop 10/24/19 at 13:40; Status DC Remifentanil HCl (Ultiva) 1 mg STK-MED ONCE IV ; Start 10/24/19 at 17:22; Stop 10/24/19 at 17:23; Status DC Neostigmine [place] (Neostigmine Methylsulfate) 5 mg STK-MED ONCE .ROUTE ; Start 10/24/19 at 17:31; Stop 10/24/19 at 17:31; Status DC Gelatin (Gelfoam Size 100) 1 each STK-MED ONCE .ROUTE Last administered on 10/24/19at 17:35; Start 10/24/19 at 17:34; Stop 10/24/19 at 17:34; Status DC Thrombin 20,000 unit STK-MED ONCE TP Last administered on 10/24/19at 17:50; Start 10/24/19 at 17:49; Stop 10/24/19 at 17:50; Status DC Fentanyl Citrate (Fentanyl 2ml Vial) 100 mcg STK-MED ONCE .ROUTE ; Start 10/24/19 at 18:27; Stop 10/24/19 at 18:27; Status DC Fentanyl Citrate (Fentanyl 2ml Vial) 100 mcg STK-MED ONCE .ROUTE ; Start 10/24/19 at 19:18; Stop 10/24/19 at 19:19; Status DC Dextrose/Sodium Chloride 1,000 ml @ 125 mls/hr Q8H IV Last administered on 10/24/19at 21:00; Start 10/24/19 at 21:00 Acetaminophen/ Hydrocodone Bitart (Lortab 7.5/325) 1 tab PRN Q6HRS PRN PO MODERATE PAIN 4-6 Last administered on 10/25/19at 06:51; Start 10/24/19 at 21:15 Acetaminophen/ Hydrocodone Bitart (Lortab 7.5/325) 2 tab PRN Q6HRS PRN PO SEVERE PAIN 7-10; Start 10/24/19 at 21:15 Neomycin/ Polymyxin/ Bacitracin (Triple Antibiotic Ointment) 1 pkt BID TP Last administered on 10/25/19at 09:15; Start 10/24/19 at 22:00 Cefazolin Sodium (Ancef) 1 gm 1X ONCE IVP Last administered on 10/25/19at 09:08; Start 10/25/19 at 08:00; Stop 10/25/19 at 08:01; Status DC Active Scripts Active Lialda (Mesalamine) 1.2 Gm Tablet.dr 4.8 Gm PO DAILY [address] 10,000 Units Capsule (Lipase/Protease/Amylase) 1 Each Capsule.dr 2 Cap PO TIDWMEALS 14 Days Lomotil Tablet (Diphenoxylate Hcl/Atropine) 1 Each Tablet 1 Tab PO QID MDD 8 tablets Zofran Odt (Ondansetron) 4 Mg Tab.rapdis 1 Tab SL Q8HRS Reported Losartan Potassium 50 Mg Tablet 25 Mg PO DAILY Omeprazole 20 Mg Tablet.dr 20 Mg PO DAILY Lexapro (Escitalopram Oxalate) 20 Mg Tablet 20 Mg PO BID Multivitamins (Multivitamin) 1 Each Tablet 1 Each PO DAILY Vitamin D3 (Cholecalciferol (Vitamin D3)) 400 Unit Tablet 2,000 Unit PO DAILY Lansoprazole 30 Mg Capsule.dr 30 Mg PO DAILY Calcium + Vitamin D Tablet (Calcium Carbonate/Vitamin D3) 1 Each Tablet 1 Each PO PRN BID PRN Toviaz (Fesoterodine Fumarate) 8 Mg Tab.er.24h 8 Mg PO DAILY Vitals/I & O Vital Sign - Last 24 Hours 10/24/19 10/24/19 10/24/19 10/24/19 18:27 18:36 18:42 18:54 Temp 98 98.0 98.0 98.0 Pulse 82 82 Resp 18 17 17 B/P (MAP) 129/69 78/51 Pulse Ox 98 98 98 O2 Delivery Room Air Mask Room Air Room Air Simple Mask O2 Flow Rate 10 10 10 10.0 10/24/19 10/24/19 10/24/19 10/24/19 19:05 19:06 19:20 19:21 Pulse 76 81 Resp 17 16 16 17 B/P (MAP) 94/50 104/52 Pulse Ox 98 95 95 98 O2 Delivery Nasal Cannula Nasal Cannula Nasal Cannula Nasal Cannula O2 Flow Rate 10.0 4 4.0 4.0 10/24/19 10/24/19 10/24/19 10/24/19 19:23 19:23 19:36 19:36 Pulse 83 Resp 16 16 18 18 B/P (MAP) 111/53 Pulse Ox 95 95 97 97 O2 Delivery Nasal Cannula Nasal Cannula Nasal Cannula Nasal Cannula O2 Flow Rate 4.0 4.0 4.0 4.0 10/24/19 10/24/19 10/24/19 10/24/19 19:46 19:51 20:10 20:30 Temp 97.5 97.5 Pulse 83 90 Resp 18 18 20 B/P (MAP) 94/61 92/55 (67) Pulse Ox 97 96 99 O2 Delivery Nasal Cannula Nasal Cannula Nasal Cannula Nasal Cannula O2 Flow Rate 4.0 2 3.0 3.0 10/24/19 10/24/19 10/24/19 10/24/19 20:30 20:45 21:00 21:30 Temp 97.5 97.5 Pulse 86 86 86 79 Resp 17 20 20 B/P (MAP) 85/49 (61) 103/56 (72) 83/49 (60) 114/52 (72) Pulse Ox 99 97 99 99 O2 Delivery Nasal Cannula Nasal Cannula Nasal Cannula Nasal Cannula O2 Flow Rate 3.0 3.0 3.0 2.0 10/24/19 10/24/19 10/24/19 10/25/19 22:00 22:30 23:55 00:32 Pulse 78 76 73 Resp 18 18 20 B/P (MAP) 94/51 (65) 98/52 (67) 104/58 (73) Pulse Ox 98 97 97 99 O2 Delivery Nasal Cannula Nasal Cannula Nasal Cannula Nasal Cannula O2 Flow Rate 2.0 2.0 2.0 2.0 10/25/19 10/25/19 10/25/19 10/25/19 01:06 02:57 06:14 08:00 Temp 97.6 96.2 97.6 96.2 Pulse 76 72 Resp 18 20 B/P (MAP) 111/62 (78) 107/75 (86) Pulse Ox 97 99 97 O2 Delivery Nasal Cannula Nasal Cannula Nasal Cannula Room Air O2 Flow Rate 2.0 2.0 2.0 10/25/19 10/25/19 09:00 11:15 Temp 98.7 98.7 Pulse 69 61 Resp 18 B/P (MAP) 107/59 105/53 (70) Pulse Ox 95 O2 Delivery Nasal Cannula Intake and Output 10/24/19 10/24/19 10/25/19 15:00 23:00 07:00 Intake Total 1860 ml 200 ml Output Total 305 ml 80 ml Balance 1555 ml 120 ml Justicifation of Admission Dx: Justifications for Admission: Justification of Admission Dx: N/A Nutrition Consultation Dietary Evaluation: Recommendations by RD: Dietary education by RD, Increase Calorie Intake, Protein supplementation Comments: REC continue w/regular diet as ordered, honor food preferences, provide snacks as requested REC Ensure (chocolate) w/lunch trays Expected Outcomes/Goals: PO intake to meet >75% est needs- goal ongoing Malnutrition Findings: Food and Nutrition Intake (Mod: <75% est energy req 7days Weight Status: Overweight BRUNA LAWS MD Oct 25, 2019 16:07
[2019-10-25 18:35] VITALS: BP 138/59
[2019-10-26] MEDS: DEXAMETHASONE SOD PHOS 4 MG/ML VIAL IVP SCH ×4 (00:16→17:02)
[2019-10-26 06:48] LABS: CALCIUM 8.8 mg/dL (8.5-10.1); CREATININE 0.7 mg/dL (0.6-1.0); GFR 81.6; POTASSIUM 4.4 mmol/L (3.5-5.1)
[2019-10-26 07:08] LABS: BASO % 0 % (0-3); EOS % 0 % (0-3); HEMATOCRIT 30.7 % (36.0-47.0); HEMOGLOBIN 10.3 g/dL (12.0-15.5); LYMPH # 0.8 x10^3/uL (1.0-4.8); LYMPH % 7 % (24-48); MEAN CORPUSCULAR HEMOGLOBIN 28 pg (25-35); MEAN CORPUSCULAR HGB CONC 33 g/dL (31-37); MEAN CORPUSCULAR VOLUME 83 fL (79-100); MONO # 0.8 x10^3/uL (0.0-1.1); MONO % 8 % (0-9); NEUT # 9.5 x10^3/uL (1.8-7.7); NEUT % 85 % (31-73); PLATELET COUNT 199 x10^3/uL (140-400); RED CELL DISTRIBUTION WIDTH 16.5 % (11.5-14.5); WHITE BLOOD COUNT 11.1 x10^3/uL (4.0-11.0)
[2019-10-26 07:11] VITALS: BP 162/84
[2019-10-26] MEDS: LOSARTAN POTASSIUM 25 MG TABLET. PO SCH (08:12)
[2019-10-26] MEDS: PANTOPRAZOLE 40 MG TABLET.DR. PO SCH (08:12)
[2019-10-26] MEDS: CITALOPRAM 20 MG TABLET. PO SCH (08:12)
[2019-10-26] MEDS: CALCIUM CARB/VIT D3 500/200 TABLET. PO SCH ×2 (08:12→16:59)
[2019-10-26] MEDS: NEOMY/BACITR/POLYMYXIN OINT PACKET. TP SCH ×2 (08:13→20:43)
[2019-10-26] MEDS: LIPASE/PROTEAS/AMYLAS 10/32/42 CAPSULE.DR. PO SCH ×3 (08:13→16:59)
--- NOTE | 2019-10-26 10:09 | PDOC ---
PROGRESS NOTES Date of Service DATE: 10/26/19 TIME: 10:06 Subjective Subjective POD #2 S/P laminectomy T4-T6 up in chair denies pain has ambulated legs feel stronger Objective Objective Vital Signs Date Time Temp Pulse Resp B/P (MAP) Pulse Ox O2 Delivery O2 Flow Rate FiO2 10/26/19 08:12 57 162/84 10/26/19 08:10 Room Air 10/26/19 07:11 97.4 20 95 97.4 10/25/19 06:14 2.0 Intake and Output 10/26/19 07:00 Intake Total 600 ml Output Total 902 ml Balance -302 ml Intake Oral 600 ml Output Urine Total 850 ml Stool Total 2 ml Drainage Total 50 ml # Voids 2 Physical Exam General: Alert, Oriented X3, Cooperative, No acute distress MUSCULOSKELETAL: Other (DANG) Neuro: Other Skin: Other (dressing C,D,I, flat) Assessment Assessment Problems Medical Problems: (1) Spinal cord compression Status: Acute Plan Plan of Care continue PT encouraged increased activity as tolerated likely dc tomorrow with home health Comment Review of Relevant I have reviewed the following items dana (where applicable) has been applied. Labs Laboratory Tests Test 10/26/19 06:20 White Blood Count 11.1 x10^3/uL (4.0-11.0) Red Blood Count 3.70 x10^6/uL (3.50-5.40) Hemoglobin 10.3 g/dL (12.0-15.5) Hematocrit 30.7 % (36.0-47.0) Mean Corpuscular Volume 83 fL (79-100) Mean Corpuscular Hemoglobin 28 pg (25-35) Mean Corpuscular Hemoglobin Concent 33 g/dL (31-37) Red Cell Distribution Width 16.5 % (11.5-14.5) Platelet Count 199 x10^3/uL (140-400) Neutrophils (%) (Auto) 85 % (31-73) Lymphocytes (%) (Auto) 7 % (24-48) Monocytes (%) (Auto) 8 % (0-9) Eosinophils (%) (Auto) 0 % (0-3) Basophils (%) (Auto) 0 % (0-3) Neutrophils # (Auto) 9.5 x10^3/uL (1.8-7.7) Lymphocytes # (Auto) 0.8 x10^3/uL (1.0-4.8) Monocytes # (Auto) 0.8 x10^3/uL (0.0-1.1) Eosinophils # (Auto) 0.0 x10^3/uL (0.0-0.7) Basophils # (Auto) 0.0 x10^3/uL (0.0-0.2) Sodium Level 137 mmol/L (136-145) Potassium Level 4.4 mmol/L (3.5-5.1) Chloride Level 105 mmol/L (98-107) Carbon Dioxide Level 29 mmol/L (21-32) Anion Gap 3 (6-14) Blood Urea Nitrogen 19 mg/dL (7-20) Creatinine 0.7 mg/dL (0.6-1.0) Estimated GFR (Cockcroft-Gault) 81.6 Glucose Level 111 mg/dL (70-99) Calcium Level 8.8 mg/dL (8.5-10.1) Laboratory Tests Test 10/26/19 06:20 White Blood Count 11.1 x10^3/uL (4.0-11.0) Red Blood Count 3.70 x10^6/uL (3.50-5.40) Hemoglobin 10.3 g/dL (12.0-15.5) Hematocrit 30.7 % (36.0-47.0) Mean Corpuscular Volume 83 fL (79-100) Mean Corpuscular Hemoglobin 28 pg (25-35) Mean Corpuscular Hemoglobin Concent 33 g/dL (31-37) Red Cell Distribution Width 16.5 % (11.5-14.5) Platelet Count 199 x10^3/uL (140-400) Neutrophils (%) (Auto) 85 % (31-73) Lymphocytes (%) (Auto) 7 % (24-48) Monocytes (%) (Auto) 8 % (0-9) Eosinophils (%) (Auto) 0 % (0-3) Basophils (%) (Auto) 0 % (0-3) Neutrophils # (Auto) 9.5 x10^3/uL (1.8-7.7) Lymphocytes # (Auto) 0.8 x10^3/uL (1.0-4.8) Monocytes # (Auto) 0.8 x10^3/uL (0.0-1.1) Eosinophils # (Auto) 0.0 x10^3/uL (0.0-0.7) Basophils # (Auto) 0.0 x10^3/uL (0.0-0.2) Sodium Level 137 mmol/L (136-145) Potassium Level 4.4 mmol/L (3.5-5.1) Chloride Level 105 mmol/L (98-107) Carbon Dioxide Level 29 mmol/L (21-32) Anion Gap 3 (6-14) Blood Urea Nitrogen 19 mg/dL (7-20) Creatinine 0.7 mg/dL (0.6-1.0) Estimated GFR (Cockcroft-Gault) 81.6 Glucose Level 111 mg/dL (70-99) Calcium Level 8.8 mg/dL (8.5-10.1) Medications Current Medications Ondansetron HCl (Zofran) 4 mg PRN Q8HRS PRN IV NAUSEA/VOMITING; Start 10/19/19 at 18:30; Stop 10/20/19 at 18:29; Status DC Morphine Sulfate (Morphine Sulfate) 2 mg PRN Q2HR PRN IV PAIN Last administered on 10/20/19at 08:52; Start 10/19/19 at 18:30; Stop 10/20/19 at 18:29; Status DC Ondansetron HCl (Zofran) 4 mg PRN Q6HRS PRN IV NAUSEA/VOMITING; Start 10/20/19 at 09:15; Stop 10/20/19 at 20:00; Status DC Fentanyl Citrate (Fentanyl 2ml Vial) 25 mcg PRN Q5MIN PRN IV MILD PAIN 1-3; Start 10/20/19 at 09:15; Stop 10/20/19 at 20:00; Status DC Fentanyl Citrate (Fentanyl 2ml Vial) 50 mcg PRN Q5MIN PRN IV MODERATE TO SEVERE PAIN; Start 10/20/19 at 09:15; Stop 10/20/19 at 20:00; Status DC Morphine Sulfate (Morphine Sulfate) 1 mg PRN Q10MIN PRN IV SEVERE PAIN 7-10; Start 10/20/19 at 09:15; Stop 10/20/19 at 20:00; Status DC Ringer's Solution 1,000 ml @ 30 mls/hr Q24H IV ; Start 10/20/19 at 09:14; Stop 10/20/19 at 20:03; Status DC Lidocaine HCl (Xylocaine-Mpf 1% 2ml Vial) 2 ml PRN 1X PRN ID PRIOR TO IV START; Start 10/20/19 at 09:15; Stop 10/20/19 at 20:00; Status DC Hydromorphone HCl (Dilaudid) 0.5 mg PRN Q10MIN PRN IV SEV PAIN, Second choice; Start 10/20/19 at 09:15; Stop 10/20/19 at 20:00; Status DC Prochlorperazine Edisylate (Compazine) 5 mg PACU PRN PRN IV NAUSEA, MRX1; Start 10/20/19 at 09:15; Stop 10/20/19 at 09:26; Status DC Zoledronic Acid 100 ml @ 400 mls/hr 1X ONCE IV ; Start 10/20/19 at 09:30; Stop 10/20/19 at 09:44; Status UNV Dexamethasone Sodium Phosphate (Decadron) 4 mg Q6HRS IVP Last administered on 10/26/19at 06:36; Start 10/20/19 at 10:00 Amylase/Lipase/ Protease (Zenpep 10,000) 2 cap TIDWMEALS PO Last administered on 10/26/19at 08:13; Start 10/20/19 at 12:00 Calcium/Vitamin D (Oscal D 500mg/ 200uts) 1 tab BIDWMEALS PO Last administered on 10/26/19at 08:12; Start 10/20/19 at 17:00 Citalopram Hydrobromide (CeleXA) 40 mg DAILY PO Last administered on 10/26/19at 08:12; Start 10/20/19 at 11:00 Non-Formulary Medication (Mesalamine (Lialda)) 4.8 gm DAILY PO ; Start 10/21/19 at 09:00; Status UNV Multivitamins (Thera M Plus) 1 tab DAILY PO ; Start 10/20/19 at 11:00; Stop 10/22/19 at 08:42; Status DC Pantoprazole Sodium (Protonix) 40 mg DAILYAC PO Last administered on 10/26/19at 08:12; Start 10/20/19 at 11:30 Iohexol (Omnipaque 240 Mg/ml) 30 ml 1X ONCE PO Last administered on 10/20/19at 10:30; Start 10/20/19 at 10:30; Stop 10/20/19 at 10:37; Status DC Iohexol (Omnipaque 300 Mg/ml) 60 ml 1X ONCE IV Last administered on 10/20/19at 10:30; Start 10/20/19 at 10:30; Stop 10/20/19 at 10:37; Status DC Info (CONTRAST GIVEN -- Rx MONITORING) 1 each PRN DAILY PRN MC SEE COMMENTS; Start 10/20/19 at 10:30; Stop 10/22/19 at 10:29; Status DC Ondansetron HCl (Zofran) 4 mg PRN Q6HRS PRN IV NAUSEA/VOMITING; Start 10/23/19 at 07:00; Stop 10/23/19 at 18:00; Status DC Fentanyl Citrate (Fentanyl 2ml Vial) 25 mcg PRN Q5MIN PRN IV MILD PAIN 1-3; Start 10/23/19 at 07:00; Stop 10/23/19 at 18:00; Status DC Fentanyl Citrate (Fentanyl 2ml Vial) 50 mcg PRN Q5MIN PRN IV MODERATE TO SEVERE PAIN; Start 10/23/19 at 07:00; Stop 10/23/19 at 18:00; Status DC Morphine Sulfate (Morphine Sulfate) 1 mg PRN Q10MIN PRN IV SEVERE PAIN 7-10; Start 10/23/19 at 07:00; Stop 10/23/19 at 18:00; Status DC Ringer's Solution 1,000 ml @ 30 mls/hr Q24H IV ; Start 10/23/19 at 07:00; Stop 10/23/19 at 18:00; Status DC Lidocaine HCl (Xylocaine-Mpf 1% 2ml Vial) 2 ml PRN 1X PRN ID PRIOR TO IV START; Start 10/23/19 at 07:00; Stop 10/23/19 at 18:00; Status DC Hydromorphone HCl (Dilaudid) 0.5 mg PRN Q10MIN PRN IV SEV PAIN, Second choice; Start 10/23/19 at 07:00; Stop 10/23/19 at 18:00; Status DC Prochlorperazine Edisylate (Compazine) 5 mg PACU PRN PRN IV NAUSEA, MRX1; Start 10/23/19 at 07:00; Stop 10/23/19 at 18:00; Status DC Losartan Potassium (Cozaar) 25 mg DAILY PO Last administered on 10/26/19at 08:12; Start 10/20/19 at 12:30 Enoxaparin Sodium (Lovenox 40mg Syringe) 40 mg Q24H SQ Last administered on 10/22/19at 20:50; Start 10/20/19 at 21:00; Stop 10/23/19 at 09:51; Status DC Morphine Sulfate (Morphine Sulfate) 2 mg PRN Q2HR PRN IV PAIN Last administered on 10/23/19at 20:48; Start 10/20/19 at 20:00 Bacitracin 20479 unit/Sodium Chloride 1,000 ml @ 1,000 mls/hr 1X ONCE IRR ; Start 10/23/19 at 08:00; Stop 10/23/19 at 08:59; Status Cancel Propofol (Diprivan) 200 mg STK-MED ONCE IV ; Start 10/23/19 at 08:55; Stop 10/23/19 at 08:55; Status DC Lidocaine HCl (Lidocaine Pf 2% Vial) 5 ml STK-MED ONCE .ROUTE ; Start 10/23/19 at 08:55; Stop 10/23/19 at 08:55; Status DC Rocuronium [place] (Zemuron) 50 mg STK-MED ONCE .ROUTE ; Start 10/23/19 at 08:55; Stop 10/23/19 at 08:56; Status DC Ondansetron HCl (Zofran) 4 mg PRN Q6HRS PRN IV NAUSEA/VOMITING; Start 10/24/19 at 07:00; Stop 10/24/19 at 20:03; Status DC Fentanyl Citrate (Fentanyl 2ml Vial) 25 mcg PRN Q5MIN PRN IV MILD PAIN 1-3 Last administered on 10/24/19at 19:46; Start 10/24/19 at 07:00; Stop 10/24/19 at 20:03; Status DC Fentanyl Citrate (Fentanyl 2ml Vial) 50 mcg PRN Q5MIN PRN IV MODERATE TO SEVERE PAIN; Start 10/24/19 at 07:00; Stop 10/24/19 at 20:03; Status DC Morphine Sulfate (Morphine Sulfate) 1 mg PRN Q10MIN PRN IV SEVERE PAIN 7-10 Last administered on 10/24/19at 19:05; Start 10/24/19 at 07:00; Stop 10/24/19 at 20:03; Status DC Ringer's Solution 1,000 ml @ 30 mls/hr Q24H IV Last administered on 10/24/19at 12:25; Start 10/24/19 at 07:00; Stop 10/24/19 at 18:59; Status DC Lidocaine HCl (Xylocaine-Mpf 1% 2ml Vial) 2 ml PRN 1X PRN ID PRIOR TO IV START; Start 10/24/19 at 07:00; Stop 10/24/19 at 20:03; Status DC Hydromorphone HCl (Dilaudid) 0.5 mg PRN Q10MIN PRN IV SEV PAIN, Second choice; Start 10/24/19 at 07:00; Stop 10/24/19 at 20:03; Status DC Prochlorperazine Edisylate (Compazine) 5 mg PACU PRN PRN IV NAUSEA, MRX1; Start 10/24/19 at 07:00; Stop 10/24/19 at 20:03; Status DC Bacitracin 91598 unit/Sodium Chloride 1,000 ml @ 1,000 mls/hr 1X ONCE IRR Last administered on 10/24/19at 14:06; Start 10/24/19 at 06:00; Stop 10/24/19 at 06:59; Status DC Cefazolin Sodium/ Dextrose 50 ml @ 100 mls/hr 1X PREOP PRN IV PRIOR TO PROCEDURE Last administered on 10/24/19at 17:25; Start 10/24/19 at 07:00; Stop 10/25/19 at 07:00; Status DC Bupivacaine HCl/ Epinephrine Bitart (Sensorcain-Epi 0.5%-1:279958 Mpf) 30 ml STK-MED ONCE .ROUTE Last administered on 10/24/19at 14:06; Start 10/24/19 at 11:16; Stop 10/24/19 at 11:16; Status DC Gelatin (Gelfoam Size 100) 1 each STK-MED ONCE .ROUTE Last administered on 10/24/19at 14:06; Start 10/24/19 at 11:16; Stop 10/24/19 at 11:16; Status DC Ketorolac Tromethamine (Toradol Im) 60 mg STK-MED ONCE .ROUTE Last administered on 10/24/19at 14:06; Start 10/24/19 at 11:16; Stop 10/24/19 at 11:16; Status DC Thrombin 20,000 unit STK-MED ONCE TP Last administered on 10/24/19at 14:06; Start 10/24/19 at 11:16; Stop 10/24/19 at 11:17; Status DC Propofol (Diprivan) 200 mg STK-MED ONCE IV ; Start 10/24/19 at 11:22; Stop 10/24/19 at 11:22; Status DC Lidocaine HCl (Lidocaine Pf 2% Vial) 5 ml STK-MED ONCE .ROUTE ; Start 10/24/19 at 11:22; Stop 10/24/19 at 11:22; Status DC Dexamethasone Sodium Phosphate (Decadron) 20 mg STK-MED ONCE .ROUTE ; Start 10/24/19 at 11:22; Stop 10/24/19 at 11:23; Status DC Ondansetron HCl (Zofran) 4 mg STK-MED ONCE .ROUTE ; Start 10/24/19 at 11:22; Stop 10/24/19 at 11:23; Status DC Ephedrine Sulfate (ePHEDrine PF IN SALINE SYRINGE) 50 mg STK-MED ONCE IV ; Start 10/24/19 at 11:22; Stop 10/24/19 at 11:23; Status DC Phenylephrine HCl (PHENYLEPHRINE in 0.9% NACL PF) 1 mg STK-MED ONCE IV ; Start 10/24/19 at 11:22; Stop 10/24/19 at 11:23; Status DC Glycopyrrolate (Robinul) 1 mg STK-MED ONCE .ROUTE ; Start 10/24/19 at 11:22; Stop 10/24/19 at 11:23; Status DC Fentanyl Citrate (Fentanyl 2ml Vial) 100 mcg STK-MED ONCE .ROUTE ; Start 10/24/19 at 11:23; Stop 10/24/19 at 11:24; Status DC Propofol 50 ml @ As Directed STK-MED ONCE IV ; Start 10/24/19 at 11:24; Stop 10/24/19 at 11:24; Status DC Remifentanil HCl (Ultiva) 2 mg STK-MED ONCE IV ; Start 10/24/19 at 11:24; Stop 10/24/19 at 11:24; Status DC Succinylcholine Chloride (Anectine) 200 mg STK-MED ONCE .ROUTE ; Start 10/24/19 at 12:54; Stop 10/24/19 at 12:55; Status DC Desflurane (Suprane) 90 ml STK-MED ONCE IH ; Start 10/24/19 at 13:37; Stop 10/24/19 at 13:38; Status DC Hydralazine HCl (Apresoline Inj) 20 mg STK-MED ONCE .ROUTE ; Start 10/24/19 at 13:40; Stop 10/24/19 at 13:40; Status DC Remifentanil HCl (Ultiva) 1 mg STK-MED ONCE IV ; Start 10/24/19 at 17:22; Stop 10/24/19 at 17:23; Status DC Neostigmine [place] (Neostigmine Methylsulfate) 5 mg STK-MED ONCE .ROUTE ; Start 10/24/19 at 17:31; Stop 10/24/19 at 17:31; Status DC Gelatin (Gelfoam Size 100) 1 each STK-MED ONCE .ROUTE Last administered on 10/24/19at 17:35; Start 10/24/19 at 17:34; Stop 10/24/19 at 17:34; Status DC Thrombin 20,000 unit STK-MED ONCE TP Last administered on 10/24/19at 17:50; Start 10/24/19 at 17:49; Stop 10/24/19 at 17:50; Status DC Fentanyl Citrate (Fentanyl 2ml Vial) 100 mcg STK-MED ONCE .ROUTE ; Start 10/24/19 at 18:27; Stop 10/24/19 at 18:27; Status DC Fentanyl Citrate (Fentanyl 2ml Vial) 100 mcg STK-MED ONCE .ROUTE ; Start 10/24/19 at 19:18; Stop 10/24/19 at 19:19; Status DC Dextrose/Sodium Chloride 1,000 ml @ 125 mls/hr Q8H IV Last administered on 10/24/19at 21:00; Start 10/24/19 at 21:00; Stop 10/25/19 at 17:01; Status DC Acetaminophen/ Hydrocodone Bitart (Lortab 7.5/325) 1 tab PRN Q6HRS PRN PO MODERATE PAIN 4-6 Last administered on 10/25/19at 16:17; Start 10/24/19 at 21:15 Acetaminophen/ Hydrocodone Bitart (Lortab 7.5/325) 2 tab PRN Q6HRS PRN PO SEVERE PAIN 7-10; Start 10/24/19 at 21:15 Neomycin/ Polymyxin/ Bacitracin (Triple Antibiotic Ointment) 1 pkt BID TP Last administered on 10/26/19at 08:13; Start 10/24/19 at 22:00 Cefazolin Sodium (Ancef) 1 gm 1X ONCE IVP Last administered on 10/25/19at 09:08; Start 10/25/19 at 08:00; Stop 10/25/19 at 08:01; Status DC Active Scripts Active Lialda (Mesalamine) 1.2 Gm Tablet. 4.8 Gm PO DAILY [address] 10,000 Units Capsule (Lipase/Protease/Amylase) 1 Each Capsule.dr 2 Cap PO TIDWMEALS 14 Days Lomotil Tablet (Diphenoxylate Hcl/Atropine) 1 Each Tablet 1 Tab PO QID MDD 8 tablets Zofran Odt (Ondansetron) 4 Mg Tab.rapdis 1 Tab SL Q8HRS Reported Losartan Potassium 50 Mg Tablet 25 Mg PO DAILY Omeprazole 20 Mg Tablet. 20 Mg PO DAILY Lexapro (Escitalopram Oxalate) 20 Mg Tablet 20 Mg PO BID Multivitamins (Multivitamin) 1 Each Tablet 1 Each PO DAILY Vitamin D3 (Cholecalciferol (Vitamin D3)) 400 Unit Tablet 2,000 Unit PO DAILY Lansoprazole 30 Mg Capsule. 30 Mg PO DAILY Calcium + Vitamin D Tablet (Calcium Carbonate/Vitamin D3) 1 Each Tablet 1 Each PO PRN BID PRN Toviaz (Fesoterodine Fumarate) 8 Mg Tab.er.24h 8 Mg PO DAILY Vitals/I & O Vital Sign - Last 24 Hours 10/25/19 10/25/19 10/25/19 10/25/19 11:15 15:42 16:17 17:46 Temp 98.7 97.8 98.7 97.8 Pulse 61 68 Resp 18 18 B/P (MAP) 105/53 (70) 140/72 (94) Pulse Ox 95 96 97 O2 Delivery Nasal Cannula Room Air Room Air Room Air 10/25/19 10/25/19 10/25/19 10/26/19 18:35 20:00 23:00 07:11 Temp 98.2 97.4 98.2 97.4 Pulse 64 57 Resp 20 18 20 B/P (MAP) 138/59 (85) 162/84 (110) Pulse Ox 96 95 O2 Delivery Room Air Room Air Room Air Room Air 10/26/19 10/26/19 08:10 08:12 Pulse 57 B/P (MAP) 162/84 O2 Delivery Room Air Intake and Output 10/25/19 10/25/19 10/26/19 15:00 23:00 07:00 Intake Total 480 ml 120 ml Output Total 652 ml 250 ml Balance -172 ml -130 ml Justicifation of Admission Dx: Justifications for Admission: Justification of Admission Dx: N/A Nutrition Consultation Dietary Evaluation: Recommendations by RD: Dietary education by RD, Increase Calorie Intake, Protein supplementation Comments: REC continue w/regular diet as ordered, honor food preferences, provide snacks as requested REC Ensure (chocolate) w/lunch trays Expected Outcomes/Goals: PO intake to meet >75% est needs- goal ongoing Malnutrition Findings: Food and Nutrition Intake (Mod: <75% est energy req 7days Weight Status: Overweight ARACELI JIMENEZ APRN Oct 26, 2019 10:09
--- NOTE | 2019-10-26 10:42 | PDOC ---
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 History of Present Illness History of Present Illness 10/21. no new problems or complaints, surgery tomorrow 3pm 73-year-old female with past medical history of hypertension, breast cancer status post bilateral mastectomy and non-small cell lung cancer status post lobectomy who comes in due to frequent falls, ataxia and lower extremity weakness. Son has been noticing abnormal gait in the past few months, but after she had fallen 2 weeks ago son has noticed increased weakness and abnormalities in her walking. Her PCP had ordered MRI of the spine on October 16 that showed T4- 6 metastatic osteolytic lesions and T4 levels with severe stenosis. Patient was sent to the ED for concern of spinal cord compression. Patient denies urinary incontinence, numbness in her pelvic regions, shortness of breath, abdominal pains, diarrhea, or fevers 10/21/2019 No acute events overnight. Patient seen and examined bedside. Patient neuro exam is stable. Patient's chart, labs, images were reviewed and discussed with RN Vitals Vitals Vital Signs Date Time Temp Pulse Resp B/P (MAP) Pulse Ox O2 Delivery O2 Flow Rate FiO2 10/26/19 08:12 57 162/84 10/26/19 08:10 Room Air 10/26/19 07:11 97.4 20 95 97.4 Physical Exam Physical Exam GEN: No apparent distress. Alert and oriented HEENT: Normal cephalic, atraumatic, external auditory canals are patent NECK: Supple, no JVD, no thyromegaly was noted LUNGS: Bilateral crackles HEART: RRR, S1, S2 present. Peripheral pulses intact, no obvious murmurs noted ABDOMEN: Soft, nontender. Positive bowel sounds, no organomegaly, normal bowel sounds EXTREMITIES: Without clubbing, cyanosis, or edema. Pedal pulses intact. Negative Homans sign NEURO: Strength was 5/5 in upper and lower extremities bilaterally. On sensory examination,she was intact to light touch in the upper and lower extremities with hypoactive reflexes. There was full range of motion of the lower extremities bilaterally. BACK: Point tenderness in the thoracic region General: Alert, Oriented X3, Cooperative, No acute distress Heart: Regular rate, Normal S1 Lungs: Clear Abdomen: Normal bowel sounds, Soft Extremities: No clubbing, No cyanosis, No edema Skin: Other (dressing C,D,I, flat) Labs LABS Laboratory Tests Test 10/26/19 06:20 White Blood Count 11.1 x10^3/uL (4.0-11.0) Red Blood Count 3.70 x10^6/uL (3.50-5.40) Hemoglobin 10.3 g/dL (12.0-15.5) Hematocrit 30.7 % (36.0-47.0) Mean Corpuscular Volume 83 fL (79-100) Mean Corpuscular Hemoglobin 28 pg (25-35) Mean Corpuscular Hemoglobin Concent 33 g/dL (31-37) Red Cell Distribution Width 16.5 % (11.5-14.5) Platelet Count 199 x10^3/uL (140-400) Neutrophils (%) (Auto) 85 % (31-73) Lymphocytes (%) (Auto) 7 % (24-48) Monocytes (%) (Auto) 8 % (0-9) Eosinophils (%) (Auto) 0 % (0-3) Basophils (%) (Auto) 0 % (0-3) Neutrophils # (Auto) 9.5 x10^3/uL (1.8-7.7) Lymphocytes # (Auto) 0.8 x10^3/uL (1.0-4.8) Monocytes # (Auto) 0.8 x10^3/uL (0.0-1.1) Eosinophils # (Auto) 0.0 x10^3/uL (0.0-0.7) Basophils # (Auto) 0.0 x10^3/uL (0.0-0.2) Sodium Level 137 mmol/L (136-145) Potassium Level 4.4 mmol/L (3.5-5.1) Chloride Level 105 mmol/L (98-107) Carbon Dioxide Level 29 mmol/L (21-32) Anion Gap 3 (6-14) Blood Urea Nitrogen 19 mg/dL (7-20) Creatinine 0.7 mg/dL (0.6-1.0) Estimated GFR (Cockcroft-Gault) 81.6 Glucose Level 111 mg/dL (70-99) Calcium Level 8.8 mg/dL (8.5-10.1) Assessment and Plan Assessmemt and Plan Problems Medical Problems: (1) Spinal cord compression Status: Acute Comment Review of Relevant I have reviewed the following items dana (where applicable) has been applied. Labs Laboratory Tests Test 10/26/19 06:20 White Blood Count 11.1 x10^3/uL (4.0-11.0) Red Blood Count 3.70 x10^6/uL (3.50-5.40) Hemoglobin 10.3 g/dL (12.0-15.5) Hematocrit 30.7 % (36.0-47.0) Mean Corpuscular Volume 83 fL (79-100) Mean Corpuscular Hemoglobin 28 pg (25-35) Mean Corpuscular Hemoglobin Concent 33 g/dL (31-37) Red Cell Distribution Width 16.5 % (11.5-14.5) Platelet Count 199 x10^3/uL (140-400) Neutrophils (%) (Auto) 85 % (31-73) Lymphocytes (%) (Auto) 7 % (24-48) Monocytes (%) (Auto) 8 % (0-9) Eosinophils (%) (Auto) 0 % (0-3) Basophils (%) (Auto) 0 % (0-3) Neutrophils # (Auto) 9.5 x10^3/uL (1.8-7.7) Lymphocytes # (Auto) 0.8 x10^3/uL (1.0-4.8) Monocytes # (Auto) 0.8 x10^3/uL (0.0-1.1) Eosinophils # (Auto) 0.0 x10^3/uL (0.0-0.7) Basophils # (Auto) 0.0 x10^3/uL (0.0-0.2) Sodium Level 137 mmol/L (136-145) Potassium Level 4.4 mmol/L (3.5-5.1) Chloride Level 105 mmol/L (98-107) Carbon Dioxide Level 29 mmol/L (21-32) Anion Gap 3 (6-14) Blood Urea Nitrogen 19 mg/dL (7-20) Creatinine 0.7 mg/dL (0.6-1.0) Estimated GFR (Cockcroft-Gault) 81.6 Glucose Level 111 mg/dL (70-99) Calcium Level 8.8 mg/dL (8.5-10.1) Laboratory Tests Test 10/26/19 06:20 White Blood Count 11.1 x10^3/uL (4.0-11.0) Red Blood Count 3.70 x10^6/uL (3.50-5.40) Hemoglobin 10.3 g/dL (12.0-15.5) Hematocrit 30.7 % (36.0-47.0) Mean Corpuscular Volume 83 fL (79-100) Mean Corpuscular Hemoglobin 28 pg (25-35) Mean Corpuscular Hemoglobin Concent 33 g/dL (31-37) Red Cell Distribution Width 16.5 % (11.5-14.5) Platelet Count 199 x10^3/uL (140-400) Neutrophils (%) (Auto) 85 % (31-73) Lymphocytes (%) (Auto) 7 % (24-48) Monocytes (%) (Auto) 8 % (0-9) Eosinophils (%) (Auto) 0 % (0-3) Basophils (%) (Auto) 0 % (0-3) Neutrophils # (Auto) 9.5 x10^3/uL (1.8-7.7) Lymphocytes # (Auto) 0.8 x10^3/uL (1.0-4.8) Monocytes # (Auto) 0.8 x10^3/uL (0.0-1.1) Eosinophils # (Auto) 0.0 x10^3/uL (0.0-0.7) Basophils # (Auto) 0.0 x10^3/uL (0.0-0.2) Sodium Level 137 mmol/L (136-145) Potassium Level 4.4 mmol/L (3.5-5.1) Chloride Level 105 mmol/L (98-107) Carbon Dioxide Level 29 mmol/L (21-32) Anion Gap 3 (6-14) Blood Urea Nitrogen 19 mg/dL (7-20) Creatinine 0.7 mg/dL (0.6-1.0) Estimated GFR (Cockcroft-Gault) 81.6 Glucose Level 111 mg/dL (70-99) Calcium Level 8.8 mg/dL (8.5-10.1) Medications Current Medications Ondansetron HCl (Zofran) 4 mg PRN Q8HRS PRN IV NAUSEA/VOMITING; Start 10/19/19 at 18:30; Stop 10/20/19 at 18:29; Status DC Morphine Sulfate (Morphine Sulfate) 2 mg PRN Q2HR PRN IV PAIN Last administered on 10/20/19at 08:52; Start 10/19/19 at 18:30; Stop 10/20/19 at 18:29; Status DC Ondansetron HCl (Zofran) 4 mg PRN Q6HRS PRN IV NAUSEA/VOMITING; Start 10/20/19 at 09:15; Stop 10/20/19 at 20:00; Status DC Fentanyl Citrate (Fentanyl 2ml Vial) 25 mcg PRN Q5MIN PRN IV MILD PAIN 1-3; Start 10/20/19 at 09:15; Stop 10/20/19 at 20:00; Status DC Fentanyl Citrate (Fentanyl 2ml Vial) 50 mcg PRN Q5MIN PRN IV MODERATE TO SEVERE PAIN; Start 10/20/19 at 09:15; Stop 10/20/19 at 20:00; Status DC Morphine Sulfate (Morphine Sulfate) 1 mg PRN Q10MIN PRN IV SEVERE PAIN 7-10; Start 10/20/19 at 09:15; Stop 10/20/19 at 20:00; Status DC Ringer's Solution 1,000 ml @ 30 mls/hr Q24H IV ; Start 10/20/19 at 09:14; Stop 10/20/19 at 20:03; Status DC Lidocaine HCl (Xylocaine-Mpf 1% 2ml Vial) 2 ml PRN 1X PRN ID PRIOR TO IV START; Start 10/20/19 at 09:15; Stop 10/20/19 at 20:00; Status DC Hydromorphone HCl (Dilaudid) 0.5 mg PRN Q10MIN PRN IV SEV PAIN, Second choice; Start 10/20/19 at 09:15; Stop 10/20/19 at 20:00; Status DC Prochlorperazine Edisylate (Compazine) 5 mg PACU PRN PRN IV NAUSEA, MRX1; Start 10/20/19 at 09:15; Stop 10/20/19 at 09:26; Status DC Zoledronic Acid 100 ml @ 400 mls/hr 1X ONCE IV ; Start 10/20/19 at 09:30; Stop 10/20/19 at 09:44; Status UNV Dexamethasone Sodium Phosphate (Decadron) 4 mg Q6HRS IVP Last administered on 10/26/19at 06:36; Start 10/20/19 at 10:00 Amylase/Lipase/ Protease (Zenpep 10,000) 2 cap TIDWMEALS PO Last administered on 10/26/19at 08:13; Start 10/20/19 at 12:00 Calcium/Vitamin D (Oscal D 500mg/ 200uts) 1 tab BIDWMEALS PO Last administered on 10/26/19at 08:12; Start 10/20/19 at 17:00 Citalopram Hydrobromide (CeleXA) 40 mg DAILY PO Last administered on 10/26/19at 08:12; Start 10/20/19 at 11:00 Non-Formulary Medication (Mesalamine (Lialda)) 4.8 gm DAILY PO ; Start 10/21/19 at 09:00; Status UNV Multivitamins (Thera M Plus) 1 tab DAILY PO ; Start 10/20/19 at 11:00; Stop 10/22/19 at 08:42; Status DC Pantoprazole Sodium (Protonix) 40 mg DAILYAC PO Last administered on 10/26/19at 08:12; Start 10/20/19 at 11:30 Iohexol (Omnipaque 240 Mg/ml) 30 ml 1X ONCE PO Last administered on 10/20/19at 10:30; Start 10/20/19 at 10:30; Stop 10/20/19 at 10:37; Status DC Iohexol (Omnipaque 300 Mg/ml) 60 ml 1X ONCE IV Last administered on 10/20/19at 10:30; Start 10/20/19 at 10:30; Stop 10/20/19 at 10:37; Status DC Info (CONTRAST GIVEN -- Rx MONITORING) 1 each PRN DAILY PRN MC SEE COMMENTS; Start 10/20/19 at 10:30; Stop 10/22/19 at 10:29; Status DC Ondansetron HCl (Zofran) 4 mg PRN Q6HRS PRN IV NAUSEA/VOMITING; Start 10/23/19 at 07:00; Stop 10/23/19 at 18:00; Status DC Fentanyl Citrate (Fentanyl 2ml Vial) 25 mcg PRN Q5MIN PRN IV MILD PAIN 1-3; Start 10/23/19 at 07:00; Stop 10/23/19 at 18:00; Status DC Fentanyl Citrate (Fentanyl 2ml Vial) 50 mcg PRN Q5MIN PRN IV MODERATE TO SEVERE PAIN; Start 10/23/19 at 07:00; Stop 10/23/19 at 18:00; Status DC Morphine Sulfate (Morphine Sulfate) 1 mg PRN Q10MIN PRN IV SEVERE PAIN 7-10; Start 10/23/19 at 07:00; Stop 10/23/19 at 18:00; Status DC Ringer's Solution 1,000 ml @ 30 mls/hr Q24H IV ; Start 10/23/19 at 07:00; Stop 10/23/19 at 18:00; Status DC Lidocaine HCl (Xylocaine-Mpf 1% 2ml Vial) 2 ml PRN 1X PRN ID PRIOR TO IV START; Start 10/23/19 at 07:00; Stop 10/23/19 at 18:00; Status DC Hydromorphone HCl (Dilaudid) 0.5 mg PRN Q10MIN PRN IV SEV PAIN, Second choice; Start 10/23/19 at 07:00; Stop 10/23/19 at 18:00; Status DC Prochlorperazine Edisylate (Compazine) 5 mg PACU PRN PRN IV NAUSEA, MRX1; St art 10/23/19 at 07:00; Stop 10/23/19 at 18:00; Status DC Losartan Potassium (Cozaar) 25 mg DAILY PO Last administered on 10/26/19at 08:12; Start 10/20/19 at 12:30 Enoxaparin Sodium (Lovenox 40mg Syringe) 40 mg Q24H SQ Last administered on 10/22/19at 20:50; Start 10/20/19 at 21:00; Stop 10/23/19 at 09:51; Status DC Morphine Sulfate (Morphine Sulfate) 2 mg PRN Q2HR PRN IV PAIN Last administered on 10/23/19at 20:48; Start 10/20/19 at 20:00 Bacitracin 18687 unit/Sodium Chloride 1,000 ml @ 1,000 mls/hr 1X ONCE IRR ; Start 10/23/19 at 08:00; Stop 10/23/19 at 08:59; Status Cancel Propofol (Diprivan) 200 mg STK-MED ONCE IV ; Start 10/23/19 at 08:55; Stop 10/23/19 at 08:55; Status DC Lidocaine HCl (Lidocaine Pf 2% Vial) 5 ml STK-MED ONCE .ROUTE ; Start 10/23/19 at 08:55; Stop 10/23/19 at 08:55; Status DC Rocuronium [place] (Zemuron) 50 mg STK-MED ONCE .ROUTE ; Start 10/23/19 at 08:55; Stop 10/23/19 at 08:56; Status DC Ondansetron HCl (Zofran) 4 mg PRN Q6HRS PRN IV NAUSEA/VOMITING; Start 10/24/19 at 07:00; Stop 10/24/19 at 20:03; Status DC Fentanyl Citrate (Fentanyl 2ml Vial) 25 mcg PRN Q5MIN PRN IV MILD PAIN 1-3 Last administered on 10/24/19at 19:46; Start 10/24/19 at 07:00; Stop 10/24/19 at 20:03; Status DC Fentanyl Citrate (Fentanyl 2ml Vial) 50 mcg PRN Q5MIN PRN IV MODERATE TO SEVERE PAIN; Start 10/24/19 at 07:00; Stop 10/24/19 at 20:03; Status DC Morphine Sulfate (Morphine Sulfate) 1 mg PRN Q10MIN PRN IV SEVERE PAIN 7-10 Last administered on 10/24/19at 19:05; Start 10/24/19 at 07:00; Stop 10/24/19 at 20:03; Status DC Ringer's Solution 1,000 ml @ 30 mls/hr Q24H IV Last administered on 10/24/19at 12:25; Start 10/24/19 at 07:00; Stop 10/24/19 at 18:59; Status DC Lidocaine HCl (Xylocaine-Mpf 1% 2ml Vial) 2 ml PRN 1X PRN ID PRIOR TO IV START; Start 10/24/19 at 07:00; Stop 10/24/19 at 20:03; Status DC Hydromorphone HCl (Dilaudid) 0.5 mg PRN Q10MIN PRN IV SEV PAIN, Second choice; Start 10/24/19 at 07:00; Stop 10/24/19 at 20:03; Status DC Prochlorperazine Edisylate (Compazine) 5 mg PACU PRN PRN IV NAUSEA, MRX1; Start 10/24/19 at 07:00; Stop 10/24/19 at 20:03; Status DC Bacitracin 61216 unit/Sodium Chloride 1,000 ml @ 1,000 mls/hr 1X ONCE IRR Last administered on 10/24/19at 14:06; Start 10/24/19 at 06:00; Stop 10/24/19 at 06:59; Status DC Cefazolin Sodium/ Dextrose 50 ml @ 100 mls/hr 1X PREOP PRN IV PRIOR TO PROCEDURE Last administered on 10/24/19at 17:25; Start 10/24/19 at 07:00; Stop 10/25/19 at 07:00; Status DC Bupivacaine HCl/ Epinephrine Bitart (Sensorcain-Epi 0.5%-1:[id number] Mpf) 30 ml STK-MED ONCE .ROUTE Last administered on 10/24/19at 14:06; Start 10/24/19 at 11:16; Stop 10/24/19 at 11:16; Status DC Gelatin (Gelfoam Size 100) 1 each STK-MED ONCE .ROUTE Last administered on 10/24/19at 14:06; Start 10/24/19 at 11:16; Stop 10/24/19 at 11:16; Status DC Ketorolac Tromethamine (Toradol Im) 60 mg STK-MED ONCE .ROUTE Last administered on 10/24/19at 14:06; Start 10/24/19 at 11:16; Stop 10/24/19 at 11:16; Status DC Thrombin 20,000 unit STK-MED ONCE TP Last administered on 10/24/19at 14:06; Start 10/24/19 at 11:16; Stop 10/24/19 at 11:17; Status DC Propofol (Diprivan) 200 mg STK-MED ONCE IV ; Start 10/24/19 at 11:22; Stop 10/24/19 at 11:22; Status DC Lidocaine HCl (Lidocaine Pf 2% Vial) 5 ml STK-MED ONCE .ROUTE ; Start 10/24/19 at 11:22; Stop 10/24/19 at 11:22; Status DC Dexamethasone Sodium Phosphate (Decadron) 20 mg STK-MED ONCE .ROUTE ; Start 10/24/19 at 11:22; Stop 10/24/19 at 11:23; Status DC Ondansetron HCl (Zofran) 4 mg STK-MED ONCE .ROUTE ; Start 10/24/19 at 11:22; Stop 10/24/19 at 11:23; Status DC Ephedrine Sulfate (ePHEDrine PF IN SALINE SYRINGE) 50 mg STK-MED ONCE IV ; Start 10/24/19 at 11:22; Stop 10/24/19 at 11:23; Status DC Phenylephrine HCl (PHENYLEPHRINE in 0.9% NACL PF) 1 mg STK-MED ONCE IV ; Start 10/24/19 at 11:22; Stop 10/24/19 at 11:23; Status DC Glycopyrrolate (Robinul) 1 mg STK-MED ONCE .ROUTE ; Start 10/24/19 at 11:22; Stop 10/24/19 at 11:23; Status DC Fentanyl Citrate (Fentanyl 2ml Vial) 100 mcg STK-MED ONCE .ROUTE ; Start 10/24/19 at 11:23; Stop 10/24/19 at 11:24; Status DC Propofol 50 ml @ As Directed STK-MED ONCE IV ; Start 10/24/19 at 11:24; Stop 10/24/19 at 11:24; Status DC Remifentanil HCl (Ultiva) 2 mg STK-MED ONCE IV ; Start 10/24/19 at 11:24; Stop 10/24/19 at 11:24; Status DC Succinylcholine Chloride (Anectine) 200 mg STK-MED ONCE .ROUTE ; Start 10/24/19 at 12:54; Stop 8/4/20 at 12:55; Status DC Desflurane (Suprane) 90 ml STK-MED ONCE IH ; Start 10/24/19 at 13:37; Stop 10/24/19 at 13:38; Status DC Hydralazine HCl (Apresoline Inj) 20 mg STK-MED ONCE .ROUTE ; Start 10/24/19 at 13:40; Stop 10/24/19 at 13:40; Status DC Remifentanil HCl (Ultiva) 1 mg STK-MED ONCE IV ; Start 10/24/19 at 17:22; Stop 10/24/19 at 17:23; Status DC Neostigmine [place] (Neostigmine Methylsulfate) 5 mg STK-MED ONCE .ROUTE ; Start 10/24/19 at 17:31; Stop 10/24/19 at 17:31; Status DC Gelatin (Gelfoam Size 100) 1 each STK-MED ONCE .ROUTE Last administered on 10/24/19at 17:35; Start 10/24/19 at 17:34; Stop 10/24/19 at 17:34; Status DC Thrombin 20,000 unit STK-MED ONCE TP Last administered on 10/24/19at 17:50; Start 10/24/19 at 17:49; Stop 10/24/19 at 17:50; Status DC Fentanyl Citrate (Fentanyl 2ml Vial) 100 mcg STK-MED ONCE .ROUTE ; Start 10/24/19 at 18:27; Stop 10/24/19 at 18:27; Status DC Fentanyl Citrate (Fentanyl 2ml Vial) 100 mcg STK-MED ONCE .ROUTE ; Start 10/24/19 at 19:18; Stop 10/24/19 at 19:19; Status DC Dextrose/Sodium Chloride 1,000 ml @ 125 mls/hr Q8H IV Last administered on 10/24/19at 21:00; Start 10/24/19 at 21:00; Stop 10/25/19 at 17:01; Status DC Acetaminophen/ Hydrocodone Bitart (Lortab 7.5/325) 1 tab PRN Q6HRS PRN PO MODERATE PAIN 4-6 Last administered on 10/25/19at 16:17; Start 10/24/19 at 21:15 Acetaminophen/ Hydrocodone Bitart (Lortab 7.5/325) 2 tab PRN Q6HRS PRN PO SEVERE PAIN 7-10; Start 10/24/19 at 21:15 Neomycin/ Polymyxin/ Bacitracin (Triple Antibiotic Ointment) 1 pkt BID TP Last administered on 10/26/19at 08:13; Start 10/24/19 at 22:00 Cefazolin Sodium (Ancef) 1 gm 1X ONCE IVP Last administered on 10/25/19at 09:08; Start 10/25/19 at 08:00; Stop 10/25/19 at 08:01; Status DC Active Scripts Active Lialda (Mesalamine) 1.2 Gm Tablet. 4.8 Gm PO DAILY 14 Days Zenpep 10,000 Units Capsule (Lipase/Protease/Amylase) 1 Each Capsule. 2 Cap PO TIDWMEALS 14 Days Lomotil Tablet (Diphenoxylate Hcl/Atropine) 1 Each Tablet 1 Tab PO QID MDD 8 tablets Zofran Odt (Ondansetron) 4 Mg Tab.rapdis 1 Tab SL Q8HRS Reported Losartan Potassium 50 Mg Tablet 25 Mg PO DAILY Omeprazole 20 Mg Tablet. 20 Mg PO DAILY Lexapro (Escitalopram Oxalate) 20 Mg Tablet 20 Mg PO BID Multivitamins (Multivitamin) 1 Each Tablet 1 Each PO DAILY Vitamin D3 (Cholecalciferol (Vitamin D3)) 400 Unit Tablet 2,000 Unit PO DAILY Lansoprazole 30 Mg Capsule. 30 Mg PO DAILY Calcium + Vitamin D Tablet (Calcium Carbonate/Vitamin D3) 1 Each Tablet 1 Each PO PRN BID PRN Toviaz (Fesoterodine Fumarate) 8 Mg Tab.er.24h 8 Mg PO DAILY Vitals/I & O Vital Sign - Last 24 Hours 10/25/19 10/25/19 10/25/19 10/25/19 11:15 15:42 16:17 17:46 Temp 98.7 97.8 98.7 97.8 Pulse 61 68 Resp 18 18 B/P (MAP) 105/53 (70) 140/72 (94) Pulse Ox 95 96 97 O2 Delivery Nasal Cannula Room Air Room Air Room Air 10/25/19 10/25/19 10/25/19 10/26/19 18:35 20:00 23:00 07:11 Temp 98.2 97.4 98.2 97.4 Pulse 64 57 Resp 20 18 20 B/P (MAP) 138/59 (85) 162/84 (110) Pulse Ox 96 95 O2 Delivery Room Air Room Air Room Air Room Air 10/26/19 10/26/19 08:10 08:12 Pulse 57 B/P (MAP) 162/84 O2 Delivery Room Air Intake and Output 10/25/19 10/25/19 10/26/19 15:00 23:00 07:00 Intake Total 480 ml 120 ml Output Total 652 ml 250 ml Balance -172 ml -130 ml Nutrition Consultation Dietary Evaluation: Recommendations by RD: Dietary education by RD, Increase Calorie Intake, Protein supplementation Comments: REC continue w/regular diet as ordered, honor food preferences, provide snacks as requested REC Ensure (chocolate) w/lunch trays Expected Outcomes/Goals: PO intake to meet >75% est needs- goal ongoing Malnutrition Findings: Food and Nutrition Intake (Mod: <75% est energy req 7days Weight Status: Overweight Justicifation of Admission Dx: Justifications for Admission: Justification of Admission Dx: N/A MOMO ROJAS MD Oct 26, 2019 10:42
[2019-10-26 11:19] VITALS: BP 122/68
[2019-10-26] MEDS: HYDROcodone/APAP 7.5/325MG 1 TAB TABLET PO PRN (16:59)
[2019-10-26 19:45] VITALS: BP 106/57
[2019-10-27] MEDS: DEXAMETHASONE SOD PHOS 4 MG/ML VIAL IVP SCH ×2 (00:34→06:11)
[2019-10-27] MEDS: PANTOPRAZOLE 40 MG TABLET.DR. PO SCH (06:11)
[2019-10-27 06:23] VITALS: BP 164/78
[2019-10-27 07:00] LABS: BASO % 0 % (0-3); EOS % 0 % (0-3); HEMATOCRIT 30.9 % (36.0-47.0); HEMOGLOBIN 10.5 g/dL (12.0-15.5); LYMPH # 0.9 x10^3/uL (1.0-4.8); LYMPH % 9 % (24-48); MEAN CORPUSCULAR HEMOGLOBIN 28 pg (25-35); MEAN CORPUSCULAR HGB CONC 34 g/dL (31-37); MEAN CORPUSCULAR VOLUME 83 fL (79-100); MONO # 0.9 x10^3/uL (0.0-1.1); MONO % 8 % (0-9); NEUT # 8.7 x10^3/uL (1.8-7.7); NEUT % 83 % (31-73); PLATELET COUNT 192 x10^3/uL (140-400); RED BLOOD COUNT 3.71 x10^6/uL (3.50-5.40); RED CELL DISTRIBUTION WIDTH 16.9 % (11.5-14.5); WHITE BLOOD COUNT 10.5 x10^3/uL (4.0-11.0)
[2019-10-27] MEDS: LIPASE/PROTEAS/AMYLAS 10/32/42 CAPSULE.DR. PO SCH ×2 (08:57→15:03)
[2019-10-27] MEDS: CITALOPRAM 20 MG TABLET. PO SCH (08:57)
[2019-10-27] MEDS: LOSARTAN POTASSIUM 25 MG TABLET. PO SCH (09:00)
--- NOTE | 2019-10-27 09:00 | NUR ---
up for the day. am care completed . dressing to thoraic area changed; cleansed with chlor prep then telfa island applied. tolerated well. ready to go home.
[2019-10-27] MEDS: CALCIUM CARB/VIT D3 500/200 TABLET. PO SCH (09:01)
[2019-10-27] MEDS: NEOMY/BACITR/POLYMYXIN OINT PACKET. TP SCH (09:01)
--- NOTE | 2019-10-27 09:50 | PDOC ---
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 History of Present Illness History of Present Illness 10/21. no new problems or complaints, surgery tomorrow 3pm 73-year-old female with past medical history of hypertension, breast cancer status post bilateral mastectomy and non-small cell lung cancer status post lobectomy who comes in due to frequent falls, ataxia and lower extremity weakness. Son has been noticing abnormal gait in the past few months, but after she had fallen 2 weeks ago son has noticed increased weakness and abnormalities in her walking. Her PCP had ordered MRI of the spine on October 16 that showed T4- 6 metastatic osteolytic lesions and T4 levels with severe stenosis. Patient was sent to the ED for concern of spinal cord compression. Patient denies urinary incontinence, numbness in her pelvic regions, shortness of breath, abdominal pains, diarrhea, or fevers 10/21/2019 No acute events overnight. Patient seen and examined bedside. Patient neuro exam is stable. Patient's chart, labs, images were reviewed and discussed with RN Vitals Vitals Vital Signs Date Time Temp Pulse Resp B/P (MAP) Pulse Ox O2 Delivery O2 Flow Rate FiO2 10/27/19 09:00 67 105/58 10/27/19 06:23 98.0 16 97 Room Air 98.0 Physical Exam Physical Exam GEN: No apparent distress. Alert and oriented HEENT: Normal cephalic, atraumatic, external auditory canals are patent NECK: Supple, no JVD, no thyromegaly was noted LUNGS: Bilateral crackles HEART: RRR, S1, S2 present. Peripheral pulses intact, no obvious murmurs noted ABDOMEN: Soft, nontender. Positive bowel sounds, no organomegaly, normal bowel sounds EXTREMITIES: Without clubbing, cyanosis, or edema. Pedal pulses intact. Negative Homans sign NEURO: Strength was 5/5 in upper and lower extremities bilaterally. On sensory examination,she was intact to light touch in the upper and lower extremities with hypoactive reflexes. There was full range of motion of the lower extremities bilaterally. BACK: Point tenderness in the thoracic region General: Alert, Oriented X3, Cooperative, No acute distress Heart: Regular rate, Normal S1 Lungs: Clear Abdomen: Normal bowel sounds, Soft Extremities: No clubbing, No cyanosis, No edema Skin: Other (dressing C,D,I, flat) Labs LABS Laboratory Tests Test 10/27/19 06:20 White Blood Count 10.5 x10^3/uL (4.0-11.0) Red Blood Count 3.71 x10^6/uL (3.50-5.40) Hemoglobin 10.5 g/dL (12.0-15.5) Hematocrit 30.9 % (36.0-47.0) Mean Corpuscular Volume 83 fL (79-100) Mean Corpuscular Hemoglobin 28 pg (25-35) Mean Corpuscular Hemoglobin Concent 34 g/dL (31-37) Red Cell Distribution Width 16.9 % (11.5-14.5) Platelet Count 192 x10^3/uL (140-400) Neutrophils (%) (Auto) 83 % (31-73) Lymphocytes (%) (Auto) 9 % (24-48) Monocytes (%) (Auto) 8 % (0-9) Eosinophils (%) (Auto) 0 % (0-3) Basophils (%) (Auto) 0 % (0-3) Neutrophils # (Auto) 8.7 x10^3/uL (1.8-7.7) Lymphocytes # (Auto) 0.9 x10^3/uL (1.0-4.8) Monocytes # (Auto) 0.9 x10^3/uL (0.0-1.1) Eosinophils # (Auto) 0.0 x10^3/uL (0.0-0.7) Basophils # (Auto) 0.0 x10^3/uL (0.0-0.2) Assessment and Plan Assessmemt and Plan Problems Medical Problems: (1) Spinal cord compression Status: Acute Comment Review of Relevant I have reviewed the following items dana (where applicable) has been applied. Labs Laboratory Tests Test 10/26/19 06:20 10/27/19 06:20 White Blood Count 11.1 x10^3/uL (4.0-11.0) 10.5 x10^3/uL (4.0-11.0) Red Blood Count 3.70 x10^6/uL (3.50-5.40) 3.71 x10^6/uL (3.50-5.40) Hemoglobin 10.3 g/dL (12.0-15.5) 10.5 g/dL (12.0-15.5) Hematocrit 30.7 % (36.0-47.0) 30.9 % (36.0-47.0) Mean Corpuscular Volume 83 fL (79-100) 83 fL (79-100) Mean Corpuscular Hemoglobin 28 pg (25-35) 28 pg (25-35) Mean Corpuscular Hemoglobin Concent 33 g/dL (31-37) 34 g/dL (31-37) Red Cell Distribution Width 16.5 % (11.5-14.5) 16.9 % (11.5-14.5) Platelet Count 199 x10^3/uL (140-400) 192 x10^3/uL (140-400) Neutrophils (%) (Auto) 85 % (31-73) 83 % (31-73) Lymphocytes (%) (Auto) 7 % (24-48) 9 % (24-48) Monocytes (%) (Auto) 8 % (0-9) 8 % (0-9) Eosinophils (%) (Auto) 0 % (0-3) 0 % (0-3) Basophils (%) (Auto) 0 % (0-3) 0 % (0-3) Neutrophils # (Auto) 9.5 x10^3/uL (1.8-7.7) 8.7 x10^3/uL (1.8-7.7) Lymphocytes # (Auto) 0.8 x10^3/uL (1.0-4.8) 0.9 x10^3/uL (1.0-4.8) Monocytes # (Auto) 0.8 x10^3/uL (0.0-1.1) 0.9 x10^3/uL (0.0-1.1) Eosinophils # (Auto) 0.0 x10^3/uL (0.0-0.7) 0.0 x10^3/uL (0.0-0.7) Basophils # (Auto) 0.0 x10^3/uL (0.0-0.2) 0.0 x10^3/uL (0.0-0.2) Sodium Level 137 mmol/L (136-145) Potassium Level 4.4 mmol/L (3.5-5.1) Chloride Level 105 mmol/L (98-107) Carbon Dioxide Level 29 mmol/L (21-32) Anion Gap 3 (6-14) Blood Urea Nitrogen 19 mg/dL (7-20) Creatinine 0.7 mg/dL (0.6-1.0) Estimated GFR (Cockcroft-Gault) 81.6 Glucose Level 111 mg/dL (70-99) Calcium Level 8.8 mg/dL (8.5-10.1) Laboratory Tests Test 10/27/19 06:20 White Blood Count 10.5 x10^3/uL (4.0-11.0) Red Blood Count 3.71 x10^6/uL (3.50-5.40) Hemoglobin 10.5 g/dL (12.0-15.5) Hematocrit 30.9 % (36.0-47.0) Mean Corpuscular Volume 83 fL (79-100) Mean Corpuscular Hemoglobin 28 pg (25-35) Mean Corpuscular Hemoglobin Concent 34 g/dL (31-37) Red Cell Distribution Width 16.9 % (11.5-14.5) Platelet Count 192 x10^3/uL (140-400) Neutrophils (%) (Auto) 83 % (31-73) Lymphocytes (%) (Auto) 9 % (24-48) Monocytes (%) (Auto) 8 % (0-9) Eosinophils (%) (Auto) 0 % (0-3) Basophils (%) (Auto) 0 % (0-3) Neutrophils # (Auto) 8.7 x10^3/uL (1.8-7.7) Lymphocytes # (Auto) 0.9 x10^3/uL (1.0-4.8) Monocytes # (Auto) 0.9 x10^3/uL (0.0-1.1) Eosinophils # (Auto) 0.0 x10^3/uL (0.0-0.7) Basophils # (Auto) 0.0 x10^3/uL (0.0-0.2) Medications Current Medications Ondansetron HCl (Zofran) 4 mg PRN Q8HRS PRN IV NAUSEA/VOMITING; Start 10/19/19 at 18:30; Stop 10/20/19 at 18:29; Status DC Morphine Sulfate (Morphine Sulfate) 2 mg PRN Q2HR PRN IV PAIN Last administered on 10/20/19at 08:52; Start 10/19/19 at 18:30; Stop 10/20/19 at 18:29; Status DC Ondansetron HCl (Zofran) 4 mg PRN Q6HRS PRN IV NAUSEA/VOMITING; Start 10/20/19 at 09:15; Stop 10/20/19 at 20:00; Status DC Fentanyl Citrate (Fentanyl 2ml Vial) 25 mcg PRN Q5MIN PRN IV MILD PAIN 1-3; Start 10/20/19 at 09:15; Stop 10/20/19 at 20:00; Status DC Fentanyl Citrate (Fentanyl 2ml Vial) 50 mcg PRN Q5MIN PRN IV MODERATE TO SEVERE PAIN; Start 10/20/19 at 09:15; Stop 10/20/19 at 20:00; Status DC Morphine Sulfate (Morphine Sulfate) 1 mg PRN Q10MIN PRN IV SEVERE PAIN 7-10; Start 10/20/19 at 09:15; Stop 10/20/19 at 20:00; Status DC Ringer's Solution 1,000 ml @ 30 mls/hr Q24H IV ; Start 10/20/19 at 09:14; Stop 10/20/19 at 20:03; Status DC Lidocaine HCl (Xylocaine-Mpf 1% 2ml Vial) 2 ml PRN 1X PRN ID PRIOR TO IV START; Start 10/20/19 at 09:15; Stop 10/20/19 at 20:00; Status DC Hydromorphone HCl (Dilaudid) 0.5 mg PRN Q10MIN PRN IV SEV PAIN, Second choice; Start 10/20/19 at 09:15; Stop 10/20/19 at 20:00; Status DC Prochlorperazine Edisylate (Compazine) 5 mg PACU PRN PRN IV NAUSEA, MRX1; Start 10/20/19 at 09:15; Stop 10/20/19 at 09:26; Status DC Zoledronic Acid 100 ml @ 400 mls/hr 1X ONCE IV ; Start 10/20/19 at 09:30; Stop 10/20/19 at 09:44; Status UNV Dexamethasone Sodium Phosphate (Decadron) 4 mg Q6HRS IVP Last administered on 10/26/19at 12:02; Start 10/20/19 at 10:00; Stop 10/26/19 at 15:29; Status DC Amylase/Lipase/ Protease (Zenpep 10,000) 2 cap TIDWMEALS PO Last administered on 10/27/19at 08:57; Start 10/20/19 at 12:00 Calcium/Vitamin D (Oscal D 500mg/ 200uts) 1 tab BIDWMEALS PO Last administered on 10/27/19at 09:01; Start 10/20/19 at 17:00 Citalopram Hydrobromide (CeleXA) 40 mg DAILY PO Last administered on 10/27/19at 08:57; Start 10/20/19 at 11:00 Non-Formulary Medication (Mesalamine (Lialda)) 4.8 gm DAILY PO ; Start 10/21/19 at 09:00; Status UNV Multivitamins (Thera M Plus) 1 tab DAILY PO ; Start 10/20/19 at 11:00; Stop 10/22/19 at 08:42; Status DC Pantoprazole Sodium (Protonix) 40 mg DAILYAC PO Last administered on 10/27/19at 06:11; Start 10/20/19 at 11:30 Iohexol (Omnipaque 240 Mg/ml) 30 ml 1X ONCE PO Last administered on 10/20/19at 10:30; Start 10/20/19 at 10:30; Stop 10/20/19 at 10:37; Status DC Iohexol (Omnipaque 300 Mg/ml) 60 ml 1X ONCE IV Last administered on 10/20/19at 10:30; Start 10/20/19 at 10:30; Stop 10/20/19 at 10:37; Status DC Info (CONTRAST GIVEN -- Rx MONITORING) 1 each PRN DAILY PRN MC SEE COMMENTS; Start 10/20/19 at 10:30; Stop 10/22/19 at 10:29; Status DC Ondansetron HCl (Zofran) 4 mg PRN Q6HRS PRN IV NAUSEA/VOMITING; Start 10/23/19 at 07:00; Stop 10/23/19 at 18:00; Status DC Fentanyl Citrate (Fentanyl 2ml Vial) 25 mcg PRN Q5MIN PRN IV MILD PAIN 1-3; Start 10/23/19 at 07:00; Stop 10/23/19 at 18:00; Status DC Fentanyl Citrate (Fentanyl 2ml Vial) 50 mcg PRN Q5MIN PRN IV MODERATE TO SEVERE PAIN; Start 10/23/19 at 07:00; Stop 10/23/19 at 18:00; Status DC Morphine Sulfate (Morphine Sulfate) 1 mg PRN Q10MIN PRN IV SEVERE PAIN 7-10; Start 10/23/19 at 07:00; Stop 10/23/19 at 18:00; Status DC Ringer's Solution 1,000 ml @ 30 mls/hr Q24H IV ; Start 10/23/19 at 07:00; Stop 10/23/19 at 18:00; Status DC Lidocaine HCl (Xylocaine-Mpf 1% 2ml Vial) 2 ml PRN 1X PRN ID PRIOR TO IV START; Start 10/23/19 at 07:00; Stop 10/23/19 at 18:00; Status DC Hydromorphone HCl (Dilaudid) 0.5 mg PRN Q10MIN PRN IV SEV PAIN, Second choice; Start 10/23/19 at 07:00; Stop 10/23/19 at 18:00; Status DC Prochlorperazine Edisylate (Compazine) 5 mg PACU PRN PRN IV NAUSEA, MRX1; Start 10/23/19 at 07:00; Stop 10/23/19 at 18:00; Status DC Losartan Potassium (Cozaar) 25 mg DAILY PO Last administered on 10/26/19at 08:12; Start 10/20/19 at 12:30 Enoxaparin Sodium (Lovenox 40mg Syringe) 40 mg Q24H SQ Last administered on 10/22/19at 20:50; Start 10/20/19 at 21:00; Stop 10/23/19 at 09:51; Status DC Morphine Sulfate (Morphine Sulfate) 2 mg PRN Q2HR PRN IV PAIN Last administered on 10/23/19at 20:48; Start 10/20/19 at 20:00 Bacitracin 55775 unit/Sodium Chloride 1,000 ml @ 1,000 mls/hr 1X ONCE IRR ; Start 10/23/19 at 08:00; Stop 10/23/19 at 08:59; Status Cancel Propofol (Diprivan) 200 mg STK-MED ONCE IV ; Start 10/23/19 at 08:55; Stop 10/23/19 at 08:55; Status DC Lidocaine HCl (Lidocaine Pf 2% Vial) 5 ml STK-MED ONCE .ROUTE ; Start 10/23/19 at 08:55; Stop 10/23/19 at 08:55; Status DC Rocuronium Milton (Zemuron) 50 mg STK-MED ONCE .ROUTE ; Start 10/23/19 at 08:55; Stop 10/23/19 at 08:56; Status DC Ondansetron HCl (Zofran) 4 mg PRN Q6HRS PRN IV NAUSEA/VOMITING; Start 10/24/19 at 07:00; Stop 10/24/19 at 20:03; Status DC Fentanyl Citrate (Fentanyl 2ml Vial) 25 mcg PRN Q5MIN PRN IV MILD PAIN 1-3 Last administered on 10/24/19at 19:46; Start 10/24/19 at 07:00; Stop 10/24/19 at 20:03; Status DC Fentanyl Citrate (Fentanyl 2ml Vial) 50 mcg PRN Q5MIN PRN IV MODERATE TO SEVERE PAIN; Start 10/24/19 at 07:00; Stop 10/24/19 at 20:03; Status DC Morphine Sulfate (Morphine Sulfate) 1 mg PRN Q10MIN PRN IV SEVERE PAIN 7-10 Last administered on 10/24/19at 19:05; Start 10/24/19 at 07:00; Stop 10/24/19 at 20:03; Status DC Ringer's Solution 1,000 ml @ 30 mls/hr Q24H IV Last administered on 10/24/19at 12:25; Start 10/24/19 at 07:00; Stop 10/24/19 at 18:59; Status DC Lidocaine HCl (Xylocaine-Mpf 1% 2ml Vial) 2 ml PRN 1X PRN ID PRIOR TO IV START; Start 10/24/19 at 07:00; Stop 10/24/19 at 20:03; Status DC Hydromorphone HCl (Dilaudid) 0.5 mg PRN Q10MIN PRN IV SEV PAIN, Second choice; Start 10/24/19 at 07:00; Stop 10/24/19 at 20:03; Status DC Prochlorperazine Edisylate (Compazine) 5 mg PACU PRN PRN IV NAUSEA, MRX1; Start 10/24/19 at 07:00; Stop 10/24/19 at 20:03; Status DC Bacitracin 21853 unit/Sodium Chloride 1,000 ml @ 1,000 mls/hr 1X ONCE IRR Last administered on 10/24/19at 14:06; Start 10/24/19 at 06:00; Stop 10/24/19 at 06 :59; Status DC Cefazolin Sodium/ Dextrose 50 ml @ 100 mls/hr 1X PREOP PRN IV PRIOR TO PROCEDURE Last administered on 10/24/19at 17:25; Start 10/24/19 at 07:00; Stop 10/25/19 at 07:00; Status DC Bupivacaine HCl/ Epinephrine Bitart (Sensorcain-Epi 0.5%-1:291804 Mpf) 30 ml STK-MED ONCE .ROUTE Last administered on 10/24/19 14:06; Start 10/24/19 at 11:16; Stop 10/24/19 at 11:16; Status DC Gelatin (Gelfoam Size 100) 1 each STK-MED ONCE .ROUTE Last administered on 10/24/19 14:06; Start 10/24/19 at 11:16; Stop 10/24/19 at 11:16; Status DC Ketorolac Tromethamine (Toradol Im) 60 mg STK-MED ONCE .ROUTE Last administered on 10/24/19 14:06; Start 10/24/19 at 11:16; Stop 10/24/19 at 11:16; Status DC Thrombin 20,000 unit STK-MED ONCE TP Last administered on 8/4/20at 14:06; Start 10/24/19 at 11:16; Stop 10/24/19 at 11:17; Status DC Propofol (Diprivan) 200 mg STK-MED ONCE IV ; Start 10/24/19 at 11:22; Stop 10/24/19 at 11:22; Status DC Lidocaine HCl (Lidocaine Pf 2% Vial) 5 ml STK-MED ONCE .ROUTE ; Start 10/24/19 at 11:22; Stop 10/24/19 at 11:22; Status DC Dexamethasone Sodium Phosphate (Decadron) 20 mg STK-MED ONCE .ROUTE ; Start 10/24/19 at 11:22; Stop 10/24/19 at 11:23; Status DC Ondansetron HCl (Zofran) 4 mg STK-MED ONCE .ROUTE ; Start 10/24/19 at 11:22; Stop 10/24/19 at 11:23; Status DC Ephedrine Sulfate (ePHEDrine PF IN SALINE SYRINGE) 50 mg STK-MED ONCE IV ; Start 10/24/19 at 11:22; Stop 10/24/19 at 11:23; Status DC Phenylephrine HCl (PHENYLEPHRINE in 0.9% NACL PF) 1 mg STK-MED ONCE IV ; Start 10/24/19 at 11:22; Stop 10/24/19 at 11:23; Status DC Glycopyrrolate (Robinul) 1 mg STK-MED ONCE .ROUTE ; Start 10/24/19 at 11:22; Stop 10/24/19 at 11:23; Status DC Fentanyl Citrate (Fentanyl 2ml Vial) 100 mcg STK-MED ONCE .ROUTE ; Start 10/24/19 at 11:23; Stop 10/24/19 at 11:24; Status DC Propofol 50 ml @ As Directed STK-MED ONCE IV ; Start 10/24/19 at 11:24; Stop 10/24/19 at 11:24; Status DC Remifentanil HCl (Ultiva) 2 mg STK-MED ONCE IV ; Start 10/24/19 at 11:24; Stop 10/24/19 at 11:24; Status DC Succinylcholine Chloride (Anectine) 200 mg STK-MED ONCE .ROUTE ; Start 10/24/19 at 12:54; Stop 10/24/19 at 12:55; Status DC Desflurane (Suprane) 90 ml STK-MED ONCE IH ; Start 10/24/19 at 13:37; Stop 10/24/19 at 13:38; Status DC Hydralazine HCl (Apresoline Inj) 20 mg STK-MED ONCE .ROUTE ; Start 10/24/19 at 13:40; Stop 10/24/19 at 13:40; Status DC Remifentanil HCl (Ultiva) 1 mg STK-MED ONCE IV ; Start 10/24/19 at 17:22; Stop 10/24/19 at 17:23; Status DC Neostigmine Milton (Neostigmine Methylsulfate) 5 mg STK-MED ONCE .ROUTE ; Start 10/24/19 at 17:31; Stop 10/24/19 at 17:31; Status DC Gelatin (Gelfoam Size 100) 1 each STK-MED ONCE .ROUTE Last administered on 10/24/19at 17:35; Start 10/24/19 at 17:34; Stop 10/24/19 at 17:34; Status DC Thrombin 20,000 unit STK-MED ONCE TP Last administered on 10/24/19at 17:50; S tart 10/24/19 at 17:49; Stop 10/24/19 at 17:50; Status DC Fentanyl Citrate (Fentanyl 2ml Vial) 100 mcg STK-MED ONCE .ROUTE ; Start 10/24/19 at 18:27; Stop 10/24/19 at 18:27; Status DC Fentanyl Citrate (Fentanyl 2ml Vial) 100 mcg STK-MED ONCE .ROUTE ; Start 10/24/19 at 19:18; Stop 10/24/19 at 19:19; Status DC Dextrose/Sodium Chloride 1,000 ml @ 125 mls/hr Q8H IV Last administered on at 21:00; Start 10/24/19 at 21:00; Stop 10/25/19 at 17:01; Status DC Acetaminophen/ Hydrocodone Bitart (Lortab 7.5/325) 1 tab PRN Q6HRS PRN PO MODERATE PAIN 4-6 Last administered on 10/26/19at 16:59; Start 10/24/19 at 21:15 Acetaminophen/ Hydrocodone Bitart (Lortab 7.5/325) 2 tab PRN Q6HRS PRN PO SEVERE PAIN 7-10; Start 10/24/19 at 21:15 Neomycin/ Polymyxin/ Bacitracin (Triple Antibiotic Ointment) 1 pkt BID TP Last administered on 10/27/19at 09:01; Start 10/24/19 at 22:00 Cefazolin Sodium (Ancef) 1 gm 1X ONCE IVP Last administered on 10/25/19at 09:08; Start 10/25/19 at 08:00; Stop 10/25/19 at 08:01; Status DC Dexamethasone Sodium Phosphate (Decadron) 2 mg Q6HRS IVP Last administered on 10/27/19at 06:11; Start 10/26/19 at 18:00 Active Scripts Active Lialda (Mesalamine) 1.2 Gm Tablet. 4.8 Gm PO DAILY [address] 10,000 Units Capsule (Lipase/Protease/Amylase) 1 Each Capsule. 2 Cap PO TIDWMEALS 14 Days Lomotil Tablet (Diphenoxylate Hcl/Atropine) 1 Each Tablet 1 Tab PO QID MDD 8 tablets Zofran Odt (Ondansetron) 4 Mg Tab.rapdis 1 Tab SL Q8HRS Reported Losartan Potassium 50 Mg Tablet 25 Mg PO DAILY Omeprazole 20 Mg Tablet. 20 Mg PO DAILY Lexapro (Escitalopram Oxalate) 20 Mg Tablet 20 Mg PO BID Multivitamins (Multivitamin) 1 Each Tablet 1 Each PO DAILY Vitamin D3 (Cholecalciferol (Vitamin D3)) 400 Unit Tablet 2,000 Unit PO DAILY Lansoprazole 30 Mg Capsule. 30 Mg PO DAILY Calcium + Vitamin D Tablet (Calcium Carbonate/Vitamin D3) 1 Each Tablet 1 Each PO PRN BID PRN Toviaz (Fesoterodine Fumarate) 8 Mg Tab.er.24h 8 Mg PO DAILY Vitals/I & O Vital Sign - Last 24 Hours 10/26/19 10/26/19 10/26/19 10/26/19 11:19 16:59 17:48 19:45 Temp 98.0 97.6 98.0 97.6 Pulse 67 68 Resp 18 18 B/P (MAP) 122/68 (86) 106/57 (73) Pulse Ox 96 96 96 93 O2 Delivery Room Air Room Air Room Air Room Air 10/26/19 10/27/19 10/27/19 19:50 06:23 09:00 Temp 98.0 98.0 Pulse 50 67 Resp 16 B/P (MAP) 164/78 (106) 105/58 Pulse Ox 97 O2 Delivery Room Air Room Air Intake and Output 10/26/19 10/26/19 10/27/19 15:00 23:00 07:00 Output Total 250 ml Balance -250 ml Nutrition Consultation Dietary Evaluation: Recommendations by RD: Dietary education by RD, Increase Calorie Intake, Protei n supplementation Comments: REC continue w/regular diet as ordered, honor food preferences, provide snacks as requested REC Ensure (chocolate) w/lunch trays Expected Outcomes/Goals: PO intake to meet >75% est needs- goal ongoing Malnutrition Findings: Food and Nutrition Intake (Mod: <75% est energy req 7days Weight Status: Overweight Justicifation of Admission Dx: Justifications for Admission: Justification of Admission Dx: N/A MOMO ROJAS MD Oct 27, 2019 09:50
[2019-10-27 11:05] VITALS: BP 110/63
[2019-10-27] MEDS ORDERED: [UNRECOGNIZED DRUG - CODE] PO (12:44)
--- NOTE | 2019-10-27 12:45 | SNU/HH DC ---
DISCHARGE WITH HOME HEALTH DISCHARGE INFORMATION: Discharge Date: Oct 27, 2019 Final Diagnosis: Problems Medical Problems: (1) Spinal cord compression Status: Acute Condition on Discharge: Stable CODE STATUS: Code Status: Full HOME HEALTH: Face to Face: I certify this patient is under my care and that I, or a nurse practitioner or physician's admin assistant working with me, had a face to face encounter that meets the physician face to face encounter requirements with this patient on []. Mcfp For: Assess & Educate Safety RN For Eval/Treatment: Yes Physical Therapy For: Evalulation/Treatment Pt Meets Homebound Status: Unsteady balance w/ amb,, Extreme weakness w/ amb., Limited distance walking POST DISCHARGE ORDERS: Activity Instructions for Disc: Activity as tolerated, Avoid exertion Weight Bearing Status after Di: No restrictions, Full weight bearing, As tolerated Bathing Instructions: Shower-keep dressing dry, No Tub Bath until see DIET AFTER DISCHARGE: Regular Wound/Incision Care: Ice to area for comfort, Keep wound/cast CDI, Change dressing Other wound/incision instructi: CLEANSE WITH CHLOR PREP [place] NO ANTIBIOTIC CREAM/OINTMENT TO INCISI CHECKS AFTER DISCHARGE: Checks after discharge: Check blood press - daily FOLLOW-UP: Follow Up With: CALL [phone] FOR A 2 WEEK POST OP APPT WITH /[facility] TREATMENT/EQUIPMENT ORDERS: Adaptive Equipment Issued: Front wheeled walker CERTIFICATION STATEMENT: Certification Statement: Certification Statement: Based on the above finding, I certify that this patient is confined to the home and needs intermittent shelter care, physical therapy and/or speech therapy, or continues to need occupational therapy.~ This patient is under my care, and I have initiated the establishment of the plan of care.~ This patient will be followed by myself or a community physician who will periodically review the plan of care. Home Meds Active Scripts Mesalamine (LIALDA) 1.2 Gm Tablet., 4.8 GM PO DAILY for 14 Days, #56 TAB.SR Prov:SAIRA TARIQ MD 10/01/17 Lipase/Protease/Amylase (ZENPEP 10,000 UNITS CAPSULE) 1 Each Capsule., 2 CAP PO TIDWMEALS for 14 Days, #84 CAP Prov:SAIRA TARIQ MD 10/01/17 Diphenoxylate Hcl/Atropine (LOMOTIL TABLET) 1 Each Tablet, 1 TAB PO QID MDD 8 tablets, #20 TAB Prov:YVAN WORRELL AWNING ERECTOR 03/07/17 Ondansetron (ZOFRAN ODT) 4 Mg Tab.rapdis, 1 TAB SL Q8HRS, #15 TAB Prov:YVAN WORRELL AWNING ERECTOR 03/07/17 Reported Medications Losartan Potassium (LOSARTAN POTASSIUM) 50 Mg Tablet, 25 MG PO DAILY for HYPERTENSION, TAB 10/20/19 Omeprazole (OMEPRAZOLE) 20 Mg Tablet.dr, 20 MG PO DAILY, TAB 07/06/16 Escitalopram Oxalate (LEXAPRO) 20 Mg Tablet, 20 MG PO BID for ANTI-DEPRESSANT, TAB 0 Refills 07/06/16 Multivitamin (MULTIVITAMINS) 1 Each Tablet, 1 EACH PO DAILY 09/30/15 Cholecalciferol (Vitamin D3) (VITAMIN D3) 400 Unit Tablet, 2000 UNIT PO DAILY 11/09/13 Lansoprazole (LANSOPRAZOLE) 30 Mg Capsule.dr, 30 MG PO DAILY, CAP 11/09/13 Calcium Carbonate/Vitamin D3 (CALCIUM + VITAMIN D TABLET) 1 Each Tablet, 1 EACH PO PRN BID PRN for CONGESTION 05/28/13 Fesoterodine Fumarate (TOVIAZ) 8 Mg Tab.er.24h, 8 MG PO DAILY 05/28/13 OPAL RICHARDSON MD Oct 27, 2019 12:45
--- NOTE | 2019-10-27 13:11 | PDOC ---
PROGRESS NOTES Date of Service DATE: 10/27/19 TIME: 13:10 Subjective Subjective POD #3 Up in chair wants to go home Objective Objective Vital Signs Date Time Temp Pulse Resp B/P (MAP) Pulse Ox O2 Delivery O2 Flow Rate FiO2 10/27/19 11:05 97.4 70 16 110/63 (79) 97 Room Air 97.4 10/25/19 06:14 2.0 Intake and Output 10/27/19 07:00 Output Total 250 ml Balance -250 ml Output Urine Total 250 ml # Voids 1 Physical Exam General: Alert, Oriented X3, Cooperative, No acute distress Neuro: Normal speech, Other (strength 5/5 in BLE) Skin: Other (Dressing C,D,I) Assessment Assessment Problems Medical Problems: (1) Spinal cord compression Status: Acute Plan Plan of Care dc home with steroid taper and home health services f/u in 2 weeks f/u with oncology and with PCP Comment Review of Relevant I have reviewed the following items dana (where applicable) has been applied. Labs Laboratory Tests Test 10/26/19 06:20 10/27/19 06:20 White Blood Count 11.1 x10^3/uL (4.0-11.0) 10.5 x10^3/uL (4.0-11.0) Red Blood Count 3.70 x10^6/uL (3.50-5.40) 3.71 x10^6/uL (3.50-5.40) Hemoglobin 10.3 g/dL (12.0-15.5) 10.5 g/dL (12.0-15.5) Hematocrit 30.7 % (36.0-47.0) 30.9 % (36.0-47.0) Mean Corpuscular Volume 83 fL (79-100) 83 fL (79-100) Mean Corpuscular Hemoglobin 28 pg (25-35) 28 pg (25-35) Mean Corpuscular Hemoglobin Concent 33 g/dL (31-37) 34 g/dL (31-37) Red Cell Distribution Width 16.5 % (11.5-14.5) 16.9 % (11.5-14.5) Platelet Count 199 x10^3/uL (140-400) 192 x10^3/uL (140-400) Neutrophils (%) (Auto) 85 % (31-73) 83 % (31-73) Lymphocytes (%) (Auto) 7 % (24-48) 9 % (24-48) Monocytes (%) (Auto) 8 % (0-9) 8 % (0-9) Eosinophils (%) (Auto) 0 % (0-3) 0 % (0-3) Basophils (%) (Auto) 0 % (0-3) 0 % (0-3) Neutrophils # (Auto) 9.5 x10^3/uL (1.8-7.7) 8.7 x10^3/uL (1.8-7.7) Lymphocytes # (Auto) 0.8 x10^3/uL (1.0-4.8) 0.9 x10^3/uL (1.0-4.8) Monocytes # (Auto) 0.8 x10^3/uL (0.0-1.1) 0.9 x10^3/uL (0.0-1.1) Eosinophils # (Auto) 0.0 x10^3/uL (0.0-0.7) 0.0 x10^3/uL (0.0-0.7) Basophils # (Auto) 0.0 x10^3/uL (0.0-0.2) 0.0 x10^3/uL (0.0-0.2) Sodium Level 137 mmol/L (136-145) Potassium Level 4.4 mmol/L (3.5-5.1) Chloride Level 105 mmol/L (98-107) Carbon Dioxide Level 29 mmol/L (21-32) Anion Gap 3 (6-14) Blood Urea Nitrogen 19 mg/dL (7-20) Creatinine 0.7 mg/dL (0.6-1.0) Estimated GFR (Cockcroft-Gault) 81.6 Glucose Level 111 mg/dL (70-99) Calcium Level 8.8 mg/dL (8.5-10.1) Laboratory Tests Test 10/27/19 06:20 White Blood Count 10.5 x10^3/uL (4.0-11.0) Red Blood Count 3.71 x10^6/uL (3.50-5.40) Hemoglobin 10.5 g/dL (12.0-15.5) Hematocrit 30.9 % (36.0-47.0) Mean Corpuscular Volume 83 fL (79-100) Mean Corpuscular Hemoglobin 28 pg (25-35) Mean Corpuscular Hemoglobin Concent 34 g/dL (31-37) Red Cell Distribution Width 16.9 % (11.5-14.5) Platelet Count 192 x10^3/uL (140-400) Neutrophils (%) (Auto) 83 % (31-73) Lymphocytes (%) (Auto) 9 % (24-48) Monocytes (%) (Auto) 8 % (0-9) Eosinophils (%) (Auto) 0 % (0-3) Basophils (%) (Auto) 0 % (0-3) Neutrophils # (Auto) 8.7 x10^3/uL (1.8-7.7) Lymphocytes # (Auto) 0.9 x10^3/uL (1.0-4.8) Monocytes # (Auto) 0.9 x10^3/uL (0.0-1.1) Eosinophils # (Auto) 0.0 x10^3/uL (0.0-0.7) Basophils # (Auto) 0.0 x10^3/uL (0.0-0.2) Medications Current Medications Ondansetron HCl (Zofran) 4 mg PRN Q8HRS PRN IV NAUSEA/VOMITING; Start 10/19/19 at 18:30; Stop 10/20/19 at 18:29; Status DC Morphine Sulfate (Morphine Sulfate) 2 mg PRN Q2HR PRN IV PAIN Last administered on 10/20/19at 08:52; Start 10/19/19 at 18:30; Stop 10/20/19 at 18:29; Status DC Ondansetron HCl (Zofran) 4 mg PRN Q6HRS PRN IV NAUSEA/VOMITING; Start 10/20/19 at 09:15; Stop 10/20/19 at 20:00; Status DC Fentanyl Citrate (Fentanyl 2ml Vial) 25 mcg PRN Q5MIN PRN IV MILD PAIN 1-3; Start 10/20/19 at 09:15; Stop 10/20/19 at 20:00; Status DC Fentanyl Citrate (Fentanyl 2ml Vial) 50 mcg PRN Q5MIN PRN IV MODERATE TO SEVERE PAIN; Start 10/20/19 at 09:15; Stop 10/20/19 at 20:00; Status DC Morphine Sulfate (Morphine Sulfate) 1 mg PRN Q10MIN PRN IV SEVERE PAIN 7-10; Start 10/20/19 at 09:15; Stop 10/20/19 at 20:00; Status DC Ringer's Solution 1,000 ml @ 30 mls/hr Q24H IV ; Start 10/20/19 at 09:14; Stop 10/20/19 at 20:03; Status DC Lidocaine HCl (Xylocaine-Mpf 1% 2ml Vial) 2 ml PRN 1X PRN ID PRIOR TO IV START; Start 10/20/19 at 09:15; Stop 10/20/19 at 20:00; Status DC Hydromorphone HCl (Dilaudid) 0.5 mg PRN Q10MIN PRN IV SEV PAIN, Second choice; Start 10/20/19 at 09:15; Stop 10/20/19 at 20:00; Status DC Prochlorperazine Edisylate (Compazine) 5 mg PACU PRN PRN IV NAUSEA, MRX1; Start 10/20/19 at 09:15; Stop 10/20/19 at 09:26; Status DC Zoledronic Acid 100 ml @ 400 mls/hr 1X ONCE IV ; Start 10/20/19 at 09:30; Stop 10/20/19 at 09:44; Status UNV Dexamethasone Sodium Phosphate (Decadron) 4 mg Q6HRS IVP Last administered on 10/26/19at 12:02; Start 10/20/19 at 10:00; Stop 10/26/19 at 15:29; Status DC Amylase/Lipase/ Protease (Zenpep 10,000) 2 cap TIDWMEALS PO Last administered on 10/27/19at 08:57; Start 10/20/19 at 12:00 Calcium/Vitamin D (Oscal D 500mg/ 200uts) 1 tab BIDWMEALS PO Last administered on 10/27/19at 09:01; Start 10/20/19 at 17:00 Citalopram Hydrobromide (CeleXA) 40 mg DAILY PO Last administered on 10/27/19at 08:57; Start 10/20/19 at 11:00 Non-Formulary Medication (Mesalamine (Lialda)) 4.8 gm DAILY PO ; Start 10/21/19 at 09:00; Status UNV Multivitamins (Thera M Plus) 1 tab DAILY PO ; Start 10/20/19 at 11:00; Stop 10/22/19 at 08:42; Status DC Pantoprazole Sodium (Protonix) 40 mg DAILYAC PO Last administered on 10/27/19at 06:11; Start 10/20/19 at 11:30 Iohexol (Omnipaque 240 Mg/ml) 30 ml 1X ONCE PO Last administered on 10/20/19at 10:30; Start 10/20/19 at 10:30; Stop 10/20/19 at 10:37; Status DC Iohexol (Omnipaque 300 Mg/ml) 60 ml 1X ONCE IV Last administered on 10/20/19at 10:30; Start 10/20/19 at 10:30; Stop 10/20/19 at 10:37; Status DC Info (CONTRAST GIVEN -- Rx MONITORING) 1 each PRN DAILY PRN MC SEE COMMENTS; Start 10/20/19 at 10:30; Stop 10/22/19 at 10:29; Status DC Ondansetron HCl (Zofran) 4 mg PRN Q6HRS PRN IV NAUSEA/VOMITING; Start 10/23/19 a t 07:00; Stop 10/23/19 at 18:00; Status DC Fentanyl Citrate (Fentanyl 2ml Vial) 25 mcg PRN Q5MIN PRN IV MILD PAIN 1-3; Start 10/23/19 at 07:00; Stop 10/23/19 at 18:00; Status DC Fentanyl Citrate (Fentanyl 2ml Vial) 50 mcg PRN Q5MIN PRN IV MODERATE TO SEVERE PAIN; Start 10/23/19 at 07:00; Stop 10/23/19 at 18:00; Status DC Morphine Sulfate (Morphine Sulfate) 1 mg PRN Q10MIN PRN IV SEVERE PAIN 7-10; Start 10/23/19 at 07:00; Stop 10/23/19 at 18:00; Status DC Ringer's Solution 1,000 ml @ 30 mls/hr Q24H IV ; Start 10/23/19 at 07:00; Stop 10/23/19 at 18:00; Status DC Lidocaine HCl (Xylocaine-Mpf 1% 2ml Vial) 2 ml PRN 1X PRN ID PRIOR TO IV START; Start 10/23/19 at 07:00; Stop 10/23/19 at 18:00; Status DC Hydromorphone HCl (Dilaudid) 0.5 mg PRN Q10MIN PRN IV SEV PAIN, Second choice; Start 10/23/19 at 07:00; Stop 10/23/19 at 18:00; Status DC Prochlorperazine Edisylate (Compazine) 5 mg PACU PRN PRN IV NAUSEA, MRX1; Start 10/23/19 at 07:00; Stop 10/23/19 at 18:00; Status DC Losartan Potassium (Cozaar) 25 mg DAILY PO Last administered on 10/26/19at 08:12; Start 10/20/19 at 12:30 Enoxaparin Sodium (Lovenox 40mg Syringe) 40 mg Q24H SQ Last administered on 10/22/19at 20:50; Start 10/20/19 at 21:00; Stop 10/23/19 at 09:51; Status DC Morphine Sulfate (Morphine Sulfate) 2 mg PRN Q2HR PRN IV PAIN Last administered on 10/23/19at 20:48; Start 10/20/19 at 20:00 Bacitracin 73062 unit/Sodium Chloride 1,000 ml @ 1,000 mls/hr 1X ONCE IRR ; Start 10/23/19 at 08:00; Stop 10/23/19 at 08:59; Status Cancel Propofol (Diprivan) 200 mg STK-MED ONCE IV ; Start 10/23/19 at 08:55; Stop 10/23/19 at 08:55; Status DC Lidocaine HCl (Lidocaine Pf 2% Vial) 5 ml STK-MED ONCE .ROUTE ; Start 10/23/19 at 08:55; Stop 10/23/19 at 08:55; Status DC Rocuronium [place] (Zemuron) 50 mg STK-MED ONCE .ROUTE ; Start 10/23/19 at 08:55; Stop 10/23/19 at 08:56; Status DC Ondansetron HCl (Zofran) 4 mg PRN Q6HRS PRN IV NAUSEA/VOMITING; Start 10/24/19 at 07:00; Stop 10/24/19 at 20:03; Status DC Fentanyl Citrate (Fentanyl 2ml Vial) 25 mcg PRN Q5MIN PRN IV MILD PAIN 1-3 Last administered on 10/24/19at 19:46; Start 10/24/19 at 07:00; Stop 10/24/19 at 20:03; Status DC Fentanyl Citrate (Fentanyl 2ml Vial) 50 mcg PRN Q5MIN PRN IV MODERATE TO SEVERE PAIN; Start 10/24/19 at 07:00; Stop 10/24/19 at 20:03; Status DC Morphine Sulfate (Morphine Sulfate) 1 mg PRN Q10MIN PRN IV SEVERE PAIN 7-10 Last administered on 10/24/19at 19:05; Start 10/24/19 at 07:00; Stop 10/24/19 at 2 0:03; Status DC Ringer's Solution 1,000 ml @ 30 mls/hr Q24H IV Last administered on 10/24/19at 12:25; Start 10/24/19 at 07:00; Stop 10/24/19 at 18:59; Status DC Lidocaine HCl (Xylocaine-Mpf 1% 2ml Vial) 2 ml PRN 1X PRN ID PRIOR TO IV START; Start 10/24/19 at 07:00; Stop 10/24/19 at 20:03; Status DC Hydromorphone HCl (Dilaudid) 0.5 mg PRN Q10MIN PRN IV SEV PAIN, Second choice; Start 10/24/19 at 07:00; Stop 10/24/19 at 20:03; Status DC Prochlorperazine Edisylate (Compazine) 5 mg PACU PRN PRN IV NAUSEA, MRX1; Start 10/24/19 at 07:00; Stop 10/24/19 at 20:03; Status DC Bacitracin 43202 unit/Sodium Chloride 1,000 ml @ 1,000 mls/hr 1X ONCE IRR Last administered on 10/24/19at 14:06; Start 10/24/19 at 06:00; Stop 10/24/19 at 06:59; Status DC Cefazolin Sodium/ Dextrose 50 ml @ 100 mls/hr 1X PREOP PRN IV PRIOR TO PROCEDURE Last administered on 10/24/19at 17:25; Start 10/24/19 at 07:00; Stop 10/24 at 07:00; Status DC Bupivacaine HCl/ Epinephrine Bitart (Sensorcain-Epi 0.5%-1:446125 Mpf) 30 ml STK-MED ONCE .ROUTE Last administered on 10/24/19at 14:06; Start 10/24/19 at 11:16; Stop 10/24/19 at 11:16; Status DC Gelatin (Gelfoam Size 100) 1 each STK-MED ONCE .ROUTE Last administered on 10/24/19at 14:06; Start 10/24/19 at 11:16; Stop 10/24/19 at 11:16; Status DC Ketorolac Tromethamine (Toradol Im) 60 mg STK-MED ONCE .ROUTE Last administered on 10/24/19at 14:06; Start 10/24/19 at 11:16; Stop 10/24/19 at 11:16; Status DC Thrombin 20,000 unit STK-MED ONCE TP Last administered on 10/24/19at 14:06; Start 10/24/19 at 11:16; Stop 10/24/19 at 11:17; Status DC Propofol (Diprivan) 200 mg STK-MED ONCE IV ; Start 10/24/19 at 11:22; Stop 10/24/19 at 11:22; Status DC Lidocaine HCl (Lidocaine Pf 2% Vial) 5 ml STK-MED ONCE .ROUTE ; Start 10/24/19 at 11:22; Stop 10/24/19 at 11:22; Status DC Dexamethasone Sodium Phosphate (Decadron) 20 mg STK-MED ONCE .ROUTE ; Start 10/24/19 at 11:22; Stop 10/24/19 at 11:23; Status DC Ondansetron HCl (Zofran) 4 mg STK-MED ONCE .ROUTE ; Start 10/24/19 at 11:22; Stop 10/24/19 at 11:23; Status DC Ephedrine Sulfate (ePHEDrine PF IN SALINE SYRINGE) 50 mg STK-MED ONCE IV ; Start 10/24/19 at 11:22; Stop 10/24/19 at 11:23; Status DC Phenylephrine HCl (PHENYLEPHRINE in 0.9% NACL PF) 1 mg STK-MED ONCE IV ; Start 10/24/19 at 11:22; Stop 10/24/19 at 11:23; Status DC Glycopyrrolate (Robinul) 1 mg STK-MED ONCE .ROUTE ; Start 10/24/19 at 11:22; Stop 10/24/19 at 11:23; Status DC Fentanyl Citrate (Fentanyl 2ml Vial) 100 mcg STK-MED ONCE .ROUTE ; Start 10/24/19 at 11:23; Stop 10/24/19 at 11:24; Status DC Propofol 50 ml @ As Directed STK-MED ONCE IV ; Start 10/24/19 at 11:24; Stop 10/24/19 at 11:24; Status DC Remifentanil HCl (Ultiva) 2 mg STK-MED ONCE IV ; Start 10/24/19 at 11:24; Stop 10/24/19 at 11:24; Status DC Succinylcholine Chloride (Anectine) 200 mg STK-MED ONCE .ROUTE ; Start 10/24/19 at 12:54; Stop 10/24/19 at 12:55; Status DC Desflurane (Suprane) 90 ml STK-MED ONCE IH ; Start 10/24/19 at 13:37; Stop 10/24/19 at 13:38; Status DC Hydralazine HCl (Apresoline Inj) 20 mg STK-MED ONCE .ROUTE ; Start 10/24/19 at 13:40; Stop 10/24/19 at 13:40; Status DC Remifentanil HCl (Ultiva) 1 mg STK-MED ONCE IV ; Start 10/24/19 at 17:22; Stop 10/24/19 at 17:23; Status DC Neostigmine [place] (Neostigmine Methylsulfate) 5 mg STK-MED ONCE .ROUTE ; Start 10/24/19 at 17:31; Stop 10/24/19 at 17:31; Status DC Gelatin (Gelfoam Size 100) 1 each STK-MED ONCE .ROUTE Last administered on 10/24/19at 17:35; Start 10/24/19 at 17:34; Stop 10/24/19 at 17:34; Status DC Thrombin 20,000 unit STK-MED ONCE TP Last administered on 10/24/19at 17:50; Start 10/24/19 at 17:49; Stop 10/24/19 at 17:50; Status DC Fentanyl Citrate (Fentanyl 2ml Vial) 100 mcg STK-MED ONCE .ROUTE ; Start 10/24/19 at 18:27; Stop 10/24/19 at 18:27; Status DC Fentanyl Citrate (Fentanyl 2ml Vial) 100 mcg STK-MED ONCE .ROUTE ; Start 10/24/19 at 19:18; Stop 10/24/19 at 19:19; Status DC Dextrose/Sodium Chloride 1,000 ml @ 125 mls/hr Q8H IV Last administered on 10/24/19at 21:00; Start 10/24/19 at 21:00; Stop 10/25/19 at 17:01; Status DC Acetaminophen/ Hydrocodone Bitart (Lortab 7.5/325) 1 tab PRN Q6HRS PRN PO MODERATE PAIN 4-6 Last administered on 10/26/19at 16:59; Start 10/24/19 at 21:15 Acetaminophen/ Hydrocodone Bitart (Lortab 7.5/325) 2 tab PRN Q6HRS PRN PO SEVERE PAIN 7-10; Start 10/24/19 at 21:15 Neomycin/ Polymyxin/ Bacitracin (Triple Antibiotic Ointment) 1 pkt BID TP Last administered on 10/27/19at 09:01; Start 10/24/19 at 22:00 Cefazolin Sodium (Ancef) 1 gm 1X ONCE IVP Last administered on 10/25/19at 09:08; Start 10/25/19 at 08:00; Stop 10/25/19 at 08:01; Status DC Dexamethasone Sodium Phosphate (Decadron) 2 mg Q6HRS IVP Last administered on 10/27/19at 06:11; Start 10/26/19 at 18:00 Active Scripts Active Lialda (Mesalamine) 1.2 Gm Tablet. 4.8 Gm PO DAILY 14 Days Zenpep 10,000 Units Capsule (Lipase/Protease/Amylase) 1 Each Capsule. 2 Cap PO TIDWMEALS 14 Days Lomotil Tablet (Diphenoxylate Hcl/Atropine) 1 Each Tablet 1 Tab PO QID MDD 8 tablets Zofran Odt (Ondansetron) 4 Mg Tab.rapdis 1 Tab SL Q8HRS Reported Losartan Potassium 50 Mg Tablet 25 Mg PO DAILY Omeprazole 20 Mg Tablet. 20 Mg PO DAILY Lexapro (Escitalopram Oxalate) 20 Mg Tablet 20 Mg PO BID Multivitamins (Multivitamin) 1 Each Tablet 1 Each PO DAILY Vitamin D3 (Cholecalciferol (Vitamin D3)) 400 Unit Tablet 2,000 Unit PO DAILY Lansoprazole 30 Mg Capsule.dr 30 Mg PO DAILY Calcium + Vitamin D Tablet (Calcium Carbonate/Vitamin D3) 1 Each Tablet 1 Each PO PRN BID PRN Toviaz (Fesoterodine Fumarate) 8 Mg Tab.er.24h 8 Mg PO DAILY Vitals/I & O Vital Sign - Last 24 Hours 10/26/19 10/26/19 10/26/19 10/26/19 16:59 17:48 19:45 19:50 Temp 97.6 97.6 Pulse 68 Resp 18 B/P (MAP) 106/57 (73) Pulse Ox 96 96 93 O2 Delivery Room Air Room Air Room Air Room Air 10/27/19 10/27/19 10/27/19 06:23 09:00 11:05 Temp 98.0 97.4 98.0 97.4 Pulse 50 67 70 Resp 16 16 B/P (MAP) 164/78 (106) 105/58 110/63 (79) Pulse Ox 97 97 O2 Delivery Room Air Room Air Intake and Output 10/26/19 10/26/19 10/27/19 15:00 23:00 07:00 Output Total 250 ml Balance -250 ml Justicifation of Admission Dx: Justifications for Admission: Justification of Admission Dx: N/A Nutrition Consultation Dietary Evaluation: Recommendations by RD: Dietary education by RD, Increase Calorie Intake, Protein supplementation Comments: REC continue w/regular diet as ordered, honor food preferences, provide snacks as requested REC Ensure (chocolate) w/lunch trays Expected Outcomes/Goals: PO intake to meet >75% est needs- goal ongoing Malnutrition Findings: Food and Nutrition Intake (Mod: <75% est energy req 7days Weight Status: Overweight ARACELI JIMENEZ DIRECTOR OPERATING ROOM Oct 27, 2019 13:11
[2019-10-27] MEDS ORDERED: LIPA1CAP12 PO (14:08)
--- NOTE | 2019-10-27 15:00 | NUR ---
brother here. reviewed orally discharge instructions. awaiting Alberto; her son
--- NOTE | 2019-10-27 15:08 | PATHOLOGY ---
[facility] Accession Number: [id number] . 01 Material submitted: . PART A: vertebral column - THORACIC TUMOR,FS PART B: vertebral column - THORACIC TUMOR . 01 Clinical history: . Thoracic metastatic disease with spinal cord compression . 02 Frozen section diagnosis: . INTRAOPERATIVE CONSULTATION WITH FROZEN SECTION: (Sy García M.D.): . FSA1. Thoracic tumor: - METASTATIC CARCINOMA. . The results are reported to Dr. Hinds in the operating room. . . FROZEN SECTION GROSS DESCRIPTION: A. The specimen is received fresh for intraoperative consultation and is designated "thoracic tumor". This consists of multiple irregular segments of pink-lin and red soft tissue and focally dark brown cauterized tissue, measuring up to 1.5 x 1.3 x 0.3 cm in aggregate. These are submitted for frozen section as FSA1. The tissue remaining from frozen section is submitted for permanent sections as A1. (JPM/db; 10/24/2019) . . Frozen section performed at [facility], [address] [place] [address], [place] [address]. SHIVAM/NOEMY . 02 Diagnosis: A. Segments of fibrocartilaginous tissue and bone, thoracic tumor biopsy: - METASTATIC ADENOCARCINOMA, MODERATELY DIFFERENTIATED. SEE COMMENT. . B. Segments of fibrocartilaginous, adipose and skeletal muscle tissue and bone, thoracic tumor #2: - METASTATIC ADENOCARCINOMA, MODERATELY DIFFERENTIATED. SEE COMMENT. (JPM:[facility] 10/27/2019) [facility] 10/27/2019 0928 Local . 02 Comment: Sections of the thoracic tumor biopsy and laminectomy appear similar and show focal replacement of the marrow space of bone by a malignant epithelial neoplasm. The malignant cells are present in nests and papillary clusters and show focal acinar formation. The malignant cells have eosinophilic cytoplasm, and possess moderately pleomorphic hyperchromatic nuclei containing prominent nucleoli. The tumor is associated with a reactive desmoplastic stroma. Other areas of the bone marrow contain hematopoietic cellular elements. The segments of fibrocartilaginous tissue show focal degenerative changes with focal clusters of hemosiderin laden macrophages. A panel of immunoperoxidase stains is obtained on block B4 and yields the following results: . Cytokeratin 7: Tumor cells positive Cytokeratin 20: Rare tumor cells positive TTF-1: Tumor cells positive Napsin A: Tumor cells positive JANETH-3: Tumor cells negative BCA-225: Tumor cells focally positive . The morphologic and immunophenotypic findings are supportive of the diagnosis of metastatic moderately differentiated adenocarcinoma and are consistent with pulmonary origin. The case is also examined by Dr. Aly, who concurs with the diagnosis. (JPM:[facility] 10/27/2019) . Special stains performed: Immunoperoxidase stains for CK7, CK20, TTF-1, napsin A, JANETH-3, BCA-225 on block B4 . 02 Electronically signed: . Esequiel García MD, Pathologist NPI- [id number] . 01 Gross description: . A. PLEASE SEE FROZEN SECTION GROSS DESCRIPTION . B. The specimen is received in formalin, labeled "Chelsy Harkins, #2 thoracic tumor". Received is a moderate amount of bone admixed with pale lin gritty tissue measuring 9.8 x 7.9 x 2.6 cm in aggregate dimensions. The specimen is submitted representatively in cassettes B1 through B4, following decalcification. (CAA; 10/25/2019) [facility] 10/25/2019 1716 Local . 02 Pathologist provided ICD-10: C79.89 . 02 CPT . 880768, 891530, 063585, [id number], [id number] Specimen Comment: A courtesy copy of this report has been sent to [phone], [phone] Specimen Comment: [phone], Specimen Comment: Report sent to , / Performed at: 01 [facility] [address] [place] [address] [address], [place], [place] [id number] MD Juan oWlf MD Phone: [phone] Performed at: 02 [facility] [address] [place], [place] [id number] MD Esequiel García MD Phone: [phone]
--- NOTE | 2019-10-27 16:00 | NUR ---
reviewed written instructions with son and Chelsy. questions answered and script for Decadron given with instructions. follow up with doctors and to call for an appt. home health will contact them prior to coming out. verbalized understanding of these instructions
--- NOTE | 2019-10-27 17:00 | PDOC3 ---
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 History of Present Illness History of Present Illness 10/21. no new problems or complaints, surgery tomorrow 3pm 73-year-old female with past medical history of hypertension, breast cancer status post bilateral mastectomy and non-small cell lung cancer status post lobectomy who comes in due to frequent falls, ataxia and lower extremity weakness. Son has been noticing abnormal gait in the past few months, but after she had fallen 2 weeks ago son has noticed increased weakness and abnormalities in her walking. Her PCP had ordered MRI of the spine on October 16 that showed T4- 6 metastatic osteolytic lesions and T4 levels with severe stenosis. Patient was sent to the ED for concern of spinal cord compression. Patient denies urinary incontinence, numbness in her pelvic regions, shortness of breath, abdominal pains, diarrhea, or fevers 10/21/2019 No acute events overnight. Patient seen and examined bedside. Patient neuro exam is stable. Patient's chart, labs, images were reviewed and discussed with RN Vitals Vitals Vital Signs Date Time Temp Pulse Resp B/P (MAP) Pulse Ox O2 Delivery O2 Flow Rate FiO2 10/27/19 09:00 67 105/58 10/27/19 06:23 98.0 16 97 Room Air 98.0 Physical Exam Physical Exam GEN: No apparent distress. Alert and oriented HEENT: Normal cephalic, atraumatic, external auditory canals are patent NECK: Supple, no JVD, no thyromegaly was noted LUNGS: Bilateral crackles HEART: RRR, S1, S2 present. Peripheral pulses intact, no obvious murmurs n oted ABDOMEN: Soft, nontender. Positive bowel sounds, no organomegaly, normal bowel sounds EXTREMITIES: Without clubbing, cyanosis, or edema. Pedal pulses intact. Negative Homans sign NEURO: Strength was 5/5 in upper and lower extremities bilaterally. On sensory examination,she was intact to light touch in the upper and lower extremities with hypoactive reflexes. There was full range of motion of the lower extremities bilaterally. BACK: Point tenderness in the thoracic region General: Alert, Oriented X3, Cooperative, No acute distress Heart: Regular rate, Normal S1 Lungs: Clear Abdomen: Normal bowel sounds, Soft Extremities: No clubbing, No cyanosis, No edema Skin: Other (dressing C,D,I, flat) FINAL DIAGNOSIS Problems Medical Problems: (1) Spinal cord compression Status: Acute Brief Hospital Course Ms. Harkins is a 73 old [sex] who presented with [ spinal cord compression, acute] CONDITION AT DISCHARGE: Improved Discharge Medications Current Medications Ondansetron HCl (Zofran) 4 mg PRN Q8HRS PRN IV NAUSEA/VOMITING; Start 10/19/19 at 18:30; Stop 10/20/19 at 18:29; Status DC Morphine Sulfate (Morphine Sulfate) 2 mg PRN Q2HR PRN IV PAIN Last administered on 10/20/19at 08:52; Start 10/19/19 at 18:30; Stop 10/20/19 at 18:29; Status DC Ondansetron HCl (Zofran) 4 mg PRN Q6HRS PRN IV NAUSEA/VOMITING; Start 10/20/19 at 09:15; Stop 10/20/19 at 20:00; Status DC Fentanyl Citrate (Fentanyl 2ml Vial) 25 mcg PRN Q5MIN PRN IV MILD PAIN 1-3; Start 10/20/19 at 09:15; Stop 10/20/19 at 20:00; Status DC Fentanyl Citrate (Fentanyl 2ml Vial) 50 mcg PRN Q5MIN PRN IV MODERATE TO SEVERE PAIN; Start 10/20/19 at 09:15; Stop 10/20/19 at 20:00; Status DC Morphine Sulfate (Morphine Sulfate) 1 mg PRN Q10MIN PRN IV SEVERE PAIN 7-10; Start 10/20/19 at 09:15; Stop 10/20/19 at 20:00; Status DC Ringer's Solution 1,000 ml @ 30 mls/hr Q24H IV ; Start 10/20/19 at 09:14; Stop 10/20/19 at 20:03; Status DC Lidocaine HCl (Xylocaine-Mpf 1% 2ml Vial) 2 ml PRN 1X PRN ID PRIOR TO IV START; Start 10/20/19 at 09:15; Stop 10/20/19 at 20:00; Status DC Hydromorphone HCl (Dilaudid) 0.5 mg PRN Q10MIN PRN IV SEV PAIN, Second choice; Start 10/20/19 at 09:15; Stop 10/20/19 at 20:00; Status DC Prochlorperazine Edisylate (Compazine) 5 mg PACU PRN PRN IV NAUSEA, MRX1; Start 10/20/19 at 09:15; Stop 10/20/19 at 09:26; Status DC Zoledronic Acid 100 ml @ 400 mls/hr 1X ONCE IV ; Start 10/20/19 at 09:30; Stop 10/20/19 at 09:44; Status UNV Dexamethasone Sodium Phosphate (Decadron) 4 mg Q6HRS IVP Last administered on 10/26/19at 12:02; Start 10/20/19 at 10:00; Stop 10/26/19 at 15:29; Status DC Amylase/Lipase/ Protease (Zenpep 10,000) 2 cap TIDWMEALS PO Last administered on 10/27/19at 15:03; Start 10/20/19 at 12:00 Calcium/Vitamin D (Oscal D 500mg/ 200uts) 1 tab BIDWMEALS PO Last administered on 10/27/19at 09:01; Start 10/20/19 at 17:00 Citalopram Hydrobromide (CeleXA) 40 mg DAILY PO Last administered on 10/27/19at 08:57; Start 10/20/19 at 11:00 Non-Formulary Medication (Mesalamine (Lialda)) 4.8 gm DAILY PO ; Start 10/21/19 at 09:00; Status UNV Multivitamins (Thera M Plus) 1 tab DAILY PO ; Start 10/20/19 at 11:00; Stop 10/22/19 at 08:42; Status DC Pantoprazole Sodium (Protonix) 40 mg DAILYAC PO Last administered on 10/27/19at 06:11; Start 10/20/19 at 11:30 Iohexol (Omnipaque 240 Mg/ml) 30 ml 1X ONCE PO Last administered on 10/20/19at 10:30; Start 10/20/19 at 10:30; Stop 10/20/19 at 10:37; Status DC Iohexol (Omnipaque 300 Mg/ml) 60 ml 1X ONCE IV Last administered on 10/20/19at 10:30; Start 10/20/19 at 10:30; Stop 10/20/19 at 10:37; Status DC Info (CONTRAST GIVEN -- Rx MONITORING) 1 each PRN DAILY PRN MC SEE COMMENTS; Start 10/20/19 at 10:30; Stop 10/22/19 at 10:29; Status DC Ondansetron HCl (Zofran) 4 mg PRN Q6HRS PRN IV NAUSEA/VOMITING; Start 10/23/19 at 07:00; Stop 10/23/19 at 18:00; Status DC Fentanyl Citrate (Fentanyl 2ml Vial) 25 mcg PRN Q5MIN PRN IV MILD PAIN 1-3; Start 10/23/19 at 07:00; Stop 10/23/19 at 18:00; Status DC Fentanyl Citrate (Fentanyl 2ml Vial) 50 mcg PRN Q5MIN PRN IV MODERATE TO SEVERE PAIN; Start 10/23/19 at 07:00; Stop 10/23/19 at 18:00; Status DC Morphine Sulfate (Morphine Sulfate) 1 mg PRN Q10MIN PRN IV SEVERE PAIN 7-10; Start 10/23/19 at 07:00; Stop 10/23/19 at 18:00; Status DC Ringer's Solution 1,000 ml @ 30 mls/hr Q24H IV ; Start 10/23/19 at 07:00; Stop 10/23/19 at 18:00; Status DC Lidocaine HCl (Xylocaine-Mpf 1% 2ml Vial) 2 ml PRN 1X PRN ID PRIOR TO IV START; Start 10/23/19 at 07:00; Stop 10/23/19 at 18:00; Status DC Hydromorphone HCl (Dilaudid) 0.5 mg PRN Q10MIN PRN IV SEV PAIN, Second choice; Start 10/23/19 at 07:00; Stop 10/23/19 at 18:00; Status DC Prochlorperazine Edisylate (Compazine) 5 mg PACU PRN PRN IV NAUSEA, MRX1; Start 10/23/19 at 07:00; Stop 10/23/19 at 18:00; Status DC Losartan Potassium (Cozaar) 25 mg DAILY PO Last administered on 10/26/19at 08:12; Start 10/20/19 at 12:30 Enoxaparin Sodium (Lovenox 40mg Syringe) 40 mg Q24H SQ Last administered on 10/22/19at 20:50; Start 10/20/19 at 21:00; Stop 10/23/19 at 09:51; Status DC Morphine Sulfate (Morphine Sulfate) 2 mg PRN Q2HR PRN IV PAIN Last administered on 10/23/19at 20:48; Start 10/20/19 at 20:00 Bacitracin 88364 unit/Sodium Chloride 1,000 ml @ 1,000 mls/hr 1X ONCE IRR ; Start 10/23/19 at 08:00; Stop 10/23/19 at 08:59; Status Cancel Propofol (Diprivan) 200 mg STK-MED ONCE IV ; Start 10/23/19 at 08:55; Stop 10/23/19 at 08:55; Status DC Lidocaine HCl (Lidocaine Pf 2% Vial) 5 ml STK-MED ONCE .ROUTE ; Start 10/23/19 at 08:55; Stop 10/23/19 at 08:55; Status DC Rocuronium [place] (Zemuron) 50 mg STK-MED ONCE .ROUTE ; Start 10/23/19 at 08:55; Stop 10/23/19 at 08:56; Status DC Ondansetron HCl (Zofran) 4 mg PRN Q6HRS PRN IV NAUSEA/VOMITING; Start 10/24/19 at 07:00; Stop 10/24/19 at 20:03; Status DC Fentanyl Citrate (Fentanyl 2ml Vial) 25 mcg PRN Q5MIN PRN IV MILD PAIN 1-3 Last administered on 10/24/19at 19:46; Start 10/24/19 at 07:00; Stop 10/24/19 at 20:03; Status DC Fentanyl Citrate (Fentanyl 2ml Vial) 50 mcg PRN Q5MIN PRN IV MODERATE TO SEVERE PAIN; Start 10/24/19 at 07:00; Stop 10/24/19 at 20:03; Status DC Morphine Sulfate (Morphine Sulfate) 1 mg PRN Q10MIN PRN IV SEVERE PAIN 7-10 Last administered on 10/24/19at 19:05; Start 10/24/19 at 07:00; Stop 10/24/19 at 20:03; Status DC Ringer's Solution 1,000 ml @ 30 mls/hr Q24H IV Last administered on 10/24/19at 12:25; Start 10/24/19 at 07:00; Stop 10/24/19 at 18:59; Status DC Lidocaine HCl (Xylocaine-Mpf 1% 2ml Vial) 2 ml PRN 1X PRN ID PRIOR TO IV START; Start 10/24/19 at 07:00; Stop 10/24/19 at 20:03; Status DC Hydromorphone HCl (Dilaudid) 0.5 mg PRN Q10MIN PRN IV SEV PAIN, Second choice; Start 10/24/19 at 07:00; Stop 10/24/19 at 20:03; Status DC Prochlorperazine Edisylate (Compazine) 5 mg PACU PRN PRN IV NAUSEA, MRX1; Start 10/24/19 at 07:00; Stop 10/24/19 at 20:03; Status DC Bacitracin 60985 unit/Sodium Chloride 1,000 ml @ 1,000 mls/hr 1X ONCE IRR Last administered on 10/24/19at 14:06; Start 10/24/19 at 06:00; Stop 10/24/19 at 06:59; Status DC Cefazolin Sodium/ Dextrose 50 ml @ 100 mls/hr 1X PREOP PRN IV PRIOR TO PROCEDURE Last administered on 10/24/19at 17:25; Start 10/24/19 at 07:00; Stop 10/25/19 at 07:00; Status DC Bupivacaine HCl/ Epinephrine Bitart (Sensorcain-Epi 0.5%-1:[id number] Mpf) 30 ml STK-MED ONCE .ROUTE Last administered on 10/24/19at 14:06; Start 10/24/19 at 11:16; Stop 10/24/19 at 11:16; Status DC Gelatin (Gelfoam Size 100) 1 each STK-MED ONCE .ROUTE Last administered on 10/24/19at 14:06; Start 10/24/19 at 11:16; Stop 10/24/19 at 11:16; Status DC Ketorolac Tromethamine (Toradol Im) 60 mg STK-MED ONCE .ROUTE Last administered on 10/24/19at 14:06; Start 10/24/19 at 11:16; Stop 10/24/19 at 11:16; Status DC Thrombin 20,000 unit STK-MED ONCE TP Last administered on 10/24/19at 14:06; Start 10/24/19 at 11:16; Stop 10/24/19 at 11:17; Status DC Propofol (Diprivan) 200 mg STK-MED ONCE IV ; Start 10/24/19 at 11:22; Stop 10/24/19 at 11:22; Status DC Lidocaine HCl (Lidocaine Pf 2% Vial) 5 ml STK-MED ONCE .ROUTE ; Start 10/24/19 at 11:22; Stop 10/24/19 at 11:22; Status DC Dexamethasone Sodium Phosphate (Decadron) 20 mg STK-MED ONCE .ROUTE ; Start 10/24/19 at 11:22; Stop 10/24/19 at 11:23; Status DC Ondansetron HCl (Zofran) 4 mg STK-MED ONCE .ROUTE ; Start 10/24/19 at 11:22; Stop 10/24/19 at 11:23; Status DC Ephedrine Sulfate (ePHEDrine PF IN SALINE SYRINGE) 50 mg STK-MED ONCE IV ; Start 10/24/19 at 11:22; Stop 10/24/19 at 11:23; Status DC Phenylephrine HCl (PHENYLEPHRINE in 0.9% NACL PF) 1 mg STK-MED ONCE IV ; Start 10/24/19 at 11:22; Stop 10/24/19 at 11:23; Status DC Glycopyrrolate (Robinul) 1 mg STK-MED ONCE .ROUTE ; Start 10/24/19 at 11:22; Stop 10/24/19 at 11:23; Status DC Fentanyl Citrate (Fentanyl 2ml Vial) 100 mcg STK-MED ONCE .ROUTE ; Start 10/24/19 at 11:23; Stop 10/24/19 at 11:24; Status DC Propofol 50 ml @ As Directed STK-MED ONCE IV ; Start 10/24/19 at 11:24; Stop 10/24/19 at 11:24; Status DC Remifentanil HCl (Ultiva) 2 mg STK-MED ONCE IV ; Start 10/24/19 at 11:24; Stop 10/24/19 at 11:24; Status DC Succinylcholine Chloride (Anectine) 200 mg STK-MED ONCE .ROUTE ; Start 10/24/19 at 12:54; Stop 10/24/19 at 12:55; Status DC Desflurane (Suprane) 90 ml STK-MED ONCE IH ; Start 10/24/19 at 13:37; Stop 10/24/19 at 13:38; Status DC Hydralazine HCl (Apresoline Inj) 20 mg STK-MED ONCE .ROUTE ; Start 10/24/19 at 13:40; Stop 10/24/19 at 13:40; Status DC Remifentanil HCl (Ultiva) 1 mg STK-MED ONCE IV ; Start 10/24/19 at 17:22; Stop 10/24/19 at 17:23; Status DC Neostigmine [place] (Neostigmine Methylsulfate) 5 mg STK-MED ONCE .ROUTE ; Start 10/24/19 at 17:31; Stop 10/24/19 at 17:31; Status DC Gelatin (Gelfoam Size 100) 1 each STK-MED ONCE .ROUTE Last administered on 10/24/19at 17:35; Start 10/24/19 at 17:34; Stop 10/24/19 at 17:34; Status DC Thrombin 20,000 unit STK-MED ONCE TP Last administered on 10/24/19at 17:50; Start 10/24/19 at 17:49; Stop 10/24/19 at 17:50; Status DC Fentanyl Citrate (Fentanyl 2ml Vial) 100 mcg STK-MED ONCE .ROUTE ; Start 10/24/19 at 18:27; Stop 10/24/19 at 18:27; Status DC Fentanyl Citrate (Fentanyl 2ml Vial) 100 mcg STK-MED ONCE .ROUTE ; Start 10/24/19 at 19:18; Stop 10/24/19 at 19:19; Status DC Dextrose/Sodium Chloride 1,000 ml @ 125 mls/hr Q8H IV Last administered on 10/24/19at 21:00; Start 10/24/19 at 21:00; Stop 10/25/19 at 17:01; Status DC Acetaminophen/ Hydrocodone Bitart (Lortab 7.5/325) 1 tab PRN Q6HRS PRN PO MODERATE PAIN 4-6 Last administered on 10/26/19at 16:59; Start 10/24/19 at 21:15 Acetaminophen/ Hydrocodone Bitart (Lortab 7.5/325) 2 tab PRN Q6HRS PRN PO SEV ERE PAIN 7-10; Start 10/24/19 at 21:15 Neomycin/ Polymyxin/ Bacitracin (Triple Antibiotic Ointment) 1 pkt BID TP Last administered on 10/27/19at 09:01; Start 10/24/19 at 22:00 Cefazolin Sodium (Ancef) 1 gm 1X ONCE IVP Last administered on 10/25/19at 09:08; Start 10/25/19 at 08:00; Stop 10/25/19 at 08:01; Status DC Dexamethasone Sodium Phosphate (Decadron) 2 mg Q6HRS IVP Last administered on 10/27/19at 06:11; Start 10/26/19 at 18:00 Active Scripts Active Zenpep 10,000 Units Capsule (Lipase/Protease/Amylase) 1 Each Capsule. 2 Cap PO TIDWMEALS 14 Days Decadron (Dexamethasone) 0.5 Mg Tablet 2 Tab PO BID 7 Days Lialda (Mesalamine) 1.2 Gm Tablet. 4.8 Gm PO DAILY 14 Days Lomotil Tablet (Diphenoxylate Hcl/Atropine) 1 Each Tablet 1 Tab PO QID MDD 8 tablets Zofran Odt (Ondansetron) 4 Mg Tab.rapdis 1 Tab SL Q8HRS Reported Losartan Potassium 50 Mg Tablet 25 Mg PO DAILY Omeprazole 20 Mg Tablet. 20 Mg PO DAILY Lexapro (Escitalopram Oxalate) 20 Mg Tablet 20 Mg PO BID Multivitamins (Multivitamin) 1 Each Tablet 1 Each PO DAILY Vitamin D3 (Cholecalciferol (Vitamin D3)) 400 Unit Tablet 2,000 Unit PO DAILY Lansoprazole 30 Mg Capsule. 30 Mg PO DAILY Calcium + Vitamin D Tablet (Calcium Carbonate/Vitamin D3) 1 Each Tablet 1 Each PO PRN BID PRN Toviaz (Fesoterodine Fumarate) 8 Mg Tab.er.24h 8 Mg PO DAILY Vital Signs Vital Signs Date Time Temp Pulse Resp B/P (MAP) Pulse Ox O2 Delivery O2 Flow Rate FiO2 10/27/19 11:05 97.4 70 16 110/63 (79) 97 Room Air 97.4 Labs Laboratory Tests Test 10/26/19 06:20 10/27/19 06:20 White Blood Count 11.1 x10^3/uL (4.0-11.0) 10.5 x10^3/uL (4.0-11.0) Red Blood Count 3.70 x10^6/uL (3.50-5.40) 3.71 x10^6/uL (3.50-5.40) Hemoglobin 10.3 g/dL (12.0-15.5) 10.5 g/dL (12.0-15.5) Hematocrit 30.7 % (36.0-47.0) 30.9 % (36.0-47.0) Mean Corpuscular Volume 83 fL (79-100) 83 fL (79-100) Mean Corpuscular Hemoglobin 28 pg (25-35) 28 pg (25-35) Mean Corpuscular Hemoglobin Concent 33 g/dL (31-37) 34 g/dL (31-37) Red Cell Distribution Width 16.5 % (11.5-14.5) 16.9 % (11.5-14.5) Platelet Count 199 x10^3/uL (140-400) 192 x10^3/uL (140-400) Neutrophils (%) (Auto) 85 % (31-73) 83 % (31-73) Lymphocytes (%) (Auto) 7 % (24-48) 9 % (24-48) Monocytes (%) (Auto) 8 % (0-9) 8 % (0-9) Eosinophils (%) (Auto) 0 % (0-3) 0 % (0-3) Basophils (%) (Auto) 0 % (0-3) 0 % (0-3) Neutrophils # (Auto) 9.5 x10^3/uL (1.8-7.7) 8.7 x10^3/uL (1.8-7.7) Lymphocytes # (Auto) 0.8 x10^3/uL (1.0-4.8) 0.9 x10^3/uL (1.0-4.8) Monocytes # (Auto) 0.8 x10^3/uL (0.0-1.1) 0.9 x10^3/uL (0.0-1.1) Eosinophils # (Auto) 0.0 x10^3/uL (0.0-0.7) 0.0 x10^3/uL (0.0-0.7) Basophils # (Auto) 0.0 x10^3/uL (0.0-0.2) 0.0 x10^3/uL (0.0-0.2) Sodium Level 137 mmol/L (136-145) Potassium Level 4.4 mmol/L (3.5-5.1) Chloride Level 105 mmol/L (98-107) Carbon Dioxide Level 29 mmol/L (21-32) Anion Gap 3 (6-14) Blood Urea Nitrogen 19 mg/dL (7-20) Creatinine 0.7 mg/dL (0.6-1.0) Estimated GFR (Cockcroft-Gault) 81.6 Glucose Level 111 mg/dL (70-99) Calcium Level 8.8 mg/dL (8.5-10.1) Laboratory Tests Test 10/27/19 06:20 White Blood Count 10.5 x10^3/uL (4.0-11.0) Red Blood Count 3.71 x10^6/uL (3.50-5.40) Hemoglobin 10.5 g/dL (12.0-15.5) Hematocrit 30.9 % (36.0-47.0) Mean Corpuscular Volume 83 fL (79-100) Mean Corpuscular Hemoglobin 28 pg (25-35) Mean Corpuscular Hemoglobin Concent 34 g/dL (31-37) Red Cell Distribution Width 16.9 % (11.5-14.5) Platelet Count 192 x10^3/uL (140-400) Neutrophils (%) (Auto) 83 % (31-73) Lymphocytes (%) (Auto) 9 % (24-48) Monocytes (%) (Auto) 8 % (0-9) Eosinophils (%) (Auto) 0 % (0-3) Basophils (%) (Auto) 0 % (0-3) Neutrophils # (Auto) 8.7 x10^3/uL (1.8-7.7) Lymphocytes # (Auto) 0.9 x10^3/uL (1.0-4.8) Monocytes # (Auto) 0.9 x10^3/uL (0.0-1.1) Eosinophils # (Auto) 0.0 x10^3/uL (0.0-0.7) Basophils # (Auto) 0.0 x10^3/uL (0.0-0.2) Allergies Allergies Coded Allergies Type Severity Reaction Last Updated Verified No Known Allergies Allergy Unknown 03/07/17 Yes Disposition/Orders: D/C to Home w/ HH Justicifation of Admission Dx: Justifications for Admission: Justification of Admission Dx: N/A MOMO ROJAS MD Oct 27, 2019 17:00
--- NOTE | 2019-10-27 17:42 | NUR ---
okay to go home with home health and son. she need PT for gait stability. and dressing change to thoracic area. denies pain and refused any pain med. "dont want anything to keep me here"
--- NOTE | 2019-11-01 12:35 | OP ---
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 OPERATION PERFORMED: Thoracic laminectomy, T4, T5, and T6 with removal of tumor and decompression of the spinal cord. The operation was done with multimodality monitoring including EMG, SSEP, used fluoroscopy, microscopic dissection. SURGEON: Gutierrez Richardson M.D. OPERATIVE INDICATIONS: The patient is a pleasant 73-year-old woman who developed intractable problems with back pain, which were progressive. Along with this, she noted weakness in her legs and ataxia. An MRI was obtained. She was sent to the Emergency Room and she was admitted to the hospital. The above-mentioned findings were seen on imaging studies and I recommended decompressive surgery. I spoke with her about the surgery and the risks involved. She understood and she wished to go ahead. DESCRIPTION OF PROCEDURE: Following general endotracheal anesthesia, the patient was positioned prone on the Gadiel table. Thoracic region was prepped and draped in a standard fashion. MICHAEL hose and AV impulse boots were applied for DVT prophylaxis. Microscope was draped. Fluoroscopy was draped and brought into field. Monitoring was established. Ancef 2 g was given less than 1 hour prior to initiation of the surgery. Using fluoroscopic guidance, a midline incision was made. She additionally had a previous marker placed with a localizing CT scan over her thoracic spine. Dissection was carried down through skin and subcutaneous tissue. Reflection of the paraspinal muscles was performed and then, the microscope and the high speed air drill were brought in. I drilled the lamina of T4, T5 and T6 and lifted these away from the spinal cord. There were considerable large veins and arteries across the dorsum of the cord, which was compressing it down and I peeled this material away and obtained excellent hemostasis. I worked laterally, there was tumor within the bone compressing down and I removed all of this and sent this to the pathologist to confirm carcinoma. I irrigated with antibiotic solution. I did use bone wax as well as bipolar cautery throughout the operation to obtain excellent hemostasis. Of note, the total blood loss was 150 mL. I did close the wound then in layers with absorbable suture. I left the drain subfascially and then closed the subcutaneous tissue. The skin was closed with skin angie. I felt the surgery went very well and the patient awakened uneventfully with normal strength in the lower extremities. I was quite pleased with the surgery. GUTIERREZ RICHARDSON MD DR: MARK/aishwarya JOB#: [id number] / [id number] PATRICIA
== END 2019-10-27 16:10 | disposition home health service (06) | DRG 29 ==
LOC: ER 15:56 → 1 WEST ICU 17:00 → 4 NORTH 10-21 16:22 → 4 SOUTHEST 10-24 12:58
PROVIDERS: ADMIT Internal Medicine; ATTEND Internal Medicine
PROC: 00BX0ZZ Excision of Thoracic Spinal Cord, Open Approach (ICD-10-PCS; 2019-10-24)
PROC: 4A11X4G Monitoring of Peripheral Nervous Electrical Activity, Intraoperative, External Approach (ICD-10-PCS; 2019-10-24)
PROC: 00NX0ZZ Release Thoracic Spinal Cord, Open Approach (ICD-10-PCS; principal; 2019-10-24 12:00)
DX: G95.20 Unspecified cord compression (principal); C79.51 Secondary malignant neoplasm of bone; C79.89 Secondary malignant neoplasm of other specified sites; I10 Essential (primary) hypertension; M48.04 Spinal stenosis, thoracic region; R29.6 Repeated falls; Z85.118 Personal history of other malignant neoplasm of bronchus and lung; Z85.3 Personal history of malignant neoplasm of breast; Z87.891 Personal history of nicotine dependence; Z90.13 Acquired absence of bilateral breasts and nipples; Z90.49 Acquired absence of other specified parts of digestive tract; Z90.710 Acquired absence of both cervix and uterus; Z96.659 Presence of unspecified artificial knee joint; F32.9 Major depressive disorder, single episode, unspecified; K21.9 Gastro-esophageal reflux disease without esophagitis; Z20.828 Contact with and (suspected) exposure to other viral communicable diseases; Z79.899 Other long term (current) drug therapy; M89.58 Osteolysis, other site
CPT/HCPCS: 36415; 71045; 71260; 72128; 74177; 76000; 80048; 80053; 85007; 85025; 85610; 85730; 87426; 88307; 88311; 88331; 88341; 88342; 99285; A7015; J0330; J0360; J0690; J1100; J1650; J1885; J2270; J2370; J2405; J2704; J2710; J3010; J3490; J7042; J7120; Q9966; Q9967; 97110-GP; 97116-GP; 97530-GO; 97530-GP; 97535-GO; G0378; U0003-CS

== ENCOUNTER → 2019-11-29 | Outpatient (CLI) | payer MEDICARE, BC ==
[~2019-11-29] MED LIST changes: +LOSA-73 PO; +[UNRECOGNIZED DRUG - CODE] PO
[2019-11-29 14:47] LABS: BASO % 1 % (0-3); EOS % 0 % (0-3); HEMOGLOBIN 11.2 g/dL (12.0-15.5); LYMPH # 0.7 x10^3/uL (1.0-4.8); LYMPH % 18 % (24-48); MEAN CORPUSCULAR HEMOGLOBIN 28 pg (25-35); MEAN CORPUSCULAR HGB CONC 33 g/dL (31-37); MEAN CORPUSCULAR VOLUME 84 fL (79-100); MONO # 0.5 x10^3/uL (0.0-1.1); MONO % 13 % (0-9); NEUT # 2.6 x10^3/uL (1.8-7.7); NEUT % 69 % (31-73); PLATELET COUNT 192 x10^3/uL (140-400); RED BLOOD COUNT 4.05 x10^6/uL (3.50-5.40); WHITE BLOOD COUNT 3.8 x10^3/uL (4.0-11.0)
[2019-11-29 15:14] LABS: CALCIUM 8.3 mg/dL (8.5-10.1); CREATININE 1.1 mg/dL (0.6-1.0); GFR 48.4; POTASSIUM 4.1 mmol/L (3.5-5.1)
[2019-11-29 15:20] LABS: ALBUMIN 2.7 g/dL (3.4-5.0); ALBUMIN/GLOBULIN RATIO 0.8 (1.0-1.7); TOTAL BILIRUBIN 0.4 mg/dL (0.2-1.0); TOTAL PROTEIN 6.1 g/dL (6.4-8.2)
== END | disposition home or self-care (01) ==
LOC: ONCLAB 14:17
PROVIDERS: ATTEND Internal Medicine Hematology & Oncology
DX: C34.2 Malignant neoplasm of middle lobe, bronchus or lung (principal)
CPT/HCPCS: 36415; 80053; 85025

== ENCOUNTER → 2019-12-14 | Outpatient (CLI) | payer MEDICARE, BC ==
--- NOTE | 2019-12-14 18:36 | CARD ---
MR#: [id number] Date of Study: 12/14/2019 Ordering Physician: BRUNA LAWS, Referring Physician: BRUNA LAWS, Tech: Zita Murray APPROVED REPORT EXAM: Two-dimensional and M-mode echocardiogram with Doppler and color Doppler. Other Information Quality : AverageHR: 84bpm Technically limited study due to Breast Surgery INDICATION Lung Adenocarcinoma RISK FACTORS Hypertension 2D DIMENSIONS RVDd3.0 (2.9-3.5cm)Left Atrium(2D)3.3 (1.6-4.0cm) IVSd1.2 (0.7-1.1cm)Aortic Root(2D)3.1 (2.0-3.7cm) LVDd3.1 (3.9-5.9cm)LVOT Diameter2.0 (1.8-2.4cm) PWd2.6 (0.7-1.1cm)LVDs2.8 (2.5-4.0cm) FS (%) 7.8 %SV6.7 ml LVEF(%)48.0 (>50%) Aortic Valve AoV Peak Jose Antonio.155.8cm/sAoV VTI31.4cm AO Peak GR.9.7mmHgLVOT Peak Jose Antonio.140.9cm/s LVOT VTI 31.37cmAO Mean GR.7mmHg ORIANA (VMAX)2.94ax5YDY (VTI)3.24cm2 Mitral Valve MV E Bslnrkxd59.4cm/sMV DECEL [id number] MV A Iommfsvi727.2cm/sMV E Mean Gr.2mmHg MV [id number]/A Ratio0.4 MVA (PHT)2.83cm2 TDI E/Lateral E'5.8E/Medial E'6.8 Pulmonary Valve PV Peak Itturhjy48.9cm/sPV Peak Grad.3mmHg Tricuspid Valve TR P. Ibgxdtiv928ol/sRAP [id number] TR Peak Gr.07oxXpVJXF00zyFc Pulmonary Vein S1 Tghkjzin80.6cm/sD2 Qioaolrm46.2cm/s PVa [id number] LEFT VENTRICLE The left ventricle is normal size. There is normal left ventricular wall thickness. The left ventricu lar systolic function is normal and the ejection fraction is within normal range. The Ejection Fracti on is 50-55%. There is normal LV segmental wall motion. Transmitral Doppler flow pattern is Grade I-a bnormal relaxation pattern. RIGHT VENTRICLE The right ventricle is normal size. There is normal right ventricular wall thickness. The right ventr icular systolic function is normal. ATRIA The left atrium size is normal. The right atrium size is normal. The interatrial septum is intact wit h no evidence for an atrial septal defect or patent foramen ovale as noted on 2-D or Doppler imaging. AORTIC VALVE The aortic valve is calcified but opens well. Doppler and Color Flow revealed trace aortic regurgitat ion. There is no significant aortic valvular stenosis. Calculated aortic valve area is 3.23 cm2 with maximum pressure gradient of 11 mmHg and mean pressure gradient of 7 mmHg. MITRAL VALVE The mitral valve is thickened but opens well. There is no evidence of mitral valve prolapse. There is no mitral valve stenosis. Doppler and Color-flow revealed trace mitral regurgitation. TRICUSPID VALVE The tricuspid valve is normal in structure and function. Doppler and Color Flow revealed trace tricus pid regurgitation with an estimated PAP of 29 mmHg. There is no tricuspid valve stenosis. PULMONIC VALVE The pulmonic valve is not well visualized. Doppler and Color Flow revealed no pulmonic valvular regur gitation. GREAT VESSELS The aortic root is normal in size. The ascending aorta is normal in size. The IVC is normal in size a nd collapses >50% with inspiration. PERICARDIAL EFFUSION There is no evidence of significant pericardial effusion. Critical Notification Critical Value: No <Conclusion> The left ventricle is normal size. The left ventricular systolic function is normal and the ejection fraction is within normal range. The Ejection Fraction is 50-55%. Doppler and Color Flow revealed trace aortic regurgitation. There is no significant aortic valvular stenosis. Doppler and Color-flow revealed trace mitral regurgitation. Doppler and Color Flow revealed trace tricuspid regurgitation with an estimated PAP of 29 mmHg. Signed by : Gian Whyte MD Electronically Approved : 12/14/2019 18:36:00
== END | disposition home or self-care (01) ==
LOC: ECHO 08:55
PROVIDERS: ATTEND Internal Medicine Hematology & Oncology
DX: I35.1 Nonrheumatic aortic (valve) insufficiency (principal); C34.32 Malignant neoplasm of lower lobe, left bronchus or lung
CPT/HCPCS: 93306

== ENCOUNTER → 2019-12-20 | Outpatient (CLI) | payer MEDICARE, BC ==
[2019-12-20 14:48] LABS: BASO % 1 % (0-3); EOS % 0 % (0-3); HEMATOCRIT 36.9 % (36.0-47.0); HEMOGLOBIN 12.1 g/dL (12.0-15.5); LYMPH # 0.4 x10^3/uL (1.0-4.8); LYMPH % 13 % (24-48); MEAN CORPUSCULAR HEMOGLOBIN 27 pg (25-35); MEAN CORPUSCULAR HGB CONC 33 g/dL (31-37); MEAN CORPUSCULAR VOLUME 82 fL (79-100); MONO # 0.5 x10^3/uL (0.0-1.1); MONO % 16 % (0-9); NEUT # 2.3 x10^3/uL (1.8-7.7); NEUT % 70 % (31-73); PLATELET COUNT 199 x10^3/uL (140-400); RED BLOOD COUNT 4.49 x10^6/uL (3.50-5.40); RED CELL DISTRIBUTION WIDTH 16.9 % (11.5-14.5); WHITE BLOOD COUNT 3.2 x10^3/uL (4.0-11.0)
[2019-12-20 15:03] LABS: CALCIUM 8.6 mg/dL (8.5-10.1); CREATININE 1.1 mg/dL (0.6-1.0); GFR 48.3; POTASSIUM 4.1 mmol/L (3.5-5.1)
[2019-12-20 15:08] LABS: ALBUMIN 3.3 g/dL (3.4-5.0); ALBUMIN/GLOBULIN RATIO 1.1 (1.0-1.7); TOTAL BILIRUBIN 0.4 mg/dL (0.2-1.0); TOTAL PROTEIN 6.4 g/dL (6.4-8.2)
== END | disposition home or self-care (01) ==
LOC: ONCLAB 14:01
PROVIDERS: ATTEND Internal Medicine Hematology & Oncology
DX: C34.32 Malignant neoplasm of lower lobe, left bronchus or lung (principal)
CPT/HCPCS: 36415; 80053; 85025

== ENCOUNTER → 2020-01-18 | Outpatient (CLI) | payer MEDICARE, BC ==
--- NOTE | 2020-01-18 14:01 | EKG ---
[facility] [address] [place] [id number] Test Date: 2020-01-18 Test Time: 13:58:55 Pat Name: TERSEO GILBERT Department: Room: Gender: F Manager Sign: JEANNINE : 1945 Requested By: BRUNA LAWS Order Number: [id number] Reading MD: Sam Naik Measurements Intervals [place] Rate: 76 P: 64 WI: 174 QRS: -25 QRSD: 84 T: 29 QT: 436 QTc: 495 Interpretive Statements SINUS RHYTHM LEFTWARD AXIS PROLONGED QT Electronically Signed On 01-19-2020 14:25:47 CDT by Sam Naik
== END ==
LOC: EKG 13:36
PROVIDERS: ATTEND Internal Medicine Hematology & Oncology
DX: C34.32 Malignant neoplasm of lower lobe, left bronchus or lung (principal)
CPT/HCPCS: 93005

== ENCOUNTER → 2020-01-18 | Outpatient (CLI) | payer MEDICARE, BC ==
[2020-01-18 15:31] LABS: BASO % 1 % (0-3); EOS % 0 % (0-3); HEMATOCRIT 34.5 % (36.0-47.0); HEMOGLOBIN 11.3 g/dL (12.0-15.5); LYMPH # 0.5 x10^3/uL (1.0-4.8); LYMPH % 11 % (24-48); MEAN CORPUSCULAR HEMOGLOBIN 26 pg (25-35); MEAN CORPUSCULAR HGB CONC 33 g/dL (31-37); MEAN CORPUSCULAR VOLUME 80 fL (79-100); MONO # 0.8 x10^3/uL (0.0-1.1); MONO % 18 % (0-9); NEUT # 3.2 x10^3/uL (1.8-7.7); NEUT % 71 % (31-73); PLATELET COUNT 215 x10^3/uL (140-400); RED BLOOD COUNT 4.32 x10^6/uL (3.50-5.40); RED CELL DISTRIBUTION WIDTH 16.8 % (11.5-14.5); WHITE BLOOD COUNT 4.5 x10^3/uL (4.0-11.0)
[2020-01-18 15:32] LABS: CALCIUM 9.1 mg/dL (8.5-10.1); GFR 53.9; POTASSIUM 4.5 mmol/L (3.5-5.1)
[2020-01-18 15:39] LABS: ALBUMIN 3.2 g/dL (3.4-5.0); TOTAL BILIRUBIN 0.3 mg/dL (0.2-1.0); TOTAL PROTEIN 6.5 g/dL (6.4-8.2)
== END ==
LOC: ONCLAB 14:32
PROVIDERS: ATTEND Internal Medicine Hematology & Oncology
DX: C34.32 Malignant neoplasm of lower lobe, left bronchus or lung (principal)
CPT/HCPCS: 36415; 80053; 85025

== ENCOUNTER → 2020-01-24 | Outpatient (CLI) | payer MEDICARE, BC ==
[~2020-01-24] MED LIST changes: +GADOTERATE 7.5 MMOL/15ML VIAL. IVP ONE; +IOHEXOL 240 MG/ML 50ML VIAL. PO ONE; +IOHEXOL 300 MG/ML 100ML VIAL. IV ONE
--- NOTE | 2020-01-24 11:27 | RAD ---
CT the chest, abdomen, and pelvis with IV contrast, compared to similar exam dated October 20, 2019 for breast cancer. TECHNIQUE: Contiguous helical axial images are obtained through the chest, abdomen, and pelvis following administration of IV and oral contrast. Sagittal and coronal reformations are evaluated. Chest CT findings: There are postsurgical changes of the cervical thoracic spine. There is redemonstration of numerous subcentimeter bilateral pulmonary nodule stable in size, at least one of which is densely calcified. These may represent benign granulomatous disease are stable metastatic disease. In the medial right lower lung, extending from the inferior hilum, there are several new areas of nodular consolidation with air bronchograms, as well as some adjacent focal areas of groundglass opacification. These have the appearance of active pneumonic infection which may be bacterial or viral/atypical. In the right lower lobe on axial image #42 of series 2, there is a 1 cm irregular spiculated nodule posterior laterally which is likely related to the aforementioned infectious or inflammatory process. Attention on follow-up imaging is recommended. In the right middle lobe on image 29 of series 2, there is redemonstration of a mixed solid and groundglass irregular pulmonary nodule which has slightly enlarged, now measuring 1 cm. A second new nodular area of consolidation is seen in the medial extension of the right upper lobe on image 26 of series 2. These both have the appearance of infectious and/or inflammatory nodules as well, though once again attention on follow-up imaging is recommended. No new or suspicious mediastinal, hilar, or axillary lymphadenopathy seen. Central airways are patent. Heart size within normal limits. Infiltrative sclerotic metastasis at T4-5 and 6 are redemonstrated as well, and appear more conspicuous with increased sclerosis today. This could represent progressive metastatic disease or ongoing posttreatment response. No new osseous lesions are identified. Abdomen and pelvis findings: Gallbladder surgically absent. Liver, spleen, pancreas, and bilateral adrenal glands are normal. No suspicious mesenteric or retroperitoneal adenopathy. Left kidney is normal. Right kidney once again demonstrates an 8.7 cm exophytic cyst anteriorly with a superior enhancing soft tissue component. This enhancing eccentric lentiform soft tissue component measures 3.5 x 1.1 cm on the coronal view today compared to prior measurements of 3.2 x 0.9 cm, consistent with interval growth. This is suspicious for a cystic renal cell neoplasm. Urinary bladder is grossly unremarkable. There is inhomogeneous opacification of large and small bowel with no gross abnormalities identified. Multilevel degenerative changes are seen throughout the spine. No suspicious osteoblastic or osteolytic lesions of the lumbar spine or pelvis. IMPRESSION: 1. Multiple new areas of masslike consolidation in the medial right lower lung, with imaging appearance most suggestive of active infection. This could be either bacterial or viral/atypical. A small new spiculated nodular abnormality is seen in close proximity, and 2 other similar nodules are seen in the right middle lobe and medial aspect the right upper lobe respectively, all of which are likely related to this infectious or inflammatory process. 2. Multiple stable subcentimeter pulmonary nodules which may be granulomatous or stable metastases. There are no new or enlarging nodule suspicious for metastatic disease, however there are few new irregular nodules on the right as described above which are likely infectious and/or inflammatory. Particular attention on follow-up imaging to these nodules seen on series 2 axial image #42, 29, and 26 is recommended. 3. Progression of the sclerotic changes at T4, T5, and T6 which may represent progressive metastasis or changes of ongoing therapy. No new osseous metastatic lesions are identified. 4. 8.7 cm exophytic right renal cystic and solid mass with enlargement of the enhancing solid component. This is highly suspicious for an enlarging cystic renal cell carcinoma. PQRS Compliance Statement: One or more of the following individualized dose reduction techniques were utilized for this examination: 1. Automated exposure control 2. Adjustment of the mA and/or kV according to patient size 3. Use of iterative reconstruction technique Electronically signed by: Raymond Sifuentes MD (01/24/2020 11:24 AM) [id number]
--- NOTE | 2020-01-24 14:13 | RAD ---
THORACIC SPINE WO/W CONTRAST History:Reason: METS CHECK, HX OF BREAST CANCER / Technique: Multiplanar, multi sequential MR imaging was performed of the thoracic spine was performed without and with intravenous contrast. Comparison: MRI October 09, [address] October 24, 2019 Findings: Interval posterior decompression T4-T6 interval resection of T2 hyperintense mass at the T5 level. Resolved canal narrowing. Several posterior paraspinal fluid collections within the laminectomy defects, likely postoperative. There is enhancement within the laminectomy defect, likely granulation tissue. Persistent signal abnormality involving the T4, T5 and T6 vertebral bodies including the posterior elements. Additional signal abnormality involving the bilateral posterior fourth and fifth ribs. Right posterior eighth rib metastatic disease, unchanged. There is involvement of the adjacent right T8 transverse process. No pathologic signal abnormality or enhancement within the thoracic spinal cord. Multilevel degenerative disc changes. Posterior disc protrusions most prominent T11-T12 and T12-L1. No significant canal narrowing. Residual right T4-T5 and T5-6 neural foraminal narrowing. Partially imaged lower cervical postoperative changes. Right renal cysts. Pulmonary nodules better characterize on prior studies. Impression: 1. Interval decompressive laminectomy T4-T6 with resection of epidural mass and resolved canal narrowing. 2. Unchanged osseous metastatic disease involving T4, T5 and T6 vertebral bodies as well as adjacent ribs and right posterior eighth rib. Electronically signed by: Meño Pearce DO (01/24/2020 2:10 PM) [id number]
== END ==
LOC: CT 09:14
PROVIDERS: ATTEND Internal Medicine Hematology & Oncology
DX: C34.32 Malignant neoplasm of lower lobe, left bronchus or lung (principal); G95.20 Unspecified cord compression; M51.25 Other intervertebral disc displacement, thoracolumbar region; N28.1 Cyst of kidney, acquired; N28.89 Other specified disorders of kidney and ureter; Z90.49 Acquired absence of other specified parts of digestive tract; Z98.1 Arthrodesis status; Z85.3 Personal history of malignant neoplasm of breast
CPT/HCPCS: 71260; 72157; 74177; A9575; Q9966; Q9967

== ENCOUNTER → 2020-02-20 | Outpatient (CLI) | payer MEDICARE, BC ==
[~2020-02-20] MED LIST changes: -GADOTERATE 7.5 MMOL/15ML VIAL. IVP ONE; -IOHEXOL 240 MG/ML 50ML VIAL. PO ONE; -IOHEXOL 300 MG/ML 100ML VIAL. IV ONE
[2020-02-20 16:15] LABS: BASO % 1 % (0-3); EOS % 0 % (0-3); HEMATOCRIT 36.1 % (36.0-47.0); HEMOGLOBIN 11.8 g/dL (12.0-15.5); LYMPH # 0.7 x10^3/uL (1.0-4.8); LYMPH % 12 % (24-48); MEAN CORPUSCULAR HEMOGLOBIN 25 pg (25-35); MEAN CORPUSCULAR HGB CONC 33 g/dL (31-37); MEAN CORPUSCULAR VOLUME 77 fL (79-100); MONO # 0.8 x10^3/uL (0.0-1.1); MONO % 13 % (0-9); NEUT # 4.3 x10^3/uL (1.8-7.7); NEUT % 74 % (31-73); PLATELET COUNT 293 x10^3/uL (140-400); RED BLOOD COUNT 4.71 x10^6/uL (3.50-5.40); WHITE BLOOD COUNT 5.9 x10^3/uL (4.0-11.0)
[2020-02-20 16:26] LABS: CREATININE 1.1 mg/dL (0.6-1.0); GFR 48.3; POTASSIUM 3.9 mmol/L (3.5-5.1)
[2020-02-20 16:31] LABS: ALBUMIN 3.2 g/dL (3.4-5.0); ALBUMIN/GLOBULIN RATIO 0.8 (1.0-1.7); TOTAL BILIRUBIN 0.3 mg/dL (0.2-1.0); TOTAL PROTEIN 7.1 g/dL (6.4-8.2)
== END ==
LOC: ONCLAB 15:42
PROVIDERS: ATTEND Internal Medicine Hematology & Oncology
DX: C34.32 Malignant neoplasm of lower lobe, left bronchus or lung (principal)
CPT/HCPCS: 36415; 80053; 85025

== ENCOUNTER → 2020-02-20 | Outpatient (CLI) | payer MEDICARE, BC ==
--- NOTE | 2020-02-20 15:41 | EKG ---
[facility] [address] [place] [address] Test Date: 2020-02-20 Test Time: 15:41:01 Pat Name: TERESO GILBERT Department: Room: Gender: F Design Checker: JEANNINE : 1945 Requested By: BRUNA LAWS Order Number: [id number] Reading MD: Measurements Intervals [place] Rate: 81 P: 56 [place]: 164 QRS: -23 QRSD: 80 T: 37 QT: 426 QTc: 501 Interpretive Statements SINUS RHYTHM LEFTWARD AXIS QRS(T) CONTOUR ABNORMALITY CONSIDER ANTEROLATERAL MYOCARDIAL DAMAGE PROLONGED QT POSSIBLY ABNORMAL ECG RI6.01 Compared to ECG 01/18/2020 13:58:55 No significant changes
== END | disposition home or self-care (01) ==
LOC: EKG 15:23
PROVIDERS: ATTEND Internal Medicine Hematology & Oncology
DX: C34.32 Malignant neoplasm of lower lobe, left bronchus or lung (principal)
CPT/HCPCS: 36415; 80053; 85025; 93005

== ENCOUNTER 2020-02-28 14:53 | Emergency (ER) | payer MEDICARE, BC | END 2020-02-28 16:54 | disposition left against medical advice (07) | LOC: ER 14:53 | DX: R55 Syncope and collapse (principal); R53.1 Weakness; Z53.21 Procedure and treatment not carried out due to patient leaving prior to being seen by health care provider ==

== ENCOUNTER → 2020-03-01 | Outpatient (CLI) | payer MEDICARE, BC ==
[~2020-03-01] MED LIST changes: +GADOTERATE 7.5 MMOL/15ML VIAL. IVP ONE
--- NOTE | 2020-03-01 13:33 | RAD ---
EXAMINATION: Magnetic resonance imaging (MRI) of the brain and brainstem without and with contrast 8:23 AM HISTORY: Lung adenocarcinoma TECHNIQUE: Multiplanar multi-weighted MRI of the brain and brainstem was performed without and with i ntravenous contrast using the general brain protocol. Contrast information: 12 mL Gadolinium based contrast COMPARISON: MRI brain 10/09/2019 FINDINGS: The scalp and calvarium are normal. The superior sagittal sinus demonstrates normal venous flow. The corpus callosum is normal in shape and signal intensity. The posterior fossa is unremarkable. The p ituitary and sella are normal. Craniocervical junction is intact. There are T2/FLAIR signal hyperint ense foci in the erin, periventricular and subcortical white matter with areas of confluence most sug gestive of moderate chronic small vessel ischemic changes. There is a remote lacunar infarct in the l eft giang radiata with associated wallerian degeneration along the left cerebral peduncle. Diffusion weighted images reveal no hyperintensities to suggest acute cerebral infarction. Susceptibi lity artifact is identified in the left giang radiata associated with prior hemorrhagic infarct. Fin dings are similar to prior examination. The ventricles are normal in size and position without eviden ce of hydrocephalus. There are no areas of abnormal contrast enhancement. The paranasal sinuses are normal. The visualized portions of the mastoids are unremarkable. The orbi ts appear normal. Normal flow voids are demonstrated in the carotid arteries and basilar artery. IMPRESSION: 1. No evidence for intracranial metastatic disease. 2. There are T2/FLAIR signal hyperintense foci in the erin, periventricular and subcortical white ma tter with areas of confluence most suggestive of moderate chronic small vessel ischemic changes. 3. Remote hemorrhagic infarct is identified in the left giang radiata. Electronically signed by: Lalita Ty MD (03/01/2020 9:57 AM) [facility]
== END ==
LOC: MRI 08:11
PROVIDERS: ATTEND Internal Medicine Hematology & Oncology
DX: C34.32 Malignant neoplasm of lower lobe, left bronchus or lung (principal); I63.9 Cerebral infarction, unspecified
CPT/HCPCS: 70553; A9575

== ENCOUNTER → 2020-03-26 | Outpatient (CLI) | payer MEDICARE, BC ==
[~2020-03-26] MED LIST changes: -GADOTERATE 7.5 MMOL/15ML VIAL. IVP ONE
--- NOTE | 2020-03-26 14:54 | EKG ---
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
[2020-03-26 15:41] LABS: BASO % 1 % (0-3); EOS % 1 % (0-3); HEMATOCRIT 37.4 % (36.0-47.0); LYMPH # 0.9 x10^3/uL (1.0-4.8); LYMPH % 18 % (24-48); MEAN CORPUSCULAR HEMOGLOBIN 24 pg (25-35); MEAN CORPUSCULAR HGB CONC 32 g/dL (31-37); MEAN CORPUSCULAR VOLUME 75 fL (79-100); MONO # 0.7 x10^3/uL (0.0-1.1); MONO % 13 % (0-9); NEUT # 3.5 x10^3/uL (1.8-7.7); NEUT % 68 % (31-73); PLATELET COUNT 216 x10^3/uL (140-400); RED BLOOD COUNT 4.97 x10^6/uL (3.50-5.40); WHITE BLOOD COUNT 5.2 x10^3/uL (4.0-11.0)
[2020-03-26 15:58] LABS: CALCIUM 9.1 mg/dL (8.5-10.1); CREATININE 1.1 mg/dL (0.6-1.0); GFR 48.3; POTASSIUM 4.2 mmol/L (3.5-5.1)
[2020-03-26 16:19] LABS: ALBUMIN 3.2 g/dL (3.4-5.0); TOTAL BILIRUBIN 0.5 mg/dL (0.2-1.0); TOTAL PROTEIN 6.5 g/dL (6.4-8.2)
== END ==
LOC: ONCLAB 08:56 → EKG 14:33
PROVIDERS: ATTEND Internal Medicine Hematology & Oncology
DX: C34.32 Malignant neoplasm of lower lobe, left bronchus or lung (principal)
CPT/HCPCS: 36415; 80053; 85025; 93005

== ENCOUNTER → 2020-04-23 | Outpatient (CLI) | payer MEDICARE, BC ==
--- NOTE | 2020-04-23 09:33 | EKG ---
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
== END ==
LOC: EKG 08:56
PROVIDERS: ATTEND Radiology Radiation Oncology
DX: C34.32 Malignant neoplasm of lower lobe, left bronchus or lung (principal)
CPT/HCPCS: 93005

== ENCOUNTER → 2020-04-23 | Outpatient (CLI) | payer MEDICARE, BC ==
[2020-04-23 10:13] LABS: BASO % 1 % (0-3); EOS % 1 % (0-3); HEMATOCRIT 37.5 % (36.0-47.0); HEMOGLOBIN 12.1 g/dL (12.0-15.5); LYMPH # 0.8 x10^3/uL (1.0-4.8); LYMPH % 18 % (24-48); MEAN CORPUSCULAR HEMOGLOBIN 25 pg (25-35); MEAN CORPUSCULAR HGB CONC 32 g/dL (31-37); MEAN CORPUSCULAR VOLUME 77 fL (79-100); MONO # 0.5 x10^3/uL (0.0-1.1); MONO % 12 % (0-9); NEUT # 2.9 x10^3/uL (1.8-7.7); NEUT % 68 % (31-73); PLATELET COUNT 194 x10^3/uL (140-400); RED CELL DISTRIBUTION WIDTH 20.9 % (11.5-14.5); WHITE BLOOD COUNT 4.2 x10^3/uL (4.0-11.0)
[2020-04-23 10:33] LABS: ALBUMIN 3.2 g/dL (3.4-5.0); CALCIUM 8.7 mg/dL (8.5-10.1); GFR 39.8; POTASSIUM 4.3 mmol/L (3.5-5.1); TOTAL BILIRUBIN 0.4 mg/dL (0.2-1.0); TOTAL PROTEIN 6.5 g/dL (6.4-8.2)
[2020-04-23 10:42] LABS: CREATININE 1.3 mg/dL (0.6-1.0)
== END ==
LOC: ONCLAB 09:57
PROVIDERS: ATTEND Internal Medicine Hematology & Oncology
DX: C34.32 Malignant neoplasm of lower lobe, left bronchus or lung (principal)
CPT/HCPCS: 36415; 80053; 85025; 93005

== ENCOUNTER → 2020-05-20 | Outpatient (CLI) | payer MEDICARE, BC ==
[~2020-05-20] MED LIST changes: +CONTRAST GIVEN. MC PRN; +GADOTERATE 5 MMOL/10ML VIAL. IVP ONE; +IOHEXOL 240 MG/ML 50ML VIAL. PO ONE; +IOHEXOL 300 MG/ML 100ML VIAL. IV ONE
--- NOTE | 2020-05-20 10:40 | EKG ---
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
[2020-05-20 11:40] LABS: GFR 53.9
--- NOTE | 2020-05-20 13:42 | RAD ---
EXAMINATION: Magnetic resonance imaging (MRI) of the brain and brainstem without and with contrast 05/20/2020 11:06 AM HISTORY: Brain metastasis, history of lung adenocarcinoma TECHNIQUE: Multiplanar multi-weighted MRI of the brain and brainstem was performed without and with i ntravenous contrast using the general brain protocol. Contrast information: 10 mL Gadolinium based contrast COMPARISON: MRI brain 03/01/2020 FINDINGS: The scalp and calvarium are normal. The superior sagittal sinus demonstrates normal venous flow. The corpus callosum is normal in shape and signal intensity. The posterior fossa is unremarkable. The p ituitary and sella are normal. The brainstem and craniocervical junction are unremarkable. There are T2/FLAIR signal hyperintense foci in the erin, periventricular and subcortical white matter with are as of confluence most suggestive of moderate chronic small vessel ischemic changes. Remote hemorrhagi c infarct in the left giang radiata. Diffusion weighted images reveal no hyperintensities to suggest acute cerebral infarction. The suscep tibility weighted sequences reveal no evidence of acute or chronic hemorrhage. The ventricles are nor mal in size and position without evidence of hydrocephalus. Postcontrast enhanced images are limited by motion artifact. No suspicious enhancement is identified. The paranasal sinuses are normal. The visualized portions of the mastoids are unremarkable. The orbi ts appear normal. Normal flow voids are demonstrated in the carotid arteries and basilar artery. IMPRESSION: 1. No evidence for intracranial metastatic disease. Limited evaluation of postcontrast enhanced image s secondary to motion. 2. There are T2/FLAIR signal hyperintense foci in the erin, periventricular and subcortical white mat ter with areas of confluence most suggestive of moderate chronic small vessel ischemic changes. 3. Remote hemorrhagic infarct in the left giang radiata. Electronically signed by: Lalita Ty MD (05/20/2020 1:40 PM) [id number]
--- NOTE | 2020-05-20 17:48 | RAD ---
EXAM: CT Chest, Abdomen, and Pelvis with IV contrast INDICATION: Reason: LUNG ADENOCARCINOMA / Spl. Instructions: IV OMNI 300 60 MLS AND PO OMNI 240 50 ML S / History: TECHNIQUE: Multi-detector row CT images were acquired from the thoracic inlet through the ischial tu berosities with the use of IV contrast. Sagittal and coronal images were acquired from the transaxial data. All CT scans performed at this facility utilize dose optimization techniques as appropriate to the exam, including the following: Automated exposure control and adjustment of the mA and/or KV acc ording to patient size (this includes techniques or standardized protocols for targeted exams where d ose is indication/reason for exam). IV CONTRAST: Administered ORAL CONTRAST: Administered COMPARISON: Chest abdomen pelvis CT with IV contrast of 01/24/2020 FINDINGS: CHEST: CARDIOVASCULAR: Unremarkable MEDIASTINUM & NARAYAN: No adenopathy or masses. LUNGS: The 2 semisolid spiculated masses in the right lower lobe, best illustrated on sagittal image 45 of s eries 6 on the previous examination have markedly diminished in size, barely perceptible now with res idual peribronchial thickening and architectural variation. Instead, linear pleural-parenchymal scarr ing is apparent in the posterior basal segment right lower lobe, best illustrated on sagittal image 4 7 of series 7 this examination, compared with comparable slice on image 47 of series 6 on the prior s tudy. The additional groundglass opacities recommended for follow-up appear to have since resolved, includi ng the medial right upper lobe opacity previously evident on image 26 on series 2 on the previous exa mination and the peripheral right lower lobe opacity reported on image 42 of series 2 on the previous examination. There is an unchanged spiculated opacity in the lateral segment right middle lobe that slightly retra cts the minor fissure, best visualized on sagittal image 51 of series 7 (and on image 50) this examin ation, compared with image 29 series 2 and sagittal image 52 series 6 on the prior study. Stable additional scattered micronodules throughout the lungs bilaterally with no developing mass. PLEURAL SPACE: No pleural effusions or pneumothorax. OSSEOUS & SOFT TISSUE: Posterior decompressive surgical changes at T4-T6 in sclerosis diffusely at T4 -T6 is redemonstrated, compatible with osteoblastic metastases. Sclerosis in the right posterior eigh th and 10th ribs is unchanged. No new osteoblastic lesions. No acute fractures. Bilateral breast impl ants redemonstrated. ABDOMEN/PELVIS: LIVER: Unremarkable BILIARY SYSTEM: Gallbladder is surgically absent. Bile ducts are not dilated. PANCREAS: Unremarkable SPLEEN: Unremarkable ADRENALS: Unremarkable KIDNEYS & URETERS: Exophytic 7.8 cm inferior pole right renal cyst with a solid, enhancing mural nod ule measuring 3.3 x 1.6 x 2.7 cm is again evident, consistent with a cystic right renal neoplasm. Add itional nonenhancing bilateral parapelvic cysts and small cortical cysts are seen which require no ad ditional imaging follow-up. On the previous examination, this lesion was reported to measure 8.7 cm t he solid enhancing component measuring 3.5 x 1.1 cm. BLADDER: Unremarkable REPRODUCTIVE ORGANS: Hysterectomy GASTROINTESTINAL: The stomach, small bowel, and colon are unremarkable. The appendix is normal. MESENTERY/PERITONEUM/RETROPERITONEUM: Unremarkable VASCULAR: Unremarkable LYMPH NODES: No adenopathy OSSEOUS & SOFT TISSUES: Unremarkable IMPRESSION: 1. Evidence of a positive treatment response to the lung masses in the right lower lobe with addition al residual opacities in the right lung indeterminate for neoplastic versus inflammatory nodules. No findings for disease progression. 2. Stable osteoblastic lesions with no evidence of disease progression in the bones. 3. Exophytic right inferior pole renal cyst with an enhancing mural nodule remains suspicious for a c ystic renal neoplasm. Both the cystic and solid components appear to have decreased in size in the in terval which could reflect a positive treatment response. Re-evaluation on follow-up could be helpful . Electronically signed by: Genet Temple MD (05/20/2020 5:46 PM) [id number]
== END ==
LOC: MRI 10:17
PROVIDERS: ATTEND Internal Medicine Hematology & Oncology
DX: C34.32 Malignant neoplasm of lower lobe, left bronchus or lung (principal); N28.1 Cyst of kidney, acquired; Z90.710 Acquired absence of both cervix and uterus
CPT/HCPCS: 36415; 70553; 71260; 74177; 82565; 84520; 93005; A9575; Q9966; Q9967

== ENCOUNTER → 2020-05-21 | Outpatient (CLI) | payer MEDICARE, BC ==
[~2020-05-21] MED LIST changes: -CONTRAST GIVEN. MC PRN; -GADOTERATE 5 MMOL/10ML VIAL. IVP ONE; -IOHEXOL 240 MG/ML 50ML VIAL. PO ONE; -IOHEXOL 300 MG/ML 100ML VIAL. IV ONE
[2020-05-21 11:04] LABS: BASO % 1 % (0-3); EOS % 1 % (0-3); HEMATOCRIT 41.5 % (36.0-47.0); HEMOGLOBIN 13.3 g/dL (12.0-15.5); LYMPH # 0.7 x10^3/uL (1.0-4.8); LYMPH % 18 % (24-48); MEAN CORPUSCULAR HEMOGLOBIN 25 pg (25-35); MEAN CORPUSCULAR HGB CONC 32 g/dL (31-37); MEAN CORPUSCULAR VOLUME 78 fL (79-100); MONO # 0.6 x10^3/uL (0.0-1.1); MONO % 15 % (0-9); NEUT # 2.8 x10^3/uL (1.8-7.7); NEUT % 66 % (31-73); PLATELET COUNT 219 x10^3/uL (140-400); RED BLOOD COUNT 5.34 x10^6/uL (3.50-5.40); RED CELL DISTRIBUTION WIDTH 20.3 % (11.5-14.5); WHITE BLOOD COUNT 4.2 x10^3/uL (4.0-11.0)
[2020-05-21 11:10] LABS: CALCIUM 9.3 mg/dL (8.5-10.1); CREATININE 1.1 mg/dL (0.6-1.0); GFR 48.3; POTASSIUM 5.6 mmol/L (3.5-5.1)
[2020-05-21 11:16] LABS: ALBUMIN 3.4 g/dL (3.4-5.0); TOTAL BILIRUBIN 0.5 mg/dL (0.2-1.0); TOTAL PROTEIN 6.9 g/dL (6.4-8.2)
[2020-05-21 11:18] LABS: ANISOCYTOSIS SLIGHT; PLT ESTIMATE ADEQUATE (ADEQUATE)
== END ==
LOC: ONCLAB 10:34
PROVIDERS: ATTEND Internal Medicine Hematology & Oncology
DX: C34.32 Malignant neoplasm of lower lobe, left bronchus or lung (principal)
CPT/HCPCS: 36415; 80053; 85025

== ENCOUNTER → 2020-07-03 | Outpatient (CLI) | payer MEDICARE, BC ==
[2020-07-03 15:03] LABS: BASO % 1 % (0-3); EOS % 1 % (0-3); HEMATOCRIT 38.7 % (36.0-47.0); HEMOGLOBIN 12.6 g/dL (12.0-15.5); LYMPH # 0.7 x10^3/uL (1.0-4.8); LYMPH % 14 % (24-48); MEAN CORPUSCULAR HEMOGLOBIN 26 pg (25-35); MEAN CORPUSCULAR HGB CONC 33 g/dL (31-37); MEAN CORPUSCULAR VOLUME 79 fL (79-100); MONO # 0.6 x10^3/uL (0.0-1.1); MONO % 11 % (0-9); NEUT # 3.8 x10^3/uL (1.8-7.7); NEUT % 73 % (31-73); PLATELET COUNT 193 x10^3/uL (140-400); RED BLOOD COUNT 4.88 x10^6/uL (3.50-5.40); RED CELL DISTRIBUTION WIDTH 18.1 % (11.5-14.5); WHITE BLOOD COUNT 5.1 x10^3/uL (4.0-11.0)
[2020-07-03 15:18] LABS: CALCIUM 9.4 mg/dL (8.5-10.1); CREATININE 1.1 mg/dL (0.6-1.0); GFR 48.3; POTASSIUM 4.6 mmol/L (3.5-5.1)
[2020-07-03 15:24] LABS: ALBUMIN 3.2 g/dL (3.4-5.0); TOTAL BILIRUBIN 0.3 mg/dL (0.2-1.0); TOTAL PROTEIN 6.5 g/dL (6.4-8.2)
== END ==
LOC: ONCLAB 14:42
PROVIDERS: ATTEND Internal Medicine Hematology & Oncology
DX: C34.32 Malignant neoplasm of lower lobe, left bronchus or lung (principal)
CPT/HCPCS: 36415; 80053; 85025

== ENCOUNTER → 2020-07-03 | Outpatient (CLI) | payer MEDICARE, BC ==
--- NOTE | 2020-07-03 14:20 | EKG ---
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
== END ==
LOC: EKG 13:40
PROVIDERS: ATTEND Internal Medicine Hematology & Oncology
DX: C34.32 Malignant neoplasm of lower lobe, left bronchus or lung (principal)
CPT/HCPCS: 93005

== ENCOUNTER → 2020-08-06 | Outpatient (CLI) | payer MEDICARE, BC ==
--- NOTE | 2020-08-06 14:28 | EKG ---
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
== END ==
LOC: EKG 13:54
PROVIDERS: ATTEND Internal Medicine Hematology & Oncology
DX: C34.32 Malignant neoplasm of lower lobe, left bronchus or lung (principal); R94.31 Abnormal electrocardiogram [ECG] [EKG]
CPT/HCPCS: 93005

== ENCOUNTER → 2020-08-06 | Outpatient (CLI) | payer MEDICARE, BC ==
[2020-08-06 15:31] LABS: BASO % 1 % (0-3); EOS % 1 % (0-3); HEMATOCRIT 35.9 % (36.0-47.0); HEMOGLOBIN 11.6 g/dL (12.0-15.5); LYMPH # 0.8 x10^3/uL (1.0-4.8); LYMPH % 17 % (24-48); MEAN CORPUSCULAR HEMOGLOBIN 26 pg (25-35); MEAN CORPUSCULAR HGB CONC 32 g/dL (31-37); MEAN CORPUSCULAR VOLUME 81 fL (79-100); MONO # 0.6 x10^3/uL (0.0-1.1); MONO % 13 % (0-9); NEUT # 3.3 x10^3/uL (1.8-7.7); NEUT % 69 % (31-73); PLATELET COUNT 168 x10^3/uL (140-400); RED BLOOD COUNT 4.45 x10^6/uL (3.50-5.40); RED CELL DISTRIBUTION WIDTH 18.6 % (11.5-14.5); WHITE BLOOD COUNT 4.8 x10^3/uL (4.0-11.0)
[2020-08-06 15:38] LABS: CALCIUM 8.6 mg/dL (8.5-10.1); CREATININE 1.1 mg/dL (0.6-1.0); GFR 48.3; POTASSIUM 4.3 mmol/L (3.5-5.1)
[2020-08-06 15:44] LABS: ALBUMIN 3.2 g/dL (3.4-5.0); ALBUMIN/GLOBULIN RATIO 1.1 (1.0-1.7); TOTAL BILIRUBIN 0.3 mg/dL (0.2-1.0); TOTAL PROTEIN 6.2 g/dL (6.4-8.2)
== END ==
LOC: ONCLAB 14:52
PROVIDERS: ATTEND Internal Medicine Hematology & Oncology
DX: C34.32 Malignant neoplasm of lower lobe, left bronchus or lung (principal)
CPT/HCPCS: 36415; 80053; 85025

== ENCOUNTER → 2020-09-04 | Outpatient (CLI) | payer MEDICARE, BC ==
[~2020-09-04] MED LIST changes: +IOHEXOL 240 MG/ML 50ML VIAL. PO ONE
--- NOTE | 2020-09-05 09:50 | RAD ---
CT of the chest, abdomen, and pelvis without IV contrast, compared to similar exam dated May 20 1 for adenocarcinoma the lung. TECHNIQUE: Contiguous axial CT images are obtained from the thoracic inlet to the pelvic floor. Sagit griselda and coronal reformations are evaluated. FINDINGS: CHEST: Posttreatment changes of the posterior medial right lung base are redemonstrated with perirectal thic kening and bronchiectasis in this distribution. No residual lung nodule or mass is seen. There are co uple patchy areas of ground glass infiltrate in the anterior medial right lung base which are new, an d may reflect posttreatment pneumonitis or infection. There is a stable 12 mm semisolid opacity in th e anterior aspect of the right upper lobe seen on series 2 axial short 29, which may reflect scarring or stable neoplasm. Continued attention on follow-up is recommended. 5 mm nodule of the lateral segm ent of the right middle lobe is also stable as is a 5 mm nodule in the left upper lung seen on series 2 image 14, a small peripheral subsegmental and a millimeter abnormality in the lateral aspect of th e left lower lobe on series 2 image #28. There are changes of antecedent granulomatous disease, raisi ng likelihood of benignity for these underlying lesions. No new lung nodules or masses are seen. No s uspicious adenopathy. Widespread stable osteoblastic metastatic disease involving the ribs and spine. ABDOMEN/PELVIS: Gallbladder surgically absent. Liver, spleen, pancreas, and bilateral adrenal glands are normal. Left kidney is normal. 7 cm exophytic cystic renal neoplasm arising from the midpole the right kidney is stable. The enhancing mural component seen on the prior exam is not well depicted today due to the no ncontrast nature of this examination. No suspicious adenopathy is seen in the abdomen or pelvis. No f ree or loculated fluid collections are evident. There is inhomogeneous opacification of large and sma ll bowel. No gross abnormalities of the visualized enteric structures are identified. Urinary bladder is partially fluid distended and grossly unremarkable. Changes of dish are noted with multilevel deg enerative disc disease throughout the lumbar spine, in stable blastic metastasis at L5. No new osseou s abnormalities. IMPRESSION: 1. Stable appearance of previously treated posterior right lung masses and several small indeterminat e lung nodules. No new lung nodules or masses. 2. New areas of groundglass opacification within the anterior medial right lung base may be related t o posttreatment pneumonitis or infectious pneumonia. 3. Grossly stable 7 cm cystic and solid right renal neoplasm. The solid component is not well depicte d on today's noncontrast examination however. 4. Stable multifocal osteoblastic metastases. PQRS Compliance Statement: One or more of the following individualized dose reduction techniques were utilized for this examinat ion: 1. Automated exposure control 2. Adjustment of the mA and/or kV according to patient size 3. Use of iterative reconstruction technique Electronically signed by: Raymond Sifuentes MD (09/05/2020 9:47 AM) [id number]
== END ==
LOC: CT 10:34
PROVIDERS: ATTEND Internal Medicine Hematology & Oncology
DX: C34.32 Malignant neoplasm of lower lobe, left bronchus or lung (principal); Z90.49 Acquired absence of other specified parts of digestive tract
CPT/HCPCS: 71250; 74176; Q9966

== ENCOUNTER → 2020-09-10 | Outpatient (CLI) | payer MEDICARE, BC ==
[~2020-09-10] MED LIST changes: -IOHEXOL 240 MG/ML 50ML VIAL. PO ONE
[2020-09-10 15:26] LABS: BASO % 1 % (0-3); EOS # 0.1 x10^3/uL (0.0-0.7); EOS % 1 % (0-3); HEMATOCRIT 36.9 % (36.0-47.0); HEMOGLOBIN 12.2 g/dL (12.0-15.5); LYMPH % 18 % (24-48); MEAN CORPUSCULAR HEMOGLOBIN 28 pg (25-35); MEAN CORPUSCULAR HGB CONC 33 g/dL (31-37); MEAN CORPUSCULAR VOLUME 84 fL (79-100); MONO # 0.6 x10^3/uL (0.0-1.1); MONO % 12 % (0-9); NEUT # 3.6 x10^3/uL (1.8-7.7); NEUT % 68 % (31-73); PLATELET COUNT 176 x10^3/uL (140-400); RED BLOOD COUNT 4.38 x10^6/uL (3.50-5.40); WHITE BLOOD COUNT 5.3 x10^3/uL (4.0-11.0)
[2020-09-10 16:05] LABS: CALCIUM 9.4 mg/dL (8.5-10.1); CREATININE 1.1 mg/dL (0.6-1.0); GFR 48.3; POTASSIUM 4.9 mmol/L (3.5-5.1)
[2020-09-10 16:12] LABS: ALBUMIN 3.4 g/dL (3.4-5.0); ALBUMIN/GLOBULIN RATIO 1.1 (1.0-1.7); TOTAL BILIRUBIN 0.5 mg/dL (0.2-1.0); TOTAL PROTEIN 6.4 g/dL (6.4-8.2)
== END ==
LOC: ONCLAB 15:07
PROVIDERS: ATTEND Internal Medicine Hematology & Oncology
DX: C34.32 Malignant neoplasm of lower lobe, left bronchus or lung (principal)
CPT/HCPCS: 36415; 80053; 85025

== ENCOUNTER → 2020-10-09 | Outpatient (CLI) | payer MEDICARE, BC ==
[2020-10-09 16:13] LABS: BASO % 0 % (0-3); EOS # 0.1 x10^3/uL (0.0-0.7); EOS % 1 % (0-3); HEMATOCRIT 38.7 % (36.0-47.0); HEMOGLOBIN 12.5 g/dL (12.0-15.5); LYMPH % 18 % (24-48); MEAN CORPUSCULAR HEMOGLOBIN 28 pg (25-35); MEAN CORPUSCULAR HGB CONC 32 g/dL (31-37); MEAN CORPUSCULAR VOLUME 87 fL (79-100); MONO # 0.7 x10^3/uL (0.0-1.1); MONO % 12 % (0-9); NEUT # 3.9 x10^3/uL (1.8-7.7); NEUT % 69 % (31-73); PLATELET COUNT 200 x10^3/uL (140-400); RED BLOOD COUNT 4.48 x10^6/uL (3.50-5.40); RED CELL DISTRIBUTION WIDTH 18.3 % (11.5-14.5); WHITE BLOOD COUNT 5.7 x10^3/uL (4.0-11.0)
[2020-10-09 16:21] LABS: CALCIUM 9.6 mg/dL (8.5-10.1); CREATININE 1.2 mg/dL (0.6-1.0); GFR 43.7; POTASSIUM 4.5 mmol/L (3.5-5.1)
[2020-10-09 16:27] LABS: ALBUMIN 3.4 g/dL (3.4-5.0); ALBUMIN/GLOBULIN RATIO 1.1 (1.0-1.7); TOTAL BILIRUBIN 0.3 mg/dL (0.2-1.0); TOTAL PROTEIN 6.6 g/dL (6.4-8.2)
== END ==
LOC: ONCLAB 11:41
PROVIDERS: ATTEND Internal Medicine Hematology & Oncology
DX: C34.32 Malignant neoplasm of lower lobe, left bronchus or lung (principal)
CPT/HCPCS: 36415; 80053; 85025

== ENCOUNTER → 2020-10-09 | Outpatient (CLI) | payer MEDICARE, BC ==
--- NOTE | 2020-10-09 15:02 | EKG ---
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
== END ==
LOC: EKG 14:33
PROVIDERS: ATTEND Internal Medicine Hematology & Oncology
DX: C34.32 Malignant neoplasm of lower lobe, left bronchus or lung (principal)
CPT/HCPCS: 93005

== ENCOUNTER → 2020-11-26 | Outpatient (CLI) | payer MEDICARE, BC ==
[2020-10-17 15:00] VITALS: BP 99/56
[~2020-11-26] MED LIST changes: +ASPI-886 PO; +ATOR20TA58 PO; +FURO-69 PO; -LIPA1CAP12 PO; +LIPA1CAP31 PO; +LISI-517 PO; +METO-239 PO; +OSIM80TA PO
[2020-11-26 15:32] LABS: BASO % 1 % (0-3); EOS # 0.1 x10^3/uL (0.0-0.7); EOS % 2 % (0-3); HEMATOCRIT 35.9 % (36.0-47.0); HEMOGLOBIN 11.8 g/dL (12.0-15.5); LYMPH # 1.2 x10^3/uL (1.0-4.8); LYMPH % 21 % (24-48); MEAN CORPUSCULAR HEMOGLOBIN 28 pg (25-35); MEAN CORPUSCULAR HGB CONC 33 g/dL (31-37); MEAN CORPUSCULAR VOLUME 86 fL (79-100); MONO # 0.8 x10^3/uL (0.0-1.1); MONO % 14 % (0-9); NEUT # 3.4 x10^3/uL (1.8-7.7); NEUT % 62 % (31-73); PLATELET COUNT 197 x10^3/uL (140-400); RED BLOOD COUNT 4.18 x10^6/uL (3.50-5.40); RED CELL DISTRIBUTION WIDTH 15.7 % (11.5-14.5); WHITE BLOOD COUNT 5.4 x10^3/uL (4.0-11.0)
[2020-11-26 15:43] LABS: CALCIUM 9.4 mg/dL (8.5-10.1); GFR 53.9; POTASSIUM 4.4 mmol/L (3.5-5.1)
[2020-11-26 15:48] LABS: ALBUMIN 3.2 g/dL (3.4-5.0); ALBUMIN/GLOBULIN RATIO 0.9 (1.0-1.7); TOTAL BILIRUBIN 0.3 mg/dL (0.2-1.0); TOTAL PROTEIN 6.6 g/dL (6.4-8.2)
== END ==
LOC: ONCLAB 14:17
PROVIDERS: ATTEND Physician Assistant
DX: C34.32 Malignant neoplasm of lower lobe, left bronchus or lung (principal)
CPT/HCPCS: 36415; 80053; 85025

== ENCOUNTER → 2020-12-23 | Outpatient (CLI) | payer MEDICARE, BC ==
[2020-10-17 15:00] VITALS: BP 99/56
--- NOTE | 2020-12-23 17:24 | CARD ---
MR#: [id number] Date of Study: 12/23/2020 Ordering Physician: KEITH CODY, Referring Physician: Augie CHAPMAN: Delano Maldonado [facility] APPROVED REPORT EXAM: Two-dimensional and M-mode echocardiogram with Doppler and color Doppler. Other Information Quality : FairHR: 76bpm Rhythm : NSRTechnically limited study due to body habitus. INDICATION Dyspnea RISK FACTORS Hypertension Smoking Breast and Lung CA 2D DIMENSIONS Left Atrium(2D)3.2 (1.6-4.0cm)IVSd1.3 (0.7-1.1cm) Aortic Root(2D)3.1 (2.0-3.7cm)LVDd2.6 (3.9-5.9cm) LVOT Diameter1.8 (1.8-2.4cm)PWd1.4 (0.7-1.1cm) LVDs1.9 (2.5-4.0cm)FS (%) 26.6 % SV13.3 mlLVEF(%)54.1 (>50%) Aortic Valve AoV Peak Jose Antonio.175.8cm/sAoV VTI27.1cm AO Peak GR.12.4mmHgLVOT Peak Jose Antonio.166.0cm/s AO Mean GR.7mmHgAVA (VMAX)2.49cm2 Mitral Valve MV E Ncgzvgyz14.9cm/sMV E Peak Gr.5mmHg MV DECEL [id number] A Noxpvxqa380.6cm/s MV E Mean Gr.1mmHgE/A Ratio0.4 Pulmonary Valve PV Peak Kmdmyzoq67.4cm/s Tricuspid Valve TR P. Rfqlnain866sm/sTR Peak Gr.21mmHg LEFT VENTRICLE The left ventricle is normal size. There is mild concentric left ventricular hypertrophy. The left ve ntricular systolic function is normal and the ejection fraction is within normal range. EF 55% There is grossly normal LV segmental wall motion. Transmitral Doppler flow pattern is Grade I-abnormal rela xation pattern. No left ventricle thrombus noted on this study. There is no ventricular septal defect visualized. There is no left ventricular aneurysm. There is no mass noted in the left ventricle. RIGHT VENTRICLE The right ventricle is normal size. There is normal right ventricular wall thickness. The right ventr icular systolic function is normal. ATRIA The left atrium size is normal. The right atrium size is normal. The interatrial septum is intact wit h no evidence for an atrial septal defect or patent foramen ovale as noted on 2-D or Doppler imaging. AORTIC VALVE The aortic valve is moderately sclerotic due to annular calcification. Doppler and Color Flow reveale d trace aortic regurgitation. There is no significant aortic valvular stenosis. There is no aortic va lvular vegetation. MITRAL VALVE The mitral valve is thickened but opens well. There is no evidence of mitral valve prolapse. There is no mitral valve stenosis. Doppler and Color-flow revealed trace to mild mitral regurgitation. TRICUSPID VALVE The tricuspid valve is normal in structure and function. Doppler and Color Flow revealed trace to mil d tricuspid regurgitation. There is no tricuspid valve prolapse or vegetation. There is no tricuspid valve stenosis. PULMONIC VALVE Doppler and Color Flow revealed no pulmonic valvular regurgitation. There is no pulmonic valvular amber nosis. GREAT VESSELS The aortic root is normal in size. The ascending aorta is normal in size. The IVC is normal in size a nd collapses >50% with inspiration. Subcostal views were limited. PERICARDIAL EFFUSION There is no evidence of significant pericardial effusion. Critical Notification Critical Value: No <Conclusion> There is mild to moderate concentric LVH. Cannot rule out small component of LVOT obstruction (peak g radient of 7 mm Hg on current study) due to LVH. Clinical correlation recommended. The left ventricular systolic function is normal and the ejection fraction is within normal range. EF 55% There is grossly normal LV segmental wall motion. Technically difficult study Signed by : Tee Bella, Electronically Approved : 12/23/2020 17:24:11
== END ==
LOC: ECHO 14:14
PROVIDERS: ATTEND Internal Medicine Cardiovascular Disease
DX: I08.3 Combined rheumatic disorders of mitral, aortic and tricuspid valves (principal)
CPT/HCPCS: 93306

== ENCOUNTER → 2020-12-31 | Outpatient (CLI) | payer MEDICARE, BC ==
[2020-10-17 15:00] VITALS: BP 99/56
[2020-12-31 15:35] LABS: BASO % 0 % (0-3); EOS % 0 % (0-3); HEMATOCRIT 37.5 % (36.0-47.0); HEMOGLOBIN 12.3 g/dL (12.0-15.5); LYMPH # 1.1 x10^3/uL (1.0-4.8); LYMPH % 21 % (24-48); MEAN CORPUSCULAR HEMOGLOBIN 28 pg (25-35); MEAN CORPUSCULAR HGB CONC 33 g/dL (31-37); MEAN CORPUSCULAR VOLUME 86 fL (79-100); MONO # 0.8 x10^3/uL (0.0-1.1); MONO % 15 % (0-9); NEUT # 3.2 x10^3/uL (1.8-7.7); NEUT % 63 % (31-73); PLATELET COUNT 225 x10^3/uL (140-400); RED BLOOD COUNT 4.36 x10^6/uL (3.50-5.40); RED CELL DISTRIBUTION WIDTH 15.7 % (11.5-14.5); WHITE BLOOD COUNT 5.1 x10^3/uL (4.0-11.0)
[2020-12-31 15:45] LABS: CALCIUM 9.2 mg/dL (8.5-10.1); GFR 53.8; POTASSIUM 3.6 mmol/L (3.5-5.1)
[2020-12-31 15:52] LABS: ALBUMIN 3.3 g/dL (3.4-5.0); ALBUMIN/GLOBULIN RATIO 0.9 (1.0-1.7); TOTAL BILIRUBIN 0.4 mg/dL (0.2-1.0)
== END ==
LOC: ONCLAB 15:06
PROVIDERS: ATTEND Internal Medicine Hematology & Oncology
DX: C34.32 Malignant neoplasm of lower lobe, left bronchus or lung (principal)
CPT/HCPCS: 36415; 80053; 85025

== ENCOUNTER → 2021-01-02 | Outpatient (CLI) | payer MEDICARE, BC ==
[2020-10-17 15:00] VITALS: BP 99/56
[~2021-01-02] MED LIST changes: +CONTRAST GIVEN. MC PRN; +IOHEXOL 240 MG/ML 50ML VIAL. PO ONE; +IOHEXOL 300 MG/ML 100ML VIAL. IV ONE
--- NOTE | 2021-01-02 15:32 | RAD ---
EXAM: CT OF THE CHEST, ABDOMEN AND PELVIS WITH CONTRAST. HISTORY: Lung cancer. TECHNIQUE: Computed tomography of the chest, abdomen and pelvis was performed after the intravenous a dministration of iodinated contrast. One or more of the following individualized dose reduction techn iques were utilized for this examination: 1. Automated exposure control. 2. Adjustment of the mA and/or kV according to patient size. 3. Use of iterative reconstruction technique. COMPARISON: 10/14/2020. FINDINGS: Bone windows reveal sclerotic lesions status post laminectomies within T4-T6. Others are no debi within the left posterior eighth rib, L5 and right iliac wing. No new lesions are seen. Changes o f cervical fusion are partially visualized. There are no pathologically enlarged mediastinal or axillary lymph nodes. There is no pleural or lisa cardial effusion. The heart is not enlarged. There is a normal variant origin of the left vertebral a rtery directly from the aortic arch. Multiple small bilateral pulmonary nodules are stable. The largest is scarlike within the right upper lobe on image 30, measuring 8 x 4 mm. Posttreatment changes are again noted within the right infrahi lar region. A cystic and solid mass at the right renal upper pole measures 6.0 x 5.0 cm, decreased from 6.9 cm pr eviously. The solid component appears stable and 2.9 x 2.5 cm. The gallbladder is surgically absent. The common duct is mildly dilated at 8 mm, stable. The pancreas , adrenal glands, liver, and spleen are unremarkable. There is a small cyst at the left renal lower p ole. There is diffuse bladder wall thickening. There is no small bowel obstruction. The uterus is surgical ly absent. IMPRESSION: 1. Stable osseous metastatic disease. No evidence of new metastatic disease. 2. Scattered bilateral pulmonary nodules are stable. Attention on further follow-up. 3. The solid component of a cystic and solid neoplasm in the right renal upper pole is stable. The cy stic component has decreased. 4. Nonfocal bladder wall thickening suggests chronic outlet obstruction or inflammation. Correlate urinalysis. 5. Phone cholestasis Electronically signed by: Oliverio Nguyen MD (01/02/2021 3:30 PM) [id number]
== END ==
LOC: CT 11:03
PROVIDERS: ATTEND Internal Medicine Hematology & Oncology
DX: Z01.810 Encounter for preprocedural cardiovascular examination (principal); C79.51 Secondary malignant neoplasm of bone; N28.1 Cyst of kidney, acquired; K83.1 Obstruction of bile duct; Z90.49 Acquired absence of other specified parts of digestive tract
CPT/HCPCS: 71260; 74177; Q9966; Q9967

== ENCOUNTER → 2021-01-21 | Outpatient (CLI) | payer MEDICARE, BC ==
[2020-10-17 15:00] VITALS: BP 99/56
[~2021-01-21] MED LIST changes: -CONTRAST GIVEN. MC PRN; -IOHEXOL 240 MG/ML 50ML VIAL. PO ONE; -IOHEXOL 300 MG/ML 100ML VIAL. IV ONE; -LISI-517 PO; +LISI5TAB15 PO
[2021-01-21 15:08] LABS: BASO % 1 % (0-3); EOS % 0 % (0-3); HEMATOCRIT 35.1 % (36.0-47.0); HEMOGLOBIN 11.4 g/dL (12.0-15.5); LYMPH # 1.3 x10^3/uL (1.0-4.8); LYMPH % 20 % (24-48); MEAN CORPUSCULAR HEMOGLOBIN 27 pg (25-35); MEAN CORPUSCULAR HGB CONC 32 g/dL (31-37); MEAN CORPUSCULAR VOLUME 85 fL (79-100); MONO # 0.8 x10^3/uL (0.0-1.1); MONO % 12 % (0-9); NEUT # 4.2 x10^3/uL (1.8-7.7); NEUT % 67 % (31-73); PLATELET COUNT 227 x10^3/uL (140-400); RED BLOOD COUNT 4.15 x10^6/uL (3.50-5.40); RED CELL DISTRIBUTION WIDTH 16.5 % (11.5-14.5); WHITE BLOOD COUNT 6.3 x10^3/uL (4.0-11.0)
[2021-01-21 15:24] LABS: CALCIUM 9.2 mg/dL (8.5-10.1); GFR 53.8
[2021-01-21 15:30] LABS: ALBUMIN 3.2 g/dL (3.4-5.0); ALBUMIN/GLOBULIN RATIO 0.9 (1.0-1.7); TOTAL BILIRUBIN 0.3 mg/dL (0.2-1.0); TOTAL PROTEIN 6.7 g/dL (6.4-8.2)
== END ==
LOC: ONCLAB 14:52
PROVIDERS: ATTEND Internal Medicine Hematology & Oncology
DX: C34.32 Malignant neoplasm of lower lobe, left bronchus or lung (principal)
CPT/HCPCS: 36415; 80053; 85025

== ENCOUNTER → 2021-06-03 | Outpatient (CLI) | payer MEDICARE, BC ==
[2020-10-17 15:00] VITALS: BP 99/56
[~2021-06-03] MED LIST changes: +CONTRAST GIVEN. MC PRN; +IOHEXOL 240 MG/ML 50ML VIAL. PO ONE; +IOHEXOL 300 MG/ML 100ML VIAL. IV ONE
[2021-06-03 13:27] LABS: CREATININE 1.1 mg/dL (0.6-1.0); GFR 48.2
--- NOTE | 2021-06-03 17:50 | RAD ---
EXAM: Chest, abdomen and pelvis CT with intravenous contrast. HISTORY: Lung cancer restaging. TECHNIQUE: Computed tomographic images of the chest, abdomen and pelvis were obtained following the a dministration of intravenous contrast. Multiplanar reformatting was performed. *One or more of the following individualized dose reduction techniques were utilized for this examina tion: 1. Automated exposure control. 2. Adjustment of the mA and/or kV according to patient size. 3. Use of iterative reconstruction technique. COMPARISON: 01/02/2021. FINDINGS: Chest: There is stable left hemithorax volume loss with leftward mediastinal shift. There i s stable superior right paramediastinal and infrahilar pleural parenchymal scarring. There are multip le stable nonspecific groundglass opacities within both lungs, the largest of which measures 1.2 cm w ithin the right middle lobe. The heart is normal in size. There are calcified granulomas. There is no pathologically enlarged mediastinal or hilar lymph node. There are implanted breast prostheses. There is a small hiatal hernia. There are stable sclerotic les ions involving the T4-T6 vertebral bodies and posterior elements and there are T4-T6 laminotomy polk es. There is instrumented anterior spinal fusion and interbody fusion involving the visualized cervic al spine. There is also a sclerotic lesion within the left posterior eighth rib. These are superimpos ed on bone demineralization. Abdomen and pelvis: There is biliary ductal dilatation due to reservoir effect status post cholecyste ctomy. No pancreatic lesion is seen. The spleen is normal in size. The adrenal glands are unremarkabl e. There are multiple renal cysts, the largest of which is seen on the right measuring 5.6 cm. This c ontains a solid mural component measuring 3.0 cm, stable in appearance. The remainder the cysts are s imple in appearance. There is a prominent renal collecting system without kyler hydronephrosis. No ob structing lesion is seen. The bladder is unremarkable. There is no evidence of bowel obstruction. There is aortic atherosclerosis. There is no aneurysm. The re is no lymphadenopathy. There are stable sclerotic lesions within the posterior aspect of L5, the r ight iliac bone, the left sacrum and the left pubic body. There are a few superimposed benign bone is lands. There is bone demineralization. There is no pathologic fracture. IMPRESSION: 1. Stable osseous metastatic disease. No pathologic fracture is seen. 2. Stable right superior paramediastinal and infrahilar pleural parenchymal scarring likely due to ra diation therapy. 3. Stable scattered groundglass opacities throughout both lungs. These may be infectious, inflammator y or neoplastic. Continued attention at the time of follow-up is recommended. 4. Stable 3.0 cm solid mural component within a right renal cyst. This is concerning for renal neopla sm. Electronically signed by: Kasandra Artis MD (06/03/2021 5:47 PM) [id number]
== END ==
LOC: CT 12:33
PROVIDERS: ATTEND Internal Medicine Hematology & Oncology
DX: C79.51 Secondary malignant neoplasm of bone (principal); C34.32 Malignant neoplasm of lower lobe, left bronchus or lung; R91.8 Other nonspecific abnormal finding of lung field; N28.1 Cyst of kidney, acquired; K44.9 Diaphragmatic hernia without obstruction or gangrene; J84.10 Pulmonary fibrosis, unspecified; G95.89 Other specified diseases of spinal cord; K83.8 Other specified diseases of biliary tract; I70.0 Atherosclerosis of aorta; M81.8 Other osteoporosis without current pathological fracture; Z90.49 Acquired absence of other specified parts of digestive tract
CPT/HCPCS: 36415; 71260; 74177; 82565; Q9966; Q9967

== ENCOUNTER → 2021-06-04 | Outpatient (CLI) | payer MEDICARE, BC ==
[2020-10-17 15:00] VITALS: BP 99/56
[~2021-06-04] MED LIST changes: -CONTRAST GIVEN. MC PRN; -IOHEXOL 240 MG/ML 50ML VIAL. PO ONE; -IOHEXOL 300 MG/ML 100ML VIAL. IV ONE
[2021-06-04 16:17] LABS: BASO % 1 % (0-3); EOS % 0 % (0-3); HEMATOCRIT 39.6 % (36.0-47.0); LYMPH # 1.4 x10^3/uL (1.0-4.8); LYMPH % 28 % (24-48); MEAN CORPUSCULAR HEMOGLOBIN 28 pg (25-35); MEAN CORPUSCULAR HGB CONC 33 g/dL (31-37); MEAN CORPUSCULAR VOLUME 85 fL (79-100); MONO # 0.6 x10^3/uL (0.0-1.1); MONO % 11 % (0-9); NEUT # 2.9 x10^3/uL (1.8-7.7); NEUT % 60 % (31-73); PLATELET COUNT 216 x10^3/uL (140-400); RED BLOOD COUNT 4.66 x10^6/uL (3.50-5.40); RED CELL DISTRIBUTION WIDTH 16.8 % (11.5-14.5); WHITE BLOOD COUNT 4.9 x10^3/uL (4.0-11.0)
[2021-06-04 16:27] LABS: CALCIUM 9.6 mg/dL (8.5-10.1); CREATININE 1.1 mg/dL (0.6-1.0); GFR 48.2; POTASSIUM 4.5 mmol/L (3.5-5.1)
[2021-06-04 16:32] LABS: ALBUMIN 3.7 g/dL (3.4-5.0); ALBUMIN/GLOBULIN RATIO 1.1 (1.0-1.7); TOTAL BILIRUBIN 0.5 mg/dL (0.2-1.0); TOTAL PROTEIN 7.2 g/dL (6.4-8.2)
== END ==
LOC: ONCLAB 15:47
PROVIDERS: ATTEND Internal Medicine Hematology & Oncology
DX: C34.32 Malignant neoplasm of lower lobe, left bronchus or lung (principal); N28.89 Other specified disorders of kidney and ureter
CPT/HCPCS: 36415; 80053; 83615; 85025

== ENCOUNTER → 2021-08-05 | Outpatient (CLI) | payer MEDICARE, BC ==
[2020-10-17 15:00] VITALS: BP 99/56
[~2021-08-05] MED LIST changes: -OMEP20TA8 PO; +OMEP20TA91 PO
[2021-08-05 15:24] LABS: BASO # 0.1 x10^3/uL (0.0-0.2); BASO % 1 % (0-3); EOS % 0 % (0-3); HEMOGLOBIN 12.1 g/dL (12.0-15.5); LYMPH # 1.5 x10^3/uL (1.0-4.8); LYMPH % 25 % (24-48); MEAN CORPUSCULAR HEMOGLOBIN 28 pg (25-35); MEAN CORPUSCULAR HGB CONC 33 g/dL (31-37); MEAN CORPUSCULAR VOLUME 85 fL (79-100); MONO # 0.6 x10^3/uL (0.0-1.1); MONO % 10 % (0-9); NEUT % 65 % (31-73); PLATELET COUNT 257 x10^3/uL (140-400); RED BLOOD COUNT 4.35 x10^6/uL (3.50-5.40); RED CELL DISTRIBUTION WIDTH 15.7 % (11.5-14.5); WHITE BLOOD COUNT 6.2 x10^3/uL (4.0-11.0)
[2021-08-05 15:33] LABS: CALCIUM 9.5 mg/dL (8.5-10.1); CREATININE 1.2 mg/dL (0.6-1.0); GFR 43.6; POTASSIUM 4.9 mmol/L (3.5-5.1)
[2021-08-05 15:39] LABS: ALBUMIN 3.2 g/dL (3.4-5.0); ALBUMIN/GLOBULIN RATIO 0.9 (1.0-1.7); TOTAL BILIRUBIN 0.4 mg/dL (0.2-1.0); TOTAL PROTEIN 6.9 g/dL (6.4-8.2)
== END ==
LOC: ONCLAB 15:05
PROVIDERS: ATTEND Internal Medicine Hematology & Oncology
DX: C34.32 Malignant neoplasm of lower lobe, left bronchus or lung (principal)
CPT/HCPCS: 36415; 80053; 85025